=== PATIENT | female | born 1945 | race Caucasian/White ===

== ENCOUNTER 2018-12-25 23:43 | Observation (INO) | payer MEDICARE, BC ==
[2018-12-26] MEDS ORDERED: methylPREDNISolone Sodium Succinate 125 MG/2 ML SDV IVPUSH ONE (00:03)
[2018-12-26] MEDS ORDERED: Sodium Chloride 0.9% 10 ML Syringe FLUSH PRN (00:07)
--- NOTE | 2018-12-26 01:59 | EDM.PDOC ---
ED HPI GENERAL MEDICAL PROBLEM - General Chief Complaint: Respiratory Problem Stated Complaint: SOB Time Seen by Provider: 12/26/18 01:52 Source of Information: Reports: Patient - History of Present Illness INITIAL COMMENTS - FREE TEXT/NARRATIVE: Patient is a 73 YO F who presented to the ED because of worsening dyspnea tonight. She has a history of pulmonary fibrosis and pulmonary hypertension and her pulmonary care is at [facility] in [place]. She is on home oxygen at 2-3 L with an oxygen saturation of 85-90%, however tonight she has just been 80% on 3 L with labored breathing. She also has been having non- productive cough x 2 weeks now with associated low grade fever which started today. She denies any chest pain,edema, but easily get winded just walking 3 steps. Treatments DIRECTOR OF FIELD COORDINATION: Reports: Other (see below) Other Treatments DIRECTOR OF FIELD COORDINATION: cpap - Related Data Allergies Allergy/AdvReac Type Severity Reaction Status Date / Time No Known Allergies Allergy Verified 12/25/18 23:49 Home Meds: Home Meds Acetaminophen [Tylenol Extra Strength] 500 - 1,000 mg PO Q4H PRN 12/26/18 [ History] Albuterol [Ventolin HFA] 1 - 2 puff INH Q4H PRN 12/26/18 [History] Aspirin 81 mg PO MOWEFR 12/26/18 [History] Calcium Carbonate/Vitamin D3 [Calcium 500 mg Chewable Tablet] 2 tab PO DAILY [History] Cholecalciferol (Vitamin D3) [Vitamin D3] 1,000 unit PO DAILY 12/26/18 [History] Cyanocobalamin (Vitamin B-12) [Vitamin B-12] 1,000 mcg PO DAILY 12/26/18 [ History] Ethacrynic Acid 25 mg PO DAILY 12/26/18 [History] FLUoxetine HCl [Fluoxetine HCl] 40 mg PO DAILY 12/26/18 [History] Ferrous Fumarate/Vitamin C [Vitron-C] 1 tab PO DAILY 12/26/18 [History] Flaxseed Oil [Flax Oil] 1,000 mg PO DAILY 12/26/18 [History] Gabapentin [Neurontin] 600 mg PO BID 12/26/18 [History] Insulin Aspart [NovoLOG] 18 units SQ TIDAC 12/26/18 [History] Insulin Glarg,Human.Rec.Analog [Lantus Solostar] 30 unit SQ BEDTIME 12/26/18 [ History] Lutein 20 mg PO DAILY 12/26/18 [History] Macitentan [Opsumit] 10 mg PO DAILY 12/26/18 [History] Metoprolol Tartrate 25 mg PO BID 12/26/18 [History] Miconazole Nitrate [Zeasorb AF] 1 applic TOP BID 12/26/18 [History] Mirabegron [Myrbetriq] 50 mg PO DAILY 12/26/18 [History] Mycophenolate Mofetil [Cellcept] 500 mg PO BID 12/26/18 [History] [place]-3/DHA/Epa/Fish Oil [Fish Oil [place]-3 EC 1,200 mg] 1 tab PO DAILY 12/26/18 [History] Omeprazole 20 mg PO DAILY 12/26/18 [History] Pravastatin Sodium 20 mg PO DAILY 12/26/18 [History] Sildenafil Citrate 20 mg PO TID 12/26/18 [History] Tacrolimus [Prograf] 0.5 mg PO BID 12/26/18 [History] Trimethoprim 100 mg pe PO DAILY 12/26/18 [History] Past Medical History Cardiovascular History: Reports: High Cholesterol, Hypertension, Pulmonary Hypertension Respiratory History: Reports: Pulmonary Fibrosis Gastrointestinal History: Reports: Chronic Constipation, GERD Genitourinary History: Reports: None Endocrine/Metabolic History: Reports: Diabetes, Type II Social & Family History - Tobacco Use Smoking Status *Q: Never Smoker - Caffeine Use Caffeine Use: Reports: None - Recreational Drug Use Recreational Drug Use: No ED ROS GENERAL - Review of Systems Review Of Systems: See Below Constitutional: Reports: Fever, Malaise HEENT: Reports: No Symptoms Respiratory: Reports: Shortness of Breath, Cough Cardiovascular: Reports: Dyspnea on Exertion Endocrine: Reports: High Glucose GI/Abdominal: Reports: No Symptoms : Reports: No Symptoms Musculoskeletal: Reports: No Symptoms Skin: Reports: No Symptoms Neurological: Reports: No Symptoms Psychiatric: Reports: No Symptoms Hematologic/Lymphatic: Reports: No Symptoms Immunologic: Reports: No Symptoms ED EXAM, GENERAL - Physical Exam Exam: See Below Exam Limited By: No Limitations General Appearance: Alert, Anxious, Mild Distress Eye Exam: Bilateral Eye: PERRL Ears: Normal External Exam, Normal Canal Ear Exam: Bilateral Ear: Auricle Normal, Canal Normal, TM normal Nose: Normal Inspection, Normal Mucosa Throat/Mouth: Normal Inspection, Normal Lips, Normal Teeth, Normal Oropharynx Head: Atraumatic, Normocephalic Neck: Normal Inspection, Supple, Non-Tender, Full Range of Motion Respiratory/Chest: Lungs Clear, Chest Non-Tender, Other (decrease BS on bases). No: Rales, Rhonchi, Wheezing Cardiovascular: Normal Peripheral Pulses, Regular Rate, Rhythm, No Edema, No JVD , No Murmur, No Rub Course - Vital Signs Text/Narrative:: labs reviewed and discussed with patient and EKG NSR Trop-neg [id number] WBC-13 cpap solumedrol 125 mg IV x1 Last Recorded V/S: Last Vital Signs Temp 38.2 C H 12/25/18 23:43 Pulse 80 12/25/18 23:43 Resp 24 H 12/25/18 23:43 BP 117/45 L 12/25/18 23:43 Pulse Ox 87 L 12/25/18 23:43 - Orders/Labs/Meds Orders: Active Orders 24 hr Category Date Time Status Patient Status Manage Transfer [TRANSFER] Routine ADT 12/26/18 01:14 Active Patient Status [ADT] Routine ADT 12/26/18 01:23 Active CPAP Adult [RT BiPAP/CPAP] [RC] ASDIRECTED Care 12/26/18 01:47 Active EKG Documentation Completion [RC] ASDIRECTED Care 12/26/18 00:05 Active Oxygen Therapy [RC] PRN Care 12/26/18 01:23 Active Pulse Oximetry [RC] CONTINUOUS Care 12/26/18 01:25 Active Up With Assistance [RC] ASDIRECTED Care 12/26/18 01:23 Active VTE/DVT Education [RC] Per Unit Routine Care 12/26/18 01:23 Active Vital Signs [RC] Q4H Care 12/26/18 01:23 Active Heart Healthy Diet [DIET] Diet 12/26/18 Breakfast Ordered Chest 1V Frontal [CR] Stat Exams 12/26/18 00:01 Taken Enoxaparin [Lovenox] Med 12/26/18 01:30 Pending 40 mg SUBCUT Q24H Sodium Chloride 0.9% [Saline Flush] Med 12/26/18 00:07 Active 10 ml FLUSH ASDIRECTED PRN Saline Lock Insert [OM.PC] Routine Oth 12/26/18 00:07 Ordered Resuscitation Status Routine Resus Stat 12/26/18 01:23 Ordered EKG 12 Lead [EK] Routine Ther 12/26/18 00:05 Ordered Medication Orders Enoxaparin Sodium (Lovenox) 40 mg SUBCUT Q24H CHENCHO Sodium Chloride (Saline Flush) 10 ml FLUSH ASDIRECTED PRN PRN Reason: Keep Vein Open Last Admin: 12/26/18 00:22 Dose: 10 ml Labs: Laboratory Tests 12/26/18 12/26/18 12/26/18 Range/Units 00:18 00:18 00:18 WBC 13.4 H (4.5-12.0) X10-3/uL RBC 4.51 (3.23-5.20) x10(6)uL Hgb 13.9 (11.5-15.5) g/dL Hct 41.7 (30.0-51.3) % MCV 92.5 (80-96) fL MCH 30.7 (27.7-33.6) pg MCHC 33.2 (32.2-35.4) g/dL RDW 13.4 (11.5-15.5) % Plt Count 313 (125-369) X10(3)uL MPV 7.9 (7.4-10.4) fL Neutrophils % (Manual) 68 (46-82) % Band Neutrophils % 4 (0-6) % Lymphocytes % (Manual) 18 (13-37) % Monocytes % (Manual) 7 (4-12) % Eosinophils % (Manual) 3 (0-5) % Sodium 137 (135-145) mmol/L Potassium 5.2 (3.5-5.3) mmol/L Chloride 103 (100-110) mmol/L Carbon Dioxide 21 (21-32) mmol/L BUN 34 H (7-18) mg/dL Creatinine 1.9 H (0.55-1.02) mg/dL Est Cr Clr Drug Dosing TNP Estimated GFR (MDRD) 26 L (>60) BUN/Creatinine Ratio 17.9 (9-20) Glucose 120 H (80-116) mg/dL Lactic Acid 2.0 (0.4-2.2) mmol/L Calcium 9.1 (8.6-10.2) mg/dL Troponin I (<0.017-0.056) ng/mL NT-Pro-B Natriuret Pep (<=125) pg/mL 12/26/18 12/26/18 Range/Units 00:18 00:18 WBC (4.5-12.0) X10-3/uL RBC (3.23-5.20) x10(6)uL Hgb (11.5-15.5) g/dL Hct (30.0-51.3) % MCV (80-96) fL MCH (27.7-33.6) pg MCHC (32.2-35.4) g/dL RDW (11.5-15.5) % Plt Count (125-369) X10(3)uL MPV (7.4-10.4) fL Neutrophils % (Manual) (46-82) % Band Neutrophils % (0-6) % Lymphocytes % (Manual) (13-37) % Monocytes % (Manual) (4-12) % Eosinophils % (Manual) (0-5) % Sodium (135-145) mmol/L Potassium (3.5-5.3) mmol/L Chloride (100-110) mmol/L Carbon Dioxide (21-32) mmol/L BUN (7-18) mg/dL Creatinine (0.55-1.02) mg/dL Est Cr Clr Drug Dosing Estimated GFR (MDRD) (>60) BUN/Creatinine Ratio (9-20) Glucose (80-116) mg/dL Lactic Acid (0.4-2.2) mmol/L Calcium (8.6-10.2) mg/dL Troponin I < 0.017 L (<0.017-0.056) ng/mL NT-Pro-B Natriuret Pep 2391 H* (<=125) pg/mL Meds: Medications Generic Name Dose Route Start Last Admin Trade Name Freq PRN Reason Stop Dose Admin Enoxaparin Sodium 40 mg 12/26/18 01:30 Lovenox SUBCUT Q24H CHENCHO Sodium Chloride 10 ml 12/26/18 00:07 12/26/18 00:22 Saline Flush FLUSH 10 ml ASDIRECTED PRN Administration Keep Vein Open Discontinued Medications Generic Name Dose Route Start Last Admin Trade Name Freq PRN Reason Stop Dose Admin Methylprednisolone Sodium Succinate 125 mg 12/26/18 00:03 12/26/18 00:19 Solu-Medrol IVPUSH 12/26/18 00:04 125 mg ONETIME ONE Administration Departure - Departure Time of Disposition: 12:15 Disposition: Refer to Observation Condition: Good Clinical Impression: Pulmonary fibrosis, Pulmonary hypertension, Hypoxemia - Discharge Information Referrals: Shubham Cox MD [Primary Care Provider] - - My Orders Last 24 Hours: My Active Orders 12/26/18 00:01 Chest 1V Frontal [CR] Stat 12/26/18 00:05 EKG Documentation Completion [RC] ASDIRECTED EKG 12 Lead [EK] Routine 12/26/18 00:07 Sodium Chloride 0.9% [Saline Flush] 10 ml FLUSH ASDIRECTED PRN Saline Lock Insert [OM.PC] Routine 12/26/18 01:14 Patient Status Manage Transfer [TRANSFER] Routine 12/26/18 01:23 Patient Status [ADT] Routine Oxygen Therapy [RC] PRN Up With Assistance [RC] ASDIRECTED VTE/DVT Education [RC] Per Unit Routine Vital Signs [RC] Q4H Resuscitation Status Routine 12/26/18 01:25 Pulse Oximetry [RC] CONTINUOUS 12/26/18 01:30 Enoxaparin [Lovenox] 40 mg SUBCUT Q24H 12/26/18 01:47 CPAP Adult [RT BiPAP/CPAP] [RC] ASDIRECTED 12/26/18 Breakfast Heart Healthy Diet [DIET] - Assessment/Plan Last 24 Hours: My Active Orders 12/26/18 00:01 Chest 1V Frontal [CR] Stat 12/26/18 00:05 EKG Documentation Completion [RC] ASDIRECTED EKG 12 Lead [EK] Routine 12/26/18 00:07 Sodium Chloride 0.9% [Saline Flush] 10 ml FLUSH ASDIRECTED PRN Saline Lock Insert [OM.PC] Routine 12/26/18 01:14 Patient Status Manage Transfer [TRANSFER] Routine 12/26/18 01:23 Patient Status [ADT] Routine Oxygen Therapy [RC] PRN Up With Assistance [RC] ASDIRECTED VTE/DVT Education [RC] Per Unit Routine Vital Signs [RC] Q4H Resuscitation Status Routine 12/26/18 01:25 Pulse Oximetry [RC] CONTINUOUS 12/26/18 01:30 Enoxaparin [Lovenox] 40 mg SUBCUT Q24H 12/26/18 01:47 CPAP Adult [RT BiPAP/CPAP] [RC] ASDIRECTED 12/26/18 Breakfast Heart Healthy Diet [DIET]
[2018-12-26] MEDS ORDERED: methylPREDNISolone Sodium Succinate 125 MG/2 ML SDV IVPUSH SCH ×2 (02:00→08:00)
[2018-12-26] MEDS ORDERED: Enoxaparin 30 MG/0.3 ML Syringe SUBCUT SCH (02:45)
[2018-12-26] MEDS ORDERED: Albuterol 8 GM Inhaler INH PRN (02:56)
[2018-12-26] MEDS ORDERED: Acetaminophen 500 MG Tab PO PRN (02:56)
[2018-12-26] MEDS ORDERED: INSULIN ASPART 18 UNIT SQ SCH (07:30)
[2018-12-26] MEDS ORDERED: NOVOLOG SUBCUT SCH (08:12)
[2018-12-26] MEDS ORDERED: Metoprolol Tartrate 25 MG Tab PO SCH (09:00)
[2018-12-26] MEDS ORDERED: FLAXSEED OIL 1200 MG PO SCH (09:00)
[2018-12-26] MEDS ORDERED: Aspirin 81 MG Tab.EC *PTOM PO SCH (09:00)
[2018-12-26] MEDS ORDERED: TACROLIMUS 0.5 MG PO SCH (09:00)
[2018-12-26] MEDS ORDERED: VITAMIN D3 PO SCH (09:00)
[2018-12-26] MEDS ORDERED: DHA PO SCH (09:00)
[2018-12-26] MEDS ORDERED: MIRABEGRON 50 MG PO SCH (09:00)
[2018-12-26] MEDS ORDERED: SILDENAFIL 20 MG PO SCH (09:00)
[2018-12-26] MEDS ORDERED: FLAXSEED OIL 1000 MG PO SCH (09:00)
[2018-12-26] MEDS ORDERED: Gabapentin 600 MG Tab *PTOM PO SCH (09:00)
[2018-12-26] MEDS ORDERED: MYCOPHENOLATE MOFETIL 500 MG PO SCH (09:00)
[2018-12-26] MEDS ORDERED: MACITENTAN 10 MG PO SCH (09:00)
[2018-12-26] MEDS ORDERED: Cyanocobalamin (Vitamin B12) 1,000 MCG Tab *PTOM PO SCH (09:00)
[2018-12-26] MEDS ORDERED: CALCIUM CARBONATE PO SCH (09:00)
[2018-12-26] MEDS ORDERED: FISH OIL PO SCH (09:00)
[2018-12-26] MEDS ORDERED: OMEGA PO SCH (09:00)
[2018-12-26] MEDS ORDERED: EPA PO SCH (09:00)
[2018-12-26] MEDS ORDERED: [UNRECOGNIZED DRUG - OTHER] PO SCH (09:00)
[2018-12-26] MEDS ORDERED: MICONAZOLE NITRATE TOP SCH (09:00)
[2018-12-26] MEDS ORDERED: PRAVASTATIN 20 MG PO SCH (09:00)
[2018-12-26] MEDS ORDERED: TRIMETHOPRIM 100 MG PO SCH (09:00)
[2018-12-26] MEDS ORDERED: Insulin Glargine,Human Rec. Analog 100 Units/ML 3 ML Pen *PTOM SUBCUT SCH (21:00)
[2018-12-27] MEDS ORDERED: Enoxaparin 30 MG/0.3 ML Syringe SUBCUT SCH (08:00)
--- NOTE | 2018-12-27 11:26 | HP ---
ADMISSION DATE: 12/26/2018 HISTORY: Karol is a 73-year-old woman with a history of steatohepatitis, resultant cirrhosis, and liver transplant. She has been followed at the [facility] for this since her transplant in 2010. At that time, she was found to have hepatocellular carcinoma. 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 The patient was admitted from the ER last evening because of increased shortness of breath and decreased oxygen saturation level. According to the patient, she has had a mild cough for the past couple of weeks, but without fever, chills, sweats, or symptoms of infection. Yesterday, she had extremely active day where she was up to [place], went shopping, went out to supper with friends, and then after getting home, she found she was more short of breath. She felt slight chills and dyspnea. The ambulance was summoned. They came and found her O2 saturation dropped down into the 70s and applied CPAP during transport to hospital. She was seen in the emergency room, treated with IV steroid, oxygen by mask, and admitted to the hospital. She says overnight she has improved dramatically back to her baseline. She did not have any fever or chills overnight. Her oxygen saturations at 4 L remained up in the 96% range back to her baseline. Chest x-ray was done, showed no sign of pneumonia and borderline heart size, consistent with the previous echocardiogram done at the [facility]. She is examined this morning in the room with her present. PAST MEDICAL HISTORY: See above. MEDICATIONS: See extensive list updated on admission. REVIEW OF SYSTEMS: Positive for chills, but no other symptoms of systemic infection. No recent changes in hearing or vision. No sore throat or URI. She does have a chronic cough that she states is essentially nonproductive. No chest pain or palpitations. No abdominal pain, nausea, or diarrhea. She does report swelling of her ankles at the end of the day that are down to normal by mornings. This is not a new change. PHYSICAL EXAMINATION: GENERAL: She is alert, comfortable, and a good historian. VITAL SIGNS: Blood pressure 116/59, pulse 60 and regular, respirations 20, O2 saturation 92% on 4 liters nasal cannula oxygen, and temperature 98.4. SKIN: Anicteric, warm, dry without rash. HEENT: Shows mouth to be dry. LUNGS: Have distant vesicular type breath sounds with dry rales at the left greater than right bases. HEART: Regular with a soft systolic murmur over the precordium. ABDOMEN: Normal bowel sounds. Soft, obese, nontender with a firm mass consistent with liver transplant in the right lateral abdomen. EXTREMITIES: No edema and intact dorsalis pedis pulses. LABORATORY DATA: White count 13,400, hemoglobin 13.9, 68 segs, 4 bands, 18 lymphocytes, 7 monos, 3 eos. Electrolytes normal. BUN 34, creatinine 1.9. ProBNP 2391. Troponin less than 0.017. Chest x-ray clear. ASSESSMENT: 1. Transient drop in O2 saturation with dyspnea, multifactorial with biggest component being pulmonary fibrosis with right-sided ventricular strain exacerbated by above normal amount of activity and exertion. 2. Underlying hepatopulmonary syndrome post liver transplant for nonalcoholic steatohepatitis and hepatocellular carcinoma. 3. Type 2 diabetes. 4. Hyperlipidemia. 5. Chronic immunosuppression on Prograf. 6. Osteoporosis. 7. History of hypertension. PLAN: At this time, we will continue her current medications. She has received two doses of IV steroid, and we will discontinue that. Anticipate a brief hospitalization with return to home. /[id number] EUSEBIO/KASANDRA
--- NOTE | 2018-12-27 12:04 | DISCH ---
DISCHARGE DATE: 12/26/2018 FINAL DIAGNOSIS: Acute exacerbation of pulmonary hypertension with hypoxia. OTHER DIAGNOSES: Status post liver transplant with hepatopulmonary syndrome; type 2 diabetes; history of hepatocellular carcinoma; oxygen dependence; chronic immunosuppression posttransplant; chronic kidney disease, stage 3; osteoporosis; hyperlipidemia; chronic essential hypertension; gastroesophageal reflux disease; and mixed urinary incontinence. OPERATIONS: None. COMPLICATIONS: None. HOSPITAL COURSE: Mrs. Valdes is a 73-year-old woman with the above medical problems, who was admitted because of dyspnea and a drop in O2 saturation at home, post a long day of shopping and physical activity. She was brought to the ER by ambulance on CPAP because of low O2 saturation. She normally is on 3 L of nasal cannula oxygen at home. On admission, chest x-ray was clear. She was afebrile. Her oxygen was switched off the CPAP back to mask in the nasal cannula, and her oxygen saturations stayed up into the 90s on 4 L. She was admitted to the hospital overnight and by the next morning, felt well and back to her baseline. DISCHARGE MEDICATIONS: She is discharged to home to continue medications as follows: 1. Trimethoprim 100 mg daily. 2. Prograf 0.5 mg b.i.d. 3. Sildenafil 20 mg t.i.d. 4. Pravachol 20 mg daily. 5. Prilosec 20 mg daily. 6. Fish oil one daily. 7. Mycophenolate 500 mg b.i.d. 8. Myrbetriq 50 mg daily. 9. Miconazole powder p.r.n. 10.Metoprolol 25 mg b.i.d. 11.Opsumit 10 mg daily. 12.Lutein 20 mg daily. 13.Lantus 30 units at bedtime. 14.NovoLog 18 to 20 units t.i.d. a.c. 15.Gabapentin 600 mg b.i.d. 16.Fluoxetine 40 mg daily. 17.Flaxseed oil 1000 mg daily. 18.Iron sulfate one tab daily. 19.Edecrin 25 mg one tab daily and second tablet if persistent ankle edema in the mornings. 20.Vitamin B12 1000 mcg daily. 21.Vitamin D3 1000 units daily. 22.Calcium chewable, 2 daily. 23.Aspirin 81 mg daily. 24.Ventolin HFA p.r.n. 25.Tylenol p.r.n. FOLLOWUP: She is scheduled to have her followup with the [facility] in January. She should be seen in the clinic sooner than that time on a p.r.n. basis. /[id number] CHRISTINE
== END 2018-12-26 11:10 | disposition home or self-care (01) ==
LOC: FB.ED 23:43 → FB.MS 12-26 01:28
PROVIDERS: ADMIT Family Medicine; ATTEND Family Medicine
DX: I27.20 Pulmonary hypertension, unspecified (principal); I12.9 Hypertensive chronic kidney disease with stage 1 through stage 4 chronic kidney disease, or unspecified chronic kidney disease; E11.22 Type 2 diabetes mellitus with diabetic chronic kidney disease; N18.3 Chronic kidney disease, stage 3 (moderate); M81.0 Age-related osteoporosis without current pathological fracture; E78.5 Hyperlipidemia, unspecified; T86.49 Other complications of liver transplant; K75.81 Nonalcoholic steatohepatitis (NASH); K76.81 Hepatopulmonary syndrome; D89.9 Disorder involving the immune mechanism, unspecified; Z94.4 Liver transplant status; Z85.05 Personal history of malignant neoplasm of liver; Z79.4 Long term (current) use of insulin
CPT/HCPCS: 36415; 71045; 80048; 83605; 83880; 84484; 85025; 93005; 96372; 96374; 99285; A9270; G0378; J1650; J1815; J2930

== ENCOUNTER 2019-02-03 22:02 | Emergency (ER) | payer MEDICARE, BC ==
[2019-02-03] MEDS ORDERED: Ondansetron 4 MG Tab.DIS PO ONE (22:19)
[2019-02-04] MEDS ORDERED: Ciprofloxacin 500 MG Tab PO ONE (00:19)
--- NOTE | 2019-02-04 00:22 | EDM.PDOC ---
ED HPI GENERAL MEDICAL PROBLEM - General Stated Complaint: SOB Time Seen by Provider: 02/03/19 22:10 Source of Information: Reports: Patient History Limitations: Reports: No Limitations - History of Present Illness INITIAL COMMENTS - FREE TEXT/NARRATIVE: Patient is a 73 YO WF who has known h/o pulmonary fibrosis and Pulmonary HTN presented to the ED because of dyspnea and chills. She denies any recent cough or cold symptoms. She however c/o dysuria and urgency x 2 days,denies flank pain. - Related Data Allergies Allergy/AdvReac Type Severity Reaction Status Date / Time Sulfa (Sulfonamide Allergy Rash Verified 12/26/18 03:31 Antibiotics) Home Meds: Home Meds Acetaminophen [Tylenol Extra Strength] 500 - 1,000 mg PO Q4H PRN 12/26/18 [ History] Albuterol [Ventolin HFA] 1 - 2 puff INH Q4H PRN 12/26/18 [History] Aspirin 81 mg PO MOWEFR 12/26/18 [History] Calcium Carbonate/Vitamin D3 [Calcium 500 mg Chewable Tablet] 2 tab PO DAILY [History] Cholecalciferol (Vitamin D3) [Vitamin D3] 1,000 unit PO DAILY 12/26/18 [History] Cyanocobalamin (Vitamin B-12) [Vitamin B-12] 1,000 mcg PO DAILY 12/26/18 [ History] Ethacrynic Acid 25 mg PO DAILY 12/26/18 [History] FLUoxetine HCl [Fluoxetine HCl] 40 mg PO DAILY 12/26/18 [History] Ferrous Fumarate/Vitamin C [Vitron-C] 1 tab PO DAILY 12/26/18 [History] Flaxseed Oil [Flax Oil] 1,000 mg PO DAILY 12/26/18 [History] Gabapentin [Neurontin] 600 mg PO BID 12/26/18 [History] Insulin Aspart [NovoLOG] 18 units SQ TIDAC 12/26/18 [History] Insulin Glarg,Human.Rec.Analog [Lantus Solostar] 30 unit SQ BEDTIME 12/26/18 [ History] Lutein 20 mg PO DAILY 12/26/18 [History] Macitentan [Opsumit] 10 mg PO DAILY 12/26/18 [History] Metoprolol Tartrate 25 mg PO BID 12/26/18 [History] Miconazole Nitrate [Zeasorb AF] 1 applic TOP BID 12/26/18 [History] Mirabegron [Myrbetriq] 50 mg PO DAILY 12/26/18 [History] Mycophenolate Mofetil [Cellcept] 500 mg PO BID 12/26/18 [History] [place]-3/DHA/Epa/Fish Oil [Fish Oil [place]-3 EC 1,200 mg] 1 tab PO DAILY 12/26/18 [History] Omeprazole 20 mg PO DAILY 12/26/18 [History] Pravastatin Sodium 20 mg PO DAILY 12/26/18 [History] Sildenafil Citrate 20 mg PO TID 12/26/18 [History] Tacrolimus [Prograf] 0.5 mg PO BID 12/26/18 [History] Trimethoprim 100 mg pe PO DAILY 12/26/18 [History] Ciprofloxacin HCl [Cipro] 500 mg PO BID #6 tablet 02/04/19 [Rx] Past Medical History Cardiovascular History: Reports: High Cholesterol, Hypertension, Pulmonary Hypertension Respiratory History: Reports: Pulmonary Fibrosis Gastrointestinal History: Reports: Chronic Constipation, GERD Genitourinary History: Reports: None Musculoskeletal History: Reports: Fibromyalgia Psychiatric History: Reports: None Endocrine/Metabolic History: Reports: Diabetes, Type II Immunologic History: Reports: Solid Organ Transplant Social & Family History - Family History Family Medical History: Noncontributory - Caffeine Use Caffeine Use: Reports: None ED ROS GENERAL - Review of Systems Review Of Systems: See Below Constitutional: Reports: No Symptoms HEENT: Reports: No Symptoms Respiratory: Reports: No Symptoms Cardiovascular: Reports: Dyspnea on Exertion Endocrine: Reports: No Symptoms GI/Abdominal: Reports: No Symptoms : Reports: Dysuria, Frequency. Denies: Flank Pain Musculoskeletal: Reports: No Symptoms Skin: Reports: No Symptoms ED EXAM, GENERAL - Physical Exam Exam: See Below Exam Limited By: No Limitations General Appearance: Alert, WD/WN, No Apparent Distress Ears: Normal External Exam, Normal Canal, Hearing Grossly Normal Nose: Normal Inspection, Normal Mucosa, No Blood Throat/Mouth: Normal Inspection, Normal Lips, Normal Teeth, Normal Gums Head: Atraumatic, Normocephalic Neck: Normal Inspection, Supple, Non-Tender, Full Range of Motion Respiratory/Chest: No Respiratory Distress, Normal Breath Sounds, No Accessory Muscle Use. No: Crackles, Rales, Rhonchi Cardiovascular: Normal Peripheral Pulses, Regular Rate, Rhythm, No Edema, No JVD , No Murmur GI/Abdominal: Normal Bowel Sounds, Soft, Non-Tender, No Organomegaly (Female) Exam: Normal External Exam, Normal Speculum Exam, Cervical Dilatation Back Exam: Normal Inspection, Full Range of Motion Extremities: Normal Inspection Course - Vital Signs Text/Narrative:: labs reviewed and discusssed with patient and Labs- cbc,cmp,bnp,trop-no changes c/w her previous ED visit She is unable to void but she is symptomatic for UTI,will just treat with cipro 250 po BID x 3 days. Last Recorded V/S: Last Vital Signs Temp 37.3 C 02/04/19 00:30 Pulse 76 02/04/19 00:30 Resp 22 H 02/04/19 00:30 BP 98/42 L 02/04/19 00:30 Pulse Ox 89 L 02/04/19 00:30 - Orders/Labs/Meds Orders: Active Orders 24 hr Category Date Time Status EKG Documentation Completion [RC] ASDIRECTED Care 02/03/19 22:19 Active Chest 1V Frontal [CR] Stat Exams 02/03/19 22:18 Taken EKG 12 Lead [EK] Routine Ther 02/03/19 22:19 Ordered Labs: Laboratory Tests 02/03/19 02/03/19 02/03/19 Range/Units 22:30 22:30 22:30 WBC 12.4 H (4.5-12.0) X10-3/uL RBC 4.58 (3.23-5.20) x10(6)uL Hgb 13.8 (11.5-15.5) g/dL Hct 42.9 (30.0-51.3) % MCV 93.6 (80-96) fL MCH 30.2 (27.7-33.6) pg MCHC 32.2 (32.2-35.4) g/dL RDW 13.3 (11.5-15.5) % Plt Count 308 (125-369) X10(3)uL MPV 7.9 (7.4-10.4) fL Neut % (Auto) 74.0 (46-82) % Lymph % (Auto) 18.4 (13-37) % [place] % (Auto) 5.4 (4-12) % Eos % (Auto) 2 (1.0-5.0) % Baso % (Auto) 0 (0-2) % Neut # (Auto) 9.2 H (1.6-8.3) # Lymph # (Auto) 2.3 (0.6-5.0) # [place] # (Auto) 0.7 (0.0-1.3) # Eos # (Auto) 0.2 (0.0-0.8) # Baso # (Auto) 0.0 (0.0-0.2) # Sodium 138 (135-145) mmol/L Potassium 4.4 (3.5-5.3) mmol/L Chloride 104 (100-110) mmol/L Carbon Dioxide 23 (21-32) mmol/L BUN 27 H (7-18) mg/dL Creatinine 1.8 H (0.55-1.02) mg/dL Est Cr Clr Drug Dosing 20.69 mL/min Estimated GFR (MDRD) 28 L (>60) BUN/Creatinine Ratio 15.0 (9-20) Glucose 120 H (80-116) mg/dL Calcium 9.0 (8.6-10.2) mg/dL Total Bilirubin 0.5 (0.1-1.3) mg/dL AST 13 (5-25) IU/L ALT 14 (12-36) U/L Alkaline Phosphatase 81 (56-112) IU/L Troponin I < 0.017 L (<0.017-0.056) ng/mL NT-Pro-B Natriuret Pep 2235 H* (<=125) pg/mL Total Protein 7.2 (6.0-8.0) g/dL Albumin 3.3 (3.2-4.6) g/dL Globulin 3.9 g/dL Albumin/Globulin Ratio 0.9 Meds: Medications Discontinued Medications Generic Name Dose Route Start Last Admin Trade Name Freq PRN Reason Stop Dose Admin Ciprofloxacin 500 mg 02/04/19 00:19 02/04/19 00:28 Ciprofloxacin Hcl PO 02/04/19 00:20 500 mg ONETIME ONE Administration Ondansetron HCl 4 mg 02/03/19 22:19 02/03/19 22:25 Zofran Odt PO 02/03/19 22:20 4 mg ONETIME ONE Administration Departure - Departure Time of Disposition: 00:20 Disposition: Home, Self-Care 01 Preliminary Cause of *Q: Cardiac Arrest Condition: Good Clinical Impression: Pulmonary fibrosis - Discharge Information *PRESCRIPTION DRUG MONITORING PROGRAM REVIEWED*: No *COPY OF PRESCRIPTION DRUG MONITORING REPORT IN PATIENT [place]: No Prescriptions: Ciprofloxacin HCl [Cipro] 500 mg PO BID #6 tablet Instructions: Urinary Tract Infection, Adult Referrals: Shubham Cox MD [Primary Care Provider] - Forms: ED Department Discharge Additional Instructions: please read discahrge instructions on UTI cipro 500 mg twice daily for 3 days follow up urine culture result - My Orders Last 24 Hours: My Active Orders 02/03/19 22:18 Chest 1V Frontal [CR] Stat 02/03/19 22:19 EKG Documentation Completion [RC] ASDIRECTED EKG 12 Lead [EK] Routine - Assessment/Plan Last 24 Hours: My Active Orders 02/03/19 22:18 Chest 1V Frontal [CR] Stat 02/03/19 22:19 EKG Documentation Completion [RC] ASDIRECTED EKG 12 Lead [EK] Routine
== END 2019-02-04 00:40 | disposition home or self-care (01) ==
LOC: FB.ED 22:02
DX: J84.10 Pulmonary fibrosis, unspecified (principal); I10 Essential (primary) hypertension; E11.9 Type 2 diabetes mellitus without complications; K21.9 Gastro-esophageal reflux disease without esophagitis; E78.5 Hyperlipidemia, unspecified; Z88.2 Allergy status to sulfonamides; Z79.4 Long term (current) use of insulin
CPT/HCPCS: 36415; 71045; 80053; 83880; 84484; 85025; 93005; 99285; A9270

== ENCOUNTER 2019-04-25 00:18 | Inpatient (IN) | payer MEDICARE, BC ==
[2019-04-25] MEDS ORDERED: Morphine 2 MG/ML Syringe IVPUSH PRN (01:14)
[2019-04-25] MEDS ORDERED: cefTRIAXone 1 GM Vial IVPUSH SCH (01:15)
[2019-04-25] MEDS ORDERED: Azithromycin 500 MG in Sodium Chloride 0.9% 250 ML IV SCH (01:15)
[2019-04-25] MEDS: methylPREDNISolone Sodium Succinate 125 MG/2 ML SDV IVPUSH SCH ×3 (02:03→17:38)
[2019-04-25] MEDS: Sodium Chloride 0.9% 10 ML Syringe FLUSH PRN ×6 (02:04→21:16)
--- NOTE | 2019-04-25 02:39 | ER ---
DATE SEEN: 04/25/2019 REASON FOR VISIT: Cough. HISTORY OF PRESENT ILLNESS: Karol is a 73-year-old female who comes in with a 3-day history of a cough that is productive along with upper respiratory symptoms of runny nose, hoarseness of the voice, and congestion. She also endorses hypoxia, lethargy, and decreased oral intake. She has a history of pulmonary fibrosis, hepatopulmonary syndrome, chronic kidney disease stage 3, type 2 diabetes, hyperlipidemia, hypertension. She has had a transplant of liver when she was found to have a hepatocellular carcinoma back in 2010 at the [facility]. REVIEW OF SYSTEMS: She complains of fever and chills, but denies any urinary symptoms or GI symptoms. MEDICATIONS: Please see the nurse's notes. PAST MEDICAL HISTORY: Please see HPI. Also note that she was seen in the ER in January and admitted here in November of this year. PHYSICAL EXAMINATION: GENERAL: She is sick-appearing, in a wheelchair. VITAL SIGNS: She is hypoxic at 70% when she came in with oxygen saturations and temp 99.6. ENT: Negative. NECK: Soft. Trachea is midline. CHEST: Has occasional crepitations and diminished breath sounds at the bases. EXTREMITIES: No peripheral edema noted. MENTAL STATUS: Alert but dysthymic affect. LABORATORY DATA: Initial labs, white cell count of 11.5. Chest x-ray showed increased infiltrates on the right side. IMPRESSION: 1. Community-acquired pneumonia. 2. Pulmonary fibrosis exacerbation. 3. History of hepatorenal syndrome. PLAN: Admit. Start IV Solu-Medrol, oxygen supplementation by nasal cannula, IV antibiotics, and repeat labs in the morning. /[id number] DALE/KASANDRA
[2019-04-25] MEDS: Albuterol/Ipratropium 3.0-0.5 MG/3 ML Neb Soln NEB SCH ×4 (06:14→20:45)
[2019-04-25] MEDS ORDERED: PRAVASTATIN SODIUM 20 MG PO SCH (10:00)
[2019-04-25] MEDS ORDERED: Piperacillin/Tazobactam 2.25 GM in Sodium Chloride 0.9% 50 ML IV SCH (10:00)
[2019-04-25] MEDS ORDERED: Acetaminophen 500 MG Tab PO PRN (10:01)
[2019-04-25] MEDS: BREO ELLIPTA INH SCH (10:22)
[2019-04-25] MEDS: Metoprolol Tartrate 25 MG Tab PO SCH ×2 (10:22→20:50)
[2019-04-25] MEDS: FLUoxetine 20 MG Cap PO SCH (10:25)
[2019-04-25] MEDS: MACITENTAN 10 MG PO SCH (10:25)
[2019-04-25] MEDS: Sildenafil 20 MG Tab PO SCH ×3 (10:26→20:51)
[2019-04-25] MEDS: Mycophenolate Mofetil 250 MG Cap PO SCH ×2 (10:26→20:50)
[2019-04-25] MEDS: Tacrolimus 0.5 MG Cap PO SCH (10:26)
[2019-04-25] MEDS: Piperacillin/Tazobactam 2.25 GM in Sodium Chloride 0.9% 50 ML IV SCH ×3 (10:34→21:10)
[2019-04-25] MEDS: Gabapentin 600 MG Tab PO SCH ×2 (10:34→20:50)
--- NOTE | 2019-04-25 11:41 | HP ---
ADMISSION DATE: 04/25/2019 CHIEF COMPLAINT: Pneumonia. HISTORY OF PRESENT ILLNESS: Ms. Valdes is a 73-year-old woman with a history of liver transplant, on immunosuppression; type 2 diabetes; chronic kidney disease; hypertension; recurrent urinary tract infections; and pulmonary hypertension. She has had URI symptoms with congestion for the past few days and then last evening developed sudden rigors, weakness, worsening cough, and a low-grade fever. For this reason, she was brought to the emergency room and was admitted, was evaluated by Dr. Plasencia, and is now admitted to acute care with pneumonia. The patient has had pneumonia in the past, but in general she has been fairly stable without much medication change lately. She was hospitalized in November 2018 at [facility] for shortness of breath and was treated with IV steroid. PAST MEDICAL HISTORY: Liver transplant in approximately 2010. She has pulmonary fibrosis with pulmonary hypertension, chronic kidney disease, type 2 diabetes, hypertension, hyperlipidemia, and recurrent urinary tract infections. MEDICATIONS: 1. Trimethoprim 100 mg daily. 2. Tacrolimus 0.5 mg daily. 3. Sildenafil 20 mg t.i.d. 4. Omeprazole 30 mg b.i.d. 5. Pravastatin 20 mg daily. 6. CellCept 500 mg b.i.d. 7. Myrbetriq 50 mg daily. 8. Metoprolol 25 mg b.i.d. 9. Macitentan 10 mg daily. 10.Lispro 16 units t.i.d. p.r.n. sliding scale. 11.Glargine insulin 26 to 30 units subcu at bedtime. 12.Gabapentin 600 mg b.i.d. 13.Breo 1 puff daily. 14.Fluoxetine 40 mg daily. 15.Atacand 25 mg daily. 16.Aspirin 81 mg daily. 17.Albuterol 2 puffs q.i.d. p.r.n. 18.Tylenol p.r.n. ALLERGIES: Sulfa, tiotropium, vancomycin, erythromycin base caused nausea and vomiting, and contrast caused nausea. HABITS: Nonsmoker and nondrinker. FAMILY AND SOCIAL HISTORY: The patient is . She lives with her in [place]. She has 2 daughters. She has her routine transplant care at the [facility]. REVIEW OF SYSTEMS: GENERAL: No seizure, syncope, or recent significant weight change. HEENT: No recent changes in hearing or vision. No headaches. No sore throat. She has had head congestion as mentioned and cough with dyspnea. RESPIRATORY: No chest pain or palpitations. ABDOMEN: No abdominal pain. She had 1 episode of vomiting last night. No diarrhea. EXTREMITIES: No joint inflammation, swelling, skin rash. PHYSICAL EXAMINATION: GENERAL: She is alert, comfortable, and a good historian. She states she feels better now than when she came in. VITAL SIGNS: Blood pressure 105/52, pulse 75 and regular, respirations 20, temperature 98.2, weight 163 pounds, O2 saturation 93% on 4 L nasal cannula, respirations 20. SKIN: Anicteric, warm, dry without rash. HEENT: Show clear TMs, show pupils to be equal and reactive. Oropharynx is clear. Mouth dry. LUNGS: Have rales at the right lower 1/3 and fine rales at the left base. HEART: Regular. No murmur or gallop heard. ABDOMEN: Obese, soft, nontender. No masses. No organomegaly. EXTREMITIES: Show no edema. LABORATORY: White count 9700, hemoglobin 12.6. Sodium 140, potassium 5.2, BUN 35, creatinine 2.0. Creatinine clearance estimated at 20. Glucose 246. CRP 39. ProBNP 3102. Chest x-ray shows bilateral infiltrates. ASSESSMENT: 1. Bilateral pneumonia. 2. Immunosuppression due to medications for liver transplant with past history of idiopathic cirrhosis with hepatocellular carcinoma. 3. Chronic kidney disease stage 4. 4. Type 2 diabetes. 5. Obesity. 6. Hypertension. 7. Hyperlipidemia. 8. Depression. 9. Mixed urinary incontinence. 10.History of recurrent urinary tract infections. 11.Pulmonary fibrosis with pulmonary hypertension. 12.Gastroesophageal reflux disease. PLAN: She is admitted to the hospital. She is started on IV antibiotics and IV steroid. Anticipate a 48- to 72-hour hospital stay followed by plans for return to home if recuperation is adequate. We will continue to provide Ms. Valdes palliative care measures for underlying medical problems. /[id number] EUSEBIO/KASANDRA
[2019-04-25] MEDS: Insulin Lispro 100 Unit/ML 3 ML KwikPen SUBCUT SCH ×2 (12:51→18:45)
--- NOTE | 2019-04-25 15:59 | CR ---
INDICATION: Short of breath. CHEST, TWO VIEWS: AP and lateral views of the chest were obtained 04/25/19 and compared with 02/03/19 and 12/24/18. The heart appears to be mildly enlarged in general. The aorta is tortuous with calcification in the arch and descending portion. Diminished bone density is suggested which may be on the basis of osteoporosis - correlate clinically. Mild degenerative change is noted in the mid to lower thoracic spine. The lungs appear to be somewhat hyperaerated with slightly flattened diaphragm leaves and prominent AP diameter raising question of COPD - correlate clinically. Interstitial markings are rather prominent as previously and most likely represent fibrosis although chronic inflammatory disease cannot be excluded. Bronchiectasis is suspected with dilated thickened bronchial warner in the lung bases, especially on the right. The possibility of superimposed pneumonia, especially at the right lung base cannot be excluded. IMPRESSION: 1. Heavy interstitial markings with dilated thick-walled bronchi compatible with bronchiectasis, chronic inflammatory disease is suggested, superimposed pneumonia cannot be entirely excluded, especially at the right lung base. 2. Probable COPD. 3. ASHD with mild cardiomegaly. 4. Demineralization is suggested which may be on the basis of osteoporosis. 5. No evidence of CHF is identified. MTDD
[2019-04-25] MEDS: Pantoprazole 20 MG Tab, Delayed Release PO SCH (17:30)
[2019-04-25] MEDS: Mirabegron 25 MG Tab Extended Release PO SCH (18:41)
[2019-04-25] MEDS: Pravastatin 20 MG Tab PO SCH (20:51)
[2019-04-25] MEDS: Insulin Glargine,Human Rec. Analog 100 Units/ML 3 ML Pen SUBCUT SCH (20:59)
[2019-04-26] MEDS: Sodium Chloride 0.9% 10 ML Syringe FLUSH PRN ×5 (01:13→22:03)
[2019-04-26] MEDS: methylPREDNISolone Sodium Succinate 125 MG/2 ML SDV IVPUSH SCH ×3 (01:13→17:52)
[2019-04-26] MEDS: Piperacillin/Tazobactam 2.25 GM in Sodium Chloride 0.9% 50 ML IV SCH ×4 (04:26→21:59)
[2019-04-26] MEDS: Albuterol/Ipratropium 3.0-0.5 MG/3 ML Neb Soln NEB SCH ×4 (06:37→20:07)
[2019-04-26] MEDS: Pantoprazole 20 MG Tab, Delayed Release PO SCH ×2 (06:37→18:01)
[2019-04-26] MEDS: Metoprolol Tartrate 25 MG Tab PO SCH ×2 (08:24→20:10)
[2019-04-26] MEDS: Azithromycin 250 MG Tab PO SCH (08:24)
[2019-04-26] MEDS: Sildenafil 20 MG Tab PO SCH ×3 (08:24→20:12)
[2019-04-26] MEDS: Insulin Lispro 100 Unit/ML 3 ML KwikPen SUBCUT SCH ×6 (08:26→18:12)
[2019-04-26] MEDS: Mycophenolate Mofetil 250 MG Cap PO SCH ×2 (08:34→20:07)
[2019-04-26] MEDS: BREO ELLIPTA INH SCH (08:36)
[2019-04-26] MEDS: Tacrolimus 0.5 MG Cap PO SCH (08:37)
[2019-04-26] MEDS: FLUoxetine 20 MG Cap PO SCH (08:39)
[2019-04-26] MEDS: MACITENTAN 10 MG PO SCH (08:41)
[2019-04-26] MEDS: Gabapentin 600 MG Tab PO SCH ×2 (08:46→20:21)
[2019-04-26] MEDS ORDERED: Aspirin 81 MG Tab.Chew PO SCH (09:00)
--- NOTE | 2019-04-26 11:29 | PN ---
DATE SEEN: 04/26/2019 SUBJECTIVE: Karol Valdes is a delightful 73-year-old female admitted with significant respiratory distress, complicated cough, rigors, chills, weakness, worsening cough, low-grade fever, and sense of reduced well- being. Radiographic and clinical diagnosis of pneumonia was present, right lung base. She was admitted and placed on single dose of IV azithromycin, single dose of ceftriaxone, and switched to Zosyn and oral azithromycin. Feeling much better this morning. LABORATORY STUDIES: White count 11,500, fell to 9,700; hemoglobin 12.6; normal indices. Creatinine 2.0, GFR 24, mildly elevated glucose, CRP 3.9, BNP 3102. Normal electrolytes otherwise. IMAGING: Chest x-ray, as noted above. OBJECTIVE: VITAL SIGNS: 75.92 kg, pulse 68, blood pressure 114/60, and O2 saturation 92%. GENERAL: Appears comfortable. Speech was fluent. Good hydration. MOUTH AND OROPHARYNX: Clear. NECK: Benign, thyroid small. CHEST: Decreased breath sounds in both lower lung bases. Distant heart sounds. ABDOMEN: Surgical scars well healed. IMPRESSION: Bibasilar pneumonia, right greater than left; immune-compromised female; previous liver transplant in 2010. PLAN: We will continue present care and intervention, oral azithromycin, IV Zosyn. Insulin and treatment, medications, and appropriate care. Expect a short-term stay. /[id number] OLEGARIO/KASANDRA
[2019-04-26] MEDS: Mirabegron 25 MG Tab Extended Release PO SCH (18:08)
[2019-04-26] MEDS: Pravastatin 20 MG Tab PO SCH (20:13)
[2019-04-26] MEDS: Insulin Glargine,Human Rec. Analog 100 Units/ML 3 ML Pen SUBCUT SCH (20:15)
[2019-04-27] MEDS: methylPREDNISolone Sodium Succinate 125 MG/2 ML SDV IVPUSH SCH ×2 (02:01→09:46)
[2019-04-27] MEDS: Sodium Chloride 0.9% 10 ML Syringe FLUSH PRN ×3 (02:02→20:10)
[2019-04-27] MEDS: Piperacillin/Tazobactam 2.25 GM in Sodium Chloride 0.9% 50 ML IV SCH ×4 (04:32→21:44)
[2019-04-27] MEDS: Albuterol/Ipratropium 3.0-0.5 MG/3 ML Neb Soln NEB SCH ×4 (06:40→20:06)
[2019-04-27] MEDS: Insulin Lispro 100 Unit/ML 3 ML KwikPen SUBCUT SCH ×6 (07:41→18:05)
[2019-04-27] MEDS: Pantoprazole 20 MG Tab, Delayed Release PO SCH ×2 (07:58→17:41)
[2019-04-27] MEDS: Mycophenolate Mofetil 250 MG Cap PO SCH ×2 (07:59→20:08)
[2019-04-27] MEDS: MACITENTAN 10 MG PO SCH (08:00)
[2019-04-27] MEDS: BREO ELLIPTA INH SCH (08:03)
[2019-04-27] MEDS: Gabapentin 600 MG Tab PO SCH ×2 (08:06→20:07)
[2019-04-27] MEDS: Metoprolol Tartrate 25 MG Tab PO SCH ×2 (08:07→20:15)
[2019-04-27] MEDS: FLUoxetine 20 MG Cap PO SCH (08:08)
[2019-04-27] MEDS: Tacrolimus 0.5 MG Cap PO SCH (08:08)
[2019-04-27] MEDS: Sildenafil 20 MG Tab PO SCH ×3 (08:09→20:09)
[2019-04-27] MEDS: Azithromycin 250 MG Tab PO SCH (08:11)
[2019-04-27] MEDS ORDERED: Nystatin/Triamcinolone Crm 60 GM Tube TOP SCH (14:00)
[2019-04-27] MEDS: Mirabegron 25 MG Tab Extended Release PO SCH (17:40)
[2019-04-27] MEDS: Pravastatin 20 MG Tab PO SCH (20:08)
[2019-04-27] MEDS: Insulin Glargine,Human Rec. Analog 100 Units/ML 3 ML Pen SUBCUT SCH (20:18)
[2019-04-27] MEDS ORDERED: hydrOXYzine HCl 25 MG Tab PO PRN (22:27)
[2019-04-28] MEDS: Piperacillin/Tazobactam 2.25 GM in Sodium Chloride 0.9% 50 ML IV SCH ×4 (04:05→21:21)
[2019-04-28] MEDS: Sodium Chloride 0.9% 10 ML Syringe FLUSH PRN ×3 (04:06→10:21)
[2019-04-28] MEDS: Albuterol/Ipratropium 3.0-0.5 MG/3 ML Neb Soln NEB SCH ×4 (06:30→20:06)
[2019-04-28] MEDS: Pantoprazole 20 MG Tab, Delayed Release PO SCH (07:37)
[2019-04-28] MEDS: Tacrolimus 0.5 MG Cap PO SCH (08:22)
[2019-04-28] MEDS: Mycophenolate Mofetil 250 MG Cap PO SCH ×2 (08:22→20:09)
[2019-04-28] MEDS: Sildenafil 20 MG Tab PO SCH ×3 (08:22→20:12)
[2019-04-28] MEDS: Azithromycin 250 MG Tab PO SCH (08:22)
[2019-04-28] MEDS: Metoprolol Tartrate 25 MG Tab PO SCH ×2 (08:24→20:11)
[2019-04-28] MEDS: FLUoxetine 20 MG Cap PO SCH (08:26)
[2019-04-28] MEDS: Insulin Lispro 100 Unit/ML 3 ML KwikPen SUBCUT SCH ×6 (08:33→17:44)
[2019-04-28] MEDS: MACITENTAN 10 MG PO SCH (08:40)
[2019-04-28] MEDS: BREO ELLIPTA INH SCH (08:41)
[2019-04-28] MEDS: Gabapentin 600 MG Tab PO SCH ×2 (08:46→20:40)
[2019-04-28] MEDS: Pantoprazole 40 MG Vial IVPUSH SCH (10:21)
[2019-04-28] MEDS: Metoclopramide 10 MG/2 ML SDV IVPUSH SCH ×3 (10:21→20:48)
[2019-04-28] MEDS: Ondansetron 4 MG/2 ML SDV IVPUSH SCH ×4 (10:21→22:02)
[2019-04-28] MEDS: Sodium Chloride 0.9% 1,000 ML IV SCH ×2 (10:22→20:43)
--- NOTE | 2019-04-28 10:53 | PN ---
DATE SEEN: 04/27/2019 SUBJECTIVE: Karol Valdes is a 73-year-old female, admitted with bilateral pneumonia. Underlying chronic obstructive pulmonary disease, underlying fibrosis. Making good improvement. Cough is abating, secretions are clearing, appetite is improving. OBJECTIVE: VITAL SIGNS: Stable. HEENT: Unremarkable. NECK: Supple. Thyroid small. CHEST: Better air exchange but decreased breath sounds in both posterior lung pérez. HEART: Distant heart sounds. Soft murmur. No significant ectopy. ABDOMEN: Benign. IMPRESSION: Bibasilar pneumonia. PLAN: We will continue Zosyn, oral erythromycin, complementary care and well being. /[id number] /KASANDRA
[2019-04-28] MEDS: Mirabegron 25 MG Tab Extended Release PO SCH (17:44)
[2019-04-28] MEDS: Pravastatin 20 MG Tab PO SCH (20:11)
[2019-04-28] MEDS: Insulin Glargine,Human Rec. Analog 100 Units/ML 3 ML Pen SUBCUT SCH (20:13)
[2019-04-28] MEDS: Dextrose 5% in Water 1,000 ML IV SCH (21:58)
[2019-04-29] MEDS: Ondansetron 4 MG/2 ML SDV IVPUSH SCH ×6 (02:04→21:43)
[2019-04-29] MEDS: Sodium Chloride 0.9% 10 ML Syringe FLUSH PRN ×3 (02:14→21:46)
[2019-04-29] MEDS: Metoclopramide 10 MG/2 ML SDV IVPUSH SCH ×4 (03:56→21:42)
[2019-04-29] MEDS: Piperacillin/Tazobactam 2.25 GM in Sodium Chloride 0.9% 50 ML IV SCH ×4 (03:58→21:40)
[2019-04-29] MEDS: Dextrose 5% in Water 1,000 ML IV SCH ×3 (05:04→20:06)
[2019-04-29] MEDS ORDERED: Pantoprazole 40 MG Tab.CR PO SCH (06:00)
[2019-04-29] MEDS: Albuterol/Ipratropium 3.0-0.5 MG/3 ML Neb Soln NEB SCH ×4 (06:06→20:11)
[2019-04-29] MEDS: Insulin Lispro 100 Unit/ML 3 ML KwikPen SUBCUT SCH ×6 (08:49→18:08)
[2019-04-29] MEDS: BREO ELLIPTA INH SCH (09:03)
[2019-04-29] MEDS: Pantoprazole 40 MG Vial IVPUSH SCH (09:04)
[2019-04-29] MEDS: Mycophenolate Mofetil 250 MG Cap PO SCH ×2 (09:36→20:03)
[2019-04-29] MEDS: Gabapentin 600 MG Tab PO SCH ×2 (09:37→20:05)
[2019-04-29] MEDS: Metoprolol Tartrate 25 MG Tab PO SCH ×2 (09:37→20:04)
[2019-04-29] MEDS: MACITENTAN 10 MG PO SCH (09:37)
[2019-04-29] MEDS: FLUoxetine 20 MG Cap PO SCH (09:38)
[2019-04-29] MEDS: Tacrolimus 0.5 MG Cap PO SCH (09:38)
[2019-04-29] MEDS: Sildenafil 20 MG Tab PO SCH ×3 (09:38→20:05)
--- NOTE | 2019-04-29 09:59 | PN ---
DATE SEEN: 04/27/2019 SUBJECTIVE: Karol Valdes is a 73-year-old female admitted with complicated pneumonia. She has underlying COPD, pulmonary fibrosis, and a host of comorbid medical problems, including diabetes mellitus. Pneumonia was bilateral. Repeat film performed this morning revealed stability of pneumonia. She has a painful eruption and bleeding from her adult diapers. We will address accordingly. LABORATORY STUDIES: Blood sugar this morning 432, previous sugars on 04/25/19 were 154 and 246. Insulin on board. Laboratory studies otherwise are none outstanding. OBJECTIVE: VITAL SIGNS: 36.4, 71, 112/54, respiratory rate 19, and 93% on 3 L. GENERAL: Appears comfortable. Speech is fluent. Mouth and oropharynx clear. NECK: Benign. Thyroid small. CHEST: Diffuse wheezing, coarse rhonchi in both lower lung pérez. HEART: Distant heart sounds. Occasional ectopy. ABDOMEN: Benign. ASSESSMENT: 1. Bibasilar pneumonia. 2. Underlying fibrosis. 3. Chronic obstructive pulmonary disease. 4. Hyperglycemia compounded by Solu-Medrol. PLAN: Discontinue Solu-Medrol. Continue IV antibiotics. Complementary care and well being. Expect a short-term stay. /[id number] OLEGARIO/KASANDRA
--- NOTE | 2019-04-29 09:59 | PN ---
DATE SEEN: 04/28/2019 SUBJECTIVE: Karol Valdes is a 73-year-old female, had been admitted for complicated respiratory illness. Was better until last evening. Did have an episode of nausea and vomiting of 800 mL of GI content, similar episode this morning. Protonix on board. History of GERD. Respiratory-cordoba, better. Cough is abated. Secretions are cleared. In good spirits. Fever has been absent. LABORATORY STUDIES: None pending. Repeat CBC to be performed. OBJECTIVE: VITAL SIGNS: 36.6, 121/55, 18, and 91% on O2. GENERAL: Appears a bit unsettled today. HEENT: Mouth and oropharynx dry. NECK: Supple. CHEST: Diffuse wheezing, coarse rhonchi, but stable. HEART: Distant heart sounds. Soft murmur. No ectopy. ABDOMEN: Benign. Little tender in the epigastric area. ASSESSMENT: 1. Complicated nausea and vomiting. 2. Pneumonia. PLAN: We will reduce irritants to her stomach. We will stop her aspirin, stop her Protonix. We will switch to IV Protonix and IV fluids, intervention and care, some Reglan for GI emptying, proceed accordingly. /[id number] /KASANDRA
[2019-04-29] MEDS ORDERED: Sodium Phosphate,Monobasic/Sodium Phosphate,Dibasic Enema 133 ML Bottle RECTAL ONE (11:32)
--- NOTE | 2019-04-29 11:45 | PCM.SN ---
- Free Text/Narrative Note: chart reviewed and full consult dictated. does not appear to have surgical abdomen. NGT recommended. In addition would get an enema.
--- NOTE | 2019-04-29 12:16 | PN ---
DATE SEEN: 04/29/2019 SUBJECTIVE: Karol Valdes is a 73-year-old female, admitted with bibasilar pneumonia. Underlying fibrosis, underlying COPD. She had an uneventful course until the last 24 hours, began with repetitive episodes of large volume emesis but no complicated abdominal pain. A CT of abdomen by report though not official small-bowel obstruction. Seen by the ER doctor last evening. Presents this morning with just a sense of malaise and fatigue. No complicated pain. Respirations have been comfortable. Breathing has been good, supplemental O2 in place. LABORATORY STUDIES: On 04/28/2019, white count 8300, hemoglobin 13.0, hematocrit 40.8. Electrolytes noted glucose 338, Steroids discontinued. BUN 44, creatinine 1.8. GFR [address]. PHYSICAL EXAMINATION: Vital Signs: Stable and documented. HEENT: Mouth and oropharynx clear. Neck: Benign. Thyroid small. Chest: On auscultation, clear all lung pérez. Heart: On auscultation, no ectopy or murmur. Abdomen: Soft, benign. A well-healed surgical scar. ASSESSMENT: 1. Pneumonia, improving. 2. Underlying fibrosis chronic obstructive pulmonary disease, O2-dependent. 3. New abdominal pain, small-bowel obstruction. PLAN: We will keep n.p.o. except for ice chips, consultation with Dr. Mackenzie upcoming in [place] at [facility]. /[id number] /KASANDRA
[2019-04-29] MEDS: Bisacodyl 10 MG Supp RECTAL SCH (12:40)
[2019-04-29] MEDS ORDERED: Insulin Lispro 100 Unit/ML 3 ML KwikPen SUBCUT ONE ×2 (13:09→18:00)
[2019-04-29] MEDS: Mirabegron 25 MG Tab Extended Release PO SCH (18:09)
[2019-04-29] MEDS: Insulin Glargine,Human Rec. Analog 100 Units/ML 3 ML Pen SUBCUT SCH (20:03)
[2019-04-29] MEDS: Pravastatin 20 MG Tab PO SCH (20:05)
[2019-04-30] MEDS: Ondansetron 4 MG/2 ML SDV IVPUSH SCH ×5 (01:49→23:46)
[2019-04-30] MEDS: Sodium Chloride 0.9% 10 ML Syringe FLUSH PRN ×3 (01:49→09:36)
[2019-04-30] MEDS: Dextrose 5% in Water 1,000 ML IV SCH ×2 (02:53→11:50)
[2019-04-30] MEDS: Metoclopramide 10 MG/2 ML SDV IVPUSH SCH ×3 (03:39→16:44)
[2019-04-30] MEDS: Piperacillin/Tazobactam 2.25 GM in Sodium Chloride 0.9% 50 ML IV SCH (03:40)
[2019-04-30] MEDS: Albuterol/Ipratropium 3.0-0.5 MG/3 ML Neb Soln NEB SCH ×4 (06:01→20:52)
[2019-04-30] MEDS ORDERED: Bisacodyl 10 MG Supp RECTAL ONE (07:56)
--- NOTE | 2019-04-30 07:56 | PCM.SURGPN ---
- General Info Date of Service: 04/30/19 - Review of Systems General: Reports: Other (complains of throat discomfort ) Cardiovascular: Reports: No Symptoms Gastrointestinal: Denies: No Symptoms - Patient Data Vitals - Most Recent: Last Vital Signs Temp 98 F 04/29/19 23:30 Pulse 62 04/29/19 23:30 Resp 18 04/29/19 23:30 BP 126/70 04/29/19 23:30 Pulse Ox 93 L 04/30/19 01:00 Weight - Most Recent: 75.296 kg I&O - Last 24 Hours: Intake & Output 04/29/19 04/30/19 04/30/19 22:59 06:59 14:59 Intake Total 979 1326 Output Total 400 425 Balance 579 [id number] Marek Results Last 24 Hrs: Microbiology 04/25/19 02:00 Aerobic Blood Culture - Final Blood - Venous NO GROWTH AFTER 5 DAYS Anaerobic Blood Culture - Final NO GROWTH AFTER 5 DAYS 04/25/19 02:08 Aerobic Blood Culture - Final Blood - Venous - Lab Draw NO GROWTH AFTER 5 DAYS Anaerobic Blood Culture - Final NO GROWTH AFTER 5 DAYS Med Orders - Current: Current Medications Acetaminophen (Tylenol Extra Strength) 1,000 mg PO Q6H PRN PRN Reason: PAIN Albuterol/Ipratropium (Duoneb 3.0-0.5 Mg/3 Ml) 3 ml NEB QIDRT [facility] Last Admin: 04/30/19 06:01 Dose: 3 ml Bisacodyl (Dulcolax) 10 mg RECTAL DAILY [facility] Last Admin: 04/29/19 12:40 Dose: 10 mg Fluoxetine HCl (Prozac) 40 mg PO DAILY [facility] Last Admin: 04/29/19 09:38 Dose: Not Given Gabapentin (Neurontin) 600 mg PO BID [facility] Last Admin: 04/29/19 20:05 Dose: Not Given Hydroxyzine HCl (Atarax) 50 mg PO Q4H PRN PRN Reason: Nausea Last Admin: 04/27/19 22:40 Dose: 50 mg Piperacillin Sod/Tazobactam (Sod 2.25 gm/ Sodium Chloride) 50 mls @ 100 mls/hr IV Q6H [facility] Last Admin: 04/30/19 03:40 Dose: 100 mls/hr Dextrose/Water (Dextrose 5% In Water) 1,000 mls @ 75 mls/hr IV ASDIRECTED [facility] Last Admin: 04/30/19 02:53 Dose: 150 mls/hr Insulin Glargine (Lantus Solostar) 26 units SUBCUT BEDTIME [facility] Last Admin: 04/29/19 20:03 Dose: Not Given Insulin Human Lispro (Humalog) 16 unit SUBCUT TIDMEALS [facility] Last Admin: 04/29/19 18:08 Dose: Not Given Insulin Human Lispro (Humalog) 0 unit SUBCUT TIDMEALS [facility]; Protocol Last Admin: 04/29/19 18:08 Dose: Not Given Metoclopramide HCl (Reglan) 5 mg IVPUSH Q6H [facility] Last Admin: 04/30/19 03:39 Dose: 5 mg Metoprolol Tartrate (Lopressor) 25 mg PO BID [facility] Last Admin: 04/29/19 20:04 Dose: Not Given Mirabegron (Myrbetriq) 50 mg PO WITHDINNER [facility] Last Admin: 04/29/19 18:09 Dose: Not Given Morphine Sulfate (Morphine) 2 mg IVPUSH Q2H PRN PRN Reason: Shortness of Breath Mycophenolate Mofetil (Cellcept) 500 mg PO BID [facility] Last Admin: 04/29/19 20:03 Dose: Not Given (Ethacrynic Acid [ Ethacrynic Acid] 25 Mg) *Ptom 25 mg PO DAILY [facility] Last Admin: 04/29/19 09:37 Dose: Not Given Breo Ellipta 100/25 Mcg (Fluticasone/Vilanterol 1 Puff) * Ptom 1 puff INH DAILY [facility] Last Admin: 04/29/19 09:03 Dose: 1 puff (Macitentan [Opsumit (] 10 Mg) *Ptom) 10 mg PO DAILY [facility] Last Admin: 04/29/19 09:37 Dose: Not Given Nystatin/Triamcinolone Acetonide (Mycolog Crm) 0 gm TOP TID [facility] Last Admin: 04/29/19 20:11 Dose: 1 applic Ondansetron HCl (Zofran) 4 mg IVPUSH Q4H [facility] Last Admin: 04/30/19 05:45 Dose: 4 mg Pantoprazole Sodium (Protonix Iv) 40 mg IVPUSH DAILY [facility] Last Admin: 04/29/19 09:04 Dose: 40 mg Pravastatin Sodium (Pravachol) 20 mg PO BEDTIME [facility] Last Admin: 04/29/19 20:05 Dose: Not Given Sildenafil Citrate (Revatio) 20 mg PO TID [facility] Last Admin: 04/29/19 20:05 Dose: Not Given Sodium Chloride (Saline Flush) 10 ml FLUSH ASDIRECTED PRN PRN Reason: Keep Vein Open Last Admin: 04/30/19 05:46 Dose: 10 ml Tacrolimus (Prograf) 0.5 mg PO DAILY [facility] Last Admin: 04/29/19 09:38 Dose: Not Given Trimethoprim (Trimethoprim) 100 mg PO DAILY [facility] Last Admin: 04/29/19 09:38 Dose: Not Given Discontinued Medications Aspirin (Aspirin) 81 mg PO MOWEFR [facility] Last Admin: 04/26/19 08:24 Dose: 81 mg Azithromycin (Zithromax) 250 mg PO DAILY [facility] Last Admin: 04/28/19 08:22 Dose: 250 mg Ceftriaxone Sodium (Rocephin) 1 gm IVPUSH Q24H [facility] Last Admin: 04/25/19 02:10 Dose: 1 gm Azithromycin 500 mg/ Sodium (Chloride) 250 mls @ 250 mls/hr IV Q24H [facility] Last Admin: 04/25/19 02:20 Dose: 250 mls/hr Piperacillin Sod/Tazobactam (Sod 2.25 gm/ Sodium Chloride) 50 mls @ 100 mls/hr IV Q6H [facility] Sodium Chloride (Normal Saline) 1,000 mls @ 100 mls/hr IV ASDIRECTED [facility] Last Admin: 04/28/19 20:43 Dose: 100 mls/hr Insulin Human Lispro (Humalog) 12 unit SUBCUT STAT ONE Stop: 04/29/19 13:10 Last Admin: 04/29/19 13:12 Dose: 12 unit Insulin Human Lispro (Humalog) 8 unit SUBCUT ONETIME ONE Stop: 04/29/19 18:01 Last Admin: 04/29/19 18:09 Dose: 8 unit Methylprednisolone Sodium Succinate (Solu-Medrol) 125 mg IVPUSH Q8H [facility] Last Admin: 04/27/19 09:46 Dose: 125 mg Non-Formulary Medication (Pravastatin Sodium [Pravastatin Sodium]) 20 mg PO BIDAC [facility] Nystatin/Triamcinolone Acetonide (Mycolog Crm) 0 gm TOP TID [facility] Last Admin: 04/27/19 19:51 Dose: Not Given Pantoprazole Sodium (Pantoprazole) 20 mg PO BIDAC [facility] Stop: 04/28/19 21:00 Last Admin: 04/28/19 07:37 Dose: 20 mg Pantoprazole Sodium (Protonix) 40 mg PO DAILY@0600 [facility] Sodium Biphosphate/Sodium Phosphate (Fleet Enema) 133 ml RECTAL ONETIME ONE Stop: 04/29/19 11:33 Last Admin: 04/29/19 14:13 Dose: 133 ml - Exam General: Alert, Oriented, Cooperative, No Acute Distress Lungs: Clear to Auscultation, Normal Respiratory Effort Cardiovascular: Regular Rate, Regular Rhythm GI/Abdominal Exam: Normal Bowel Sounds, Soft, Non-Tender Sepsis Event Note - Evaluation Sepsis Screening Result: No Definite Risk - Focused Exam Vital Signs: Vital Signs Temp Pulse Resp BP Pulse Ox Pulse Ox 04/30/19 01:00 93 L 04/29/19 23:30 98 F 62 18 126/70 93 L Date Exam was Performed: 04/30/19 Time Exam was Performed: 07:54 - Problem List & Annotations (1) Partial obstruction of small intestine SNOMED Code(s): 971482409 Code(s): K56.600 - PARTIAL INTESTINAL OBSTRUCTION, UNSPECIFIED TO CAUSE Status: Acute Current Visit: Yes - Problem List Review Problem List Initiated/Reviewed/Updated: Yes - My Orders Last 24 Hours: Active Orders 24 hr Category Date Time Status NG [Gastrointestinal Tube Mgmt] [RC] QSHIFT Care 04/29/19 11:36 Active Notify Provider Consults [RC] ASDIRECTED Care 04/29/19 08:57 Active Consult to Physician [CONS] Routine Cons 04/29/19 08:56 Ordered bisacodyL [Dulcolax] Med 04/29/19 11:45 Active 10 mg RECTAL DAILY Nasogastric Orogastric Tube Insertion [OM.PC] Routine Oth 04/29/19 11:35 Ordered Medication Orders Acetaminophen (Tylenol Extra Strength) 1,000 mg PO Q6H PRN PRN Reason: PAIN Albuterol/Ipratropium (Duoneb 3.0-0.5 Mg/3 Ml) 3 ml NEB QIDRT [facility] Last Admin: 04/30/19 06:01 Dose: 3 ml Admin: 04/29/19 20:11 Dose: 3 ml Admin: 04/29/19 15:58 Dose: 3 ml Admin: 04/29/19 10:32 Dose: 3 ml Admin: 04/29/19 06:06 Dose: 3 ml Admin: 04/28/19 20:06 Dose: 3 ml Admin: 04/28/19 15:41 Dose: 3 ml Admin: 04/28/19 11:21 Dose: 3 ml Admin: 04/28/19 06:30 Dose: 3 ml Admin: 04/27/19 20:06 Dose: 3 ml Admin: 04/27/19 15:19 Dose: 3 ml Admin: 04/27/19 10:36 Dose: 3 ml Admin: 04/27/19 06:40 Dose: 3 ml Admin: 04/26/19 20:07 Dose: 3 ml Admin: 04/26/19 15:26 Dose: 3 ml Admin: 04/26/19 10:33 Dose: 3 ml Admin: 04/26/19 06:37 Dose: 3 ml Admin: 04/25/19 20:45 Dose: 3 ml Admin: 04/25/19 17:14 Dose: 3 ml Admin: 04/25/19 11:10 Dose: 3 ml Admin: 04/25/19 06:14 Dose: 3 ml Bisacodyl (Dulcolax) 10 mg RECTAL DAILY [facility] Last Admin: 04/29/19 12:40 Dose: 10 mg Fluoxetine HCl (Prozac) 40 mg PO DAILY [facility] Last Admin: 04/29/19 09:38 Dose: Admin: 04/28/19 08:26 Dose: 40 mg Admin: 04/27/19 08:08 Dose: 40 mg Admin: 04/26/19 08:39 Dose: 40 mg Admin: 04/25/19 10:25 Dose: 40 mg Gabapentin (Neurontin) 600 mg PO BID [facility] Last Admin: 04/29/19 20:05 Dose: Not Given Admin: 04/29/19 09:37 Dose: Admin: 04/28/19 20:40 Dose: 600 mg Admin: 04/28/19 08:46 Dose: 600 mg Admin: 04/27/19 20:07 Dose: 600 mg Admin: 04/27/19 08:06 Dose: 600 mg Admin: 04/26/19 20:21 Dose: 600 mg Admin: 04/26/19 08:46 Dose: 600 mg Admin: 04/25/19 20:50 Dose: 600 mg Admin: 04/25/19 10:34 Dose: 600 mg Hydroxyzine HCl (Atarax) 50 mg PO Q4H PRN PRN Reason: Nausea Last Admin: 04/27/19 22:40 Dose: 50 mg Piperacillin Sod/Tazobactam (Sod 2.25 gm/ Sodium Chloride) 50 mls @ 100 mls/hr IV Q6H [facility] Last Admin: 04/30/19 03:40 Dose: 100 mls/hr Admin: 04/29/19 21:40 Dose: 100 mls/hr Admin: 04/29/19 15:52 Dose: 100 mls/hr Admin: 04/29/19 10:31 Dose: 100 mls/hr Admin: 04/29/19 03:58 Dose: 100 mls/hr Admin: 04/28/19 21:21 Dose: 100 mls/hr Admin: 04/28/19 15:49 Dose: 100 mls/hr Admin: 04/28/19 09:45 Dose: 100 mls/hr Admin: 04/28/19 04:05 Dose: 100 mls/hr Admin: 04/27/19 21:44 Dose: 100 mls/hr Admin: 04/27/19 15:19 Dose: 100 mls/hr Admin: 04/27/19 09:48 Dose: 100 mls/hr Admin: 04/27/19 04:32 Dose: 100 mls/hr Admin: 04/26/19 21:59 Dose: 100 mls/hr Admin: 04/26/19 15:25 Dose: 100 mls/hr Admin: 04/26/19 10:45 Dose: 100 mls/hr Admin: 04/26/19 04:26 Dose: 100 mls/hr Admin: 04/25/19 21:10 Dose: 100 mls/hr Admin: 04/25/19 17:16 Dose: 100 mls/hr Admin: 04/25/19 10:34 Dose: 100 mls/hr Dextrose/Water (Dextrose 5% In Water) 1,000 mls @ 75 mls/hr IV ASDIRECTED [facility] Last Admin: 04/30/19 02:53 Dose: 150 mls/hr Infusion: 04/30/19 02:47 Dose: 150 mls/hr Admin: 04/29/19 20:06 Dose: 150 mls/hr Infusion: 04/29/19 19:20 Dose: 150 mls/hr Admin: 04/29/19 12:39 Dose: 150 mls/hr Infusion: 04/29/19 11:45 Dose: 150 mls/hr Admin: 04/29/19 05:04 Dose: 150 mls/hr Infusion: 04/29/19 04:39 Dose: 150 mls/hr Admin: 04/28/19 21:58 Dose: 150 mls/hr Insulin Glargine (Lantus Solostar) 26 units SUBCUT BEDTIME [facility] Last Admin: 04/29/19 20:03 Dose: Not Given Admin: 04/28/19 20:13 Dose: 26 unit Admin: 04/27/19 20:18 Dose: 26 unit Admin: 04/26/19 20:15 Dose: 26 unit Admin: 04/25/19 20:59 Dose: 26 unit Insulin Human Lispro (Humalog) 16 unit SUBCUT TIDMEALS [facility] Last Admin: 04/29/19 18:08 Dose: Admin: 04/29/19 13:11 Dose: Not Given Admin: 04/29/19 08:49 Dose: 16 units Admin: 04/28/19 17:42 Dose: Not Given Admin: 04/28/19 11:38 Dose: 16 units Admin: 04/28/19 08:33 Dose: 16 units Admin: 04/27/19 18:03 Dose: 16 units Admin: 04/27/19 12:57 Dose: 16 units Admin: 04/27/19 07:41 Dose: 16 units Admin: 04/26/19 18:12 Dose: 16 units Admin: 04/26/19 12:10 Dose: 16 units Admin: 04/26/19 08:26 Dose: 16 units Admin: 04/25/19 18:45 Dose: 16 units Admin: 04/25/19 12:51 Dose: 16 units Insulin Human Lispro (Humalog) 0 unit SUBCUT TIDMEALS [facility]; Protocol Last Admin: 04/29/19 18:08 Dose: Admin: 04/29/19 13:12 Dose: Not Given Admin: 04/29/19 08:50 Dose: 8 units Admin: 04/28/19 17:44 Dose: Admin: 04/28/19 11:39 Dose: 6 units Admin: 04/28/19 08:34 Dose: 6 units Admin: 04/27/19 18:05 Dose: 4 units Admin: 04/27/19 12:59 Dose: 8 units Admin: 04/27/19 07:44 Dose: 10 units Admin: 04/26/19 17:52 Dose: 8 units Admin: 04/26/19 12:12 Dose: 6 units Admin: 04/26/19 08:33 Dose: 8 units Metoclopramide HCl (Reglan) 5 mg IVPUSH Q6H [facility] Last Admin: 04/30/19 03:39 Dose: 5 mg Admin: 04/29/19 21:42 Dose: 5 mg Admin: 04/29/19 15:18 Dose: 5 mg Admin: 04/29/19 09:05 Dose: 5 mg Admin: 04/29/19 03:56 Dose: 5 mg Admin: 04/28/19 20:48 Dose: 5 mg Admin: 04/28/19 15:46 Dose: 5 mg Admin: 04/28/19 10:21 Dose: 5 mg Metoprolol Tartrate (Lopressor) 25 mg PO BID [facility] Last Admin: 04/29/19 20:04 Dose: Not Given Admin: 04/29/19 09:37 Dose: Admin: 04/28/19 20:11 Dose: 25 mg Admin: 04/28/19 08:24 Dose: 25 mg Admin: 04/27/19 20:15 Dose: 25 mg Admin: 04/27/19 08:07 Dose: 25 mg Admin: 04/26/19 20:10 Dose: 25 mg Admin: 04/26/19 08:24 Dose: 25 mg Admin: 04/25/19 20:50 Dose: 25 mg Admin: 04/25/19 10:22 Dose: 25 mg Mirabegron (Myrbetriq) 50 mg PO WITHDINNER [facility] Last Admin: 04/29/19 18:09 Dose: Admin: 04/28/19 17:44 Dose: Not Given Admin: 04/27/19 17:40 Dose: 50 mg Admin: 04/26/19 18:08 Dose: 50 mg Admin: 04/25/19 18:41 Dose: 50 mg Morphine Sulfate (Morphine) 2 mg IVPUSH Q2H PRN PRN Reason: Shortness of Breath Mycophenolate Mofetil (Cellcept) 500 mg PO BID [facility] Last Admin: 04/29/19 20:03 Dose: Not Given Admin: 04/29/19 09:36 Dose: Admin: 04/28/19 20:09 Dose: 500 mg Admin: 04/28/19 08:22 Dose: 500 mg Admin: 04/27/19 20:08 Dose: 500 mg Admin: 04/27/19 07:59 Dose: 500 mg Admin: 04/26/19 20:07 Dose: 500 mg Admin: 04/26/19 08:34 Dose: 500 mg Admin: 04/25/19 20:50 Dose: 500 mg Admin: 04/25/19 10:26 Dose: 500 mg (Ethacrynic Acid [ Ethacrynic Acid] 25 Mg) *Ptom 25 mg PO DAILY [facility] Last Admin: 04/29/19 09:37 Dose: Admin: 04/28/19 08:31 Dose: 25 mg Admin: 04/27/19 08:01 Dose: 25 mg Admin: 04/26/19 08:35 Dose: 25 mg Admin: 04/25/19 10:22 Dose: 25 mg Breo Ellipta 100/25 Mcg (Fluticasone/Vilanterol 1 Puff) * Ptom 1 puff INH DAILY [facility] Last Admin: 04/29/19 09:03 Dose: 1 puff Admin: 04/28/19 08:41 Dose: 1 puff Admin: 04/27/19 08:03 Dose: 1 puff Admin: 04/26/19 08:36 Dose: 1 puff Admin: 04/25/19 10:22 Dose: 1 puff (Macitentan [Opsumit (] 10 Mg) *Ptom) 10 mg PO DAILY [facility] Last Admin: 04/29/19 09:37 Dose: Admin: 04/28/19 08:40 Dose: 10 mg Admin: 04/27/19 08:00 Dose: 10 mg Admin: 04/26/19 08:41 Dose: 10 mg Admin: 04/25/19 10:25 Dose: 10 mg Nystatin/Triamcinolone Acetonide (Mycolog Crm) 0 gm TOP TID [facility] Last Admin: 04/29/19 20:11 Dose: 1 applic Admin: 04/29/19 14:13 Dose: 1 applic Admin: 04/29/19 09:04 Dose: 1 applic Admin: 04/28/19 20:08 Dose: 1 applic Admin: 04/28/19 14:50 Dose: 1 applic Admin: 04/28/19 08:26 Dose: 1 applic Admin: 04/27/19 20:07 Dose: 1 applic Ondansetron HCl (Zofran) 4 mg IVPUSH Q4H [facility] Last Admin: 04/30/19 05:45 Dose: 4 mg Admin: 04/30/19 01:49 Dose: 4 mg Admin: 04/29/19 21:43 Dose: 4 mg Admin: 04/29/19 18:10 Dose: 4 mg Admin: 04/29/19 14:13 Dose: 4 mg Admin: 04/29/19 09:05 Dose: 4 mg Admin: 04/29/19 06:04 Dose: 4 mg Admin: 04/29/19 02:04 Dose: 4 mg Admin: 04/28/19 22:02 Dose: 4 mg Admin: 04/28/19 17:51 Dose: 4 mg Admin: 04/28/19 14:48 Dose: 4 mg Admin: 04/28/19 10:21 Dose: 4 mg Pantoprazole Sodium (Protonix Iv) 40 mg IVPUSH DAILY [facility] Last Admin: 04/29/19 09:04 Dose: 40 mg Admin: 04/28/19 10:21 Dose: 40 mg Pravastatin Sodium (Pravachol) 20 mg PO BEDTIME [facility] Last Admin: 04/29/19 20:05 Dose: Not Given Admin: 04/28/19 20:11 Dose: 20 mg Admin: 04/27/19 20:08 Dose: 20 mg Admin: 04/26/19 20:13 Dose: 20 mg Admin: 04/25/19 20:51 Dose: 20 mg Sildenafil Citrate (Revatio) 20 mg PO TID [facility] Last Admin: 04/29/19 20:05 Dose: Not Given Admin: 04/29/19 14:13 Dose: Admin: 04/29/19 09:38 Dose: Admin: 04/28/19 20:12 Dose: 20 mg Admin: 04/28/19 14:50 Dose: 20 mg Admin: 04/28/19 08:22 Dose: 20 mg Admin: 04/27/19 20:09 Dose: 20 mg Admin: 04/27/19 13:08 Dose: 20 mg Admin: 04/27/19 08:09 Dose: 20 mg Admin: 04/26/19 20:12 Dose: 20 mg Admin: 04/26/19 13:00 Dose: 20 mg Admin: 04/26/19 08:24 Dose: 20 mg Admin: 04/25/19 20:51 Dose: 20 mg Admin: 04/25/19 13:55 Dose: 20 mg Admin: 04/25/19 10:26 Dose: 20 mg Sodium Chloride (Saline Flush) 10 ml FLUSH ASDIRECTED PRN PRN Reason: Keep Vein Open Last Admin: 04/30/19 05:46 Dose: 10 ml Admin: 04/30/19 01:49 Dose: 10 ml Admin: 04/29/19 21:46 Dose: 10 ml Admin: 04/29/19 06:04 Dose: 10 ml Admin: 04/29/19 02:14 Dose: 10 ml Admin: 04/28/19 10:21 Dose: 10 ml Admin: 04/28/19 09:45 Dose: 10 ml Admin: 04/28/19 04:06 Dose: 10 ml Admin: 04/27/19 20:10 Dose: 10 ml Admin: 04/27/19 04:34 Dose: 10 ml Admin: 04/27/19 02:02 Dose: 10 ml Admin: 04/26/19 22:03 Dose: 10 ml Admin: 04/26/19 15:26 Dose: 10 ml Admin: 04/26/19 08:48 Dose: 10 ml Admin: 04/26/19 04:26 Dose: 10 ml Admin: 04/26/19 01:13 Dose: 10 ml Admin: 04/25/19 21:16 Dose: 10 ml Admin: 04/25/19 18:39 Dose: 10 ml Admin: 04/25/19 11:10 Dose: 10 ml Admin: 04/25/19 10:29 Dose: 10 ml Admin: 04/25/19 03:25 Dose: 10 ml Admin: 04/25/19 02:04 Dose: 10 ml Tacrolimus (Prograf) 0.5 mg PO DAILY [facility] Last Admin: 04/29/19 09:38 Dose: Admin: 04/28/19 08:22 Dose: 0.5 mg Admin: 04/27/19 08:08 Dose: 0.5 mg Admin: 04/26/19 08:37 Dose: 0.5 mg Admin: 04/25/19 10:26 Dose: 0.5 mg Trimethoprim (Trimethoprim) 100 mg PO DAILY [facility] Last Admin: 04/29/19 09:38 Dose: Admin: 04/28/19 08:22 Dose: 100 mg Admin: 04/27/19 08:10 Dose: 100 mg Admin: 04/26/19 08:23 Dose: 100 mg - Assessment Assessment (Free Text/Narrative):: with bowel movements and low ngt output appears to be resolving. - Plan Plan (Free Text/Narrative):: d/c ngt decrease ivf to 75 ml/hr
[2019-04-30] MEDS: Sildenafil 20 MG Tab PO SCH ×3 (09:07→22:25)
[2019-04-30] MEDS: Mycophenolate Mofetil 250 MG Cap PO SCH ×2 (09:07→20:51)
[2019-04-30] MEDS: Tacrolimus 0.5 MG Cap PO SCH (09:08)
[2019-04-30] MEDS: BREO ELLIPTA INH SCH (09:10)
[2019-04-30] MEDS: Bisacodyl 10 MG Supp RECTAL SCH (09:12)
[2019-04-30] MEDS: Metoprolol Tartrate 25 MG Tab PO SCH ×2 (09:12→22:24)
[2019-04-30] MEDS: Insulin Lispro 100 Unit/ML 3 ML KwikPen SUBCUT SCH ×6 (09:13→18:59)
[2019-04-30] MEDS: FLUoxetine 20 MG Cap PO SCH (09:16)
[2019-04-30] MEDS: Pantoprazole 40 MG Vial IVPUSH SCH (09:20)
[2019-04-30] MEDS: MACITENTAN 10 MG PO SCH (09:23)
[2019-04-30] MEDS: Gabapentin 600 MG Tab PO SCH ×2 (09:31→20:52)
--- NOTE | 2019-04-30 10:02 | CONS ---
DATE OF CONSULTATION: 04/29/2019 REASON FOR CONSULTATION: Partial small bowel obstruction. HISTORY OF PRESENT ILLNESS: This is a 73-year-old white female with a complicated past medical history, including liver transplant done 8 years ago at the [facility], chronic liver disease, hypertension, recurrent urinary tract infections, pulmonary hypertension. She was admitted on the with what appears to be a history of upper respiratory tract infections and was admitted to Acute Care with a diagnosis of pneumonia. The patient apparently did well, was feeling better, however, yesterday and the day before had some bouts of emesis. A CT scan was obtained, which revealed what appeared to be a partial small bowel obstruction. The patient was made n.p.o., and I was asked to evaluate the patient. The patient denies any issues with regard to abdominal pain, fever, chills. She reports that she has bowel movements roughly about once a week and when she does have bowel movements, they are "like rabbit pellets." She denies any recent flatus. SOCIAL HISTORY: The patient is . She does not smoke. She does not drink. Lives with her in [place] and has 2 daughters. She has noted her previous care for her liver transplant was at [facility]. PAST MEDICAL AND SURGICAL HISTORY: Significant for liver transplantation, pulmonary fibrosis with pulmonary hypertension, chronic kidney disease, type 2 diabetes, hypertension, and hyperlipidemia. MEDICATIONS ON ADMISSION: Included: 1. Trimethoprim 100 mg daily. 2. Tacrolimus 0.5 mg daily. 3. Sildenafil 20 mg t.i.d. 4. Omeprazole 30 mg b.i.d. 5. Pravastatin 20 mg daily. 6. CellCept 500 mg b.i.d. 7. Myrbetriq 50 mg daily. 8. Metoprolol 25 mg b.i.d. 9. Macitentan 10 mg daily. 10.Lispro 16 units t.i.d. p.r.n. on a sliding scale. 11.Glargine insulin 30 units subcu at bedtime. 12.Gabapentin 600 mg b.i.d. 13.Breo 1 puff daily. 14.Fluoxetine 40 mg daily. 15.Atacand 25 mg daily. 16.Aspirin 81 mg. 17.Albuterol 2 puffs q.i.d. p.r.n. ALLERGIES: She is allergic to sulfa, tiotropium, vancomycin, erythromycin base, and contrast. REVIEW OF SYSTEMS: As noted in the history and physical. She denotes no abdominal pain or diarrhea. PHYSICAL EXAMINATION: GENERAL: This is a well-developed, well-nourished white female, appearing in no acute distress. HEENT: Grossly within normal limits. LUNGS: Clear to auscultation. HEART: Regular rate and rhythm. ABDOMEN: Soft. She has clinical evidence of an incisional hernia. No rebound, guarding, or tenderness was elicited, and she has normoactive bowel sounds. DIAGNOSTIC DATA: A CT scan was reviewed and noted the above findings. Also noted and not commented on by Radiology was a fair amount of stool throughout her entire colon. Laboratory examination is unremarkable with regard to her white count and her hemoglobin and hematocrit. BUN and creatinine were elevated at 44 and 1.8. Glucose is elevated at 338. ASSESSMENT: The patient appears to possibly have a partial small bowel obstruction, however, clinically her exam is essentially unremarkable. The other notable factor is the fair amount of constipation and slow transit times which were noted. At this point, she does not appear to have a surgical abdomen or require surgical intervention and, if she were to require it, would certainly not be a candidate for surgery here. PLAN: After discussing with the patient, we will be placing an NG tube to low intermittent suction, serial abdominal exams, and then will be giving her some enemas, as well as suppositories to hopefully get her colon function a little bit better, which should help things move along. /[id number] LUCIUS/KASANDRA
--- NOTE | 2019-04-30 12:00 | PN ---
DATE SEEN: 04/30/2019 SUBJECTIVE: Karol Valdes is a 73-year-old female, admitted initially for pneumonia. Has underlying restrictive lung disease, fibrosis, and emphysema. Clinical response to pneumonia has been fine. Followup x-ray revealed interval improvement. Respiratory symptoms have resolved. In the interim over the weekend, she developed small bowel obstruction. Seen by Dr. Mackenzie, angiocatheter was placed, removed this morning. Feeling better. She had a couple of comfortable stool yesterday, now passing a lot of gas. LABORATORY STUDIES: None recent. 04/28/2019 lab reviewed. OBJECTIVE: VITAL SIGNS: 75 kg, 36.6, 126/70, 18, 93% on 4 L. GENERAL: Appears comfortable. Speech was fluent. NECK: No JVD. CHEST: Decreased breath sounds. Coarse rhonchi throughout all lung pérez. HEART: Occasional ectopy. Soft murmur. ABDOMEN: Benign. No focal tenderness, no palpable masses. Good bowel sounds. ASSESSMENT: 1. Pneumonia, resolving. 2. Small-bowel obstruction, appears to be improved. PLAN: Dr. Mackenzie will assume care of her GI issues. We will discontinue her IV antibiotics, complementary care and well being. Short-term stay once her GI tract becomes functional. /[id number] OLEGARIO/KASANDRA
[2019-04-30] MEDS: Mirabegron 25 MG Tab Extended Release PO SCH (19:05)
[2019-04-30] MEDS: Pravastatin 20 MG Tab PO SCH (20:52)
[2019-04-30] MEDS: Insulin Glargine,Human Rec. Analog 100 Units/ML 3 ML Pen SUBCUT SCH (22:24)
[2019-05-01] MEDS: Albuterol/Ipratropium 3.0-0.5 MG/3 ML Neb Soln NEB SCH ×2 (06:15→11:17)
[2019-05-01] MEDS: MACITENTAN 10 MG PO SCH (08:15)
[2019-05-01] MEDS: Metoprolol Tartrate 25 MG Tab PO SCH (08:15)
[2019-05-01] MEDS: FLUoxetine 20 MG Cap PO SCH (08:16)
[2019-05-01] MEDS: BREO ELLIPTA INH SCH (08:18)
[2019-05-01] MEDS: Tacrolimus 0.5 MG Cap PO SCH (08:19)
[2019-05-01] MEDS: Sildenafil 20 MG Tab PO SCH (08:19)
[2019-05-01] MEDS: Mycophenolate Mofetil 250 MG Cap PO SCH (08:19)
[2019-05-01] MEDS: Bisacodyl 10 MG Supp RECTAL SCH (08:20)
[2019-05-01] MEDS: Insulin Lispro 100 Unit/ML 3 ML KwikPen SUBCUT SCH ×4 (08:21→12:44)
[2019-05-01] MEDS: Gabapentin 600 MG Tab PO SCH (08:31)
--- NOTE | 2019-05-01 09:11 | PCM.SURGPN ---
- General Info Date of Service: 05/01/19 POD#: 0 Functional Status: Reports: Tolerating Diet, Ambulating. Denies: New Symptoms - Patient Data Vitals - Most Recent: Last Vital Signs Temp 97.2 F 05/01/19 07:30 Pulse 71 05/01/19 08:15 Resp 20 05/01/19 07:30 BP 108/62 05/01/19 08:15 Pulse Ox 89 L 05/01/19 07:30 Weight - Most Recent: 75.495 kg I&O - Last 24 Hours: Intake & Output 04/30/19 05/01/19 05/01/19 22:59 06:59 14:59 Intake Total 200 Balance 200 Med Orders - Current: Current Medications Acetaminophen (Tylenol Extra Strength) 1,000 mg PO Q6H PRN PRN Reason: PAIN Albuterol/Ipratropium (Duoneb 3.0-0.5 Mg/3 Ml) 3 ml NEB QIDRT [facility] Last Admin: 05/01/19 06:15 Dose: 3 ml Bisacodyl (Dulcolax) 10 mg RECTAL DAILY [facility] Last Admin: 05/01/19 08:20 Dose: 10 mg Fluoxetine HCl (Prozac) 40 mg PO DAILY [facility] Last Admin: 05/01/19 08:16 Dose: 40 mg Gabapentin (Neurontin) 600 mg PO BID [facility] Last Admin: 05/01/19 08:31 Dose: 600 mg Hydroxyzine HCl (Atarax) 50 mg PO Q4H PRN PRN Reason: Nausea Last Admin: 04/27/19 22:40 Dose: 50 mg Dextrose/Water (Dextrose 5% In Water) 1,000 mls @ 75 mls/hr IV ASDIRECTED [facility] Last Admin: 04/30/19 11:50 Dose: 150 mls/hr Insulin Glargine (Lantus Solostar) 26 units SUBCUT BEDTIME [facility] Last Admin: 04/30/19 22:24 Dose: Not Given Insulin Human Lispro (Humalog) 16 unit SUBCUT TIDMEALS [facility] Last Admin: 05/01/19 08:21 Dose: 16 units Insulin Human Lispro (Humalog) 0 unit SUBCUT TIDMEALS [facility]; Protocol Last Admin: 05/01/19 08:27 Dose: 2 units Metoprolol Tartrate (Lopressor) 25 mg PO BID [facility] Last Admin: 05/01/19 08:15 Dose: 25 mg Mirabegron (Myrbetriq) 50 mg PO WITHDINNER [facility] Last Admin: 04/30/19 19:05 Dose: 50 mg Morphine Sulfate (Morphine) 2 mg IVPUSH Q2H PRN PRN Reason: Shortness of Breath Mycophenolate Mofetil (Cellcept) 500 mg PO BID [facility] Last Admin: 05/01/19 08:19 Dose: 500 mg (Ethacrynic Acid [ Ethacrynic Acid] 25 Mg) *Ptom 25 mg PO DAILY [facility] Last Admin: 05/01/19 08:14 Dose: 25 mg Breo Ellipta 100/25 Mcg (Fluticasone/Vilanterol 1 Puff) * Ptom 1 puff INH DAILY [facility] Last Admin: 05/01/19 08:18 Dose: 1 puff (Macitentan [Opsumit (] 10 Mg) *Ptom) 10 mg PO DAILY [facility] Last Admin: 05/01/19 08:15 Dose: 10 mg Nystatin/Triamcinolone Acetonide (Mycolog Crm) 0 gm TOP TID [facility] Last Admin: 05/01/19 08:18 Dose: 1 applic Pravastatin Sodium (Pravachol) 20 mg PO BEDTIME [facility] Last Admin: 04/30/19 20:52 Dose: 20 mg Sildenafil Citrate (Revatio) 20 mg PO TID [facility] Last Admin: 05/01/19 08:19 Dose: 20 mg Sodium Chloride (Saline Flush) 10 ml FLUSH ASDIRECTED PRN PRN Reason: Keep Vein Open Last Admin: 04/30/19 09:36 Dose: 10 ml Tacrolimus (Prograf) 0.5 mg PO DAILY [facility] Last Admin: 05/01/19 08:19 Dose: 0.5 mg Trimethoprim (Trimethoprim) 100 mg PO DAILY [facility] Last Admin: 05/01/19 08:19 Dose: 100 mg Discontinued Medications Aspirin (Aspirin) 81 mg PO MOWEFR [facility] Last Admin: 04/26/19 08:24 Dose: 81 mg Azithromycin (Zithromax) 250 mg PO DAILY [facility] Last Admin: 04/28/19 08:22 Dose: 250 mg Bisacodyl (Dulcolax) 10 mg RECTAL ONETIME ONE Stop: 04/30/19 07:57 Last Admin: 04/30/19 08:58 Dose: 10 mg Ceftriaxone Sodium (Rocephin) 1 gm IVPUSH Q24H [facility] Last Admin: 04/25/19 02:10 Dose: 1 gm Azithromycin 500 mg/ Sodium (Chloride) 250 mls @ 250 mls/hr IV Q24H [facility] Last Admin: 04/25/19 02:20 Dose: 250 mls/hr Piperacillin Sod/Tazobactam (Sod 2.25 gm/ Sodium Chloride) 50 mls @ 100 mls/hr IV Q6H [facility] Piperacillin Sod/Tazobactam (Sod 2.25 gm/ Sodium Chloride) 50 mls @ 100 mls/hr IV Q6H [facility] Last Admin: 04/30/19 03:40 Dose: 100 mls/hr Sodium Chloride (Normal Saline) 1,000 mls @ 100 mls/hr IV ASDIRECTED [facility] Last Admin: 04/28/19 20:43 Dose: 100 mls/hr Insulin Human Lispro (Humalog) 12 unit SUBCUT STAT ONE Stop: 04/29/19 13:10 Last Admin: 04/29/19 13:12 Dose: 12 unit Insulin Human Lispro (Humalog) 8 unit SUBCUT ONETIME ONE Stop: 04/29/19 18:01 Last Admin: 04/29/19 18:09 Dose: 8 unit Methylprednisolone Sodium Succinate (Solu-Medrol) 125 mg IVPUSH Q8H [facility] Last Admin: 04/27/19 09:46 Dose: 125 mg Metoclopramide HCl (Reglan) 5 mg IVPUSH Q6H [facility] Last Admin: 04/30/19 16:44 Dose: 5 mg Non-Formulary Medication (Pravastatin Sodium [Pravastatin Sodium]) 20 mg PO BIDAC [facility] Nystatin/Triamcinolone Acetonide (Mycolog Crm) 0 gm TOP TID [facility] Last Admin: 04/27/19 19:51 Dose: Not Given Ondansetron HCl (Zofran) 4 mg IVPUSH Q4H [facility] Last Admin: 04/30/19 23:46 Dose: Not Given Pantoprazole Sodium (Pantoprazole) 20 mg PO BIDAC [facility] Stop: 04/28/19 21:00 Last Admin: 04/28/19 07:37 Dose: 20 mg Pantoprazole Sodium (Protonix) 40 mg PO DAILY@0600 [facility] Pantoprazole Sodium (Protonix Iv) 40 mg IVPUSH DAILY [facility] Last Admin: 04/30/19 09:20 Dose: 40 mg Sodium Biphosphate/Sodium Phosphate (Fleet Enema) 133 ml RECTAL ONETIME ONE Stop: 04/29/19 11:33 Last Admin: 04/29/19 14:13 Dose: 133 ml - Exam General: Alert, Oriented, Cooperative, No Acute Distress Lungs: Clear to Auscultation, Normal Respiratory Effort Cardiovascular: Regular Rate, Regular Rhythm GI/Abdominal Exam: Normal Bowel Sounds, Soft, Non-Tender Sepsis Event Note - Evaluation Sepsis Screening Result: No Definite Risk - Focused Exam Vital Signs: Vital Signs Temp Pulse Pulse Resp BP BP BP 05/01/19 08:15 71 108/62 05/01/19 07:30 97.2 F 71 20 108/62 05/01/19 06:13 78 05/01/19 04:00 66 18 05/01/19 01:00 05/01/19 00:00 98.8 F 70 18 130/57 L Pulse Ox Pulse Ox 05/01/19 08:15 05/01/19 07:30 89 L 05/01/19 06:13 91 L 05/01/19 04:00 91 L 05/01/19 01:00 89 L 05/01/19 00:00 89 L Date Exam was Performed: 05/01/19 Time Exam was Performed: 09:09 - Problem List & Annotations (1) Partial obstruction of small intestine SNOMED Code(s): 459581777 Code(s): K56.600 - PARTIAL INTESTINAL OBSTRUCTION, UNSPECIFIED TO CAUSE Status: Resolved Current Visit: Yes - Problem List Review Problem List Initiated/Reviewed/Updated: Yes - My Orders Last 24 Hours: Active Orders 24 hr Category Date Time Status Communication Order [RC] ROUTINE Care 04/30/19 10:59 Active Clear Liquid Diet [DIET] Diet 04/30/19 Dinner Active Regular Diet [DIET] Diet 05/01/19 Breakfast Active CXR [Chest 2V] [CR] Routine Exams 04/30/19 09:49 Taken Convert IV to Saline Lock [OM.PC] Routine Oth 04/30/19 18:17 Ordered Medication Orders Acetaminophen (Tylenol Extra Strength) 1,000 mg PO Q6H PRN PRN Reason: PAIN Albuterol/Ipratropium (Duoneb 3.0-0.5 Mg/3 Ml) 3 ml NEB QIDRT [facility] Last Admin: 05/01/19 06:15 Dose: 3 ml Admin: 04/30/19 20:52 Dose: 3 ml Admin: 04/30/19 16:40 Dose: 3 ml Admin: 04/30/19 12:30 Dose: 3 ml Admin: 04/30/19 06:01 Dose: 3 ml Admin: 04/29/19 20:11 Dose: 3 ml Admin: 04/29/19 15:58 Dose: 3 ml Admin: 04/29/19 10:32 Dose: 3 ml Admin: 04/29/19 06:06 Dose: 3 ml Admin: 04/28/19 20:06 Dose: 3 ml Admin: 04/28/19 15:41 Dose: 3 ml Admin: 04/28/19 11:21 Dose: 3 ml Admin: 04/28/19 06:30 Dose: 3 ml Admin: 04/27/19 20:06 Dose: 3 ml Admin: 04/27/19 15:19 Dose: 3 ml Admin: 04/27/19 10:36 Dose: 3 ml Admin: 04/27/19 06:40 Dose: 3 ml Admin: 04/26/19 20:07 Dose: 3 ml Admin: 04/26/19 15:26 Dose: 3 ml Admin: 04/26/19 10:33 Dose: 3 ml Admin: 04/26/19 06:37 Dose: 3 ml Admin: 04/25/19 20:45 Dose: 3 ml Admin: 04/25/19 17:14 Dose: 3 ml Admin: 04/25/19 11:10 Dose: 3 ml Admin: 04/25/19 06:14 Dose: 3 ml Bisacodyl (Dulcolax) 10 mg RECTAL DAILY [facility] Last Admin: 05/01/19 08:20 Dose: 10 mg Admin: 04/30/19 09:12 Dose: 10 mg Admin: 04/29/19 12:40 Dose: 10 mg Fluoxetine HCl (Prozac) 40 mg PO DAILY [facility] Last Admin: 05/01/19 08:16 Dose: 40 mg Admin: 04/30/19 09:16 Dose: 40 mg Admin: 04/29/19 09:38 Dose: Admin: 04/28/19 08:26 Dose: 40 mg Admin: 04/27/19 08:08 Dose: 40 mg Admin: 04/26/19 08:39 Dose: 40 mg Admin: 04/25/19 10:25 Dose: 40 mg Gabapentin (Neurontin) 600 mg PO BID [facility] Last Admin: 05/01/19 08:31 Dose: 600 mg Admin: 04/30/19 20:52 Dose: 600 mg Admin: 04/30/19 09:31 Dose: 600 mg Admin: 04/29/19 20:05 Dose: Not Given Admin: 04/29/19 09:37 Dose: Admin: 04/28/19 20:40 Dose: 600 mg Admin: 04/28/19 08:46 Dose: 600 mg Admin: 04/27/19 20:07 Dose: 600 mg Admin: 04/27/19 08:06 Dose: 600 mg Admin: 04/26/19 20:21 Dose: 600 mg Admin: 04/26/19 08:46 Dose: 600 mg Admin: 04/25/19 20:50 Dose: 600 mg Admin: 04/25/19 10:34 Dose: 600 mg Hydroxyzine HCl (Atarax) 50 mg PO Q4H PRN PRN Reason: Nausea Last Admin: 04/27/19 22:40 Dose: 50 mg Dextrose/Water (Dextrose 5% In Water) 1,000 mls @ 75 mls/hr IV ASDIRECTED [facility] Last Admin: 04/30/19 11:50 Dose: 150 mls/hr Infusion: 04/30/19 09:34 Dose: 150 mls/hr Admin: 04/30/19 02:53 Dose: 150 mls/hr Infusion: 04/30/19 02:47 Dose: 150 mls/hr Admin: 04/29/19 20:06 Dose: 150 mls/hr Infusion: 04/29/19 19:20 Dose: 150 mls/hr Admin: 04/29/19 12:39 Dose: 150 mls/hr Infusion: 04/29/19 11:45 Dose: 150 mls/hr Admin: 04/29/19 05:04 Dose: 150 mls/hr Infusion: 04/29/19 04:39 Dose: 150 mls/hr Admin: 04/28/19 21:58 Dose: 150 mls/hr Insulin Glargine (Lantus Solostar) 26 units SUBCUT BEDTIME [facility] Last Admin: 04/30/19 22:24 Dose: Admin: 04/29/19 20:03 Dose: Not Given Admin: 04/28/19 20:13 Dose: 26 unit Admin: 04/27/19 20:18 Dose: 26 unit Admin: 04/26/19 20:15 Dose: 26 unit Admin: 04/25/19 20:59 Dose: 26 unit Insulin Human Lispro (Humalog) 16 unit SUBCUT TIDMEALS [facility] Last Admin: 05/01/19 08:21 Dose: 16 units Admin: 04/30/19 18:58 Dose: 16 units Admin: 04/30/19 12:03 Dose: Not Given Admin: 04/30/19 09:13 Dose: 16 units Admin: 04/29/19 18:08 Dose: Admin: 04/29/19 13:11 Dose: Not Given Admin: 04/29/19 08:49 Dose: 16 units Admin: 04/28/19 17:42 Dose: Not Given Admin: 04/28/19 11:38 Dose: 16 units Admin: 04/28/19 08:33 Dose: 16 units Admin: 04/27/19 18:03 Dose: 16 units Admin: 04/27/19 12:57 Dose: 16 units Admin: 04/27/19 07:41 Dose: 16 units Admin: 04/26/19 18:12 Dose: 16 units Admin: 04/26/19 12:10 Dose: 16 units Admin: 04/26/19 08:26 Dose: 16 units Admin: 04/25/19 18:45 Dose: 16 units Admin: 04/25/19 12:51 Dose: 16 units Insulin Human Lispro (Humalog) 0 unit SUBCUT TIDMEALS [facility]; Protocol Last Admin: 05/01/19 08:27 Dose: 2 units Admin: 04/30/19 18:59 Dose: 2 units Admin: 04/30/19 12:04 Dose: Admin: 04/30/19 09:14 Dose: 4 units Admin: 04/29/19 18:08 Dose: Admin: 04/29/19 13:12 Dose: Not Given Admin: 04/29/19 08:50 Dose: 8 units Admin: 04/28/19 17:44 Dose: Admin: 04/28/19 11:39 Dose: 6 units Admin: 04/28/19 08:34 Dose: 6 units Admin: 04/27/19 18:05 Dose: 4 units Admin: 04/27/19 12:59 Dose: 8 units Admin: 04/27/19 07:44 Dose: 10 units Admin: 04/26/19 17:52 Dose: 8 units Admin: 04/26/19 12:12 Dose: 6 units Admin: 04/26/19 08:33 Dose: 8 units Metoprolol Tartrate (Lopressor) 25 mg PO BID [facility] Last Admin: 05/01/19 08:15 Dose: 25 mg Admin: 04/30/19 22:24 Dose: Not Given Admin: 04/30/19 09:12 Dose: 25 mg Admin: 04/29/19 20:04 Dose: Not Given Admin: 04/29/19 09:37 Dose: Admin: 04/28/19 20:11 Dose: 25 mg Admin: 04/28/19 08:24 Dose: 25 mg Admin: 04/27/19 20:15 Dose: 25 mg Admin: 04/27/19 08:07 Dose: 25 mg Admin: 04/26/19 20:10 Dose: 25 mg Admin: 04/26/19 08:24 Dose: 25 mg Admin: 04/25/19 20:50 Dose: 25 mg Admin: 04/25/19 10:22 Dose: 25 mg Mirabegron (Myrbetriq) 50 mg PO WITHDINNER [facility] Last Admin: 04/30/19 19:05 Dose: 50 mg Admin: 04/29/19 18:09 Dose: Admin: 04/28/19 17:44 Dose: Not Given Admin: 04/27/19 17:40 Dose: 50 mg Admin: 04/26/19 18:08 Dose: 50 mg Admin: 04/25/19 18:41 Dose: 50 mg Morphine Sulfate (Morphine) 2 mg IVPUSH Q2H PRN PRN Reason: Shortness of Breath Mycophenolate Mofetil (Cellcept) 500 mg PO BID [facility] Last Admin: 05/01/19 08:19 Dose: 500 mg Admin: 04/30/19 20:51 Dose: 500 mg Admin: 04/30/19 09:07 Dose: 500 mg Admin: 04/29/19 20:03 Dose: Not Given Admin: 04/29/19 09:36 Dose: Admin: 04/28/19 20:09 Dose: 500 mg Admin: 04/28/19 08:22 Dose: 500 mg Admin: 04/27/19 20:08 Dose: 500 mg Admin: 04/27/19 07:59 Dose: 500 mg Admin: 04/26/19 20:07 Dose: 500 mg Admin: 04/26/19 08:34 Dose: 500 mg Admin: 04/25/19 20:50 Dose: 500 mg Admin: 04/25/19 10:26 Dose: 500 mg (Ethacrynic Acid [ Ethacrynic Acid] 25 Mg) *Ptom 25 mg PO DAILY [facility] Last Admin: 05/01/19 08:14 Dose: 25 mg Admin: 04/30/19 09:08 Dose: 25 mg Admin: 04/29/19 09:37 Dose: Admin: 04/28/19 08:31 Dose: 25 mg Admin: 04/27/19 08:01 Dose: 25 mg Admin: 04/26/19 08:35 Dose: 25 mg Admin: 04/25/19 10:22 Dose: 25 mg Breo Ellipta 100/25 Mcg (Fluticasone/Vilanterol 1 Puff) * Ptom 1 puff INH DAILY [facility] Last Admin: 05/01/19 08:18 Dose: 1 puff Admin: 04/30/19 09:10 Dose: 1 puff Admin: 04/29/19 09:03 Dose: 1 puff Admin: 04/28/19 08:41 Dose: 1 puff Admin: 04/27/19 08:03 Dose: 1 puff Admin: 04/26/19 08:36 Dose: 1 puff Admin: 04/25/19 10:22 Dose: 1 puff (Macitentan [Opsumit (] 10 Mg) *Ptom) 10 mg PO DAILY [facility] Last Admin: 05/01/19 08:15 Dose: 10 mg Admin: 04/30/19 09:23 Dose: 10 mg Admin: 04/29/19 09:37 Dose: Admin: 04/28/19 08:40 Dose: 10 mg Admin: 04/27/19 08:00 Dose: 10 mg Admin: 04/26/19 08:41 Dose: 10 mg Admin: 04/25/19 10:25 Dose: 10 mg Nystatin/Triamcinolone Acetonide (Mycolog Crm) 0 gm TOP TID [facility] Last Admin: 05/01/19 08:18 Dose: 1 applic Admin: 04/30/19 20:52 Dose: 1 applic Admin: 04/30/19 14:04 Dose: 1 applic Admin: 04/30/19 09:00 Dose: 1 applic Admin: 04/29/19 20:11 Dose: 1 applic Admin: 04/29/19 14:13 Dose: 1 applic Admin: 04/29/19 09:04 Dose: 1 applic Admin: 04/28/19 20:08 Dose: 1 applic Admin: 04/28/19 14:50 Dose: 1 applic Admin: 04/28/19 08:26 Dose: 1 applic Admin: 04/27/19 20:07 Dose: 1 applic Pravastatin Sodium (Pravachol) 20 mg PO BEDTIME [facility] Last Admin: 04/30/19 20:52 Dose: 20 mg Admin: 04/29/19 20:05 Dose: Not Given Admin: 04/28/19 20:11 Dose: 20 mg Admin: 04/27/19 20:08 Dose: 20 mg Admin: 04/26/19 20:13 Dose: 20 mg Admin: 04/25/19 20:51 Dose: 20 mg Sildenafil Citrate (Revatio) 20 mg PO TID [facility] Last Admin: 05/01/19 08:19 Dose: 20 mg Admin: 04/30/19 22:25 Dose: Not Given Admin: 04/30/19 14:05 Dose: 20 mg Admin: 04/30/19 09:07 Dose: 20 mg Admin: 04/29/19 20:05 Dose: Not Given Admin: 04/29/19 14:13 Dose: Admin: 04/29/19 09:38 Dose: Admin: 04/28/19 20:12 Dose: 20 mg Admin: 04/28/19 14:50 Dose: 20 mg Admin: 04/28/19 08:22 Dose: 20 mg Admin: 04/27/19 20:09 Dose: 20 mg Admin: 04/27/19 13:08 Dose: 20 mg Admin: 04/27/19 08:09 Dose: 20 mg Admin: 04/26/19 20:12 Dose: 20 mg Admin: 04/26/19 13:00 Dose: 20 mg Admin: 04/26/19 08:24 Dose: 20 mg Admin: 04/25/19 20:51 Dose: 20 mg Admin: 04/25/19 13:55 Dose: 20 mg Admin: 04/25/19 10:26 Dose: 20 mg Sodium Chloride (Saline Flush) 10 ml FLUSH ASDIRECTED PRN PRN Reason: Keep Vein Open Last Admin: 04/30/19 09:36 Dose: 10 ml Admin: 04/30/19 05:46 Dose: 10 ml Admin: 04/30/19 01:49 Dose: 10 ml Admin: 04/29/19 21:46 Dose: 10 ml Admin: 04/29/19 06:04 Dose: 10 ml Admin: 04/29/19 02:14 Dose: 10 ml Admin: 04/28/19 10:21 Dose: 10 ml Admin: 04/28/19 09:45 Dose: 10 ml Admin: 04/28/19 04:06 Dose: 10 ml Admin: 04/27/19 20:10 Dose: 10 ml Admin: 04/27/19 04:34 Dose: 10 ml Admin: 04/27/19 02:02 Dose: 10 ml Admin: 04/26/19 22:03 Dose: 10 ml Admin: 04/26/19 15:26 Dose: 10 ml Admin: 04/26/19 08:48 Dose: 10 ml Admin: 04/26/19 04:26 Dose: 10 ml Admin: 04/26/19 01:13 Dose: 10 ml Admin: 04/25/19 21:16 Dose: 10 ml Admin: 04/25/19 18:39 Dose: 10 ml Admin: 04/25/19 11:10 Dose: 10 ml Admin: 04/25/19 10:29 Dose: 10 ml Admin: 04/25/19 03:25 Dose: 10 ml Admin: 04/25/19 02:04 Dose: 10 ml Tacrolimus (Prograf) 0.5 mg PO DAILY [facility] Last Admin: 05/01/19 08:19 Dose: 0.5 mg Admin: 04/30/19 09:08 Dose: 0.5 mg Admin: 04/29/19 09:38 Dose: Admin: 04/28/19 08:22 Dose: 0.5 mg Admin: 04/27/19 08:08 Dose: 0.5 mg Admin: 04/26/19 08:37 Dose: 0.5 mg Admin: 04/25/19 10:26 Dose: 0.5 mg Trimethoprim (Trimethoprim) 100 mg PO DAILY [facility] Last Admin: 05/01/19 08:19 Dose: 100 mg Admin: 04/30/19 09:08 Dose: 100 mg Admin: 04/29/19 09:38 Dose: Admin: 04/28/19 08:22 Dose: 100 mg Admin: 04/27/19 08:10 Dose: 100 mg Admin: 04/26/19 08:23 Dose: 100 mg - Assessment Assessment (Free Text/Narrative):: appears to be tolerating diet I believe issues are more related to her constipation than a true obstruction. - Plan Plan (Free Text/Narrative):: would add miralax daily as well as fiber. will sign off. Thank you for the consultation.
--- NOTE | 2019-05-02 07:40 | DISCH ---
DISCHARGE DATE: 05/01/2019 DISCHARGE DIAGNOSES: 1. Bibasilar pneumonia, underlying chronic lung disease/fibrosis. 2. Type 2 diabetes mellitus, insulin-dependent. 3. Chronic kidney disease, stage 3. 4. Remote liver transplant in 2010. 5. Pulmonary hypertension. HISTORY OF PRESENT ILLNESS: Karol Valdes is a 73-year-old female, admitted with above issues, who presents with complicated cough, congestion, increased respiratory difficulty, sudden rigors, weakness, worsening cough, low- grade fever, and radiographic and clinical evidence of bilateral pneumonia. She was admitted to hospital for treatment and intervention. During hospital stay, she was placed on appropriate respiratory intervention including DuoNeb, intravenous corticosteroids, home medications, and her antirejection drugs. She was on dual antibiotic therapy, including Zosyn and azithromycin. Respiratory response satisfactory, O2 long-term need continued, fever resolved, respirations improved. On day 4 of hospital stay, she developed acute complicated vomiting, bilious in nature, large in volume. Seen by Dr. Mackenzie, radiographic evidence revealed small bowel obstruction. Placed at bowel rest. NG catheter was placed, maintained for 12-hour period of time, limited return, bowels became more active, stooling appeared. Catheter was removed. She kept n.p.o. for few hours. Diet was restarted and advanced as tolerated. At the time of discharge, patient was comfortable with well-being. PHYSICAL EXAMINATION AT DISCHARGE: VITAL SIGNS: 75 kg, 71 is the pulse, 108/62, 89% on 4 L. GENERAL: Appears comfortable. Speech was fluent. HEENT: Mouth and oropharynx clear. NECK: Benign. Thyroid small. No JVD. CHEST: On auscultation, coarse rhonchi, diffuse wheezing, but better air exchange. HEART: On auscultation, distant heart sounds without ectopy, soft murmur. HEART: Distant heart sounds without ectopy, soft murmur. ABDOMEN: Benign. Well- healed surgical scars. No abdominal tenderness. No palpable masses. EXTREMITIES: Well perfused. PLAN: Discharge home with home medications, 7 days and IV antibiotics, none required, most recent radiograph prior to discharge revealed complete resolution and return to baseline of lung function. Respiratory precautions, good nutrition, well being. Follow up with Dr. Cox in 2 weeks' duration. SURGICAL PROCEDURES: None. CONSULTATION: With Dr. Rodrigo Mackenzie of [facility]. /[id number]
== END 2019-05-01 13:00 | disposition home or self-care (01) | DRG 194 ==
LOC: FB.ED 00:18 → FB.MS 01:22
PROVIDERS: ADMIT Family Medicine; ATTEND Family Medicine
DX: J18.9 Pneumonia, unspecified organism (principal); Z94.4 Liver transplant status; Z87.441 Personal history of nephrotic syndrome; N18.4 Chronic kidney disease, stage 4 (severe); K56.600 Partial intestinal obstruction, unspecified as to cause; J43.9 Emphysema, unspecified; E66.9 Obesity, unspecified; F32.9 Major depressive disorder, single episode, unspecified; R09.02 Hypoxemia; K21.9 Gastro-esophageal reflux disease without esophagitis; K59.01 Slow transit constipation; J84.10 Pulmonary fibrosis, unspecified; E11.22 Type 2 diabetes mellitus with diabetic chronic kidney disease; N39.46 Mixed incontinence; E78.5 Hyperlipidemia, unspecified; D89.9 Disorder involving the immune mechanism, unspecified; I27.20 Pulmonary hypertension, unspecified; E11.65 Type 2 diabetes mellitus with hyperglycemia; I12.9 Hypertensive chronic kidney disease with stage 1 through stage 4 chronic kidney disease, or unspecified chronic kidney disease; R11.2 Nausea with vomiting, unspecified; Z79.4 Long term (current) use of insulin; Z79.51 Long term (current) use of inhaled steroids; Z79.82 Long term (current) use of aspirin; Z79.899 Other long term (current) drug therapy; Z68.30 Body mass index [BMI] 30.0-30.9, adult; Z88.2 Allergy status to sulfonamides; Z88.1 Allergy status to other antibiotic agents; Z91.041 Radiographic dye allergy status; Z99.81 Dependence on supplemental oxygen
CPT/HCPCS: 36415; 71046; 74176; 80048; 80053; 82947; 82962; 83605; 83735; 83880; 84100; 85025; 85027; 86140; 87040; 87804; 87804-59; 93005; 94640; 94760; 99284; 99285-25; A9270-GY; C9113; J0456; J0696; J1815; J1815-GY; J2405; J2543; J2765; J2930; J7030; J7050; J7060; J7620-GY

== ENCOUNTER 2020-02-25 09:48 | Emergency (ER) | payer MEDICARE, BC ==
[2020-02-25] MEDS ORDERED: Albuterol 0.083% 2.5 MG/3 ML Neb Soln NEB ONE (09:55)
[2020-02-25] MEDS ORDERED: Ondansetron 4 MG/2 ML SDV IVPUSH ONE (10:06)
--- NOTE | 2020-02-25 10:09 | EDM.PDOC ---
ED HPI GENERAL MEDICAL PROBLEM - General Chief Complaint: Respiratory Problem Stated Complaint: SOB Time Seen by Provider: 02/25/20 10:04 Source of Information: Reports: Patient, EMS History Limitations: Reports: No Limitations - History of Present Illness INITIAL COMMENTS - FREE TEXT/NARRATIVE: Presents with SOB x 2 days. Denies chest pain or cough. PMHx significant for Liver transplant (2010), T2DM, CKD, HTN, and pulmonary fibrosis. Patient had emesis in the ED and was incontinent of stool this morning. Duration: Day(s): (2) - Related Data Allergies Allergy/AdvReac Type Severity Reaction Status Date / Time Sulfa (Sulfonamide Allergy Rash Verified 02/25/20 10:17 Antibiotics) tiotropium Allergy Rash Verified 02/25/20 10:17 vancomycin Allergy Rash Verified 02/25/20 10:17 erythromycin base AdvReac Nausea and Verified 02/25/20 10:17 Vomiting Iodinated Contrast Media AdvReac Nausea Verified 02/25/20 10:17 Home Meds: Home Meds Acetaminophen [Tylenol Extra Strength] 500 - 1,000 mg PO Q4H PRN 12/26/18 [History] Albuterol [Ventolin HFA] 1 - 2 puff INH Q4H PRN 12/26/18 [History] Aspirin 81 mg PO MOWEFR 12/26/18 [History] Calcium Carbonate/Vitamin D3 [Calcium 500 mg Chewable Tablet] 3 tab PO DAILY 12/26/18 [History] Cholecalciferol (Vitamin D3) [Vitamin D3] 1,000 unit PO DAILY 12/26/18 [History] Cyanocobalamin (Vitamin B-12) [Vitamin B-12] 1,000 mcg PO DAILY 12/26/18 [History] Ethacrynic Acid 25 mg PO DAILY 12/26/18 [History] FLUoxetine HCl [Fluoxetine HCl] 40 mg PO DAILY 12/26/18 [History] Flaxseed Oil [Flax Oil] 1,000 mg PO DAILY 12/26/18 [History] Gabapentin [Neurontin] 600 mg PO BID 12/26/18 [History] Insulin Aspart [NovoLOG] 16 units SQ TIDAC 12/26/18 [History] Insulin Glarg,Human.Rec.Analog [Lantus Solostar] 26 unit SQ BEDTIME 12/26/18 [History] Lutein 20 mg PO DAILY 12/26/18 [History] Macitentan [Opsumit] 10 mg PO DAILY 12/26/18 [History] Metoprolol Tartrate 25 mg PO BID 12/26/18 [History] Mirabegron [Myrbetriq] 50 mg PO WITHDINNER 12/26/18 [History] Omeprazole 20 mg PO BID 12/26/18 [History] Pravastatin Sodium 20 mg PO BEDTIME 12/26/18 [History] Sildenafil Citrate 20 mg PO TID 12/26/18 [History] Tacrolimus [Prograf] 0.5 mg PO DAILY 12/26/18 [History] Trimethoprim 100 mg PO DAILY 12/26/18 [History] mycophenolate mofetiL [Cellcept] 500 mg PO BID 12/26/18 [History] Fluticasone/Vilanterol [Breo Ellipta 100-25 MCG Inhalation Kit] 1 puff INH DAILY 04/25/19 [History] Iron,Carbonyl/Ascorbic Acid [Vitron-C Tablet] 1 tab PO DAILY 04/25/19 [History] Albuterol/Ipratropium [DuoNeb 3.0-0.5 MG/3 ML] 3 ml NEB QIDRT neb 05/01/19 [Rx] Past Medical History HEENT History: Reports: Cataract Other HEENT History: bilateral Cardiovascular History: Reports: High Cholesterol, Hypertension, Pulmonary Hypertension Respiratory History: Reports: Pulmonary Fibrosis Gastrointestinal History: Reports: Chronic Constipation, GERD Other Gastrointestinal History: liver transplant approx 7 years ago Genitourinary History: Reports: Other (See Below) Other Genitourinary History: 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 Dermatologic History: Reports: Other (See Below) Other Dermatologic History: hx skin cancer R middle finger and both legs - Infectious Disease History Infectious Disease History: Reports: Chicken Pox, Measles, Mumps - Past Surgical History HEENT Surgical History: Reports: Laser Surgery Other HEENT Surgeries/Procedures: bilateral Cardiovascular Surgical History: Reports: None Respiratory Surgical History: Reports: Lung Biopsies GI Surgical History: Reports: Cholecystectomy, Colonoscopy Female Surgical History: Reports: Hysterectomy, Salpingo-Oophorectomy Neurological Surgical History: Reports: None Musculoskeletal Surgical History: Reports: Other (See Below) Other Musculoskeletal Surgeries/Procedures:: L wrist surgery with plate Oncologic Surgical History: Reports: None Social & Family History - Family History Family Medical History: Noncontributory - Caffeine Use Caffeine Use: Reports: Coffee Other Caffeine Use: 1 cup a day ED ROS GENERAL - Review of Systems Review Of Systems: Comprehensive ROS is negative, except as noted in HPI. ED EXAM, GENERAL - Physical Exam Exam: See Below Exam Limited By: No Limitations General Appearance: Alert, WD/WN, No Apparent Distress Nose: Normal Inspection Throat/Mouth: No Airway Compromise Head: Atraumatic, Normocephalic Neck: Full Range of Motion Respiratory/Chest: Lungs Clear, Normal Breath Sounds, Respiratory Distress Cardiovascular: Regular Rate, Rhythm, No Murmur GI/Abdominal: Normal Bowel Sounds, Soft, Tender (generalized). No: Guarding Back Exam: Full Range of Motion Extremities: Normal Range of Motion, Non-Tender, No Pedal Edema Neurological: Alert, Normal Cognition Psychiatric: Normal Affect Skin Exam: Warm, Dry, Intact #1 Interpretation EKG Date: 02/25/20 Time: 09:51 Rhythm: NSR Rate (Beats/Min): 99 [place]: Normal P-Wave: Present QRS: Other (artifact) ST-T: Depressed (anterolateral leads) Comparison: No Change (04/25/19) Course - Vital Signs Last Recorded V/S: Last Vital Signs Temp 34.7 C L 02/25/20 10:18 Pulse 122 H 02/25/20 10:18 Resp 18 02/25/20 10:18 BP 129/58 L 02/25/20 10:18 Pulse Ox 64 L 02/25/20 10:18 - Orders/Labs/Meds Orders: Active Orders 24 hr Category Date Time Status Accu Check [Blood Glucose Check, Bedside] [RC] Q2HR Care 02/25/20 11:19 Active BIPAP Adult [RT BiPAP/CPAP] [RC] ASDIRECTED Care 02/25/20 09:52 Active EKG Documentation Completion [RC] ASDIRECTED Care 02/25/20 09:51 Active Monroe Catheter Insertion [Insert Urinary Catheter] [OM. Care 02/25/20 10:45 Ordered PC] Q24H RT Aerosol Therapy [RC] ASDIRECTED Care 02/25/20 09:55 Active Urinary Catheter Assessment [RC] QSHIFT Care 02/25/20 10:38 Active Chest Abdomen Pelvis wo Cont [CT] Stat Exams 02/25/20 11:10 Taken CULTURE BLOOD [BC] Urgent Lab 02/25/20 10:15 Received CULTURE BLOOD [BC] Urgent Lab 02/25/20 10:25 Received Heparin Sodium/0.45% NaCl [Heparin 25,000 Units in 1/2 Med 02/25/20 12:45 Active NS 500 ML] 500 ml IV ASDIRECTED Sodium Chloride 0.9% [Normal Saline] 1,000 ml Med 02/25/20 10:45 Active IV .BOLUS Blood Culture x2 Reflex Set [OM.PC] Urgent Oth 02/25/20 09:50 Ordered EKG 12 Lead [EK] Stat Ther 02/25/20 09:50 Ordered Medication Orders Sodium Chloride (Normal Saline) 1,000 mls @ 999 mls/hr IV .BOLUS CHENCHO Last Admin: 02/25/20 10:41 Dose: 999 mls/hr Documented by: Heparin Sodium/Sodium Chloride (Heparin 25,000 Units In 1/2 Ns 500 Ml) 500 mls @ 18 mls/hr IV ASDIRECTED CHENCHO Last Admin: 02/25/20 13:05 Dose: 18 mls/hr Documented by: LIBRA Cosigned by: DIFFCAL Labs: Laboratory Tests 02/25/20 02/25/20 02/25/20 Range/Units 09:55 09:55 09:55 WBC 16.0 H (4.5-12.0) X10-3/uL RBC 4.07 (3.23-5.20) x10(6)uL Hgb 12.9 (11.5-15.5) g/dL Hct 39.1 (30.0-51.3) % MCV 96.1 H (80-96) fL MCH 31.7 (27.7-33.6) pg MCHC 33.0 (32.2-35.4) g/dL RDW 14.9 (11.5-15.5) % Plt Count 156 (125-369) X10(3)uL MPV 8.7 (7.4-10.4) fL Add Manual Diff Yes Neutrophils % (Manual) 62 (46-82) % Lymphocytes % (Manual) 34 (13-37) % Monocytes % (Manual) 4 (4-12) % Nucleated RBCs 2 H (0-0) /100WBC PT 10.4 (9.0-11.1) sec INR 0.96 L (1.00-1.24) APTT 21.4 L (24.4-33.2) SECONDS D-Dimer, Quantitative 1.70 H (0.0-0.59) mg/LFEU POC VBG pH (7.32-7.43) pH Units POC VBG pCO2 (41-51) mmHg POC VBG HCO3 (21-29) mmol/L VBG Base Excess (-2-3) mmol/L O2 Delivery Device Sodium 138 (135-145) mmol/L Potassium 4.9 (3.5-5.3) mmol/L Chloride 102 (100-110) mmol/L Carbon Dioxide 20 L (21-32) mmol/L BUN 40 H (7-18) mg/dL Creatinine 1.9 H (0.55-1.02) mg/dL Est Cr Clr Drug Dosing 21.16 mL/min Estimated GFR (MDRD) 26 L (>60) BUN/Creatinine Ratio 21.1 H (9-20) Glucose 365 H (80-116) mg/dL Lactic Acid (0.4-2.0) mmol/L Calcium 8.4 L (8.6-10.2) mg/dL Total Bilirubin 0.8 (0.1-1.3) mg/dL AST 32 H D (5-25) IU/L ALT 38 H D (12-36) U/L Alkaline Phosphatase 67 (56-112) IU/L Troponin I (4.0-60.3) pg/mL NT-Pro-B Natriuret Pep (<=450) pg/mL Total Protein 6.2 (6.0-8.0) g/dL Albumin 2.7 L (3.2-4.6) g/dL Globulin 3.5 g/dL Albumin/Globulin Ratio 0.8 Lipase (73-393) U/L Urine Color (YELLOW) Urine Appearance (CLEAR) Urine pH (5.0-6.5) Ur Specific [place] (1.010-1.025) Urine Protein (NEGATIVE) mg/dL Urine Glucose (UA) (NORMAL) mg/dL Urine Ketones (NEGATIVE) mg/dL Urine Occult Blood (NEGATIVE) Urine Nitrite (NEGATIVE) Urine Bilirubin (NEGATIVE) Urine Urobilinogen (NEGATIVE) mg/dL Ur Leukocyte Esterase (NEGATIVE) Urine WBC (0-5) Ur Squamous Epith Cells (NS,R,O) Urine Bacteria (NS) SARS-CoV-2 RNA (ALEX) (NEGATIVE) 02/25/20 02/25/20 02/25/20 Range/Units 09:55 09:55 09:55 WBC (4.5-12.0) X10-3/uL RBC (3.23-5.20) x10(6)uL Hgb (11.5-15.5) g/dL Hct (30.0-51.3) % MCV (80-96) fL MCH (27.7-33.6) pg MCHC (32.2-35.4) g/dL RDW (11.5-15.5) % Plt Count (125-369) X10(3)uL MPV (7.4-10.4) fL Add Manual Diff Neutrophils % (Manual) (46-82) % Lymphocytes % (Manual) (13-37) % Monocytes % (Manual) (4-12) % Nucleated RBCs (0-0) /100WBC PT (9.0-11.1) sec INR (1.00-1.24) APTT (24.4-33.2) SECONDS D-Dimer, Quantitative (0.0-0.59) mg/LFEU POC VBG pH (7.32-7.43) pH Units POC VBG pCO2 (41-51) mmHg POC VBG HCO3 (21-29) mmol/L VBG Base Excess (-2-3) mmol/L O2 Delivery Device Sodium (135-145) mmol/L Potassium (3.5-5.3) mmol/L Chloride (100-110) mmol/L Carbon Dioxide (21-32) mmol/L BUN (7-18) mg/dL Creatinine (0.55-1.02) mg/dL Est Cr Clr Drug Dosing mL/min Estimated GFR (MDRD) (>60) BUN/Creatinine Ratio (9-20) Glucose (80-116) mg/dL Lactic Acid 7.3 H* (0.4-2.0) mmol/L Calcium (8.6-10.2) mg/dL Total Bilirubin (0.1-1.3) mg/dL AST (5-25) IU/L ALT (12-36) U/L Alkaline Phosphatase (56-112) IU/L Troponin I 152.6 H* (4.0-60.3) pg/mL NT-Pro-B Natriuret Pep (<=450) pg/mL Total Protein (6.0-8.0) g/dL Albumin (3.2-4.6) g/dL Globulin g/dL Albumin/Globulin Ratio Lipase 63 L (73-393) U/L Urine Color (YELLOW) Urine Appearance (CLEAR) Urine pH (5.0-6.5) Ur Specific [place] (1.010-1.025) Urine Protein (NEGATIVE) mg/dL Urine Glucose (UA) (NORMAL) mg/dL Urine Ketones (NEGATIVE) mg/dL Urine Occult Blood (NEGATIVE) Urine Nitrite (NEGATIVE) Urine Bilirubin (NEGATIVE) Urine Urobilinogen (NEGATIVE) mg/dL Ur Leukocyte Esterase (NEGATIVE) Urine WBC (0-5) Ur Squamous Epith Cells (NS,R,O) Urine Bacteria (NS) SARS-CoV-2 RNA (ALEX) (NEGATIVE) 02/25/20 02/25/20 02/25/20 Range/Units 09:55 10:00 10:06 WBC (4.5-12.0) X10-3/uL RBC (3.23-5.20) x10(6)uL Hgb (11.5-15.5) g/dL Hct (30.0-51.3) % MCV (80-96) fL MCH (27.7-33.6) pg MCHC (32.2-35.4) g/dL RDW (11.5-15.5) % Plt Count (125-369) X10(3)uL MPV (7.4-10.4) fL Add Manual Diff Neutrophils % (Manual) (46-82) % Lymphocytes % (Manual) (13-37) % Monocytes % (Manual) (4-12) % Nucleated RBCs (0-0) /100WBC PT (9.0-11.1) sec INR (1.00-1.24) APTT (24.4-33.2) SECONDS D-Dimer, Quantitative (0.0-0.59) mg/LFEU POC VBG pH 7.20 L* (7.32-7.43) pH Units POC VBG pCO2 43 (41-51) mmHg POC VBG HCO3 17 L (21-29) mmol/L VBG Base Excess -11 L (-2-3) mmol/L O2 Delivery Device Vent mask Sodium (135-145) mmol/L Potassium (3.5-5.3) mmol/L Chloride (100-110) mmol/L Carbon Dioxide (21-32) mmol/L BUN (7-18) mg/dL Creatinine (0.55-1.02) mg/dL Est Cr Clr Drug Dosing mL/min Estimated GFR (MDRD) (>60) BUN/Creatinine Ratio (9-20) Glucose (80-116) mg/dL Lactic Acid (0.4-2.0) mmol/L Calcium (8.6-10.2) mg/dL Total Bilirubin (0.1-1.3) mg/dL AST (5-25) IU/L ALT (12-36) U/L Alkaline Phosphatase (56-112) IU/L Troponin I (4.0-60.3) pg/mL NT-Pro-B Natriuret Pep 8746 H* (<=450) pg/mL Total Protein (6.0-8.0) g/dL Albumin (3.2-4.6) g/dL Globulin g/dL Albumin/Globulin Ratio Lipase (73-393) U/L Urine Color (YELLOW) Urine Appearance (CLEAR) Urine pH (5.0-6.5) Ur Specific [place] (1.010-1.025) Urine Protein (NEGATIVE) mg/dL Urine Glucose (UA) (NORMAL) mg/dL Urine Ketones (NEGATIVE) mg/dL Urine Occult Blood (NEGATIVE) Urine Nitrite (NEGATIVE) Urine Bilirubin (NEGATIVE) Urine Urobilinogen (NEGATIVE) mg/dL Ur Leukocyte Esterase (NEGATIVE) Urine WBC (0-5) Ur Squamous Epith Cells (NS,R,O) Urine Bacteria (NS) SARS-CoV-2 RNA (ALEX) Negative (NEGATIVE) 02/25/20 02/25/20 02/25/20 Range/Units 10:46 12:10 12:10 WBC (4.5-12.0) X10-3/uL RBC (3.23-5.20) x10(6)uL Hgb (11.5-15.5) g/dL Hct (30.0-51.3) % MCV (80-96) fL MCH (27.7-33.6) pg MCHC (32.2-35.4) g/dL RDW (11.5-15.5) % Plt Count (125-369) X10(3)uL MPV (7.4-10.4) fL Add Manual Diff Neutrophils % (Manual) (46-82) % Lymphocytes % (Manual) (13-37) % Monocytes % (Manual) (4-12) % Nucleated RBCs (0-0) /100WBC PT (9.0-11.1) sec INR (1.00-1.24) APTT (24.4-33.2) SECONDS D-Dimer, Quantitative (0.0-0.59) mg/LFEU POC VBG pH (7.32-7.43) pH Units POC VBG pCO2 (41-51) mmHg POC VBG HCO3 (21-29) mmol/L VBG Base Excess (-2-3) mmol/L O2 Delivery Device Sodium (135-145) mmol/L Potassium (3.5-5.3) mmol/L Chloride (100-110) mmol/L Carbon Dioxide (21-32) mmol/L BUN (7-18) mg/dL Creatinine (0.55-1.02) mg/dL Est Cr Clr Drug Dosing mL/min Estimated GFR (MDRD) (>60) BUN/Creatinine Ratio (9-20) Glucose (80-116) mg/dL Lactic Acid 3.1 H* (0.4-2.0) mmol/L Calcium (8.6-10.2) mg/dL Total Bilirubin (0.1-1.3) mg/dL AST (5-25) IU/L ALT (12-36) U/L Alkaline Phosphatase (56-112) IU/L Troponin I 281.1 H* (4.0-60.3) pg/mL NT-Pro-B Natriuret Pep (<=450) pg/mL Total Protein (6.0-8.0) g/dL Albumin (3.2-4.6) g/dL Globulin g/dL Albumin/Globulin Ratio Lipase (73-393) U/L Urine Color Yellow (YELLOW) Urine Appearance Clear (CLEAR) Urine pH 5.0 (5.0-6.5) Ur Specific [place] 1.015 (1.010-1.025) Urine Protein Trace (NEGATIVE) mg/dL Urine Glucose (UA) 50 H (NORMAL) mg/dL Urine Ketones Negative (NEGATIVE) mg/dL Urine Occult Blood Negative (NEGATIVE) Urine Nitrite Negative (NEGATIVE) Urine Bilirubin Negative (NEGATIVE) Urine Urobilinogen 1 H (NEGATIVE) mg/dL Ur Leukocyte Esterase Negative (NEGATIVE) Urine WBC 0-5 (0-5) Ur Squamous Epith Cells Few H (NS,R,O) Urine Bacteria Few H (NS) SARS-CoV-2 RNA (ALEX) (NEGATIVE) Meds: Medications Generic Name Dose Route Start Last Admin Trade Name Freq PRN Reason Stop Dose Admin Sodium Chloride 1,000 mls @ 999 mls/hr 02/25/20 10:45 02/25/20 10:41 Normal Saline IV 999 mls/hr .BOLUS CHENCHO Administration Heparin Sodium/Sodium Chloride 500 mls @ 18 mls/hr 02/25/20 12:45 02/25/20 13:05 Heparin 25,000 Units In 1/2 Ns 500 Ml IV 18 mls/hr ASDIRECTED CHENCHO Administration Discontinued Medications Generic Name Dose Route Start Last Admin Trade Name Freq PRN Reason Stop Dose Admin Albuterol 2.5 mg 02/25/20 09:55 02/25/20 10:10 Proventil Neb Soln NEB 02/25/20 09:56 2.5 mg ONETIME ONE Administration Cefepime HCl 2 gm 02/25/20 10:37 02/25/20 10:57 Maxipime IVPUSH 02/25/20 10:38 2 gm ONETIME ONE Administration Heparin Sodium (Porcine) 3,750 units 02/25/20 12:44 02/25/20 13:00 Heparin Sodium IVPUSH 02/25/20 12:45 3,750 units ONETIME ONE Administration Ondansetron HCl 4 mg 02/25/20 10:06 02/25/20 10:11 Zofran IVPUSH 02/25/20 10:07 4 mg ONETIME ONE Administration - Radiology Interpretation Free Text/Narrative:: CXR: Findings suspicious for pneumonia in the midlung field and lung base and possibly a the the left lung base -correlate clinically. Lungs also appear somewhat hyperaerated. ASHD with cardiomegaly. (per Dr. Garcia) CT Chest/Abd/Pelvis s/ contrast: Emphysema, pulmonary fibrosis, questionable patchy peripheral infiltrates. Massive ventral hernia, no obstruction. (per Dr. Garcia) - Re-Assessments/Exams Free Text/Narrative Re-Assessment/Exam: 02/25/20 11:00 confirms that patient is a DNR. 02/25/20 12:56 Sa02 improved from 88% on 10L 02 to 96% on 6L 02. Patient feels much improved. 02/25/20 13:26 Dr. Huerta accepts patient for transfer to [facility]. Departure - Departure Time of Disposition: 13:26 Disposition: DC/Tfer to Acute Hospital 02 Condition: Serious Clinical Impression: Lactic acidosis, Hypoxemia, Non-STEMI (non-ST elevated myocardial infarction) Pneumonia Qualifiers: Pneumonia type: due to unspecified organism Laterality: bilateral Lung location: unspecified part of lung Qualified Code(s): J18.9 - Pneumonia, unspecified organism - Discharge Information *PRESCRIPTION DRUG MONITORING PROGRAM REVIEWED*: No *COPY OF PRESCRIPTION DRUG MONITORING REPORT IN PATIENT [place]: Not Applicable Referrals: Shubham Cox MD [Primary Care Provider] - Forms: ED Department Discharge Sepsis Event Note (ED) - Focused Exam Vital Signs: Vital Signs Temp Pulse Resp BP Pulse Ox 02/25/20 10:18 34.7 C L 122 H 18 129/58 L 64 L - My Orders Last 24 Hours: My Active Orders 02/25/20 09:50 Blood Culture x2 Reflex Set [OM.PC] Urgent EKG 12 Lead [EK] Stat 02/25/20 09:51 EKG Documentation Completion [RC] ASDIRECTED 02/25/20 09:52 BIPAP Adult [RT BiPAP/CPAP] [RC] ASDIRECTED 02/25/20 09:55 RT Aerosol Therapy [RC] ASDIRECTED 02/25/20 10:15 CULTURE BLOOD [BC] Urgent 02/25/20 10:25 CULTURE BLOOD [BC] Urgent 02/25/20 10:38 Urinary Catheter Assessment [RC] QSHIFT 02/25/20 10:45 Monroe Catheter Insertion [Insert Urinary Catheter] [OM.PC] Q24H Sodium Chloride 0.9% [Normal Saline] 1,000 ml IV .BOLUS 02/25/20 11:10 Chest Abdomen Pelvis wo Cont [CT] Stat 02/25/20 11:19 Accu Check [Blood Glucose Check, Bedside] [RC] Q2HR 02/25/20 12:45 Heparin Sodium/0.45% NaCl [Heparin 25,000 Units in 1/2 NS 500 ML] 500 ml IV ASDIRECTED - Assessment/Plan Last 24 Hours: My Active Orders 02/25/20 09:50 Blood Culture x2 Reflex Set [OM.PC] Urgent EKG 12 Lead [EK] Stat 02/25/20 09:51 EKG Documentation Completion [RC] ASDIRECTED 02/25/20 09:52 BIPAP Adult [RT BiPAP/CPAP] [RC] ASDIRECTED 02/25/20 09:55 RT Aerosol Therapy [RC] ASDIRECTED 02/25/20 10:15 CULTURE BLOOD [BC] Urgent 02/25/20 10:25 CULTURE BLOOD [BC] Urgent 02/25/20 10:38 Urinary Catheter Assessment [RC] QSHIFT 02/25/20 10:45 Monroe Catheter Insertion [Insert Urinary Catheter] [OM.PC] Q24H Sodium Chloride 0.9% [Normal Saline] 1,000 ml IV .BOLUS 02/25/20 11:10 Chest Abdomen Pelvis wo Cont [CT] Stat 02/25/20 11:19 Accu Check [Blood Glucose Check, Bedside] [RC] Q2HR 02/25/20 12:45 Heparin Sodium/0.45% NaCl [Heparin 25,000 Units in 1/2 NS 500 ML] 500 ml IV ASDIRECTED
[2020-02-25 10:25] LABS: PCO2 VENOUS,POC 43 mmHg (41-51)
[2020-02-25 10:26] LABS: BASE EXCESS VENOUS,POC -11 mmol/L (-2-3); HCO3 VENOUS,POC 17 mmol/L (21-29)
[2020-02-25] MEDS ORDERED: Cefepime 2 GM Vial IVPUSH ONE (10:37)
[2020-02-25] MEDS ORDERED: Sodium Chloride 0.9% 1,000 ML IV SCH (10:45)
--- NOTE | 2020-02-25 11:49 | CR ---
INDICATION: Shortness of breath. CHEST ONE VIEW: An AP upright portable view of the chest 02/25/20 was compared with 04/30/19 and 04/27/19. The heart is enlarged, the aorta is tortuous with calcification in the arch. There appears to be infiltrate in the right upper lobe at the minor fissure anteriorly and in the right lower lobe, as well as possibly at the left lower lobe, but not as well seen with overlying heart. No definite pleural effusion was seen. Overlying EKG leads are noted, overlying snaps are noted. IMPRESSION: 1. Findings suspicious for pneumonia in the midlung field and lung base and possibly at the left lung base - correlate clinically. 2. Lungs also appear somewhat hyperaerated. 3. ASHD with cardiomegaly. MTDD
[2020-02-25] MEDS ORDERED: Heparin Sodium 5,000 Units/ML Vial IVPUSH ONE (12:44)
[2020-02-25] MEDS ORDERED: Heparin Sodium/0.45% NaCl 500 ML IV SCH (12:45)
--- NOTE | 2020-02-26 08:14 | CT ---
INDICATION: Short of breath, abdominal pain upper abdomen. CT CHEST, ABDOMEN AND PELVIS WITHOUT CONTRAST: Spiral 3.75 mm axial sections were obtained through the chest, abdomen and pelvis without contrast with sagittal and coronal reconstructions 02/25/20 and compared with 04/28/[address] Total exam DLP was 2697.75 mGy-cm. Calcifications are noted in brachiocephalic vessels, the arch of the aorta, coronary arteries, descending aorta. The heart appears enlarged to a mild degree. No pericardial effusion was seen. Mediastinal lymphadenopathy is moderately prominent, etiology indeterminate with no definite mediastinal mass identified. The mediastinal lymphadenopathy could be reactive to previous infection - correlate clinically. Severe lobar emphysematous changes are noted in the upper lobes mainly. In the middle lobe there is some patchy infiltrate in at least two areas. Patchy basilar mostly peripheral infiltrate is also noted in the lobes to a relatively mild degree. Some of these areas of apparent infiltrate may be fibrotic in nature. Fibrosis is strongly suggested at least in part with a similar appearance on the previous CT of the abdomen which included a portion of the lower lobes 04/28/19. Abnormal airspaces extend into the lung bases. In the left upper lobe anteriorly there is also some patchy infiltrate somewhat peripherally which may represent pneumonia and/or fibrosis. No definite nodular mass or malignancy was identified. No gross consolidating pneumonia or effusions were identified. IMPRESSION: 1. Findings are felt to be most compatible with severe emphysema with multiple areas of fibrosis, although superimposed areas of patchy pneumonia, especially peripherally cannot be excluded in the left upper lobe, right middle lobe, and both lower lobes. 2. Mediastinal lymphadenopathy most likely on the basis of previous infections. 3. ASHD with mild cardiomegaly. CT OF THE ABDOMEN: Examination of the abdomen was obtained by CT as noted above. The post transplant liver appeared normal (9 years prior). The gallbladder is absent compatible with history of its removal. No definite adrenal abnormality was identified. The spleen appeared normal. The pancreas appears to be extremely fatty replaced. Renal fascial thickening is noted, more prominently on the left with some irregularity of renal cortices compatible with [id number] renal cortical scarring. There is again noted a left midpole probable caliceal calculus and a smaller one in the lower pole of the right kidney which is slightly larger than on the previous study, no obstructive uropathy was seen, however. The aorta is tortuous and calcified with calcifications also noted in the right renal artery and minimally in the splenic artery, as well as also in the superior mesenteric artery and the femoral arteries and iliac arteries. Retroperitoneal lymphadenopathy is mild and nonspecific. No retroperitoneal mass was identified. A massive ventral hernia is again noted and appears somewhat increased in size with multiple loops of small bowel and colon also present, no obstruction of the bowel or free air was identified. The appendix is not definitely visualized. Distal descending and sigmoid diverticulosis is noted without definite diverticulitis. The uterus is absent compatible with hysterectomy history. The urinary bladder is empty with Monroe catheter in place. No organomegaly or mass lesions or free fluid collections were identified. IMPRESSION: 1. Massive ventral hernia appears slightly increased in size with multiple loops of bowel, but no bowel obstruction. 2. Post cholecystectomy. 3. ASD without aneurysmic dilatation. 4. Renal cortical scarring and minimal renal calcinosis. 5. Diverticulosis coli - no definite diverticulitis. 6. Post hysterectomy. 7. Mild hypertrophic degenerative change, probable disk disease and grade 1 anterolisthesis at L5-S1. 8. No definite bowel obstruction identified. Report was called to Dr. Nunez at 1230 hours. [facility]
== END 2020-02-25 15:26 ==
LOC: FB.ED 09:48
DX: I21.4 Non-ST elevation (NSTEMI) myocardial infarction (principal); J18.9 Pneumonia, unspecified organism; E87.2 Acidosis; R09.02 Hypoxemia; I10 Essential (primary) hypertension; E78.00 Pure hypercholesterolemia, unspecified; K21.9 Gastro-esophageal reflux disease without esophagitis; E11.9 Type 2 diabetes mellitus without complications; Z88.2 Allergy status to sulfonamides; Z88.1 Allergy status to other antibiotic agents; Z91.041 Radiographic dye allergy status; Z20.828 Contact with and (suspected) exposure to other viral communicable diseases; Z79.4 Long term (current) use of insulin; Z79.899 Other long term (current) drug therapy; Z90.49 Acquired absence of other specified parts of digestive tract; Z90.710 Acquired absence of both cervix and uterus
CPT/HCPCS: 36415; 71045; 71250; 74176; 80053; 81001; 83605; 83690; 83880; 84484; 85025; 85379; 85610; 85730; 87040; 93005; 94640; 94660; 96365; 96366; 96375; 99285-25; J0692; J1644; J2405; J7030; U0002

== ENCOUNTER 2020-03-05 04:26 | Inpatient (IN) | payer MEDICARE, BC ==
[2020-03-05] MEDS ORDERED: 50% Dextrose in Water 50 ML Syringe IVPUSH PRN (14:32)
[2020-03-05] MEDS ORDERED: Albuterol 8 GM Inhaler INH PRN (14:32)
[2020-03-05] MEDS ORDERED: Glucagon,Human Recombinant 1 MG Vial IM PRN (14:32)
[2020-03-05] MEDS ORDERED: Non-Formulary Medication 1 Each (Dulaglutide [Trulicity] 0.75 MG) SUBCUT SCH (14:45)
[2020-03-05] MEDS: Sildenafil 20 MG Tab PO SCH ×2 (17:13→21:18)
[2020-03-05] MEDS: ATOVAQUONE 750 MG/5 ML PO SCH (17:23)
[2020-03-05] MEDS: Mirabegron 25 MG Tab Extended Release PO SCH (17:26)
[2020-03-05] MEDS ORDERED: Insulin Lispro 100 Unit/ML 3 ML KwikPen SUBCUT ONE (17:32)
[2020-03-05] MEDS: Insulin Lispro 100 Unit/ML 3 ML KwikPen SUBCUT SCH (17:35)
[2020-03-05] MEDS ORDERED: Insulin Glargine,Human Rec. Analog 100 Units/ML 3 ML Pen SUBCUT ONE (21:15)
[2020-03-05] MEDS: atorvaSTATin 40 MG Tab PO SCH (21:18)
[2020-03-05] MEDS: Mycophenolate Mofetil 250 MG Cap PO SCH (21:18)
[2020-03-05] MEDS: Gabapentin 600 MG Tab PO SCH (21:18)
[2020-03-05] MEDS: Insulin Glargine,Human Rec. Analog 100 Units/ML 3 ML Pen SUBCUT SCH (21:22)
[2020-03-06] MEDS: Pantoprazole 40 MG Tab.CR PO SCH (06:14)
[2020-03-06] MEDS ORDERED: FLAXSEED OIL 1200 MG PO SCH (09:00)
[2020-03-06] MEDS: Insulin Lispro 100 Unit/ML 3 ML KwikPen SUBCUT SCH ×3 (09:25→17:43)
[2020-03-06] MEDS: Formoterol/Mometasone 100-5 MCG 8.8 GM Inhaler IH SCH ×2 (09:26→20:43)
[2020-03-06] MEDS: MACITENTAN 10 MG PO SCH (09:26)
[2020-03-06] MEDS: ATOVAQUONE 750 MG/5 ML PO SCH ×2 (09:26→18:05)
[2020-03-06] MEDS: Mycophenolate Mofetil 250 MG Cap PO SCH ×2 (09:27→20:43)
[2020-03-06] MEDS: FLUoxetine 20 MG Cap PO SCH (09:28)
[2020-03-06] MEDS: Tacrolimus 0.5 MG Cap PO SCH (09:28)
[2020-03-06] MEDS: predniSONE 20 MG Tab PO SCH (09:28)
[2020-03-06] MEDS: Sildenafil 20 MG Tab PO SCH ×3 (09:28→20:43)
[2020-03-06] MEDS: Acetaminophen 500 MG Tab PO PRN ×2 (09:34→17:42)
[2020-03-06] MEDS: Gabapentin 600 MG Tab PO SCH ×2 (09:34→20:43)
--- NOTE | 2020-03-06 11:51 | HP ---
ADMISSION DATE: 03/05/2020 CHIEF COMPLAINT: Admission to swing bed post Pneumocystis carinii pneumonia. HISTORY OF PRESENT ILLNESS: Mrs. Valdes is a 74-year-old woman who is now 9 years status post liver transplant for idiopathic cirrhosis done at [facility] in 2010. She has also had severe pulmonary fibrosis, oxygen dependence, and type 2 diabetes. She has had chronic kidney disease and has pulmonary artery hypertension. The patient states she was in her usual state of health until approximately 10 days ago. At that time, she was outside, and she slipped slightly, falling, and then later that day, developed chills and weakness along with shortness of breath. She did not get any cough or high fever. Because of her increasing dyspnea and oxygen requirement, she was brought to the emergency room at [facility] in [place] where she was admitted with pneumonia. She had been started on antibiotics for community-acquired pneumonia; however, sputum culture came back documenting Pneumocystis carinii pneumonia. She has been on long-term immunosuppression for her liver transplant. She was switched to IV atovaquone for the PCP pneumonia as well as a prednisone taper and her usual medicines for pulmonary hypertension. After 4 days of this IV, she was significantly improved, and she was discharged to [facility] on 03/05/2020. The patient states she feels significantly better. She feels she is nearly back to her baseline except for continued weakness. She is not coughing, and with her oxygen on, her breathing is comfortable. PAST MEDICAL HISTORY: Significant for the liver transplant for idiopathic fibrosis in 2010. She has had a history of non-STEMI, demand related, and has chronic diastolic congestive heart failure. A coronary angiogram on 02/28 of this year showed clean coronary arteries. She has severe pulmonary fibrosis with pulmonary artery hypertension. She has type 2 diabetes, osteoporosis, chronic kidney disease, and has the chronic immunosuppression and oxygen dependence. MEDICATIONS: 1. Trimethoprim 100 mg daily. 2. Tacrolimus 500 mcg daily. 3. Sildenafil 20 mg t.i.d. 4. Prednisone 40 mg per day , tapering over 1 month. 5. Omeprazole 20 mg daily. 6. Mycophenolate 500 mg b.i.d. 7. Mirabegron 50 mg daily. 8. Macitentan 10 mg daily. 9. Lutein 20 mg daily. 10.Vitamin C with iron 1 daily. 11.Glargine insulin 26 units daily. 12.Aspart insulin 13 units with breakfast and lunch, 15 units with supper. 13.Gabapentin 600 mg b.i.d. 14.Breo Ellipta 1 puff daily. 15.Fluoxetine 40 mg daily. 16.Flaxseed 1200 mg daily. 17.Atacand 25 mg daily. 18.Dulaglutide 75 mcg weekly. 19.Cyanocobalamin 1000 mcg daily. 20.Vitamin D 25 mcg daily. 21.Calcium with D 2 gummies daily. 22.Atovaquone 750 mg b.i.d. for 21 days. 23.Atorvastatin 40 mg daily. 24.Aspirin 81 mg daily. 25.Albuterol MDI 2 puffs q.i.d. p.r.n. 26.Tylenol p.r.n. ALLERGIES: IV contrast caused hives. Sulfa caused hives. Erythromycin caused nausea and vomiting. HABITS: Nonsmoker and nondrinker. FAMILY AND SOCIAL HISTORY: The patient is . She lives with her in [place]. She has 2 grown daughters, and they are retired. REVIEW OF SYSTEMS: GENERAL: No seizure, syncope, or recent significant weight change. SKIN: Negative for rash. She does, however, have multiple widespread areas of ecchymosis she attributes to blood thinner. HEENT: No recent changes in hearing or vision. NECK: No sore throat. CHEST: No cough. She has chronic dyspnea, on oxygen dependence. GASTROINTESTINAL: No nausea, vomiting, or diarrhea. MUSCULOSKELETAL: No joint inflammation, swelling, or skin rash. PHYSICAL EXAMINATION: GENERAL: She is alert, comfortable, and a good historian. VITAL SIGNS: Blood pressure 107/47, pulse 68 and regular, respirations 20, oxygen saturation 93% on 5 L nasal cannula, temperature 98, and weight 157 pounds. SKIN: Widespread ecchymoses. No rash. HEENT: Shows pupils to be equal and reactive. Oropharynx is clear. LUNGS: Clear bilaterally in the upper lung pérez. She has fine rales at both bases. No focal consolidation. HEART: Regular. There is a 2/6 systolic murmur over the mitral area. ABDOMEN: Normal bowel sounds. Soft and nontender. EXTREMITIES: No edema at the ankles. LABORATORY DATA: Laboratory done yesterday at [facility]. White count 6500, hemoglobin 10.1, MCV 98, and platelets 167. Sodium 135, creatinine 4.1, BUN 41, creatinine 1.32, and glucose 212. Chest x-ray showed patchy infiltrates, both bases. ASSESSMENT: A 74-year-old woman with: 1. Pneumocystis carinii pneumonia, now improved and here for rehab. 2. History of liver transplant in 2010, on chronic immunosuppression. 3. Type 2 diabetes. 4. Severe pulmonary fibrosis with chronic obstructive pulmonary disease and oxygen dependence. 5. Pulmonary artery hypertension. 6. Osteoporosis. 7. Chronic mixed urinary incontinence. 8. Situational depression. 9. History of demand myocardial infarction with congestive heart failure, and current angiogram with clean coronary arteries. PLAN: She will continue her medications as prescribed by Infectious Disease. We will continue therapy for strengthening. Anticipate discharge to home when she is strong enough. We will continue to provide palliative care measures for underlying problems as well. /[id number] EUSEBIO/KASANDRA
[2020-03-06] MEDS: Ferrous Sulfate 325 MG Tab PO SCH (11:55)
[2020-03-06] MEDS: Calcium Carbonate 500 MG Tablet PO SCH (11:55)
[2020-03-06] MEDS: Cholecalciferol (Vitamin D3) 25 MCG Tab PO SCH (11:56)
[2020-03-06] MEDS: Cyanocobalamin (Vitamin B12) 1,000 MCG Tab PO SCH (11:56)
[2020-03-06] MEDS: Ascorbic Acid 500 MG Tab PO SCH (11:56)
[2020-03-06] MEDS: Mirabegron 25 MG Tab Extended Release PO SCH (18:05)
[2020-03-06] MEDS: atorvaSTATin 40 MG Tab PO SCH (20:43)
[2020-03-06] MEDS: Insulin Glargine,Human Rec. Analog 100 Units/ML 3 ML Pen SUBCUT SCH (20:47)
[2020-03-07] MEDS: Pantoprazole 40 MG Tab.CR PO SCH (05:43)
[2020-03-07] MEDS: ATOVAQUONE 750 MG/5 ML PO SCH ×2 (07:40→17:26)
[2020-03-07] MEDS: Acetaminophen 500 MG Tab PO PRN ×2 (07:40→17:26)
[2020-03-07] MEDS: Insulin Lispro 100 Unit/ML 3 ML KwikPen SUBCUT SCH ×3 (07:41→17:26)
[2020-03-07] MEDS: Gabapentin 600 MG Tab PO SCH ×2 (08:43→20:41)
[2020-03-07] MEDS: Formoterol/Mometasone 100-5 MCG 8.8 GM Inhaler IH SCH ×2 (08:43→20:26)
[2020-03-07] MEDS: Mycophenolate Mofetil 250 MG Cap PO SCH ×2 (08:44→20:26)
[2020-03-07] MEDS: Aspirin 81 MG Tab.Chew PO SCH (08:44)
[2020-03-07] MEDS: FLUoxetine 20 MG Cap PO SCH (08:44)
[2020-03-07] MEDS: Sildenafil 20 MG Tab PO SCH ×3 (08:44→20:25)
[2020-03-07] MEDS: predniSONE 20 MG Tab PO SCH (08:45)
[2020-03-07] MEDS: Tacrolimus 0.5 MG Cap PO SCH (08:45)
[2020-03-07] MEDS: MACITENTAN 10 MG PO SCH (08:46)
[2020-03-07] MEDS: Cyanocobalamin (Vitamin B12) 1,000 MCG Tab PO SCH (12:18)
[2020-03-07] MEDS: Cholecalciferol (Vitamin D3) 25 MCG Tab PO SCH (12:18)
[2020-03-07] MEDS: Ferrous Sulfate 325 MG Tab PO SCH (12:18)
[2020-03-07] MEDS: Ascorbic Acid 500 MG Tab PO SCH (12:18)
[2020-03-07] MEDS: Calcium Carbonate 500 MG Tablet PO SCH (12:19)
[2020-03-07] MEDS: Mirabegron 25 MG Tab Extended Release PO SCH (17:27)
[2020-03-07] MEDS: atorvaSTATin 40 MG Tab PO SCH (20:25)
[2020-03-07] MEDS: Insulin Glargine,Human Rec. Analog 100 Units/ML 3 ML Pen SUBCUT SCH (20:44)
[2020-03-08] MEDS: Pantoprazole 40 MG Tab.CR PO SCH (06:45)
[2020-03-08] MEDS: Insulin Lispro 100 Unit/ML 3 ML KwikPen SUBCUT SCH ×2 (08:10→13:02)
[2020-03-08] MEDS: Acetaminophen 500 MG Tab PO PRN ×2 (08:15→20:41)
[2020-03-08] MEDS: Gabapentin 600 MG Tab PO SCH ×2 (08:15→20:29)
[2020-03-08] MEDS: Mycophenolate Mofetil 250 MG Cap PO SCH ×2 (08:15→20:32)
[2020-03-08] MEDS: ATOVAQUONE 750 MG/5 ML PO SCH ×2 (08:15→18:28)
[2020-03-08] MEDS: Tacrolimus 0.5 MG Cap PO SCH (08:17)
[2020-03-08] MEDS: FLUoxetine 20 MG Cap PO SCH (08:17)
[2020-03-08] MEDS: Sildenafil 20 MG Tab PO SCH ×3 (08:17→20:33)
[2020-03-08] MEDS: Formoterol/Mometasone 100-5 MCG 8.8 GM Inhaler IH SCH ×2 (08:18→20:30)
[2020-03-08] MEDS: predniSONE 20 MG Tab PO SCH (08:18)
[2020-03-08] MEDS: MACITENTAN 10 MG PO SCH (08:20)
[2020-03-08] MEDS: Ferrous Sulfate 325 MG Tab PO SCH (13:03)
[2020-03-08] MEDS: Cyanocobalamin (Vitamin B12) 1,000 MCG Tab PO SCH (13:04)
[2020-03-08] MEDS: Calcium Carbonate 500 MG Tablet PO SCH (13:04)
[2020-03-08] MEDS: Cholecalciferol (Vitamin D3) 25 MCG Tab PO SCH (13:05)
[2020-03-08] MEDS: Ascorbic Acid 500 MG Tab PO SCH (13:05)
[2020-03-08] MEDS: traMADol 50 MG Tab PO PRN (13:11)
[2020-03-08] MEDS ORDERED: Glucagon,Human Recombinant 1 MG Vial IM PRN (17:25)
[2020-03-08] MEDS ORDERED: 50% Dextrose in Water 50 ML Syringe IVPUSH PRN (17:25)
[2020-03-08] MEDS ORDERED: Insulin Lispro 100 Unit/ML 3 ML KwikPen SUBCUT SCH (18:00)
[2020-03-08] MEDS ORDERED: Insulin Lispro 100 Unit/ML 3 ML KwikPen SUBCUT ONE (18:00)
[2020-03-08] MEDS: Mirabegron 25 MG Tab Extended Release PO SCH (18:28)
[2020-03-08] MEDS: atorvaSTATin 40 MG Tab PO SCH (20:33)
[2020-03-08] MEDS ORDERED: Insulin Glargine,Human Rec. Analog 100 Units/ML 3 ML Pen SUBCUT SCH (21:00)
[2020-03-09] MEDS: traMADol 50 MG Tab PO PRN (04:54)
[2020-03-09] MEDS: Pantoprazole 40 MG Tab.CR PO SCH (05:01)
--- NOTE | 2020-03-09 07:06 | PN ---
DATE SEEN: 03/08/2020 HISTORY: Karol is a 74-year-old woman with a history of a liver transplant back in 2010. She has been on immunosuppression since that time, and she developed a Pneumocystis carinii pneumonia. She was treated up in [facility] and was discharged to [facility] on 03/05 for continued antibiotic therapy. The patient states she feels well. She is in good spirits. She reports her breathing is good. She is on chronic oxygen. She has had sciatica pain. PHYSICAL EXAMINATION: GENERAL: She is alert and comfortable. THROAT: Oral exam reveals no sores or inflammation (She reported mild lower mouth discomfort). LUNGS: Clear to the bases. HEART: Regular. ABDOMEN: Soft. EXTREMITIES: Show no edema at the ankles. ASSESSMENT: 1. Pneumocystis carinii pneumonia. 2. Status post liver transplant, on mycophenolate and tacrolimus immunosuppression. 3. Type 2 diabetes, exacerbated by steroid use. 4. Mixed urinary incontinence. 5. Sciatica. PLAN: We will add tramadol if needed for sciatica pain, continue her antibiotics as directed by Infectious Disease in [place], and plan discharge to home upon recuperation. /[id number] EUSEBIO/KASANDRA
[2020-03-09] MEDS: Acetaminophen 500 MG Tab PO PRN ×2 (08:01→19:25)
[2020-03-09] MEDS: Insulin Lispro 100 Unit/ML 3 ML KwikPen SUBCUT SCH ×3 (08:05→17:47)
[2020-03-09] MEDS: MACITENTAN 10 MG PO SCH (08:10)
[2020-03-09] MEDS: ATOVAQUONE 750 MG/5 ML PO SCH ×2 (08:58→17:53)
[2020-03-09] MEDS ORDERED: Insulin Glargine,Human Rec. Analog 100 Units/ML 3 ML Pen SUBCUT SCH (09:00)
[2020-03-09] MEDS: Aspirin 81 MG Tab.Chew PO SCH (09:00)
[2020-03-09] MEDS: Mycophenolate Mofetil 250 MG Cap PO SCH ×2 (09:05→20:32)
[2020-03-09] MEDS: Formoterol/Mometasone 100-5 MCG 8.8 GM Inhaler IH SCH ×2 (09:05→20:32)
[2020-03-09] MEDS: FLUoxetine 20 MG Cap PO SCH (09:07)
[2020-03-09] MEDS: Sildenafil 20 MG Tab PO SCH ×3 (09:07→20:34)
[2020-03-09] MEDS: predniSONE 20 MG Tab PO SCH (09:07)
[2020-03-09] MEDS: Tacrolimus 0.5 MG Cap PO SCH (09:07)
[2020-03-09] MEDS: Gabapentin 600 MG Tab PO SCH ×2 (09:14→20:37)
[2020-03-09] MEDS: Insulin Glargine,Human Rec. Analog 100 Units/ML 3 ML Pen SUBCUT SCH ×2 (10:26→20:40)
[2020-03-09] MEDS: Ferrous Sulfate 325 MG Tab PO SCH (12:05)
[2020-03-09] MEDS: Calcium Carbonate 500 MG Tablet PO SCH (12:05)
[2020-03-09] MEDS: Cholecalciferol (Vitamin D3) 25 MCG Tab PO SCH (12:06)
[2020-03-09] MEDS: Ascorbic Acid 500 MG Tab PO SCH (12:06)
[2020-03-09] MEDS: Cyanocobalamin (Vitamin B12) 1,000 MCG Tab PO SCH (12:06)
--- NOTE | 2020-03-09 12:24 | PN ---
DATE SEEN: 03/09/2020 HISTORY: Karol is a 74-year-old who is in swing bed, getting IV antibiotics for Pneumocystis carinii pneumonia. She is 9 years status post liver transplant, on immunosuppression. She is also on a high tapering dose of steroid at 40 mg per day. She has type 2 diabetes and her blood sugars have been running in the 250 to 400 range. Karol also complains of right sciatica. She describes pain in the right hip and it hurts worse if she is rotating her leg inward such that her right foot touches her left ankle. PHYSICAL EXAMINATION: GENERAL: She is alert and currently comfortable while lying. VITAL SIGNS: Blood pressure 113/60, pulse 85, O2 saturation 91% on 5 L nasal cannula, temperature 97.9. EXTREMITIES: Straight leg raising is negative bilaterally at 30 degrees as is internal and external rotation of the right hip. She does report pain in the right lateral buttock hip area upon active ankle dorsiflexion on the right and active internal rotation at the right hip. Left leg motion is nontender. ASSESSMENT: 1. Pneumocystis carinii pneumonia. 2. Type 2 diabetes out of control or poorly controlled on large doses of steroid. 3. 9 years status post liver transplant, on immunosuppression. 4. Right sciatica. PLAN: We will add hydrocodone. We will increase her insulin and continue to follow Accu-Cheks. /[id number] EUSEBIO/KASANDRA
[2020-03-09] MEDS: Mirabegron 25 MG Tab Extended Release PO SCH (17:51)
[2020-03-09] MEDS: atorvaSTATin 40 MG Tab PO SCH (20:34)
[2020-03-10] MEDS: Pantoprazole 40 MG Tab.CR PO SCH (06:20)
[2020-03-10] MEDS: ATOVAQUONE 750 MG/5 ML PO SCH ×2 (08:17→18:00)
[2020-03-10] MEDS: Insulin Lispro 100 Unit/ML 3 ML KwikPen SUBCUT SCH ×3 (08:17→18:17)
[2020-03-10] MEDS: Sildenafil 20 MG Tab PO SCH ×3 (08:19→20:21)
[2020-03-10] MEDS: Tacrolimus 0.5 MG Cap PO SCH (08:19)
[2020-03-10] MEDS: predniSONE 20 MG Tab PO SCH (08:19)
[2020-03-10] MEDS: FLUoxetine 20 MG Cap PO SCH (08:20)
[2020-03-10] MEDS: Formoterol/Mometasone 100-5 MCG 8.8 GM Inhaler IH SCH ×2 (08:20→20:17)
[2020-03-10] MEDS: MACITENTAN 10 MG PO SCH (08:20)
[2020-03-10] MEDS: Insulin Glargine,Human Rec. Analog 100 Units/ML 3 ML Pen SUBCUT SCH ×2 (08:21→20:23)
[2020-03-10] MEDS: Mycophenolate Mofetil 250 MG Cap PO SCH ×2 (08:22→20:20)
[2020-03-10] MEDS: Gabapentin 600 MG Tab PO SCH ×2 (08:33→20:20)
[2020-03-10] MEDS: Ferrous Sulfate 325 MG Tab PO SCH (12:09)
[2020-03-10] MEDS: Ascorbic Acid 500 MG Tab PO SCH (12:10)
[2020-03-10] MEDS: Cholecalciferol (Vitamin D3) 25 MCG Tab PO SCH (12:10)
[2020-03-10] MEDS: Calcium Carbonate 500 MG Tablet PO SCH (12:10)
[2020-03-10] MEDS: Cyanocobalamin (Vitamin B12) 1,000 MCG Tab PO SCH (12:11)
[2020-03-10] MEDS: Mirabegron 25 MG Tab Extended Release PO SCH (18:17)
[2020-03-10] MEDS: atorvaSTATin 40 MG Tab PO SCH (20:20)
[2020-03-11] MEDS: Pantoprazole 40 MG Tab.CR PO SCH (06:32)
[2020-03-11] MEDS: Acetaminophen 500 MG Tab PO PRN (07:31)
[2020-03-11] MEDS: Insulin Lispro 100 Unit/ML 3 ML KwikPen SUBCUT SCH ×3 (07:33→17:35)
[2020-03-11] MEDS: ATOVAQUONE 750 MG/5 ML PO SCH ×2 (07:33→17:35)
[2020-03-11] MEDS: Sildenafil 20 MG Tab PO SCH ×3 (08:22→20:34)
[2020-03-11] MEDS: MACITENTAN 10 MG PO SCH (08:22)
[2020-03-11] MEDS: FLUoxetine 20 MG Cap PO SCH (08:22)
[2020-03-11] MEDS: Insulin Glargine,Human Rec. Analog 100 Units/ML 3 ML Pen SUBCUT SCH ×2 (08:22→20:39)
[2020-03-11] MEDS: Mycophenolate Mofetil 250 MG Cap PO SCH ×2 (08:22→20:33)
[2020-03-11] MEDS: Formoterol/Mometasone 100-5 MCG 8.8 GM Inhaler IH SCH ×2 (08:22→20:33)
[2020-03-11] MEDS: predniSONE 20 MG Tab PO SCH (08:22)
[2020-03-11] MEDS: Tacrolimus 0.5 MG Cap PO SCH (08:22)
[2020-03-11] MEDS: Aspirin 81 MG Tab.Chew PO SCH (08:22)
[2020-03-11] MEDS: Gabapentin 600 MG Tab PO SCH ×2 (08:24→20:39)
[2020-03-11] MEDS: Ferrous Sulfate 325 MG Tab PO SCH (11:38)
[2020-03-11] MEDS: Cyanocobalamin (Vitamin B12) 1,000 MCG Tab PO SCH (11:39)
[2020-03-11] MEDS: Cholecalciferol (Vitamin D3) 25 MCG Tab PO SCH (11:39)
[2020-03-11] MEDS: Calcium Carbonate 500 MG Tablet PO SCH (11:39)
[2020-03-11] MEDS: Ascorbic Acid 500 MG Tab PO SCH (11:39)
[2020-03-11] MEDS: Mirabegron 25 MG Tab Extended Release PO SCH (17:35)
[2020-03-11] MEDS ORDERED: Insulin Lispro 100 Unit/ML 3 ML KwikPen SUBCUT ONE (17:40)
[2020-03-11] MEDS: atorvaSTATin 40 MG Tab PO SCH (20:33)
[2020-03-12] MEDS: Pantoprazole 40 MG Tab.CR PO SCH (06:00)
[2020-03-12] MEDS: Acetaminophen 500 MG Tab PO PRN ×3 (06:03→15:40)
[2020-03-12] MEDS: Insulin Lispro 100 Unit/ML 3 ML KwikPen SUBCUT SCH ×3 (08:18→18:03)
[2020-03-12] MEDS: ATOVAQUONE 750 MG/5 ML PO SCH ×2 (08:21→17:59)
[2020-03-12] MEDS: Formoterol/Mometasone 100-5 MCG 8.8 GM Inhaler IH SCH ×2 (08:31→20:44)
[2020-03-12] MEDS: Mycophenolate Mofetil 250 MG Cap PO SCH ×2 (08:31→20:47)
[2020-03-12] MEDS: MACITENTAN 10 MG PO SCH (08:31)
[2020-03-12] MEDS: Sildenafil 20 MG Tab PO SCH ×3 (08:32→20:46)
[2020-03-12] MEDS: Gabapentin 600 MG Tab PO SCH ×2 (08:32→20:45)
[2020-03-12] MEDS: FLUoxetine 20 MG Cap PO SCH (08:32)
[2020-03-12] MEDS: Tacrolimus 0.5 MG Cap PO SCH (08:32)
[2020-03-12] MEDS: predniSONE 20 MG Tab PO SCH (08:32)
[2020-03-12] MEDS: Insulin Glargine,Human Rec. Analog 100 Units/ML 3 ML Pen SUBCUT SCH ×2 (10:57→20:49)
[2020-03-12] MEDS: Calcium Carbonate 500 MG Tablet PO SCH (11:13)
[2020-03-12] MEDS: Ferrous Sulfate 325 MG Tab PO SCH (11:13)
[2020-03-12] MEDS: Ascorbic Acid 500 MG Tab PO SCH (11:13)
[2020-03-12] MEDS: Cholecalciferol (Vitamin D3) 25 MCG Tab PO SCH (11:14)
[2020-03-12] MEDS: Cyanocobalamin (Vitamin B12) 1,000 MCG Tab PO SCH (11:14)
[2020-03-12] MEDS: Mirabegron 25 MG Tab Extended Release PO SCH (18:00)
[2020-03-12] MEDS: Acetaminophen/HYDROcodone 325-5 MG Tab PO PRN (20:45)
[2020-03-12] MEDS: atorvaSTATin 40 MG Tab PO SCH (20:48)
[2020-03-13] MEDS: Pantoprazole 40 MG Tab.CR PO SCH (05:46)
[2020-03-13] MEDS: ATOVAQUONE 750 MG/5 ML PO SCH ×2 (08:45→17:46)
[2020-03-13] MEDS: Insulin Lispro 100 Unit/ML 3 ML KwikPen SUBCUT SCH ×3 (08:48→17:48)
[2020-03-13] MEDS: MACITENTAN 10 MG PO SCH (08:52)
[2020-03-13] MEDS: Aspirin 81 MG Tab.Chew PO SCH (08:53)
[2020-03-13] MEDS: Formoterol/Mometasone 100-5 MCG 8.8 GM Inhaler IH SCH ×2 (08:53→20:20)
[2020-03-13] MEDS: Mycophenolate Mofetil 250 MG Cap PO SCH ×2 (08:53→20:20)
[2020-03-13] MEDS: Sildenafil 20 MG Tab PO SCH ×3 (08:54→20:21)
[2020-03-13] MEDS: predniSONE 20 MG Tab PO SCH (08:54)
[2020-03-13] MEDS: Gabapentin 600 MG Tab PO SCH ×2 (08:54→20:24)
[2020-03-13] MEDS: FLUoxetine 20 MG Cap PO SCH (08:54)
[2020-03-13] MEDS: Tacrolimus 0.5 MG Cap PO SCH (08:54)
[2020-03-13] MEDS ORDERED: Insulin Glargine,Human Rec. Analog 100 Units/ML 3 ML Pen SUBCUT ONE (08:58)
[2020-03-13] MEDS: Insulin Glargine,Human Rec. Analog 100 Units/ML 3 ML Pen SUBCUT SCH ×2 (08:58→20:57)
[2020-03-13] MEDS: Acetaminophen 500 MG Tab PO PRN (09:08)
[2020-03-13] MEDS: Cholecalciferol (Vitamin D3) 25 MCG Tab PO SCH (11:40)
[2020-03-13] MEDS: Ferrous Sulfate 325 MG Tab PO SCH (11:40)
[2020-03-13] MEDS: Cyanocobalamin (Vitamin B12) 1,000 MCG Tab PO SCH (11:40)
[2020-03-13] MEDS: Ascorbic Acid 500 MG Tab PO SCH (11:40)
[2020-03-13] MEDS: Calcium Carbonate 500 MG Tablet PO SCH (11:40)
[2020-03-13] MEDS: Mirabegron 25 MG Tab Extended Release PO SCH (17:48)
[2020-03-13] MEDS: Acetaminophen/HYDROcodone 325-5 MG Tab PO PRN (20:17)
[2020-03-13] MEDS: atorvaSTATin 40 MG Tab PO SCH (20:20)
[2020-03-14] MEDS: Acetaminophen 500 MG Tab PO PRN ×3 (03:15→13:48)
[2020-03-14] MEDS: Pantoprazole 40 MG Tab.CR PO SCH (06:00)
[2020-03-14] MEDS: Insulin Lispro 100 Unit/ML 3 ML KwikPen SUBCUT SCH ×3 (08:52→17:37)
[2020-03-14] MEDS: ATOVAQUONE 750 MG/5 ML PO SCH ×2 (08:53→17:27)
[2020-03-14] MEDS: predniSONE 20 MG Tab PO SCH (08:54)
[2020-03-14] MEDS: Gabapentin 600 MG Tab PO SCH ×2 (08:54→22:18)
[2020-03-14] MEDS: Mycophenolate Mofetil 250 MG Cap PO SCH ×2 (08:54→22:04)
[2020-03-14] MEDS: FLUoxetine 20 MG Cap PO SCH (08:54)
[2020-03-14] MEDS: MACITENTAN 10 MG PO SCH (08:54)
[2020-03-14] MEDS: Tacrolimus 0.5 MG Cap PO SCH (08:55)
[2020-03-14] MEDS: Sildenafil 20 MG Tab PO SCH ×3 (08:55→22:05)
[2020-03-14] MEDS: Insulin Glargine,Human Rec. Analog 100 Units/ML 3 ML Pen SUBCUT SCH ×2 (08:55→22:09)
[2020-03-14] MEDS: Formoterol/Mometasone 100-5 MCG 8.8 GM Inhaler IH SCH ×2 (08:56→22:04)
[2020-03-14] MEDS: Ferrous Sulfate 325 MG Tab PO SCH (12:10)
[2020-03-14] MEDS: Cyanocobalamin (Vitamin B12) 1,000 MCG Tab PO SCH (12:10)
[2020-03-14] MEDS: Cholecalciferol (Vitamin D3) 25 MCG Tab PO SCH (12:10)
[2020-03-14] MEDS: Calcium Carbonate 500 MG Tablet PO SCH (12:10)
[2020-03-14] MEDS: Ascorbic Acid 500 MG Tab PO SCH (12:10)
--- NOTE | 2020-03-14 17:07 | PCM.PN ---
- General Info Date of Service: 03/14/20 Subjective Update: Called to see Karol today as she has been more fatigued with therapy today, desaturated down into 77 with them. Came up with rest. Nurse noted this afternoon that she had to turn her up to 6L to get her over 88%. Denies any cough, sore throat, headache, fevers, chills, vomiting or diarrhea. No loss of taste or smell. She states she feels more shortness of breath than normal, the fatigue started about . Sciatic pain is worse, states she aches all over but that is not new. - Patient Data Vitals - Most Recent: Last Vital Signs Temp 98.0 F 03/14/20 06:54 Pulse 90 03/14/20 06:54 Resp 18 03/14/20 06:54 BP 106/55 L 03/14/20 06:54 Pulse Ox 77 L 03/14/20 10:52 Weight - Most Recent: 157 lb 2 oz Lab Results Last 24 Hours: Laboratory Results - last 24 hr 03/13/20 03/14/20 03/14/20 Range/Units 17:00 06:49 12:07 POC Glucose 124 H 185 H 109 H (74-100) mg/dL Med Orders - Current: Current Medications Acetaminophen (Tylenol Extra Strength) 500 mg PO Q4H PRN PRN Reason: Pain Last Admin: 03/14/20 13:48 Dose: 500 mg Documented by: Hydrocodone Bitart/Acetaminophen ([place] 325-5 Mg) 1 tab PO Q4H PRN PRN Reason: hip pain Last Admin: 03/13/20 20:17 Dose: 1 tab Documented by: Albuterol (Ventolin Hfa) 0 gm INH Q4H PRN PRN Reason: Dyspnea Ascorbic Acid (Vitamin C) 500 mg PO DAILY@1200 [facility] Last Admin: 03/14/20 12:10 Dose: 500 mg Documented by: Aspirin (Aspirin) 81 mg PO Q48H [facility] Last Admin: 03/13/20 08:53 Dose: 81 mg Documented by: Atorvastatin Calcium (Lipitor) 40 mg PO BEDTIME [facility] Last Admin: 03/13/20 20:20 Dose: 40 mg Documented by: Atovaquone (Mepron 750 Mg/5 Ml Susp) 750 mg PO BIDMEALS [facility] Stop: 03/15/20 18:01 Last Admin: 03/14/20 08:53 Dose: 750 mg Documented by: Calcium Carbonate/Glycine (Oyster Shell Calcium) 1,000 mg PO DAILY@1200 [facility] Last Admin: 03/14/20 12:10 Dose: 1,000 mg Documented by: Cholecalciferol (Vitamin D3) 25 mcg PO DAILY@1200 [facility] Last Admin: 03/14/20 12:10 Dose: 25 mcg Documented by: Cyanocobalamin (Vitamin B12) 1,000 mcg PO DAILY@1200 [facility] Last Admin: 03/14/20 12:10 Dose: 1,000 mcg Documented by: Dextrose/Water (Dextrose 50% In Water) 50 ml IVPUSH ASDIRECTED PRN PRN Reason: Hypoglycemia Ethacrynic Acid (Edecrin) 25 mg PO DAILY [facility] Last Admin: 03/14/20 08:55 Dose: 25 mg Documented by: Ferrous Sulfate (Ferrous Sulfate) 325 mg PO DAILY@1200 [facility] Last Admin: 03/14/20 12:10 Dose: 325 mg Documented by: Fluoxetine HCl (Prozac) 40 mg PO DAILY [facility] Last Admin: 03/14/20 08:54 Dose: 40 mg Documented by: Gabapentin (Neurontin) 600 mg PO BID [facility] Last Admin: 03/14/20 08:54 Dose: 600 mg Documented by: Glucagon (Glucagen) 1 mg IM ASDIRECTED PRN PRN Reason: Hypoglycemia Insulin Glargine (Lantus Solostar) 25 units SUBCUT BID [facility] Last Admin: 03/14/20 08:55 Dose: 25 units Documented by: Insulin Human Lispro (Humalog) 18 unit SUBCUT BID@08,12 [facility] Last Admin: 03/14/20 12:10 Dose: 18 units Documented by: Insulin Human Lispro (Humalog) 20 unit SUBCUT WITHDINNER [facility] Last Admin: 03/13/20 17:48 Dose: 20 units Documented by: Lutein (Lutein) 20 mg PO DAILY@1200 [facility] Last Admin: 03/14/20 12:10 Dose: 20 mg Documented by: Mirabegron (Myrbetriq) 50 mg PO WITHDINNER [facility] Last Admin: 03/13/20 17:48 Dose: 50 mg Documented by: Mometasone Furoate/Formoterol Fumar (Dulera 100-5 Mcg) 2 puff IH BID [facility] Last Admin: 03/14/20 08:56 Dose: 2 puff Documented by: Mycophenolate Mofetil (Cellcept) 500 mg PO BID [facility] Last Admin: 03/14/20 08:54 Dose: 500 mg Documented by: (Macitentan [Opsumit (] 10 Mg) *Ptom) 10 mg PO DAILY [facility] Last Admin: 03/14/20 08:54 Dose: 10 mg Documented by: Pantoprazole Sodium (Protonix) 40 mg PO DAILY@0600 [facility] Last Admin: 03/14/20 06:00 Dose: 40 mg Documented by: Prednisone (Prednisone) 20 mg PO DAILY [facility] Stop: 03/19/20 09:01 Last Admin: 03/14/20 08:54 Dose: 20 mg Documented by: Prednisone (Prednisone) 10 mg PO DAILY [facility] Stop: 03/23/20 09:01 Prednisone (Prednisone) 5 mg PO DAILY [facility] Stop: 03/27/20 09:01 Sildenafil Citrate (Revatio) 20 mg PO TID [facility] Last Admin: 03/14/20 13:50 Dose: 20 mg Documented by: Tacrolimus (Prograf) 0.5 mg PO DAILY [facility] Last Admin: 03/14/20 08:55 Dose: 0.5 mg Documented by: Tramadol HCl (Ultram) 50 mg PO Q8H PRN PRN Reason: Pain Last Admin: 03/09/20 04:54 Dose: 50 mg Documented by: Trimethoprim (Trimethoprim) 100 mg PO DAILY [facility] Last Admin: 03/14/20 08:55 Dose: 100 mg Documented by: Discontinued Medications Dextrose/Water (Dextrose 50% In Water) 50 ml IVPUSH ASDIRECTED PRN PRN Reason: Hypoglycemia Glucagon (Glucagen) 1 mg IM ASDIRECTED PRN PRN Reason: Hypoglycemia Insulin Glargine (Lantus Solostar) 26 units SUBCUT BEDTIME [facility] Last Admin: 03/07/20 20:44 Dose: 26 units Documented by: Insulin Glargine (Lantus Solostar) 30 units SUBCUT BEDTIME [facility] Last Admin: 03/08/20 20:35 Dose: 30 units Documented by: Insulin Glargine (Lantus Solostar) 20 units SUBCUT BID [facility] Last Admin: 03/11/20 20:39 Dose: 20 units Documented by: Insulin Human Lispro (Humalog) 13 unit SUBCUT BID@,12 [facility] Last Admin: 03/08/20 08:10 Dose: Not Given Documented by: Insulin Human Lispro (Humalog) 15 unit SUBCUT WITHDINNER [facility] Last Admin: 03/07/20 17:26 Dose: 15 units Documented by: Insulin Human Lispro (Humalog) 15 unit SUBCUT BID@08,12 [facility] Last Admin: 03/09/20 08:05 Dose: 15 units Documented by: Insulin Human Lispro (Humalog) 18 unit SUBCUT WITHDINNER [facility] Last Admin: 03/08/20 17:28 Dose: Not Given Documented by: Insulin Human Lispro (Humalog) 22 unit SUBCUT ONETIME ONE Stop: 03/08/20 18:01 Last Admin: 03/08/20 17:45 Dose: 22 units Documented by: Non-Formulary Medication (Dulaglutide [Trulicity]) 0.75 mg SUBCUT Q7D [facility] Last Admin: 03/08/20 01:57 Dose: Not Given Documented by: Non-Formulary Medication (Flaxseed Oil [Flaxseed Oil]) 1,200 mg PO DAILY [facility] Prednisone (Prednisone) 40 mg PO DAILY [facility] Stop: 03/12/20 09:01 Last Admin: 03/12/20 08:32 Dose: 40 mg Documented by: - Exam General: Alert, Oriented, Cooperative, No Acute Distress, Other (Ill appearing) Lungs: Decreased Breath Sounds (throughout), Crackles (bibasilar). No: Wheezing Cardiovascular: Tachycardia GI/Abdominal Exam: Normal Bowel Sounds, Soft, Non-Tender, No Distention Peripheral Pulses: 2+: Radial (L), Radial (R) Sepsis Event Note - Evaluation Sepsis Screening Result: No Definite Risk - Focused Exam Vital Signs: Vital Signs Temp Pulse Resp BP Pulse Ox 03/14/20 10:52 77 L 03/14/20 06:54 98.0 F 90 18 106/55 L 90 L - Problem List & Annotations (1) PCP (pneumocystis carinii pneumonia) SNOMED Code(s): 024398975 Code(s): B59 - PNEUMOCYSTOSIS Status: Acute Current Visit: Yes (2) Diabetes SNOMED Code(s): 53766326 Code(s): E11.9 - TYPE 2 DIABETES MELLITUS WITHOUT COMPLICATIONS Status: Chronic Current Visit: Yes (3) COPD (chronic obstructive pulmonary disease) SNOMED Code(s): 37380363 Code(s): J44.9 - CHRONIC OBSTRUCTIVE PULMONARY DISEASE, UNSPECIFIED Status: Chronic Current Visit: Yes (4) CHF (congestive heart failure) SNOMED Code(s): 09736656 Code(s): I50.9 - HEART FAILURE, UNSPECIFIED Status: Chronic Current Visit: Yes (5) Mixed incontinence SNOMED Code(s): 68882503 Code(s): N39.46 - MIXED INCONTINENCE Status: Chronic Current Visit: Yes (6) Pulmonary fibrosis SNOMED Code(s): 41477851 Code(s): J84.10 - PULMONARY FIBROSIS, UNSPECIFIED Status: Chronic Current Visit: No Annotation/Comment:: severe (7) Pulmonary hypertension SNOMED Code(s): 26656072 Code(s): I27.20 - PULMONARY HYPERTENSION, UNSPECIFIED Status: Chronic Current Visit: No (8) History of liver transplant SNOMED Code(s): 841294034 Code(s): Z94.4 - LIVER TRANSPLANT STATUS Status: Chronic Current Visit: Yes Onset Date: ~2010 (9) Immunocompromised patient SNOMED Code(s): 258222074 Code(s): D84.9 - IMMUNODEFICIENCY, UNSPECIFIED Status: Chronic Current Visit: Yes - Problem List Review Problem List Initiated/Reviewed/Updated: Yes - My Orders Last 24 Hours: My Active Orders 03/14/20 17:01 BASIC METABOLIC PANEL,BMP [CHEM] Routine CBC WITH AUTO DIFF [HEME] Routine CORONAVIRUS COVID-19, ALEX Routine - Plan Plan:: PCP pneumonia with underlying severe pulmonary fibrosis, pulmonary hypertension: worsening shortness of breath & fatigue: CBC, BMP and covid test ordered. Will get chest x-ray, also history of CHF.
[2020-03-14] MEDS: Mirabegron 25 MG Tab Extended Release PO SCH (17:27)
[2020-03-14] MEDS ORDERED: Sodium Chloride 0.9% 10 ML Syringe FLUSH PRN (17:37)
[2020-03-14] MEDS: Sodium Chloride 0.9% 1,000 ML IV SCH (18:00)
[2020-03-14] MEDS: atorvaSTATin 40 MG Tab PO SCH (22:04)
[2020-03-14] MEDS ORDERED: Insulin Glargine,Human Rec. Analog 100 Units/ML 3 ML Pen SUBCUT ONE (22:12)
[2020-03-15] MEDS: Sodium Chloride 0.9% 1,000 ML IV SCH ×2 (03:17→13:20)
[2020-03-15] MEDS: Pantoprazole 40 MG Tab.CR PO SCH (06:07)
[2020-03-15] MEDS: Acetaminophen 500 MG Tab PO PRN ×3 (06:09→23:04)
[2020-03-15] MEDS: Aspirin 81 MG Tab.Chew PO SCH (08:11)
[2020-03-15] MEDS: Mycophenolate Mofetil 250 MG Cap PO SCH ×2 (08:11→21:22)
[2020-03-15] MEDS: Gabapentin 600 MG Tab PO SCH ×2 (08:11→21:30)
[2020-03-15] MEDS: predniSONE 20 MG Tab PO SCH (08:11)
[2020-03-15] MEDS: Sildenafil 20 MG Tab PO SCH ×3 (08:12→21:24)
[2020-03-15] MEDS: Formoterol/Mometasone 100-5 MCG 8.8 GM Inhaler IH SCH ×2 (08:12→21:22)
[2020-03-15] MEDS: Tacrolimus 0.5 MG Cap PO SCH (08:12)
[2020-03-15] MEDS: MACITENTAN 10 MG PO SCH (08:12)
[2020-03-15] MEDS: FLUoxetine 20 MG Cap PO SCH (08:12)
[2020-03-15] MEDS: ATOVAQUONE 750 MG/5 ML PO SCH ×2 (08:13→18:57)
[2020-03-15] MEDS: Insulin Lispro 100 Unit/ML 3 ML KwikPen SUBCUT SCH ×4 (08:24→18:58)
[2020-03-15] MEDS: Insulin Glargine,Human Rec. Analog 100 Units/ML 3 ML Pen SUBCUT SCH (08:25)
[2020-03-15] MEDS: Cyanocobalamin (Vitamin B12) 1,000 MCG Tab PO SCH (11:34)
[2020-03-15] MEDS: Ferrous Sulfate 325 MG Tab PO SCH (11:34)
[2020-03-15] MEDS: Ascorbic Acid 500 MG Tab PO SCH (11:34)
[2020-03-15] MEDS: Calcium Carbonate 500 MG Tablet PO SCH (11:34)
[2020-03-15] MEDS: Cholecalciferol (Vitamin D3) 25 MCG Tab PO SCH (11:34)
--- NOTE | 2020-03-15 15:54 | PCM.PN ---
- General Info Date of Service: 03/15/20 Subjective Update: She is feeling better today, has not been as tired, hasn't had to take a nap all day unlike yesterday she felt she slept the whole day. No fevers, chills, feels breathing is better. Had large urine incontinence this afternoon. Had a few low blood sugars last night and at noon but ate good breakfast and lunch which is better than yesterday. Covid was negative. WBC has come down with IVF and Cr has improved with IVF. - Patient Data Vitals - Most Recent: Last Vital Signs Temp 97.8 F 03/15/20 06:05 Pulse 85 03/15/20 06:05 Resp 16 03/15/20 06:05 BP 110/57 L 03/15/20 06:05 Pulse Ox 94 L 03/15/20 06:05 Weight - Most Recent: 157 lb 2 oz I&O - Last 24 Hours: Intake & Output 03/15/20 03/15/20 03/15/20 06:59 14:59 22:59 Intake Total 1285 Balance 1285 Lab Results Last 24 Hours: Laboratory Results - last 24 hr 03/14/20 03/14/20 03/14/20 Range/Units 17:20 17:20 17:30 WBC 15.2 H (3.0-10.3) x10-3/uL RBC 3.18 L (3.60-5.20) x10(6)uL Hgb 9.6 L (11.4-15.5) g/dL Hct 30.7 L (34.2-48.2) % MCV 96.4 (76.7-100.5) fL MCH 30.3 (23.9-33.9) pg MCHC 31.5 L (31.9-34.8) g/dL RDW 17.9 H (12.3-16.5) % Plt Count 204 (151-488) x10(3)uL MPV 8.7 (7.1-12.4) fL Neut % (Auto) 82.2 H (30.8-76.2) % Lymph % (Auto) 12.1 L (18.4-52.1) % Sherman % (Auto) 5.1 (4.4-15.7) % Eos % (Auto) 0.1 L (0.6-8.1) % Baso % (Auto) 0.5 (0.2-1.5) % Neut # (Auto) 12.5 H (1.5-6.3) x10-3/uL Lymph # (Auto) 1.8 (1.0-4.4) x10-3/uL Sherman # (Auto) 0.8 (0.3-1.0) x10-3/uL Eos # (Auto) 0.0 (0.0-0.8) x10-3/uL Baso # (Auto) 0.1 (0.0-0.1) x10-3/uL Sodium 132 L (135-145) mmol/L Potassium 4.8 (3.5-5.3) mmol/L Chloride 96 L D (100-110) mmol/L Carbon Dioxide 29 (21-32) mmol/L BUN 52 H D (7-18) mg/dL Creatinine 2.4 H* (0.55-1.02) mg/dL Est Cr Clr Drug Dosing 16.02 mL/min Estimated GFR (MDRD) 20 L (>60) BUN/Creatinine Ratio 21.7 H (9-20) Glucose 66 L D (80-116) mg/dL POC Glucose 61 L (74-100) mg/dL Calcium 8.9 (8.6-10.2) mg/dL SARS-CoV-2 RNA (ALEX) (NEGATIVE) 03/14/20 03/14/20 03/15/20 Range/Units 18:30 21:04 07:01 WBC (3.0-10.3) x10-3/uL RBC (3.60-5.20) x10(6)uL Hgb (11.4-15.5) g/dL Hct (34.2-48.2) % MCV (76.7-100.5) fL MCH (23.9-33.9) pg MCHC (31.9-34.8) g/dL RDW (12.3-16.5) % Plt Count (151-488) x10(3)uL MPV (7.1-12.4) fL Neut % (Auto) (30.8-76.2) % Lymph % (Auto) (18.4-52.1) % Sherman % (Auto) (4.4-15.7) % Eos % (Auto) (0.6-8.1) % Baso % (Auto) (0.2-1.5) % Neut # (Auto) (1.5-6.3) x10-3/uL Lymph # (Auto) (1.0-4.4) x10-3/uL Sherman # (Auto) (0.3-1.0) x10-3/uL Eos # (Auto) (0.0-0.8) x10-3/uL Baso # (Auto) (0.0-0.1) x10-3/uL Sodium (135-145) mmol/L Potassium (3.5-5.3) mmol/L Chloride (100-110) mmol/L Carbon Dioxide (21-32) mmol/L BUN (7-18) mg/dL Creatinine (0.55-1.02) mg/dL Est Cr Clr Drug Dosing mL/min Estimated GFR (MDRD) (>60) BUN/Creatinine Ratio (9-20) Glucose (80-116) mg/dL POC Glucose 150 H 110 H (74-100) mg/dL Calcium (8.6-10.2) mg/dL SARS-CoV-2 RNA (ALEX) Negative (NEGATIVE) 03/15/20 03/15/20 Range/Units 09:45 09:45 WBC 10.7 H (3.0-10.3) x10-3/uL RBC 3.11 L (3.60-5.20) x10(6)uL Hgb 9.7 L (11.4-15.5) g/dL Hct 30.8 L (34.2-48.2) % MCV 99.0 (76.7-100.5) fL MCH 31.3 (23.9-33.9) pg MCHC 31.6 L (31.9-34.8) g/dL RDW 18.6 H (12.3-16.5) % Plt Count 187 (151-488) x10(3)uL MPV 9.3 (7.1-12.4) fL Neut % (Auto) 75.2 (30.8-76.2) % Lymph % (Auto) 19.7 (18.4-52.1) % Sherman % (Auto) 4.4 (4.4-15.7) % Eos % (Auto) 0.3 L (0.6-8.1) % Baso % (Auto) 0.4 (0.2-1.5) % Neut # (Auto) 8.0 H (1.5-6.3) x10-3/uL Lymph # (Auto) 2.1 (1.0-4.4) x10-3/uL Sherman # (Auto) 0.5 (0.3-1.0) x10-3/uL Eos # (Auto) 0.0 (0.0-0.8) x10-3/uL Baso # (Auto) 0.0 (0.0-0.1) x10-3/uL Sodium 135 (135-145) mmol/L Potassium 4.1 (3.5-5.3) mmol/L Chloride 99 L (100-110) mmol/L Carbon Dioxide 24 (21-32) mmol/L BUN 44 H (7-18) mg/dL Creatinine 2.2 H* (0.55-1.02) mg/dL Est Cr Clr Drug Dosing 17.47 mL/min Estimated GFR (MDRD) 22 L (>60) BUN/Creatinine Ratio 20.0 (9-20) Glucose 129 H (80-116) mg/dL POC Glucose (74-100) mg/dL Calcium 8.1 L (8.6-10.2) mg/dL SARS-CoV-2 RNA (ALEX) (NEGATIVE) Med Orders - Current: Current Medications Acetaminophen (Tylenol Extra Strength) 500 mg PO Q4H PRN PRN Reason: Pain Last Admin: 03/15/20 06:09 Dose: 500 mg Documented by: Hydrocodone Bitart/Acetaminophen (Vanderbilt 325-5 Mg) 1 tab PO Q4H PRN PRN Reason: hip pain Last Admin: 03/13/20 20:17 Dose: 1 tab Documented by: Albuterol (Ventolin Hfa) 0 gm INH Q4H PRN PRN Reason: Dyspnea Ascorbic Acid (Vitamin C) 500 mg PO DAILY@1200 [facility] Last Admin: 03/15/20 11:34 Dose: 500 mg Documented by: Aspirin (Aspirin) 81 mg PO Q48H [facility] Last Admin: 03/15/20 08:11 Dose: 81 mg Documented by: Atorvastatin Calcium (Lipitor) 40 mg PO BEDTIME [facility] Last Admin: 03/14/20 22:04 Dose: 40 mg Documented by: Atovaquone (Mepron 750 Mg/5 Ml Susp) 750 mg PO BIDMEALS [facility] Stop: 03/15/20 18:01 Last Admin: 03/15/20 08:13 Dose: 750 mg Documented by: Calcium Carbonate/Glycine (Oyster Shell Calcium) 1,000 mg PO DAILY@1200 [facility] Last Admin: 03/15/20 11:34 Dose: 1,000 mg Documented by: Cholecalciferol (Vitamin D3) 25 mcg PO DAILY@1200 [facility] Last Admin: 03/15/20 11:34 Dose: 25 mcg Documented by: Cyanocobalamin (Vitamin B12) 1,000 mcg PO DAILY@1200 [facility] Last Admin: 03/15/20 11:34 Dose: 1,000 mcg Documented by: Dextrose/Water (Dextrose 50% In Water) 50 ml IVPUSH ASDIRECTED PRN PRN Reason: Hypoglycemia Ethacrynic Acid (Edecrin) 25 mg PO DAILY [facility] Last Admin: 03/15/20 08:12 Dose: 25 mg Documented by: Ferrous Sulfate (Ferrous Sulfate) 325 mg PO DAILY@1200 [facility] Last Admin: 03/15/20 11:34 Dose: 325 mg Documented by: Fluoxetine HCl (Prozac) 40 mg PO DAILY [facility] Last Admin: 03/15/20 08:12 Dose: 40 mg Documented by: Gabapentin (Neurontin) 600 mg PO BID [facility] Last Admin: 03/15/20 08:11 Dose: 600 mg Documented by: Glucagon (Glucagen) 1 mg IM ASDIRECTED PRN PRN Reason: Hypoglycemia Sodium Chloride (Normal Saline) 1,000 mls @ 75 mls/hr IV ASDIRECTED [facility] Last Admin: 03/15/20 03:17 Dose: 100 mls/hr Documented by: Insulin Glargine (Lantus Solostar) 25 units SUBCUT BEDTIME [facility] Insulin Human Lispro (Humalog) 13 unit SUBCUT BID@08,12 [facility] Last Admin: 03/15/20 14:44 Dose: Not Given Documented by: Insulin Human Lispro (Humalog) 15 unit SUBCUT WITHDINNER [facility] Lutein (Lutein) 20 mg PO DAILY@1200 [facility] Last Admin: 03/15/20 11:34 Dose: 20 mg Documented by: Mirabegron (Myrbetriq) 50 mg PO WITHDINNER [facility] Last Admin: 03/14/20 17:27 Dose: 50 mg Documented by: Mometasone Furoate/Formoterol Fumar (Dulera 100-5 Mcg) 2 puff IH BID [facility] Last Admin: 03/15/20 08:12 Dose: 2 puff Documented by: Mycophenolate Mofetil (Cellcept) 500 mg PO BID [facility] Last Admin: 03/15/20 08:11 Dose: 500 mg Documented by: (Macitentan [Opsumit (] 10 Mg) *Ptom) 10 mg PO DAILY [facility] Last Admin: 03/15/20 08:12 Dose: 10 mg Documented by: Pantoprazole Sodium (Protonix) 40 mg PO DAILY@0600 [facility] Last Admin: 03/15/20 06:07 Dose: 40 mg Documented by: Prednisone (Prednisone) 20 mg PO DAILY [facility] Stop: 03/19/20 09:01 Last Admin: 03/15/20 08:11 Dose: 20 mg Documented by: Prednisone (Prednisone) 10 mg PO DAILY [facility] Stop: 03/23/20 09:01 Prednisone (Prednisone) 5 mg PO DAILY [facility] Stop: 03/27/20 09:01 Sildenafil Citrate (Revatio) 20 mg PO TID [facility] Last Admin: 03/15/20 14:44 Dose: 20 mg Documented by: Sodium Chloride (Saline Flush) 10 ml FLUSH ASDIRECTED PRN PRN Reason: Keep Vein Open Tacrolimus (Prograf) 0.5 mg PO DAILY [facility] Last Admin: 03/15/20 08:12 Dose: 0.5 mg Documented by: Tramadol HCl (Ultram) 50 mg PO Q8H PRN PRN Reason: Pain Last Admin: 03/09/20 04:54 Dose: 50 mg Documented by: Trimethoprim (Trimethoprim) 100 mg PO DAILY [facility] Last Admin: 03/15/20 08:12 Dose: 100 mg Documented by: Discontinued Medications Dextrose/Water (Dextrose 50% In Water) 50 ml IVPUSH ASDIRECTED PRN PRN Reason: Hypoglycemia Glucagon (Glucagen) 1 mg IM ASDIRECTED PRN PRN Reason: Hypoglycemia Insulin Glargine (Lantus Solostar) 26 units SUBCUT BEDTIME [facility] Last Admin: 03/07/20 20:44 Dose: 26 units Documented by: Insulin Glargine (Lantus Solostar) 30 units SUBCUT BEDTIME [facility] Last Admin: 03/08/20 20:35 Dose: 30 units Documented by: Insulin Glargine (Lantus Solostar) 20 units SUBCUT BID [facility] Last Admin: 03/11/20 20:39 Dose: 20 units Documented by: Insulin Glargine (Lantus Solostar) 25 units SUBCUT BID [facility] Last Admin: 03/15/20 08:25 Dose: 25 units Documented by: Insulin Glargine (Lantus Solostar) 20 units SUBCUT ONETIME ONE Stop: 03/14/20 22:13 Last Admin: 03/14/20 22:25 Dose: 20 units Documented by: Insulin Human Lispro (Humalog) 13 unit SUBCUT BID@, [facility] Last Admin: 03/08/20 08:10 Dose: Not Given Documented by: Insulin Human Lispro (Humalog) 15 unit SUBCUT WITHDINNER [facility] Last Admin: 03/07/20 17:26 Dose: 15 units Documented by: Insulin Human Lispro (Humalog) 15 unit SUBCUT BID@ [facility] Last Admin: 03/09/20 08:05 Dose: 15 units Documented by: Insulin Human Lispro (Humalog) 18 unit SUBCUT WITHDINNER [facility] Last Admin: 03/08/20 17:28 Dose: Not Given Documented by: Insulin Human Lispro (Humalog) 22 unit SUBCUT ONETIME ONE Stop: 03/08/20 18:01 Last Admin: 03/08/20 17:45 Dose: 22 units Documented by: Insulin Human Lispro (Humalog) 18 unit SUBCUT BID@,12 [facility] Last Admin: 03/15/20 11:35 Dose: Not Given Documented by: Insulin Human Lispro (Humalog) 20 unit SUBCUT WITHDINNER [facility] Last Admin: 03/14/20 17:37 Dose: Not Given Documented by: Non-Formulary Medication (Dulaglutide [Trulicity]) 0.75 mg SUBCUT Q7D [facility] Last Admin: 03/08/20 01:57 Dose: Not Given Documented by: Non-Formulary Medication (Flaxseed Oil [Flaxseed Oil]) 1,200 mg PO DAILY [facility] Prednisone (Prednisone) 40 mg PO DAILY [facility] Stop: 03/12/20 09:01 Last Admin: 03/12/20 08:32 Dose: 40 mg Documented by: - Exam Quality Assessment: Supplemental Oxygen General: Alert, Oriented, Cooperative, No Acute Distress Lungs: Normal Respiratory Effort, Decreased Breath Sounds (throughout). No: Crackles, Wheezing Cardiovascular: Regular Rate, Regular Rhythm GI/Abdominal Exam: Normal Bowel Sounds, Soft, Non-Tender, No Distention Sepsis Event Note - Evaluation Sepsis Screening Result: No Definite Risk - Focused Exam Vital Signs: Vital Signs Temp Pulse Resp BP Pulse Ox 03/15/20 06:05 97.8 F 85 16 110/57 L 94 L - Problem List & Annotations (1) PCP (pneumocystis carinii pneumonia) SNOMED Code(s): 111140635 Code(s): B59 - PNEUMOCYSTOSIS Status: Acute Current Visit: Yes (2) ANG (acute kidney injury) SNOMED Code(s): 88374672, 47361428 Code(s): N17.9 - ACUTE KIDNEY FAILURE, UNSPECIFIED Status: Acute Current Visit: Yes Annotation/Comment:: NS started at 100 ml/hr, will decrease to 75 ml/hr, continue to monitor and adjust as needed. (3) Diabetes SNOMED Code(s): 49662804 Code(s): E11.9 - TYPE 2 DIABETES MELLITUS WITHOUT COMPLICATIONS Status: Chronic Current Visit: Yes (4) COPD (chronic obstructive pulmonary disease) SNOMED Code(s): 12505129 Code(s): J44.9 - CHRONIC OBSTRUCTIVE PULMONARY DISEASE, UNSPECIFIED Status: Chronic Current Visit: Yes (5) CHF (congestive heart failure) SNOMED Code(s): 23912081 Code(s): I50.9 - HEART FAILURE, UNSPECIFIED Status: Chronic Current Visit: Yes (6) Mixed incontinence SNOMED Code(s): 15541968 Code(s): N39.46 - MIXED INCONTINENCE Status: Chronic Current Visit: Yes (7) Pulmonary fibrosis SNOMED Code(s): 78937844 Code(s): J84.10 - PULMONARY FIBROSIS, UNSPECIFIED Status: Chronic Current Visit: No Annotation/Comment:: severe (8) Pulmonary hypertension SNOMED Code(s): 47945555 Code(s): I27.20 - PULMONARY HYPERTENSION, UNSPECIFIED Status: Chronic Current Visit: No (9) History of liver transplant SNOMED Code(s): 682603720 Code(s): Z94.4 - LIVER TRANSPLANT STATUS Status: Chronic Current Visit: Yes Onset Date: ~2010 (10) Immunocompromised patient SNOMED Code(s): 679116767 Code(s): D84.9 - IMMUNODEFICIENCY, UNSPECIFIED Status: Chronic Current Visit: Yes - Problem List Review Problem List Initiated/Reviewed/Updated: Yes - My Orders Last 24 Hours: My Active Orders 03/14/20 17:10 Chest 1V Frontal [CR] Routine 03/14/20 17:37 Sodium Chloride 0.9% [Saline Flush] 10 ml FLUSH ASDIRECTED PRN Peripheral IV Insertion Adult [OM.PC] Routine 03/14/20 17:45 Sodium Chloride 0.9% [Normal Saline] 1,000 ml IV ASDIRECTED 03/14/20 20:45 Accu Check [Blood Glucose Check, Bedside] [RC] ONETIME 03/15/20 09:03 Nurse Communication: Isolation [RC] ASDIRECTED Isolation [COMM] Routine 03/15/20 12:00 Insulin Lispro [HumaLOG] 13 unit SUBCUT BID@08,12 03/15/20 18:00 Insulin Lispro [HumaLOG] 15 unit SUBCUT WITHDINNER 03/15/20 21:00 Insulin Glarg,Human.Rec.Analog [LantUS Solostar] 25 units SUBCUT BEDTIME 03/16/20 06:00 BASIC METABOLIC PANEL,BMP [CHEM] Routine - Plan Plan:: PCP pneumonia with underlying severe pulmonary fibrosis, pulmonary hypertension: Finished her antibiotics today. CBC was elevated yesterday but improved today with IVF. Covid negative. My review of chest x-ray from previous on 02/24 shows improvement of her pneumonia. Cr jumped to 2.4 from prior to admission cr of 1.32, down to 2.2 with IV fluids. Will keep in droplet precautions for her protection as she is immunocompromised. ANG: slow rate down to 75 ml/hr and recheck labs tomorrow. DM: resumed home dose of Humalog at meals 13 units at breakfast & lunch and 15 units at supper and 25 units of Lantus at bedtime. Weakness: continue PT/OT.
[2020-03-15] MEDS ORDERED: Insulin Lispro 100 Unit/ML 3 ML KwikPen SUBCUT ONE (18:49)
[2020-03-15] MEDS: Mirabegron 25 MG Tab Extended Release PO SCH (18:57)
[2020-03-15] MEDS ORDERED: Insulin Glargine,Human Rec. Analog 100 Units/ML 3 ML Pen SUBCUT ONE (21:00)
[2020-03-15] MEDS ORDERED: Insulin Glargine,Human Rec. Analog 100 Units/ML 3 ML Pen SUBCUT SCH (21:00)
[2020-03-15] MEDS: atorvaSTATin 40 MG Tab PO SCH (21:24)
[2020-03-16] MEDS: Sodium Chloride 0.9% 1,000 ML IV SCH (04:50)
[2020-03-16] MEDS: Pantoprazole 40 MG Tab.CR PO SCH (05:49)
[2020-03-16] MEDS: Acetaminophen 500 MG Tab PO PRN ×3 (06:01→18:51)
[2020-03-16] MEDS: Insulin Lispro 100 Unit/ML 3 ML KwikPen SUBCUT SCH ×3 (08:48→17:56)
[2020-03-16] MEDS: Mycophenolate Mofetil 250 MG Cap PO SCH ×2 (08:52→21:09)
[2020-03-16] MEDS: Formoterol/Mometasone 100-5 MCG 8.8 GM Inhaler IH SCH ×2 (08:53→21:09)
[2020-03-16] MEDS: MACITENTAN 10 MG PO SCH (08:55)
[2020-03-16] MEDS: predniSONE 20 MG Tab PO SCH (08:57)
[2020-03-16] MEDS: Gabapentin 600 MG Tab PO SCH ×2 (09:00→21:10)
[2020-03-16] MEDS: ATOVAQUONE 750 MG/5 ML PO SCH ×2 (09:03→17:43)
[2020-03-16] MEDS: FLUoxetine 20 MG Cap PO SCH (09:04)
[2020-03-16] MEDS: Tacrolimus 0.5 MG Cap PO SCH (09:04)
[2020-03-16] MEDS: Sildenafil 20 MG Tab PO SCH ×3 (09:05→21:10)
--- NOTE | 2020-03-16 11:27 | CR ---
INDICATION: Increased shortness of breath. CHEST, ONE VIEW: Portable AP upright view of the chest 03/14/20 was compared with 02/25/20 and 04/30/19. The heart is enlarged. The aorta is tortuous with calcification in the arch. Prominent central vessels would be compatible with pulmonary hypertension. Heavy markings in the mid to lower lung pérez are again noted which may be on the basis of fibrosis and possibly with some patchy bronchopneumonia superimposed especially at the left lung base. However, these findings are somewhat emphasized by a relatively poor inspiration on the current study and a full inspiration PA and lateral examination of the chest may be helpful for further evaluation. The heart appears enlarged. No definite CHF. Evidence of exogenous obesity is noted. IMPRESSION: Overall allowing for poor inspiration, no definite new acute process. However, pneumonia certainly may be superimposed on areas of fibrosis in the mid to lower lung pérez bilaterally and especially at the left lung base. Full inspiration PA and lateral views of the chest or simply a full inspiration single view may be helpful for further evaluation. MTDD
[2020-03-16] MEDS: Ferrous Sulfate 325 MG Tab PO SCH (12:38)
[2020-03-16] MEDS: Calcium Carbonate 500 MG Tablet PO SCH (12:38)
[2020-03-16] MEDS: Cyanocobalamin (Vitamin B12) 1,000 MCG Tab PO SCH (12:39)
[2020-03-16] MEDS: Cholecalciferol (Vitamin D3) 25 MCG Tab PO SCH (12:39)
[2020-03-16] MEDS: Ascorbic Acid 500 MG Tab PO SCH (12:39)
[2020-03-16] MEDS: Mirabegron 25 MG Tab Extended Release PO SCH (17:45)
[2020-03-16] MEDS ORDERED: Insulin Glargine,Human Rec. Analog 100 Units/ML 3 ML Pen SUBCUT SCH (21:00)
[2020-03-16] MEDS: atorvaSTATin 40 MG Tab PO SCH (21:10)
[2020-03-17] MEDS: Pantoprazole 40 MG Tab.CR PO SCH (06:35)
[2020-03-17] MEDS: Insulin Lispro 100 Unit/ML 3 ML KwikPen SUBCUT SCH (08:13)
[2020-03-17] MEDS: ATOVAQUONE 750 MG/5 ML PO SCH (08:16)
[2020-03-17] MEDS: Mycophenolate Mofetil 250 MG Cap PO SCH (08:18)
[2020-03-17] MEDS: Aspirin 81 MG Tab.Chew PO SCH (08:18)
[2020-03-17] MEDS: Formoterol/Mometasone 100-5 MCG 8.8 GM Inhaler IH SCH (08:19)
[2020-03-17] MEDS: MACITENTAN 10 MG PO SCH (08:20)
[2020-03-17] MEDS: predniSONE 20 MG Tab PO SCH (08:21)
[2020-03-17] MEDS: Tacrolimus 0.5 MG Cap PO SCH (08:21)
[2020-03-17] MEDS: FLUoxetine 20 MG Cap PO SCH (08:21)
[2020-03-17] MEDS: Sildenafil 20 MG Tab PO SCH (08:22)
[2020-03-17] MEDS: Gabapentin 600 MG Tab PO SCH (08:27)
--- NOTE | 2020-03-17 10:58 | PCM.DCSUM1 ---
Discharge Summary - Hospital Course HPI Initial Comments: Admitted for PT/OT continued antibiotics for PCP pneumonia Diagnosis: Stroke: No - Discharge Data Discharge Date: 03/17/20 ([facility]) Discharge Disposition: Home, W Home Health Agency 06 Condition: Stable - Referral to Home Health Date of Face to Face Encounter: 03/17/20 Reason for Homebound Status: severe pulmonary fibrosis, with pulmonary hypertension. s/p liver transplant 2010. Primary Care Physician: Shubham Cox MD Skilled Need: PT/OT/nursing - Discharge Diagnosis/Problem(s) (1) PCP (pneumocystis carinii pneumonia) SNOMED Code(s): 066701578 ICD Code: B59 - PNEUMOCYSTOSIS Status: Acute Current Visit: Yes (2) ANG (acute kidney injury) SNOMED Code(s): 70739839, 49088219 ICD Code: N17.9 - ACUTE KIDNEY FAILURE, UNSPECIFIED Status: Resolved Current Visit: Yes Problem Details: Labs improving with oral intake (3) Diabetes SNOMED Code(s): 54672259 ICD Code: E11.9 - TYPE 2 DIABETES MELLITUS WITHOUT COMPLICATIONS Status: Chronic Current Visit: Yes (4) COPD (chronic obstructive pulmonary disease) SNOMED Code(s): 36054005 ICD Code: J44.9 - CHRONIC OBSTRUCTIVE PULMONARY DISEASE, UNSPECIFIED Status: Chronic Current Visit: Yes (5) CHF (congestive heart failure) SNOMED Code(s): 89322420 ICD Code: I50.9 - HEART FAILURE, UNSPECIFIED Status: Chronic Current Visit: Yes (6) Mixed incontinence SNOMED Code(s): 57513859 ICD Code: N39.46 - MIXED INCONTINENCE Status: Chronic Current Visit: Yes (7) Pulmonary fibrosis SNOMED Code(s): 91035670 ICD Code: J84.10 - PULMONARY FIBROSIS, UNSPECIFIED Status: Chronic Curre nt Visit: No Problem Details: severe (8) Pulmonary hypertension SNOMED Code(s): 20661005 ICD Code: I27.20 - PULMONARY HYPERTENSION, UNSPECIFIED Status: Chronic Current Visit: No (9) History of liver transplant SNOMED Code(s): 133504612 ICD Code: Z94.4 - LIVER TRANSPLANT STATUS Status: Chronic Current Visit: Yes Onset Date: ~2010 (10) Immunocompromised patient SNOMED Code(s): 491272599 ICD Code: D84.9 - IMMUNODEFICIENCY, UNSPECIFIED Status: Chronic Current Visit: Yes - Patient Summary/Data Consults: Consultations 03/05/20 14:30 OT Evaluation and Treatment [CONS] Routine Please Evaluate and Treat. OT Reason for Consult: ADL's This query below is only for informational purposes and is not editable. PT Evaluation and Treatment [CONS] Routine Please Evaluate and Treat. PT Reason for Consult: Ambulation This query below is only for informational purposes and is not editable. Hospital Course: Karol was admitted to swing bed for strengthening and continue atovaquone treatment for her PCP pneumonia to complete 21 day course. She progressed with therapies adequately. She did have a few flares with her sciatica pain was given Tramadol and Hydrocodone-APAP as needed, she last used Tramadol on 03/09 and last used Hydrocodone-APAP on 03/13. On Monday she had more fatigue, shortness of breath requiring increasing her oxygen, had some nausea on Monday so she had labs, Covid test, and CXR were done. CXR looked improved from 02/24, wbc was elevated and her creatinine had jumped to 2.4, covid was negative. She was started on IV fluids which were discontinued 03/16, creatinine improved to 1.7. She was placed in droplet precautions for protective purposes. Her wbc improved back to normal with IV fluids. She feels she is back to her baseline as far as her breathing. She has been requiring 6L by mo so [facility] was contacted to get concentrator that can go up to 10L at home. She has been weaning down on Prednisone, was initially on 30 units of Lantus and now at 18 units at bedtime with blood sugar of 75 this morning. She will go home on half her usual home dose of Novolog 7 units at breakfast, lunch and 8 units at dinner and 15 units of Lantus at bedtime. She will go home with Home Health for PT/OT and nursing to help monitor her sugars. Her is also her caregiver and she states he is good at adjust her insulin based on her sugars. - Patient Instructions Diet: Diabetic Diet Activity: As Tolerated Notify Provider of: Fever, Increased Pain, Nausea and/or Vomiting Other/Special Instructions: Follow up with PCP as needed. Home health for PT/OT/nursing. - Discharge Plan *PRESCRIPTION DRUG MONITORING PROGRAM REVIEWED*: Not Applicable *COPY OF PRESCRIPTION DRUG MONITORING REPORT IN PATIENT [place]EN[place]: Not Applicable Prescriptions/Med Rec: predniSONE 10 mg PO DAILY 4 Days #4 tablet predniSONE 20 mg PO DAILY 2 Days #2 tablet predniSONE 5 mg PO DAILY 4 Days #4 tablet Home Medications: Home Meds Acetaminophen [Tylenol Extra Strength] 500 mg PO Q4H PRN 12/26/18 [History] Albuterol [Ventolin HFA] 2 puff INH Q4H PRN 12/26/18 [History] Aspirin 81 mg PO Q48H 12/26/18 [History] Calcium Carbonate/Vitamin D3 [Calcium 500 mg Chewable Tablet] 2 tab PO DAILY 12/26/18 [History] Cholecalciferol (Vitamin D3) [Vitamin D3] 1,000 unit PO DAILY 12/26/18 [History] Cyanocobalamin (Vitamin B-12) [Vitamin B-12] 1,000 mcg PO DAILY 12/26/18 [History] Ethacrynic Acid 25 mg PO DAILY 12/26/18 [History] FLUoxetine HCl [Fluoxetine HCl] 40 mg PO DAILY 12/26/18 [History] Lutein 20 mg PO DAILY 12/26/18 [History] Macitentan [Opsumit] 10 mg PO DAILY 12/26/18 [History] Mirabegron [Myrbetriq] 50 mg PO WITHDINNER 12/26/18 [History] Omeprazole 20 mg PO DAILY@0600 12/26/18 [History] Sildenafil Citrate 20 mg PO TID 12/26/18 [History] Tacrolimus [Prograf] 0.5 mg PO DAILY 12/26/18 [History] Trimethoprim 100 mg PO DAILY 12/26/18 [History] mycophenolate mofetiL [Cellcept] 500 mg PO BID 12/26/18 [History] Fluticasone/Vilanterol [Breo Ellipta 100-25 MCG Inhalation Kit] 1 puff INH DAILY 04/25/19 [History] Iron,Carbonyl/Ascorbic Acid [Vitron-C Tablet] 1 tab PO DAILY 04/25/19 [History] Atovaquone [Mepron 750 MG/5 ML Susp] 750 mg PO BIDMEALS 03/05/20 [History] Dulaglutide [Trulicity] 0.75 mg SUBCUT Q7D 03/05/20 [History] Flaxseed Oil 1,200 mg PO DAILY 03/05/20 [History] Gabapentin [Neurontin] 600 mg PO BID 03/05/20 [History] atorvaSTATin [Lipitor] 40 mg PO BEDTIME 03/05/20 [History] Insulin Aspart [NovoLOG] 7 units SQ BID@08,12 30 Days #1 box 03/17/20 [Rx] Insulin Aspart [NovoLOG] 8 units SUBCUT WITHDINNER #0 03/17/20 [Rx] Insulin Glarg,Human.Rec.Analog [Lantus Solostar] 15 unit SQ BEDTIME 30 Days #1 box 03/17/20 [Rx] predniSONE 5 mg PO DAILY 4 Days #4 tablet 03/17/20 [Rx] predniSONE 10 mg PO DAILY 4 Days #4 tablet 03/17/20 [Rx] predniSONE 20 mg PO DAILY 2 Days #2 tablet 03/17/20 [Rx] Oxygen Therapy Mode: Nasal Cannula Oxygen Flow Rate (L/min): 6 Maintain SPO2% less than: 92 Maintain SpO2% greater than: 88 Patient Handouts: Fall Prevention in Hospitals, Adult, Venous Thromboembolism Prevention, Community-Acquired Pneumonia, Adult, [id number] - Discharge Summary/Plan Comment DC Time >30 min.: No - General Info Date of Service: 03/17/20 Subjective Update: She is feeling her breathing is at her baseline. No pain. No change in appetite or bowel habits. Wants to go home. - Patient Data Vitals - Most Recent: Last Vital Signs Temp 98.1 F 03/17/20 08:00 Pulse 94 03/17/20 08:00 Resp 20 03/17/20 08:00 BP 123/62 03/17/20 08:00 Pulse Ox 91 L 03/17/20 08:00 Weight - Most Recent: 164 lb I&O - Last 24 hours: Intake & Output 03/16/20 03/17/20 03/17/20 22:59 06:59 14:59 Output Total 0 Balance 0 Lab Results - Last 24 hrs: Laboratory Results - last 24 hr 03/16/20 03/16/20 03/16/20 Range/Units 11:11 11:37 12:28 POC Glucose 66 L 75 89 (74-100) mg/dL 03/16/20 03/16/20 03/17/20 Range/Units 16:52 21:31 06:37 POC Glucose 275 H 155 H 75 (74-100) mg/dL Med Orders - Current: Current Medications Acetaminophen (Tylenol Extra Strength) 500 mg PO Q4H PRN PRN Reason: Pain Last Admin: 03/16/20 18:51 Dose: 500 mg Documented by: Hydrocodone Bitart/Acetaminophen ([place] 325-5 Mg) 1 tab PO Q4H PRN PRN Reason: hip pain Last Admin: 03/13/20 20:17 Dose: 1 tab Documented by: Albuterol (Ventolin Hfa) 0 gm INH Q4H PRN PRN Reason: Dyspnea Ascorbic Acid (Vitamin C) 500 mg PO DAILY@1200 [facility] Last Admin: 03/16/20 12:39 Dose: 500 mg Documented by: Aspirin (Aspirin) 81 mg PO Q48H [facility] Last Admin: 03/17/20 08:18 Dose: 81 mg Documented by: Atorvastatin Calcium (Lipitor) 40 mg PO BEDTIME [facility] Last Admin: 03/16/20 21:10 Dose: 40 mg Documented by: Atovaquone (Mepron 750 Mg/5 Ml Susp) [facility] Stop: 03/26/20 08:01 Last Admin: 03/17/20 08:16 Dose: 750 mg Documented by: Calcium Carbonate/Glycine (Oyster Shell Calcium) 1,000 mg PO DAILY@1200 [facility] Last Admin: 03/16/20 12:38 Dose: 1,000 mg Documented by: Cholecalciferol (Vitamin D3) 25 mcg PO DAILY@1200 [facility] Last Admin: 03/16/20 12:39 Dose: 25 mcg Documented by: Cyanocobalamin (Vitamin B12) 1,000 mcg PO DAILY@1200 [facility] Last Admin: 03/16/20 12:39 Dose: 1,000 mcg Documented by: Dextrose/Water (Dextrose 50% In Water) 50 ml IVPUSH ASDIRECTED PRN PRN Reason: Hypoglycemia Ethacrynic Acid (Edecrin) 25 mg PO DAILY [facility] Last Admin: 03/17/20 08:19 Dose: 25 mg Documented by: Ferrous Sulfate (Ferrous Sulfate) 325 mg PO DAILY@1200 [facility] Last Admin: 03/16/20 12:38 Dose: 325 mg Documented by: Fluoxetine HCl (Prozac) 40 mg PO DAILY [facility] Last Admin: 03/17/20 08:21 Dose: 40 mg Documented by: Gabapentin (Neurontin) 600 mg PO BID [facility] Last Admin: 03/17/20 08:27 Dose: 600 mg Documented by: Glucagon (Glucagen) 1 mg IM ASDIRECTED PRN PRN Reason: Hypoglycemia Insulin Glargine (Lantus Solostar) 18 units SUBCUT BEDTIME [facility] Last Admin: 03/16/20 21:32 Dose: 18 units Documented by: Insulin Human Lispro (Humalog) 13 unit SUBCUT BID@08,12 [facility] Last Admin: 03/17/20 08:13 Dose: 13 units Documented by: Insulin Human Lispro (Humalog) 15 unit SUBCUT WITHDINNER [facility] Last Admin: 03/16/20 17:56 Dose: 15 units Documented by: Lutein (Lutein) 20 mg PO DAILY@1200 [facility] Last Admin: 03/16/20 12:38 Dose: 20 mg Documented by: Mirabegron (Myrbetriq) 50 mg PO WITHDINNER [facility] Last Admin: 03/16/20 17:45 Dose: 50 mg Documented by: Mometasone Furoate/Formoterol Fumar (Dulera 100-5 Mcg) 2 puff IH BID [facility] Last Admin: 03/17/20 08:19 Dose: 2 puff Documented by: Mycophenolate Mofetil (Cellcept) 500 mg PO BID [facility] Last Admin: 03/17/20 08:18 Dose: 500 mg Documented by: (Macitentan [Opsumit (] 10 Mg) *Ptom) 10 mg PO DAILY [facility] Last Admin: 03/17/20 08:20 Dose: 10 mg Documented by: Pantoprazole Sodium (Protonix) 40 mg PO DAILY@0600 [facility] Last Admin: 03/17/20 06:35 Dose: 40 mg Documented by: Prednisone (Prednisone) 20 mg PO DAILY [facility] Stop: 03/19/20 09:01 Last Admin: 03/17/20 08:21 Dose: 20 mg Documented by: Prednisone (Prednisone) 10 mg PO DAILY [facility] Stop: 03/23/20 09:01 Prednisone (Prednisone) 5 mg PO DAILY [facility] Stop: 03/27/20 09:01 Sildenafil Citrate (Revatio) 20 mg PO TID [facility] Last Admin: 03/17/20 08:22 Dose: 20 mg Documented by: Tacrolimus (Prograf) 0.5 mg PO DAILY [facility] Last Admin: 03/17/20 08:21 Dose: 0.5 mg Documented by: Tramadol HCl (Ultram) 50 mg PO Q8H PRN PRN Reason: Pain Last Admin: 03/09/20 04:54 Dose: 50 mg Documented by: Trimethoprim (Trimethoprim) 100 mg PO DAILY [facility] Last Admin: 03/17/20 08:22 Dose: 100 mg Documented by: Discontinued Medications Atovaquone (Mepron 750 Mg/5 Ml Susp) 750 mg PO BIDMEALS [facility] Stop: 03/15/20 18:01 Last Admin: 03/15/20 18:57 Dose: 750 mg Documented by: Dextrose/Water (Dextrose 50% In Water) 50 ml IVPUSH ASDIRECTED PRN PRN Reason: Hypoglycemia Glucagon (Glucagen) 1 mg IM ASDIRECTED PRN PRN Reason: Hypoglycemia Sodium Chloride (Normal Saline) 1,000 mls @ 75 mls/hr IV ASDIRECTED [facility] Last Infusion: 03/16/20 11:50 Dose: 0 mls/hr Documented by: Insulin Glargine (Lantus Solostar) 26 units SUBCUT BEDTIME [facility] Last Admin: 03/07/20 20:44 Dose: 26 units Documented by: Insulin Glargine (Lantus Solostar) 30 units SUBCUT BEDTIME [facility] Last Admin: 03/08/20 20:35 Dose: 30 units Documented by: Insulin Glargine (Lantus Solostar) 20 units SUBCUT BID [facility] Last Admin: 03/11/20 20:39 Dose: 20 units Documented by: Insulin Glargine (Lantus Solostar) 25 units SUBCUT BID [facility] Last Admin: 03/15/20 08:25 Dose: 25 units Documented by: Insulin Glargine (Lantus Solostar) 20 units SUBCUT ONETIME ONE Stop: 03/14/20 22:13 Last Admin: 03/14/20 22:25 Dose: 20 units Documented by: Insulin Glargine (Lantus Solostar) 25 units SUBCUT BEDTIME [facility] Last Admin: 03/15/20 21:23 Dose: Not Given Documented by: Insulin Glargine (Lantus Solostar) 12 units SUBCUT BEDTIME ONE Stop: 03/15/20 21:01 Last Admin: 03/15/20 21:32 Dose: 12 units Documented by: Insulin Human Lispro (Humalog) 13 unit SUBCUT BID@ [facility] Last Admin: 03/08/20 08:10 Dose: Not Given Documented by: Insulin Human Lispro (Humalog) 15 unit SUBCUT WITHDINNER [facility] Last Admin: 03/07/20 17:26 Dose: 15 units Documented by: Insulin Human Lispro (Humalog) 15 unit SUBCUT BID@ [facility] Last Admin: 03/09/20 08:05 Dose: 15 units Documented by: Insulin Human Lispro (Humalog) 18 unit SUBCUT WITHDINNER [facility] Last Admin: 03/08/20 17:28 Dose: Not Given Documented by: Insulin Human Lispro (Humalog) 22 unit SUBCUT ONETIME ONE Stop: 03/08/20 18:01 Last Admin: 03/08/20 17:45 Dose: 22 units Documented by: Insulin Human Lispro (Humalog) 18 unit SUBCUT BID@ [facility] Last Admin: 03/15/20 11:35 Dose: Not Given Documented by: [facility]ulin [facility] Admin: 03/14/20 17:37 Dose: Not Given Documented by: Insulin Human Lispro (Humalog) 7 unit SUBCUT ONETIME ONE Stop: 03/15/20 18:50 Last Admin: 03/15/20 19:47 Dose: 7 units Documented by: Non-Formulary Medication (Dulaglutide [Trulicity]) 0.75 mg SUBCUT Q7D [facility] Last Admin: 03/08/20 01:57 Dose: Not Given Documented by: Non-Formulary Medication (Flaxseed Oil [Flaxseed Oil]) 1,200 mg PO DAILY [facility] Prednisone (Prednisone) 40 mg PO DAILY [facility] Stop: 03/12/20 09:01 Last Admin: 03/12/20 08:32 Dose: 40 mg Documented by: Sodium Chloride (Saline Flush) 10 ml FLUSH ASDIRECTED PRN PRN Reason: Keep Vein Open - Exam General: Reports: Alert, Oriented, Cooperative, No Acute Distress Lungs: Reports: Clear to Auscultation (BUL), Normal Respiratory Effort, Decreased Breath Sounds (BLL), Crackles (fine, bibasilar). Denies: Wheezing Cardiovascular: Reports: Regular Rate, Regular Rhythm GI/Abdominal Exam: Normal Bowel Sounds, Soft, Non-Tender, No Distention
[2020-03-20] MEDS ORDERED: predniSONE 10 MG Tab PO SCH (09:00)
[2020-03-24] MEDS ORDERED: predniSONE 5 MG Tab PO SCH (09:00)
== END 2020-03-17 11:30 | disposition home health service (06) | DRG 178 ==
LOC: FB.MS 13:48
PROVIDERS: ADMIT Family Medicine; ATTEND Family Medicine
DX: B59 Pneumocystosis (principal); N17.9 Acute kidney failure, unspecified; Z94.4 Liver transplant status; D84.9 Immunodeficiency, unspecified; I50.32 Chronic diastolic (congestive) heart failure; J96.10 Chronic respiratory failure, unspecified whether with hypoxia or hypercapnia; Z66 Do not resuscitate; J44.9 Chronic obstructive pulmonary disease, unspecified; N39.46 Mixed incontinence; J84.10 Pulmonary fibrosis, unspecified; N18.30 Chronic kidney disease, stage 3 unspecified; I27.20 Pulmonary hypertension, unspecified; F43.21 Adjustment disorder with depressed mood; E11.22 Type 2 diabetes mellitus with diabetic chronic kidney disease; M81.0 Age-related osteoporosis without current pathological fracture; Z99.81 Dependence on supplemental oxygen; Z79.52 Long term (current) use of systemic steroids; Z79.82 Long term (current) use of aspirin; Z79.899 Other long term (current) drug therapy; Z79.4 Long term (current) use of insulin; Z88.2 Allergy status to sulfonamides; Z88.1 Allergy status to other antibiotic agents; Z91.041 Radiographic dye allergy status; I25.2 Old myocardial infarction; D63.1 Anemia in chronic kidney disease; M54.31 Sciatica, right side
CPT/HCPCS: 36415; 71045; 80048; 82947; 82962; 85025; 94760; 97110-GO; 97110-GP; 97161-GP; 97165-GO; 97530-GO; 97530-GP; 97535-GO; A9270-GY; J1815; J1815-GY; J7030; J7512; U0002

== ENCOUNTER 2020-10-11 21:22 | Emergency (ER) | payer MEDICARE, BC ==
[2020-10-11] MEDS ORDERED: Sodium Chloride 0.9% 10 ML Syringe FLUSH PRN (22:00)
--- NOTE | 2020-10-11 22:03 | EDM.PDOC ---
ED HPI GENERAL MEDICAL PROBLEM - General Chief Complaint: General Stated Complaint: NOT FEELING WELL Time Seen by Provider: 10/11/20 22:00 Source of Information: Reports: Patient History Limitations: Reports: No Limitations - History of Present Illness INITIAL COMMENTS - FREE TEXT/NARRATIVE: 74-year-old female who presents to the emergency department via ambulance from home reporting that she is "just not feeling well". What she means by this is that she is having diarrhea which has been ongoing for the past week. She also has some sore throat and she has a poor appetite. She has had no nausea or vomiting but she also has not really been taking by mouth very well because he does not have an appetite and thinks don't really taste well. She has been eating some and that she has forced herself to eat but she has been eating poorly. She does report that she has been urinating smaller amounts but without definite dysuria. She is chronically on 4 L/m via nasal cannula of oxygen but she has had no change in her normal cough and no increased phlegm production. He is not feel more short of breath than normal. She does feel and she feels like over the past 3 days she has been doing little else than sleeping. She currently denies any pain. She rates her pain as a 0/10. She has had some pain in her lower abdomen off and on but that is no longer present now. She has had no definite fever but has had some feelings of being chilled. No headache. No localized area of weakness or numbness. It should be noted that the patient is a liver transplant patient and she is on chronic immunosuppressive therapy. There are no other associated signs or symptoms. There are no other modifying factors. Onset: Other (One week ago) Duration: Constant Location: Reports: Generalized Quality: Reports: Ache, Other (Malaise) Severity: Moderate Improves with: Reports: None Worsens with: Reports: None Context: Reports: Other (As above.) Associated Symptoms: Reports: No Other Symptoms (Except as above.) Treatments ASSOC[employer]ATE [employer]AT[employer] PROFESSOR: Reports: Other (see below) - Related Data Allergies Allergy/AdvReac Type Severity Reaction Status Date / Time Sulfa (Sulfonamide Allergy Rash Verified 10/12/20 00:28 Antibiotics) tiotropium Allergy Rash Verified 10/12/20 00:28 vancomycin Allergy Rash Verified 10/12/20 00:28 erythromycin base AdvReac Nausea and Verified 10/12/20 00:28 Vomiting Iodinated Contrast Media AdvReac Nausea Verified 10/12/20 00:28 Home Meds: Home Meds Acetaminophen [Tylenol Extra Strength] 500 mg PO Q4H PRN 12/26/18 [History] Albuterol [Ventolin HFA] 2 puff INH Q4H PRN 12/26/18 [History] Cholecalciferol (Vitamin D3) [Vitamin D3] 1,000 unit PO DAILY 12/26/18 [History] Cyanocobalamin (Vitamin B-12) [Vitamin B-12] 1,000 mcg PO DAILY 12/26/18 [History] Ethacrynic Acid 25 mg PO DAILY 12/26/18 [History] FLUoxetine HCl [Fluoxetine HCl] 40 mg PO DAILY 12/26/18 [History] Lutein 20 mg PO DAILY 12/26/18 [History] Macitentan [Opsumit] 10 mg PO DAILY 12/26/18 [History] Mirabegron [Myrbetriq] 50 mg PO WITHDINNER 12/26/18 [History] Omeprazole 20 mg PO DAILY@0600 12/26/18 [History] Sildenafil Citrate 20 mg PO TID 12/26/18 [History] Tacrolimus [Prograf] 0.5 mg PO BID 12/26/18 [History] mycophenolate mofetiL [Cellcept] 500 mg PO BID 12/26/18 [History] Iron,Carbonyl/Ascorbic Acid [Vitron-C Tablet] 1 tab PO BID 04/25/19 [History] Flaxseed Oil 1,000 mg PO DAILY 03/05/20 [History] Gabapentin [Neurontin] 600 mg PO TID 03/05/20 [History] Calcium Phosphate Trib/Vit D3 [Calcium Gummies] 2 tab PO DAILY 10/12/20 [History] Fluticasone/Vilanterol [Breo Ellipta 100-25 MCG Inhalation Kit] 1 puff INH DAILY 10/12/20 [History] Insulin Aspart [NovoLOG] 18 units SQ TID 10/12/20 [History] Insulin Glarg,Human.Rec.Analog [Lantus Solostar] 34 unit SQ BEDTIME 10/12/20 [History] Rudy-3/DHA/Epa/Fish Oil [Rudy 3 500 Softgel] 1,000 mg PO DAILY 10/12/20 [ History] Trimethoprim 100 mg PO DAILY 10/12/20 [History] calcitrioL [Calcitriol] 0.25 mcg PO MOWEFR 10/12/20 [History] cephALEXin [Keflex] 500 mg PO TID 10 Days #30 cap 10/12/20 [Rx] dexAMETHasone [Dexamethasone] 1 mg PO DAILY 10/12/20 [History] Past Medical History HEENT History: Reports: Cataract Other HEENT History: bilateral Cardiovascular History: Reports: High Cholesterol, Hypertension, Pulmonary Hypertension Respiratory History: Reports: Pulmonary Fibrosis Gastrointestinal History: Reports: Chronic Constipation, GERD Other Gastrointestinal History: liver transplant approx 7 years ago Genitourinary History: Reports: Chronic Renal Insuffiency Musculoskeletal History: Reports: Fibromyalgia Neurological History: Reports: Migraines Other Neuro History: long ago Endocrine/Metabolic History: Reports: Diabetes, Type II Hematologic History: Reports: B12 Deficiency, Blood Transfusion(s) Immunologic History: Reports: Immunosuppression, Solid Organ Transplant Other Immunologic History: liver Oncologic (Cancer) History: Reports: Other (See Below) Other Oncologic History: Skin CA removed from the right hand in March 2019. Dermatologic History: Reports: Other (See Below) Other Dermatologic History: hx skin cancer R middle finger and both legs - Infectious Disease History Infectious Disease History: Reports: Chicken Pox, Measles, Mumps - Past Surgical History HEENT Surgical History: Reports: Laser Surgery Other HEENT Surgeries/Procedures: bilateral Respiratory Surgical History: Reports: Lung Biopsies GI Surgical History: Reports: Cholecystectomy, Colonoscopy Female Surgical History: Reports: Hysterectomy, Salpingo-Oophorectomy Musculoskeletal Surgical History: Reports: Other (See Below) Other Musculoskeletal Surgeries/Procedures:: L wrist surgery with plate Social & Family History - Tobacco Use Tobacco Use Status *Q: Former Tobacco User Used Tobacco, but Quit: Yes Month/Year Tobacco Last Used: 20 years Second Hand Smoke Exposure: No - Caffeine Use Caffeine Use: Reports: None Other Caffeine Use: 1 cup a day - Alcohol Use Alcohol Use History: No - Recreational Drug Use Recreational Drug Use: No - Living Situation & Occupation Living situation: Reports: Occupation: Retired ED ROS GENERAL - Review of Systems Review Of Systems: See Below Constitutional: Reports: Chills, Malaise, Fatigue. Denies: Fever HEENT: Reports: Throat Pain. Denies: Vision Change Respiratory: Denies: Shortness of Breath, Hemoptysis Cardiovascular: Denies: Chest Pain, Lightheadedness, Palpitations Endocrine: Denies: Polydypsia, Polyuria GI/Abdominal: Denies: Constipation, Decreased Appetite : Reports: Other (Somewhat decreased amount). Denies: Dysuria, Frequency Musculoskeletal: Denies: Shoulder Pain, Arm Pain Skin: Denies: Diaphoresis, Bruising Neurological: Reports: Weakness. Denies: Confusion, Headache, Syncope Psychiatric: Denies: Anxiety Hematologic/Lymphatic: Denies: Easy Bleeding, Easy Bruising ED EXAM, GENERAL - Physical Exam Exam: See Below Exam Limited By: No Limitations General Appearance: Alert, WD/WN, Mild Distress, Other (She does not appear toxic at this time.) Eye Exam: Bilateral Eye: EOMI, Normal Inspection (Sclera are anicteric) Ears: Normal External Exam, Hearing Grossly Normal Ear Exam: Bilateral Ear: Auricle Normal Nose: Normal Inspection, Normal Mucosa, No Blood Throat/Mouth: Normal Oropharynx, Normal Voice, No Airway Compromise, Other (Her mucous membranes are somewhat dry.) Head: Atraumatic, Normocephalic Neck: Normal Inspection, Supple, Non-Tender, Full Range of Motion Respiratory/Chest: No Respiratory Distress, Lungs Clear, Normal Breath Sounds, No Accessory Muscle Use, Chest Non-Tender Cardiovascular: Normal Peripheral Pulses, Regular Rate, Rhythm Peripheral Pulses: 2+: Radial (L), Radial (R), Dorsalis Pedis (L), Dorsalis Pedis (R) GI/Abdominal: Normal Bowel Sounds, Soft, Non-Tender, No Mass Back Exam: Normal Inspection, Full Range of Motion. No: CVA Tenderness (R), CVA Tenderness (L) Extremities: Normal Inspection, Normal Range of Motion, Non-Tender, No Pedal Edema, Normal Capillary Refill Neurological: Alert, Oriented, CN II-XII Intact, Normal Cognition, No Motor/Sensory Deficits Psychiatric: Normal Affect Skin Exam: Warm, Dry, Intact, Normal Color, No Rash #1 Interpretation EKG Date: 10/11/20 Time: 22:31 Rhythm: NSR Rate (Beats/Min): 87 [place]: Normal P-Wave: Present QRS: Normal ST-T: Normal QT: Normal Comparison: No Change (No significant change from an EKG performed on 02/25/2020.) Course - Vital Signs Last Recorded V/S: Last Vital Signs Temp 36.7 C 10/11/20 21:30 Pulse 85 10/12/20 02:32 Resp 20 10/11/20 21:30 BP 131/75 10/12/20 02:32 Pulse Ox 93 L 10/12/20 02:32 - Orders/Labs/Meds Orders: Active Orders 24 hr Category Date Time Status Insert Urinary Catheter [OM.PC] Q24H Care 10/12/20 00:30 Ordered CULTURE URINE [RM] Stat Lab 10/12/20 00:20 Received Peripheral IV Insertion Adult [OM.PC] Routine Oth 10/11/20 22:00 Ordered EKG 12 Lead [EK] Routine Ther 10/11/20 22:00 Ordered Labs: Laboratory Tests 10/11/20 10/11/20 10/11/20 Range/Units 22:20 22:20 22:20 WBC 13.3 H (3.0-10.3) x10-3/uL RBC 3.68 (3.60-5.20) x10(6)uL Hgb 10.7 L (11.4-15.5) g/dL Hct 34.0 L (34.2-48.2) % MCV 92.5 (76.7-100.5) fL MCH 29.0 (23.9-33.9) pg MCHC 31.4 L (31.9-34.8) g/dL RDW 17.1 H (12.3-16.5) % Plt Count 454 (151-488) x10(3)uL MPV 7.5 (7.1-12.4) fL Neut % (Auto) 68.6 (30.8-76.2) % Lymph % (Auto) 24.4 (18.4-52.1) % [place] % (Auto) 6.4 (4.4-15.7) % Eos % (Auto) 0.2 L (0.6-8.1) % Baso % (Auto) 0.4 (0.2-1.5) % Neut # (Auto) 9.1 H (1.5-6.3) x10-3/uL Lymph # (Auto) 3.2 (1.0-4.4) x10-3/uL [place] # (Auto) 0.8 (0.3-1.0) x10-3/uL Eos # (Auto) 0.0 (0.0-0.8) x10-3/uL Baso # (Auto) 0.0 (0.0-0.1) x10-3/uL POC VBG pH (7.32-7.43) pH Units POC VBG pCO2 (41-51) mmHg POC VBG HCO3 (21-29) mmol/L VBG Base Excess (-2-3) mmol/L O2 Delivery Device Sodium 141 (135-145) mmol/L Potassium 4.8 (3.5-5.3) mmol/L Chloride 106 (100-110) mmol/L Carbon Dioxide 21 (21-32) mmol/L BUN 43 H (7-18) mg/dL Creatinine 1.6 H (0.55-1.02) mg/dL Est Cr Clr Drug Dosing 23.48 mL/min Estimated GFR (MDRD) 31 L (>60) BUN/Creatinine Ratio 26.9 H (9-20) Glucose 157 H D (80-116) mg/dL Calcium 8.3 L (8.6-10.2) mg/dL Magnesium 1.8 (1.8-2.5) mg/dL Total Bilirubin 0.4 (0.1-1.3) mg/dL AST 27 H D (5-25) IU/L ALT 48 H D (12-36) U/L Alkaline Phosphatase 92 (56-112) IU/L Troponin I 30.7 (4.0-60.3) pg/mL C-Reactive Protein 1.9 H (0.5-0.9) mg/dL Total Protein 6.3 (6.0-8.0) g/dL Albumin 2.8 L (3.2-4.6) g/dL Globulin 3.5 g/dL Albumin/Globulin Ratio 0.8 Lipase 19 L (73-393) U/L Urine Color (YELLOW) Urine Appearance (CLEAR) Urine pH (5.0-6.5) Ur Specific [place] (1.010-1.025) Urine Protein (NEGATIVE) mg/dL Urine Glucose (UA) (NORMAL) mg/dL Urine Ketones (NEGATIVE) mg/dL Urine Occult Blood (NEGATIVE) Urine Nitrite (NEGATIVE) Urine Bilirubin (NEGATIVE) Urine Urobilinogen (NEGATIVE) mg/dL Ur Leukocyte Esterase (NEGATIVE) Urine RBC (0-5) Urine WBC (0-5) Ur Squamous Epith Cells (NS,R,O) Urine Bacteria (NS) SARS-CoV-2 RNA (ALEX) (NEGATIVE) Group A Strep (PCR) (NOT DETECT) 10/11/20 10/11/20 10/12/20 Range/Units 22:20 23:10 00:20 WBC (3.0-10.3) x10-3/uL RBC (3.60-5.20) x10(6)uL Hgb (11.4-15.5) g/dL Hct (34.2-48.2) % MCV (76.7-100.5) fL MCH (23.9-33.9) pg MCHC (31.9-34.8) g/dL RDW (12.3-16.5) % Plt Count (151-488) x10(3)uL MPV (7.1-12.4) fL Neut % (Auto) (30.8-76.2) % Lymph % (Auto) (18.4-52.1) % [place] % (Auto) (4.4-15.7) % Eos % (Auto) (0.6-8.1) % Baso % (Auto) (0.2-1.5) % Neut # (Auto) (1.5-6.3) x10-3/uL Lymph # (Auto) (1.0-4.4) x10-3/uL [place] # (Auto) (0.3-1.0) x10-3/uL Eos # (Auto) (0.0-0.8) x10-3/uL Baso # (Auto) (0.0-0.1) x10-3/uL POC VBG pH 7.40 (7.32-7.43) pH Units POC VBG pCO2 34 L (41-51) mmHg POC VBG HCO3 21 (21-29) mmol/L VBG Base Excess -4 L (-2-3) mmol/L O2 Delivery Device Nasal cannula Sodium (135-145) mmol/L Potassium (3.5-5.3) mmol/L Chloride (100-110) mmol/L Carbon Dioxide (21-32) mmol/L BUN (7-18) mg/dL Creatinine (0.55-1.02) mg/dL Est Cr Clr Drug Dosing mL/min Estimated GFR (MDRD) (>60) BUN/Creatinine Ratio (9-20) Glucose (80-116) mg/dL Calcium (8.6-10.2) mg/dL Magnesium (1.8-2.5) mg/dL Total Bilirubin (0.1-1.3) mg/dL AST (5-25) IU/L ALT (12-36) U/L Alkaline Phosphatase (56-112) IU/L Troponin I (4.0-60.3) pg/mL C-Reactive Protein (0.5-0.9) mg/dL Total Protein (6.0-8.0) g/dL Albumin (3.2-4.6) g/dL Globulin g/dL Albumin/Globulin Ratio Lipase (73-393) U/L Urine Color Yellow (YELLOW) Urine Appearance Slightly cloudy (CLEAR) Urine pH 5.0 (5.0-6.5) Ur Specific [place] 1.020 (1.010-1.025) Urine Protein Negative (NEGATIVE) mg/dL Urine Glucose (UA) Normal (NORMAL) mg/dL Urine Ketones Negative (NEGATIVE) mg/dL Urine Occult Blood Negative (NEGATIVE) Urine Nitrite Negative (NEGATIVE) Urine Bilirubin Negative (NEGATIVE) Urine Urobilinogen 1 H (NEGATIVE) mg/dL Ur Leukocyte Esterase Moderate H (NEGATIVE) Urine RBC 0-5 (0-5) Urine WBC 5-10 H (0-5) Ur Squamous Epith Cells Few H (NS,R,O) Urine Bacteria Many H (NS) SARS-CoV-2 RNA (ALEX) Negative (NEGATIVE) Group A Strep (PCR) Not detected (NOT DETECT) Meds: Medications Discontinued Medications Generic Name Dose Route Start Last Admin Trade Name Freq PRN Reason Stop Dose Admin Ceftriaxone Sodium 1 gm 10/12/20 01:12 10/12/20 01:26 Ceftriaxone 1 Gm Vial IVPUSH 10/12/20 01:13 1 gm ONETIME ONE Administration Sodium Chloride 1,000 mls @ 999 mls/hr 10/12/20 01:11 10/12/20 01:25 Normal Saline IV 10/12/20 02:11 999 mls/hr .BOLUS ONE Administration Sodium Chloride 10 ml 10/11/20 22:00 10/12/20 01:29 Sodium Chloride 0.9% 10 Ml Syringe FLUSH 10 ml ASDIRECTED PRN Administration Keep Vein Open - Radiology Interpretation Free Text/Narrative:: Portable chest x-ray showed scarring in both lower lung pérez. This is unchanged from previous chest X-rays. - Re-Assessments/Exams Free Text/Narrative Re-Assessment/Exam: 10/11/20 23:00: The patient's white blood cell count is somewhat elevated. Comparing her labs to her previous lab, her and it is actually somewhat better than it was the past. Her labs are reassuring and don't point toward anything specific nature. She is still not been able to provide us with a urine. Her chest x-ray shows lower lobe chronic changes that are unchanged from her previous chest x-ray as well. 10/12/20 01:08: A urine had to be obtained from a catheterized specimen and it comes back and does show some evidence of a UTI. She also appears to be somewhat dehydrated. On initial thoughts were that is immunocompromised and she has a UTI and some dehydration and she would best be served by being admitted with IV antibiotics and IV fluids. I discussed this with the charge nurse and there are no beds available at the [facility] and therefore the patient will need to be transferred to another hospital for admission. I discussed all this with the patient and with her and she really does not want to be transferred to another facility and would not want to be admitted if that were [facility]. She will allow us to start an IV and give her some IV fluids and IV antibiotics and we will do that for now and I will readdress this with her at a later time. 10/12/20 02:35: The patient has now received normal saline 1 L as a bolus and R ocephin 1 g IV. She states that she is feeling better than when she arrived to the emergency department. Sit up on the into the bed and she states that she has more strength and feeling less weak than earlier. She has remained hemodynamically stable. She does appear to have a urinary tract infection and she did appear to be mildly dehydrated. This was improved by giving her IV fluids. I still feel that admission with continued IV fluid hydration and close observation would be warranted. I would have to send her to [place] because there are no beds available here at [facility] I rediscussed this with the patient and she still not in favor of this and wishes to go home at this point. I will place patient on Keflex 500 mg 3 times a day for 7 days and I want her to follow-up with her primary provider. Precautions and reasons for return to the emergency department were discussed with the patient and with her while the she was in the emergency department and were detailed in the patient's discharge instructions. Departure - Departure Time of Disposition: 02:40 Disposition: Home, Self-Care 01 Condition: Good (Improved) Clinical Impression: Dehydration, Immunocompromised UTI (urinary tract infection) Qualifiers: Urinary tract infection type: site unspecified Hematuria presence: without hematuria Qualified Code(s): N39.0 - Urinary tract infection, site not specified - Discharge Information Prescriptions: cephALEXin [Keflex] 500 mg PO TID 10 Days #30 cap Instructions: Urinary Tract Infection, Adult, [id number], Dehydration, Adult, [id number], Rehydration, Adult Referrals: PCP,None [Primary Care Provider] - Forms: ED Department Discharge Additional Instructions: Your blood tests were, for the most part, unchanged from previous. He did appear to be somewhat dehydrated. Your urine test also showed evidence of infection. You were given IV fluids in the emergency department and one dose of an antibiotic in your IV (Rocephin). I had suggested you that you would the better served if he were admitted for continued observation and continued IV fluid hydration and IV antibiotics. However, you did not want to do this and really just wanted to go home. You should definitely follow-up with your provider. Medication as prescribed (Keflex 500 mg). This prescription was sent electronically to [facility]. Back to the emergency department for fever, worsening dizziness, chest pain, shortness of breath, worsening weakness, vomiting or any other concerning signs or symptoms. Sepsis Event Note (ED) - Evaluation Sepsis Screening Result: No Definite Risk - My Orders Last 24 Hours: My Active Orders 10/11/20 22:00 Peripheral IV Insertion Adult [OM.PC] Routine EKG 12 Lead [EK] Routine 10/12/20 00:20 CULTURE URINE [RM] Stat 10/12/20 00:30 Insert Urinary Catheter [OM.PC] Q24H - Assessment/Plan Last 24 Hours: My Active Orders 10/11/20 22:00 Peripheral IV Insertion Adult [OM.PC] Routine EKG 12 Lead [EK] Routine 10/12/20 00:20 CULTURE URINE [RM] Stat 10/12/20 00:30 Insert Urinary Catheter [OM.PC] Q24H
[2020-10-11 22:36] LABS: BASE EXCESS VENOUS,POC -4 mmol/L (-2-3); HCO3 VENOUS,POC 21 mmol/L (21-29); PCO2 VENOUS,POC 34 mmHg (41-51)
[2020-10-11 23:47] LABS: STREP A BY PCR NOT DETECTED (NOT DETECT)
[2020-10-12 00:06] LABS: CORONAVIRUS COVID-19 NAA NEGATIVE (NEGATIVE)
[2020-10-12] MEDS ORDERED: Sodium Chloride 0.9% 1,000 ML IV ONE (01:11)
[2020-10-12] MEDS ORDERED: cefTRIAXone 1 GM Vial IVPUSH ONE (01:12)
--- NOTE | 2020-10-12 13:44 | CR ---
INDICATION: Weakness, lethargic for 3-4 days. CHEST ONE VIEW: An AP portable upright view of the chest 10/11/20 was compared with 03/14/20 and 02/25/20 revealing bilateral lower lung field heavy markings which were at least partly present previously and may represent progressive pulmonary fibrosis. However, the possibility of superimposed patchy bronchopneumonia in these areas cannot be excluded. No gross consolidating pneumonia or definite effusion was seen. The heart appears enlarged with tortuous aorta calcified in the arch. IMPRESSION: 1. No definite acute process but cannot exclude patchy bronchopneumonia in the mid to lower lung pérez especially on the right. Findings may simply be on the basis of progressive fibrosis however. 2. ASHD with cardiomegaly. MTDD
== END 2020-10-12 03:00 | disposition home or self-care (01) ==
LOC: FB.ED 21:22
DX: N39.0 Urinary tract infection, site not specified (principal); E86.0 Dehydration; D84.9 Immunodeficiency, unspecified; E78.00 Pure hypercholesterolemia, unspecified; I12.9 Hypertensive chronic kidney disease with stage 1 through stage 4 chronic kidney disease, or unspecified chronic kidney disease; E11.22 Type 2 diabetes mellitus with diabetic chronic kidney disease; N18.9 Chronic kidney disease, unspecified; Z79.4 Long term (current) use of insulin; Z88.2 Allergy status to sulfonamides; Z88.1 Allergy status to other antibiotic agents; Z91.041 Radiographic dye allergy status; Z20.822 Contact with and (suspected) exposure to COVID-19; Z87.891 Personal history of nicotine dependence
CPT/HCPCS: 36415; 71045; 80053; 81001; 83690; 83735; 84484; 85025; 86140; 87086; 87088; 87186; 87651; 93005; 96374; 99284; J0696; J7030; U0002

== ENCOUNTER 2020-12-19 12:32 | Inpatient (IN) | payer MEDICARE, BC ==
--- NOTE | 2020-12-19 13:04 | EDM.PDOC ---
ED HPI GENERAL MEDICAL PROBLEM - General Stated Complaint: SOB Time Seen by Provider: 12/19/20 12:45 Source of Information: Reports: Patient, Family History Limitations: Reports: No Limitations - History of Present Illness INITIAL COMMENTS - FREE TEXT/NARRATIVE: pt comes from home with c/o feeling profoundly weak this morning, report starting feeling tiered since Monday but has been doing ok until this morning, she has Hx of CHF and DM, she is O2 dependant at 4 L 24/7 , and did not think her chronic dyspnea is worse than usual , pt denies any cough, was noted to have fever here and denies noticing this at home, had an emesis this morning and has been having loose stool for 3 weeks , pt denies any other associated sx and denies any other concerns. according to her pt has not been taking her diuretics as the have been making her void frequently. Lower back Pain Score (Numeric/FACES): 2 - Related Data Allergies Allergy/AdvReac Type Severity Reaction Status Date / Time Sulfa (Sulfonamide Allergy Rash Verified 12/19/20 13:54 Antibiotics) tiotropium Allergy Rash Verified 12/19/20 13:54 vancomycin Allergy Rash Verified 12/19/20 13:54 erythromycin base AdvReac Nausea and Verified 12/19/20 13:54 Vomiting Iodinated Contrast Media AdvReac Nausea Verified 12/19/20 13:54 Home Meds: Home Meds Acetaminophen [Tylenol Extra Strength] 500 mg PO Q4H PRN 12/26/18 [History] Albuterol [Ventolin HFA] 2 puff INH Q4H PRN 12/26/18 [History] Cholecalciferol (Vitamin D3) [Vitamin D3] 1,000 unit PO DAILY 12/26/18 [History] Cyanocobalamin (Vitamin B-12) [Vitamin B-12] 1,000 mcg PO DAILY 12/26/18 [History] Ethacrynic Acid 25 mg PO ASDIRECTED 12/26/18 [History] FLUoxetine HCl [Fluoxetine HCl] 40 mg PO DAILY 12/26/18 [History] Lutein 20 mg PO DAILY 12/26/18 [History] Macitentan [Opsumit] 10 mg PO DAILY 12/26/18 [History] Mirabegron [Myrbetriq] 50 mg PO WITHDINNER 12/26/18 [History] Omeprazole 20 mg PO DAILY@0600 12/26/18 [History] Sildenafil Citrate 20 mg PO TID 12/26/18 [History] Tacrolimus [Prograf] 0.5 mg PO BID 12/26/18 [History] mycophenolate mofetiL [Cellcept] 500 mg PO BID 12/26/18 [History] Iron,Carbonyl/Ascorbic Acid [Vitron-C Tablet] 1 tab PO BID 04/25/19 [History] Gabapentin [Neurontin] 600 mg PO TID 03/05/20 [History] Fluticasone/Vilanterol [Breo Ellipta 100-25 MCG Inhalation Kit] 1 puff INH DAILY 10/12/20 [History] Insulin Aspart [NovoLOG] 5 units SQ ,10/12/20 [History] Insulin Glarg,Human.Rec.Analog [Lantus Solostar] 6 unit SQ BEDTIME 10/12/20 [History] Trimethoprim 100 mg PO DAILY 10/12/20 [History] calcitrioL [Calcitriol] 0.25 mcg PO MOWEFR 10/12/20 [History] dexAMETHasone [Dexamethasone] 1 mg PO DAILY 10/12/20 [History] Betamethasone Valerate [Valisone 0.1% Lotion] 60 ml TP ASDIRECTED 12/19/20 [History] Ketoconazole [Nizoral 2% Shampoo] 120 ml .XX ASDIRECTED 12/19/20 [History] Past Medical History HEENT History: Reports: Cataract Other HEENT History: bilateral Cardiovascular History: Reports: High Cholesterol, Hypertension, Pulmonary Hypertension Respiratory History: Reports: Pulmonary Fibrosis Gastrointestinal History: Reports: Chronic Constipation, GERD Other Gastrointestinal History: liver transplant Genitourinary History: Reports: Chronic Renal Insuffiency Other Genitourinary History: 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 Dermatologic History: Reports: Other (See Below) Other Dermatologic History: hx skin cancer R middle finger and both legs - Infectious Disease History Infectious Disease History: Reports: Chicken Pox, Measles, Mumps - Past Surgical History HEENT Surgical History: Reports: Laser Surgery Other HEENT Surgeries/Procedures: bilateral Cardiovascular Surgical History: Reports: None Respiratory Surgical History: Reports: Lung Biopsies GI Surgical History: Reports: Cholecystectomy, Colonoscopy Female Surgical History: Reports: Hysterectomy, Salpingo-Oophorectomy Neurological Surgical History: Reports: None Musculoskeletal Surgical History: Reports: Other (See Below) Other Musculoskeletal Surgeries/Procedures:: L wrist surgery with plate Oncologic Surgical History: Reports: None Social & Family History - Family History Family Medical History: No Pertinent Family History - Caffeine Use Caffeine Use: Reports: Coffee Other Caffeine Use: 1 cup a day - Living Situation & Occupation Living situation: Reports: Occupation: Retired ED ROS GENERAL - Review of Systems Review Of Systems: See Below Constitutional: Reports: Fatigue. Denies: Fever HEENT: Reports: No Symptoms Respiratory: Reports: Shortness of Breath. Denies: Wheezing, Cough Cardiovascular: Reports: No Symptoms. Denies: Chest Pain GI/Abdominal: Reports: Anorexia, Diarrhea, Vomiting. Denies: Abdominal Pain, Difficulty Swallowing, Distension, Hematemesis, Nausea, Stool Incontinence : Reports: No Symptoms Musculoskeletal: Reports: No Symptoms Skin: Reports: No Symptoms Neurological: Reports: No Symptoms Psychiatric: Reports: No Symptoms ED EXAM, GENERAL - Physical Exam Exam: See Below Exam Limited By: No Limitations General Appearance: Mild Distress, Moderate Distress Eye Exam: Bilateral Eye: Normal Inspection Nose: Normal Inspection Throat/Mouth: Normal Oropharynx Head: Atraumatic, Normocephalic Neck: Normal Inspection, Supple, Non-Tender Respiratory/Chest: No Respiratory Distress, Crackles Cardiovascular: Normal Peripheral Pulses, Tachycardia. No: Systolic Murmur GI/Abdominal: Normal Bowel Sounds, Soft, Non-Tender, No Distention Back Exam: Normal Inspection Extremities: Normal Inspection, Normal Range of Motion, Pedal Edema Neurological: Alert, Oriented, CN II-XII Intact, No Motor/Sensory Deficits Skin Exam: Warm, Dry #1 Interpretation EKG Date: 12/19/20 Rhythm: Other (sinus tachycardia) Rate (Beats/Min): 116 EKG Interpretation Comments: no acute ST changes QT 333 Course - Vital Signs Text/Narrative:: labs and CXR results were explained to pt and discussed with Dr Portillo , pt has CHP and pneumonitis , will admit for treatment. Dr portillo was in acceptance of pt care. pt is feeling improvement after lasix and duo nebs, blood cultures were taken and Rocephin is being given. Last Recorded V/S: Last Vital Signs Temp 38.3 C H 12/19/20 12:32 Pulse 115 H 12/19/20 12:32 Resp 32 H 12/19/20 12:32 BP 93/42 L 12/19/20 12:32 Pulse Ox 6 L 12/19/20 12:32 - Orders/Labs/Meds Orders: Active Orders 24 hr Category Date Time Status Oxygen Therapy Adult [Oxygen Therapy, ED] [RC] Care 12/19/20 12:32 Active ASDIRECTED RT Aerosol Therapy [RC] ASDIRECTED Care 12/19/20 13:07 Active Chest 1V Frontal [CR] Stat Exams 12/19/20 13:07 Taken CULTURE BLOOD [BC] Urgent Lab 12/19/20 12:45 Received CULTURE BLOOD [BC] Urgent Lab 12/19/20 13:25 Received CULTURE URINE [RM] Stat Lab 12/19/20 13:05 Received Sodium Chloride 0.9% [Saline Flush] Med 12/19/20 14:48 Active 10 ml FLUSH ASDIRECTED PRN Blood Culture x2 Reflex Set [OM.PC] Urgent Oth 12/19/20 13:07 Ordered Peripheral IV Insertion Adult [OM.PC] Routine Oth 12/19/20 14:48 Ordered Medication Orders Sodium Chloride (Sodium Chloride 0.9% 10 Ml Syringe) 10 ml FLUSH ASDIRECTED PRN PRN Reason: Keep Vein Open Labs: Laboratory Tests 12/19/20 12/19/20 12/19/20 Range/Units 12:45 12:45 12:45 WBC 15.6 H (3.0-10.3) x10-3/uL RBC 3.77 (3.60-5.20) x10(6)uL Hgb 11.1 L (11.4-15.5) g/dL Hct 35.1 (34.2-48.2) % MCV 93.1 (76.7-100.5) fL MCH 29.4 (23.9-33.9) pg MCHC 31.6 L (31.9-34.8) g/dL RDW 18.4 H (12.3-16.5) % Plt Count 478 (151-488) x10(3)uL MPV 6.9 L (7.1-12.4) fL Add Manual Diff Yes Neutrophils % (Manual) 74 (46-82) % Band Neutrophils % 4 (0-6) % Lymphocytes % (Manual) 17 (13-37) % Monocytes % (Manual) 2 L (4-12) % Eosinophils % (Manual) 2 (0-5) % Metamyelocytes % 1 H (0-0) % Sodium 143 (135-145) mmol/L Potassium 4.2 (3.5-5.3) mmol/L Chloride 110 (100-110) mmol/L Carbon Dioxide 20 L (21-32) mmol/L BUN 32 H D (7-18) mg/dL Creatinine 1.6 H (0.55-1.02) mg/dL Est Cr Clr Drug Dosing TNP Estimated GFR (MDRD) 31 L (>60) BUN/Creatinine Ratio 20.0 (9-20) Glucose 181 H (80-116) mg/dL Calcium 8.1 L (8.6-10.2) mg/dL Total Bilirubin 0.4 (0.1-1.3) mg/dL AST 24 D (5-25) IU/L ALT 28 D (12-36) U/L Alkaline Phosphatase 88 (56-112) IU/L Troponin I 79.5 H* (4.0-60.3) pg/mL NT-Pro-B Natriuret Pep 2294 H* (<=450) pg/mL Total Protein 5.1 L (6.0-8.0) g/dL Albumin 1.8 L (3.2-4.6) g/dL Globulin 3.3 g/dL Albumin/Globulin Ratio 0.6 Urine Color (YELLOW) Urine Appearance (CLEAR) Urine pH (5.0-6.5) Ur Specific [place] (1.010-1.025) Urine Protein (NEGATIVE) mg/dL Urine Glucose (UA) (NORMAL) mg/dL Urine Ketones (NEGATIVE) mg/dL Urine Occult Blood (NEGATIVE) Urine Nitrite (NEGATIVE) Urine Bilirubin (NEGATIVE) Urine Urobilinogen (NEGATIVE) mg/dL Ur Leukocyte Esterase (NEGATIVE) Urine RBC (0-5) Urine WBC (0-5) Ur Squamous Epith Cells (NS,R,O) Urine Bacteria (NS) SARS-CoV-2 RNA (ALEX) (NEGATIVE) 12/19/20 12/19/20 Range/Units 13:07 13:09 WBC (3.0-10.3) x10-3/uL RBC (3.60-5.20) x10(6)uL Hgb (11.4-15.5) g/dL Hct (34.2-48.2) % MCV (76.7-100.5) fL MCH (23.9-33.9) pg MCHC (31.9-34.8) g/dL RDW (12.3-16.5) % Plt Count (151-488) x10(3)uL MPV (7.1-12.4) fL Add Manual Diff Neutrophils % (Manual) (46-82) % Band Neutrophils % (0-6) % Lymphocytes % (Manual) (13-37) % Monocytes % (Manual) (4-12) % Eosinophils % (Manual) (0-5) % Metamyelocytes % (0-0) % Sodium (135-145) mmol/L Potassium (3.5-5.3) mmol/L Chloride (100-110) mmol/L Carbon Dioxide (21-32) mmol/L BUN (7-18) mg/dL Creatinine (0.55-1.02) mg/dL Est Cr Clr Drug Dosing Estimated GFR (MDRD) (>60) BUN/Creatinine Ratio (9-20) Glucose (80-116) mg/dL Calcium (8.6-10.2) mg/dL Total Bilirubin (0.1-1.3) mg/dL AST (5-25) IU/L ALT (12-36) U/L Alkaline Phosphatase (56-112) IU/L Troponin I (4.0-60.3) pg/mL NT-Pro-B Natriuret Pep (<=450) pg/mL Total Protein (6.0-8.0) g/dL Albumin (3.2-4.6) g/dL Globulin g/dL Albumin/Globulin Ratio Urine Color Yellow (YELLOW) Urine Appearance Slightly cloudy (CLEAR) Urine pH 5.0 (5.0-6.5) Ur Specific [place] 1.020 (1.010-1.025) Urine Protein Trace (NEGATIVE) mg/dL Urine Glucose (UA) Normal (NORMAL) mg/dL Urine Ketones Negative (NEGATIVE) mg/dL Urine Occult Blood Negative (NEGATIVE) Urine Nitrite Negative (NEGATIVE) Urine Bilirubin Small H (NEGATIVE) Urine Urobilinogen 1 H (NEGATIVE) mg/dL Ur Leukocyte Esterase Small H (NEGATIVE) Urine RBC 0-5 (0-5) Urine WBC 5-10 H (0-5) Ur Squamous Epith Cells Occasional (NS,R,O) Urine Bacteria Many H (NS) SARS-CoV-2 RNA (ALEX) Negative (NEGATIVE) Meds: Medications Generic Name Dose Route Start Last Admin Trade Name Freq PRN Reason Stop Dose Admin Sodium Chloride 10 ml 12/19/20 14:48 Sodium Chloride 0.9% 10 Ml Syringe FLUSH ASDIRECTED PRN Keep Vein Open Discontinued Medications Generic Name Dose Route Start Last Admin Trade Name Freq PRN Reason Stop Dose Admin Albuterol/Ipratropium 3 ml 12/19/20 13:07 12/19/20 13:23 Albuterol/Ipratropium 3.0-0.5 Mg/3 Ml Neb Soln NEB 12/19/20 13:08 3 ml ONETIME ONE Administration Furosemide 40 mg 12/19/20 13:07 12/19/20 13:23 Furosemide 40 Mg/4 Ml Vial IVPUSH 12/19/20 13:08 40 mg NOW ONE Administration Departure - Departure Time of Disposition: 15:26 Disposition: Admitted As Inpatient 65 Clinical Impression: CHF (congestive heart failure) - Discharge Information Sepsis Event Note (ED) - Focused Exam Vital Signs: Vital Signs Temp Pulse Resp BP Pulse Ox 12/19/20 12:32 38.3 C H 115 H 32 H 93/42 L 6 L - My Orders Last 24 Hours: My Active Orders 12/19/20 12:32 Oxygen Therapy Adult [Oxygen Therapy, ED] [RC] ASDIRECTED 12/19/20 12:45 CULTURE BLOOD [BC] Urgent 12/19/20 13:05 CULTURE URINE [RM] Stat 12/19/20 13:07 RT Aerosol Therapy [RC] ASDIRECTED Chest 1V Frontal [CR] Stat Blood Culture x2 Reflex Set [OM.PC] Urgent 12/19/20 13:25 CULTURE BLOOD [BC] Urgent 12/19/20 14:48 Sodium Chloride 0.9% [Saline Flush] 10 ml FLUSH ASDIRECTED PRN Peripheral IV Insertion Adult [OM.PC] Routine - Assessment/Plan Last 24 Hours: My Active Orders 12/19/20 12:32 Oxygen Therapy Adult [Oxygen Therapy, ED] [RC] ASDIRECTED 12/19/20 12:45 CULTURE BLOOD [BC] Urgent 12/19/20 13:05 CULTURE URINE [RM] Stat 12/19/20 13:07 RT Aerosol Therapy [RC] ASDIRECTED Chest 1V Frontal [CR] Stat Blood Culture x2 Reflex Set [OM.PC] Urgent 12/19/20 13:25 CULTURE BLOOD [BC] Urgent 12/19/20 14:48 Sodium Chloride 0.9% [Saline Flush] 10 ml FLUSH ASDIRECTED PRN Peripheral IV Insertion Adult [OM.PC] Routine
[2020-12-19] MEDS ORDERED: Albuterol/Ipratropium 3.0-0.5 MG/3 ML Neb Soln NEB ONE (13:07)
[2020-12-19] MEDS ORDERED: Furosemide 40 MG/4 ML VIAL IVPUSH ONE (13:07)
[2020-12-19] MEDS ORDERED: Azithromycin 500 MG in Sodium Chloride 0.9% 250 ML IV ONE (15:27)
[2020-12-19] MEDS ORDERED: cefTRIAXone 1 GM Vial IVPUSH ONE (15:27)
[2020-12-19] MEDS ORDERED: Albuterol 8 GM Inhaler INH PRN (15:51)
[2020-12-19] MEDS ORDERED: Acetaminophen 500 MG Tab PO PRN (15:51)
[2020-12-19] MEDS ORDERED: Glucagon,Human Recombinant 1 MG Vial IM PRN (15:53)
[2020-12-19] MEDS ORDERED: 50% Dextrose in Water 50 ML Syringe IVPUSH PRN (15:53)
--- NOTE | 2020-12-19 16:39 | PCM.HP.2 ---
H&P History of Present Illness - General Date of Service: 12/19/20 Admit Problem/Dx: Admission Diagnosis/Problem Admission Diagnosis/Problem CHF, Congestive heart failure Source of Information: Patient, Family, Provider History Limitations: Reports: No Limitations - History of Present Illness Initial Comments - Free Text/Narative: Karol started having more shortness of breath this morning, has been more fatigued since Monday. Has been having loose stools 1 per day for the past 3 weeks, no change in diet or medications. She has history of CHF, DM, pulmonary fibrosis, pulmonary hypertension, COPD on 5L continuous, liver transplant on immunosuppressants, also chronic steroid use with Dexamethasone 1 mg daily. Denies fever, cough but was cold this morning. Her who is her primary caregiver stated when she gets cold he usually turns up her oxygen and that resolves it. She had an emesis this morning. According to her pt has not been taking her diuretics as the have been making her void frequently. She denies sore throat, swollen glands, dysuria, frequency(except with diuretic) or blood. Her stated it is more concentrated in the morning which is not unusual. She went off her gluten free diet a few years ago and didn't notice increased diarrhea. With Dr Cox retiring, they are switching care to Dr Dyson but have not met with him yet. In ER, received Lasix 40 mg IV x 1, DuoNebs x 1, oxygen came up to 88-90% on 6L. Her WBC was 15.6, 74% neutrophils; CXR showed pulmonary edema, chronic pulmonary fibrosis but pneumonia could not be excluded. Cr 1.6. BNP 2294. Troponin 79.5. Covid/influenza negative. UA showed small bilirubin, 1 urobilinogen, RBC 0-5, WBC 5-10, Occasional epithelials and many bacteria, urine culture ordered, asymptomatic. Lower back Pain Score (Numeric/FACES): 2 - Related Data Allergies/Adverse Reactions: Allergies Allergy/AdvReac Type Severity Reaction Status Date / Time Sulfa (Sulfonamide Allergy Rash Verified 12/19/20 13:54 Antibiotics) tiotropium Allergy Rash Verified 12/19/20 13:54 vancomycin Allergy Rash Verified 12/19/20 13:54 erythromycin base AdvReac Nausea and Verified 12/19/20 13:54 Vomiting Iodinated Contrast Media AdvReac Nausea Verified 12/19/20 13:54 Home Medications: Home Meds Acetaminophen [Tylenol Extra Strength] 500 mg PO Q4H PRN 12/26/18 [History] Albuterol [Ventolin HFA] 2 puff INH Q4H PRN 12/26/18 [History] Cholecalciferol (Vitamin D3) [Vitamin D3] 1,000 unit PO DAILY 12/26/18 [History] Cyanocobalamin (Vitamin B-12) [Vitamin B-12] 1,000 mcg PO DAILY 12/26/18 [History] Ethacrynic Acid 25 mg PO ASDIRECTED 12/26/18 [History] FLUoxetine HCl [Fluoxetine HCl] 40 mg PO DAILY 12/26/18 [History] Lutein 20 mg PO DAILY 12/26/18 [History] Macitentan [Opsumit] 10 mg PO DAILY 12/26/18 [History] Mirabegron [Myrbetriq] 50 mg PO WITHDINNER 12/26/18 [History] Omeprazole 20 mg PO DAILY@0600 12/26/18 [History] Sildenafil Citrate 20 mg PO TID 12/26/18 [History] Tacrolimus [Prograf] 0.5 mg PO BID 12/26/18 [History] mycophenolate mofetiL [Cellcept] 500 mg PO BID 12/26/18 [History] Iron,Carbonyl/Ascorbic Acid [Vitron-C Tablet] 1 tab PO BID 04/25/19 [History] Gabapentin [Neurontin] 600 mg PO TID 03/05/20 [History] Fluticasone/Vilanterol [Breo Ellipta 100-25 MCG Inhalation Kit] 1 puff INH DAILY 10/12/20 [History] Insulin Aspart [NovoLOG] 5 units SQ ,12 10/12/20 [History] Insulin Glarg,Human.Rec.Analog [Lantus Solostar] 6 unit SQ BEDTIME 10/12/20 [His tory] Trimethoprim 100 mg PO DAILY 10/12/20 [History] calcitrioL [Calcitriol] 0.25 mcg PO MOWEFR 10/12/20 [History] dexAMETHasone [Dexamethasone] 1 mg PO DAILY 10/12/20 [History] Betamethasone Valerate [Valisone 0.1% Lotion] 60 ml TP ASDIRECTED 12/19/20 [History] Ketoconazole [Nizoral 2% Shampoo] 120 ml .XX ASDIRECTED 12/19/20 [History] Past Medical History HEENT History: Reports: Cataract Other HEENT History: bilateral Cardiovascular History: Reports: Heart Failure, High Cholesterol, Hypertension, Pulmonary Hypertension, SOB on Exertion Respiratory History: Reports: Pulmonary Fibrosis, Other (See Below) Other Respiratory History: hx pulmonary HTN, is normally on O2 @ 5-6L/NC Gastrointestinal History: Reports: Chronic Constipation, GERD Other Gastrointestinal History: liver transplant Genitourinary History: Reports: Chronic Renal Insuffiency, Renal Disease Other Genitourinary History: rejection drugs are harming kidneys CHILD SUPPORT AGENT History: Reports: Other OB/BYN History: Musculoskeletal History: Reports: Arthritis, Fracture, Fibromyalgia Other Musculoskeletal History: hx L wrist fx Neurological History: Reports: Migraines Other Neuro History: long ago Psychiatric History: Reports: Depression Endocrine/Metabolic History: Reports: Diabetes, Type II Hematologic History: Reports: B12 Deficiency, Blood Transfusion(s) Immunologic History: Reports: Immunosuppression, Solid Organ Transplant Other Immunologic History: liver, has had hx non alcoholic liver cirrohosis Oncologic (Cancer) History: Reports: Liver, Other (See Below) Other Oncologic History: Skin CA removed from the right hand in March 2019. Dermatologic History: Reports: Other (See Below) Other Dermatologic History: hx skin cancer R middle finger and both legs, hx R lat heel ulcer - Infectious Disease History Infectious Disease History: Reports: Chicken Pox, Measles, Mumps - Past Surgical History HEENT Surgical History: Reports: Adenoidectomy, Cataract Surgery, Laser Surgery, Tonsillectomy Other HEENT Surgeries/Procedures: bilateral cataract Cardiovascular Surgical History: Reports: None Respiratory Surgical History: Reports: Lung Biopsies GI Surgical History: Reports: Cholecystectomy, Colonoscopy, Other (See Below) Other GI Surgeries/Procedures: hx liver transplant Female Surgical History: Reports: Hysterectomy, Salpingo-Oophorectomy Neurological Surgical History: Reports: None Musculoskeletal Surgical History: Reports: Other (See Below) Other Musculoskeletal Surgeries/Procedures:: L wrist surgery with plate Oncologic Surgical History: Reports: None Dermatological Surgical History: Reports: Skin Biopsy Social & Family History - Family History Family Medical History: No Pertinent Family History - Tobacco Use Years of Tobacco use: 20 Month/Year Tobacco Last Used: 1990 - Caffeine Use Caffeine Use: Reports: None Other Caffeine Use: 1 cup a day - Recreational Drug Use Recreational Drug Use: No - Living Situation & Occupation Living situation: Reports: Occupation: Retired H&P Review of Systems - Review of Systems: Review Of Systems: Comprehensive ROS is negative, except as noted in HPI. Exam - Exam Exam: See Below - Vital Signs Vital Signs: Last Vital Signs Temp 100.9 F H 12/19/20 12:32 Pulse 115 H 12/19/20 12:32 Resp 32 H 12/19/20 12:32 BP 93/42 L 12/19/20 12:32 Pulse Ox 86 L 12/19/20 13:32 Weight: 157 lb 8 oz - Exam Quality Assessment: Supplemental Oxygen (6L by nc) General: Alert, Oriented, Cooperative HEENT: PERRLA, EOMI, Hearing Intact. No: Mucosa Moist & [place] Neck: Trachea Midline. No: Lymphadenopathy Lungs: Normal Respiratory Effort, Decreased Breath Sounds, Crackles (throughout), Wheezing Cardiovascular: Regular Rate, Regular Rhythm GI/Abdominal Exam: Normal Bowel Sounds, Soft, Non-Tender, No Distention (Female) Exam: Deferred Rectal (Female) Exam: Deferred Extremities: Normal Capillary Refill, Pedal Edema (3+ pitting edema from foot to midknee, bilateral, TTP.) Peripheral Pulses: 2+: Radial (L), Radial (R), Dorsalis Pedis (L), Dorsalis Pedis (R) Skin: Ecchymosis (scattered throughout, various stages of healing, on chronic steroids), Wound (Small superificial ulcer on right lateral heel) Neurological: Cranial Nerves Intact, Normal Speech, Normal Tone Neuro Extensive - Mental Status: Normal Mood/Affect - Patient Data Lab Results Last 24 hrs: Laboratory Results - last 24 hr 12/19/20 12/19/20 12/19/20 Range/Units 12:45 12:45 12:45 WBC 15.6 H (3.0-10.3) x10-3/uL RBC 3.77 (3.60-5.20) x10(6)uL Hgb 11.1 L (11.4-15.5) g/dL Hct 35.1 (34.2-48.2) % MCV 93.1 (76.7-100.5) fL MCH 29.4 (23.9-33.9) pg MCHC 31.6 L (31.9-34.8) g/dL RDW 18.4 H (12.3-16.5) % Plt Count 478 (151-488) x10(3)uL MPV 6.9 L (7.1-12.4) fL Add Manual Diff Yes Neutrophils % (Manual) 74 (46-82) % Band Neutrophils % 4 (0-6) % Lymphocytes % (Manual) 17 (13-37) % Monocytes % (Manual) 2 L (4-12) % Eosinophils % (Manual) 2 (0-5) % Metamyelocytes % 1 H (0-0) % Sodium 143 (135-145) mmol/L Potassium 4.2 (3.5-5.3) mmol/L Chloride 110 (100-110) mmol/L Carbon Dioxide 20 L (21-32) mmol/L BUN 32 H D (7-18) mg/dL Creatinine 1.6 H (0.55-1.02) mg/dL Est Cr Clr Drug Dosing TNP Estimated GFR (MDRD) 31 L (>60) BUN/Creatinine Ratio 20.0 (9-20) Glucose 181 H (80-116) mg/dL Calcium 8.1 L (8.6-10.2) mg/dL Total Bilirubin 0.4 (0.1-1.3) mg/dL AST 24 D (5-25) IU/L ALT 28 D (12-36) U/L Alkaline Phosphatase 88 (56-112) IU/L Troponin I 79.5 H* (4.0-60.3) pg/mL NT-Pro-B Natriuret Pep 2294 H* (<=450) pg/mL Total Protein 5.1 L (6.0-8.0) g/dL Albumin 1.8 L (3.2-4.6) g/dL Globulin 3.3 g/dL Albumin/Globulin Ratio 0.6 Urine Color (YELLOW) Urine Appearance (CLEAR) Urine pH (5.0-6.5) Ur Specific [place] (1.010-1.025) Urine Protein (NEGATIVE) mg/dL Urine Glucose (UA) (NORMAL) mg/dL Urine Ketones (NEGATIVE) mg/dL Urine Occult Blood (NEGATIVE) Urine Nitrite (NEGATIVE) Urine Bilirubin (NEGATIVE) Urine Urobilinogen (NEGATIVE) mg/dL Ur Leukocyte Esterase (NEGATIVE) Urine RBC (0-5) Urine WBC (0-5) Ur Squamous Epith Cells (NS,R,O) Urine Bacteria (NS) SARS-CoV-2 RNA (ALEX) (NEGATIVE) 12/19/20 12/19/20 Range/Units 13:07 13:09 WBC (3.0-10.3) x10-3/uL RBC (3.60-5.20) x10(6)uL Hgb (11.4-15.5) g/dL Hct (34.2-48.2) % MCV (76.7-100.5) fL MCH (23.9-33.9) pg MCHC (31.9-34.8) g/dL RDW (12.3-16.5) % Plt Count (151-488) x10(3)uL MPV (7.1-12.4) fL Add Manual Diff Neutrophils % (Manual) (46-82) % Band Neutrophils % (0-6) % Lymphocytes % (Manual) (13-37) % Monocytes % (Manual) (4-12) % Eosinophils % (Manual) (0-5) % Metamyelocytes % (0-0) % Sodium (135-145) mmol/L Potassium (3.5-5.3) mmol/L Chloride (100-110) mmol/L Carbon Dioxide (21-32) mmol/L BUN (7-18) mg/dL Creatinine (0.55-1.02) mg/dL Est Cr Clr Drug Dosing Estimated GFR (MDRD) (>60) BUN/Creatinine Ratio (9-20) Glucose (80-116) mg/dL Calcium (8.6-10.2) mg/dL Total Bilirubin (0.1-1.3) mg/dL AST (5-25) IU/L ALT (12-36) U/L Alkaline Phosphatase (56-112) IU/L Troponin I (4.0-60.3) pg/mL NT-Pro-B Natriuret Pep (<=450) pg/mL Total Protein (6.0-8.0) g/dL Albumin (3.2-4.6) g/dL Globulin g/dL Albumin/Globulin Ratio Urine Color Yellow (YELLOW) Urine Appearance Slightly cloudy (CLEAR) Urine pH 5.0 (5.0-6.5) Ur Specific [place] 1.020 (1.010-1.025) Urine Protein Trace (NEGATIVE) mg/dL Urine Glucose (UA) Normal (NORMAL) mg/dL Urine Ketones Negative (NEGATIVE) mg/dL Urine Occult Blood Negative (NEGATIVE) Urine Nitrite Negative (NEGATIVE) Urine Bilirubin Small H (NEGATIVE) Urine Urobilinogen 1 H (NEGATIVE) mg/dL Ur Leukocyte Esterase Small H (NEGATIVE) Urine RBC 0-5 (0-5) Urine WBC 5-10 H (0-5) Ur Squamous Epith Cells Occasional (NS,R,O) Urine Bacteria Many H (NS) SARS-CoV-2 RNA (ALEX) Negative (NEGATIVE) Result Diagrams: 12/19/20 12:45 12/19/20 12:45 Sepsis Event Note - Evaluation Sepsis Screening Result: Possible Severe Sepsis Risk - Focused Exam Vital Signs: Vital Signs Temp Pulse Resp BP Pulse Ox Pulse Ox 12/19/20 13:32 86 L 12/19/20 12:32 100.9 F H 115 H 32 H 93/42 L 6 L 86 L *Q Meaningful Use (ADM) - VTE *Q VTE Mechanical Contraindications *Q: At Risk for Falls - VTE Risk Assess *Q Each Risk Factor Represents 1 Point: Varicose Veins, Swollen Legs, Current, Congestive heart failure (CHF), Serious lung disease including pneumonia, Abnormal Pulmonary Function (COPD) Total Score 1 Point Risk Factors: 5 Each Risk Factor Represents 2 Points: None Total Score 2 Point Risk Factors: 0 Each Risk Factor Represents 3 Points: Age 75 Years or Greater Total Score 3 Point Risk Factors: 3 Each Risk Factor Represents 5 Points: None Total Score 5 Point Risk Factors: 0 Venous Thromboembolism Risk Factor Score *Q: 8 - Problem List (1) CHF (congestive heart failure) SNOMED Code(s): 21636381 ICD Code: I50.9 - HEART FAILURE, UNSPECIFIED Status: Chronic Current Visit: Yes Qualifiers: Heart failure chronicity: acute on chronic (2) Pneumonia SNOMED Code(s): 061582355 ICD Code: J18.9 - PNEUMONIA, UNSPECIFIED ORGANISM Status: Acute Current Visit: No Qualifiers: Pneumonia type: due to unspecified organism Laterality: unspecified laterality Lung location: unspecified part of lung Qualified Code(s): J18.9 - Pneumonia, unspecified organism (3) COPD (chronic obstructive pulmonary disease) SNOMED Code(s): 54121586 ICD Code: J44.9 - CHRONIC OBSTRUCTIVE PULMONARY DISEASE, UNSPECIFIED Status: Chronic Current Visit: No Problem Details: on 5L continuous oxygen by wa. (4) Pulmonary fibrosis SNOMED Code(s): 66814820 ICD Code: J84.10 - PULMONARY FIBROSIS, UNSPECIFIED Status: Chronic Current Visit: No Problem Details: severe (5) Pulmonary hypertension SNOMED Code(s): 75538399 ICD Code: I27.20 - PULMONARY HYPERTENSION, UNSPECIFIED Status: Chronic Current Visit: No (6) Diabetes SNOMED Code(s): 00275031 ICD Code: E11.9 - TYPE 2 DIABETES MELLITUS WITHOUT COMPLICATIONS Status: ronic Current Visit: No (7) History of liver transplant SNOMED Code(s): 467537794 ICD Code: Z94.4 - LIVER TRANSPLANT STATUS Status: Chronic Current Visit: No Onset Date: ~2010 (8) Immunocompromised patient SNOMED Code(s): 608090127 ICD Code: D84.9 - IMMUNODEFICIENCY, UNSPECIFIED Status: Chronic Current Visit: No (9) Chronic kidney disease SNOMED Code(s): 435597277 ICD Code: N18.9 - CHRONIC KIDNEY DISEASE, UNSPECIFIED Status: Acute Current Visit: Yes Qualifiers: Chronic kidney disease stage 3 subtype: stage 3b (GFR 30-44) Problem List Initiated/Reviewed/Updated: Yes Orders Last 24hrs: Active Orders 24 hr Category Date Time Status Patient Status [ADT] Routine ADT 12/19/20 15:45 Active [place] Catheter Insertion [Insert Urinary Catheter] [OM. Care 12/19/20 16:30 Ordered PC] Q24H Height and Weight [RC] 06 Care 12/19/20 15:45 Active Intake and Output [RC] 06,14,22 Care 12/19/20 15:47 Active Oxygen Therapy Adult [Oxygen Therapy, ED] [RC] Care 12/19/20 12:32 Active ASDIRECTED Oxygen Therapy [RC] 08,16,00 Care 12/19/20 15:45 Active RT Aerosol Therapy [RC] .PRN Care 12/19/20 13:07 Active RT Post Treatment Assessment [RC] Click to Edit Care 12/19/20 15:55 Active Up With Assistance [RC] ASDIRECTED Care 12/19/20 15:45 Active Up to Chair [RC] ASDIRECTED Care 12/19/20 15:45 Active Urinary Catheter Assessment [RC] QSHIFT Care 12/19/20 16:26 Ordered VTE/DVT Education [RC] Per Unit Routine Care 12/19/20 15:45 Active Vital Signs [RC] 04,08,12,16,20,00 Care 12/19/20 15:45 Active Regular Diet [DIET] Diet 12/19/20 Dinner Active Chest 1V Frontal [CR] Stat Exams 12/19/20 13:07 Taken BASIC METABOLIC PANEL,BMP [CHEM] Routine Lab 12/20/20 06:00 Ordered CBC WITH AUTO DIFF [HEME] Routine Lab 12/20/20 06:00 Ordered CULTURE BLOOD [BC] Urgent Lab 12/19/20 12:45 Received CULTURE BLOOD [BC] Urgent Lab 12/19/20 13:25 Received CULTURE URINE [RM] Stat Lab 12/19/20 13:05 Received Acetaminophen [Tylenol Extra Strength] Med 12/19/20 15:51 Active 500 mg PO Q4H PRN Albuterol [Ventolin HFA] Med 12/19/20 15:51 Active 0 gm INH Q4H PRN Azithromycin [Zithromax] 500 mg Med 12/20/20 15:30 Active Sodium Chloride 0.9% [Normal Saline (AdvBag)] 250 ml IV Q24H Dextrose 50% in Water Med 12/19/20 15:53 Active 50 ml IVPUSH ASDIRECTED PRN FLUoxetine [PROzac] Med 12/20/20 09:00 Active 40 mg PO DAILY Gabapentin [Neurontin] Med 12/19/20 21:00 Ordered 600 mg PO TID Glucagon,Human Recombinant [GlucaGen] Med 12/19/20 15:53 Active 1 mg IM ASDIRECTED PRN Insulin Glarg,Human.Rec.Analog [LantUS Solostar] Med 12/19/20 21:00 Active 6 units SUBCUT BEDTIME Insulin Lispro [HumaLOG] Med 12/20/20 08:00 Active 5 unit SUBCUT 08,12 Iron,Carbonyl/Ascorbic Acid [Vitron-C Tablet] Med 12/19/20 21:00 Ordered 1 tab PO BID Macitentan [Opsumit] Med 12/20/20 09:00 Pending 10 mg PO DAILY Mirabegron [Myrbetriq] Med 12/19/20 18:00 Active 50 mg PO WITHDINNER Mometasone/Formoterol [Dulera 100-5 MCG] Med 12/20/20 09:00 Active 0 puff IH BID Omeprazole [Omeprazole] Med 12/20/20 06:00 Ordered 20 mg PO DAILY@0600 Sildenafil [Revatio] Med 12/19/20 21:00 Ordered 20 mg PO TID Sodium Chloride 0.9% [Saline Flush] Med 12/19/20 14:48 Active 10 ml FLUSH ASDIRECTED PRN Tacrolimus [Prograf] Med 12/19/20 21:00 Ordered 0.5 mg PO BID Trimethoprim Med 12/20/20 09:00 Ordered 100 mg PO DAILY calcitrioL [Rocaltrol] Med 12/21/20 15:51 Active 0.25 mcg PO MOWEFR cefTRIAXone [Rocephin] 1 gm Med 12/20/20 15:30 Active Sodium Chloride 0.9% [Normal Saline] 50 ml IV Q24H dexAMETHasone Med 12/20/20 09:00 Active 1 mg PO DAILY mycophenolate mofetiL [Cellcept] Med 12/19/20 21:00 Active 500 mg PO BID ARIC Bandage [Elastic Wrap] [OM.PC] Routine Oth 12/19/20 16:27 Ordered Blood Culture x2 Reflex Set [OM.PC] Urgent Oth 12/19/20 13:07 Ordered Peripheral IV Insertion Adult [OM.PC] Routine Oth 12/19/20 14:48 Ordered Resuscitation Status Routine Resus Stat 12/19/20 16:25 Ordered Medication Orders Acetaminophen (Acetaminophen 500 Mg Tab) 500 mg PO Q4H PRN PRN Reason: Pain Albuterol (Albuterol 8 Gm Inhaler) 0 gm INH Q4H PRN PRN Reason: Dyspnea Calcitriol (Calcitriol 0.25 Mcg Cap) 0.25 mcg PO MOWEFR [facility] Dexamethasone (Dexamethasone 1 Mg Tab) 1 mg PO DAILY [facility] Dextrose/Water (50% Dextrose In Water 50 Ml Syringe) 50 ml IVPUSH ASDIRECTED PRN PRN Reason: Hypoglycemia Fluoxetine HCl (Fluoxetine 20 Mg Cap) 40 mg PO DAILY [facility] Gabapentin (Gabapentin 300 Mg Cap) 600 mg PO TID [facility] Glucagon (Glucagon,Human Recombinant 1 Mg Vial) 1 mg IM ASDIRECTED PRN PRN Reason: Hypoglycemia Azithromycin 500 mg/ Sodium (Chloride) 250 mls @ 250 mls/hr IV Q24H [facility] Stop: 12/24/20 15:31 Ceftriaxone Sodium 1 gm/ (Sodium Chloride) 50 mls @ 200 mls/hr IV Q24H [facility] Stop: 12/26/20 15:31 Insulin Glargine (Insulin Glargine,Human Rec. Analog 100 Units/Ml 3 Ml Pen) 6 units SUBCUT BEDTIME [facility] Insulin Human Lispro (Insulin Lispro 100 Unit/Ml 3 Ml Kwikpen) 5 unit SUBCUT [facility] Mirabegron (Mirabegron 25 Mg Tab Extended Release) 50 mg PO WITHDINNER [facility] Mometasone Furoate/Formoterol Fumar (Formoterol/Mometasone 100-5 Mcg 8.8 Gm Inhaler) 0 puff IH BID [facility] Mycophenolate Mofetil (Mycophenolate Mofetil 250 Mg Cap) 500 mg PO BID [facility] Non-Formulary Medication (Iron,Carbonyl/Ascorbic Acid [Vitron-C Tablet]) 1 tab PO BID [facility] Non-Formulary Medication (Macitentan [Opsumit]) 10 mg PO DAILY [facility] Pantoprazole Sodium (Pantoprazole 40 Mg Tab.Cr) 40 mg PO ACBREAKFAST [facility] Sildenafil Citrate (Sildenafil 20 Mg Tab) 20 mg PO TID [facility] Sodium Chloride (Sodium Chloride 0.9% 10 Ml Syringe) 10 ml FLUSH ASDIRECTED PRN PRN Reason: Keep Vein Open Tacrolimus (Tacrolimus 0.5 Mg Cap) 0.5 mg PO BID [facility] Trimethoprim (Trimethoprim 100 Mg Tab) 100 mg PO DAILY [facility] Assessment/Plan Comment:: 1. Admit for inpatient treatment of CHF, Pneumonia in immunocompromised patient. 2. CHF: Lasix 40 mg IV bid, Daily weight, [place] for strict I&Os, bedside commode(normally uses wheelchair and pivot transfers at home). Repeat BMP tomor row. 3. Pneumonia: WBC 15.6, BC pending, UC pending but no symptoms. Azithromycin/Rocephin given in ER, continue q24h so next doses tomorrow afternoon. Adjust treatments as needed. Covid/influenza negative. Continue Cellcept/Prograf/Dexamethasone at this time. 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 5. Diet: regular. 6. Up to chair and with assistance. Bedside commode as needed. 7. DVT prophylaxis: ARIC wraps to BLE on during day and off at night. Lovenox 30 mg SQ daily. 8. CODE STATUS: DNR/DNI. 9. Discharge planning: anticipate 72-96 hr of IV antibiotics/diuretics, her is her primary caregiver so anticipate she would go home with services. - Mortality Measure Prognosis:: Poor
[2020-12-19] MEDS: Sodium Chloride 0.9% 10 ML Syringe FLUSH PRN (17:50)
[2020-12-19] MEDS: Mirabegron 25 MG Tab Extended Release PO SCH (17:50)
[2020-12-19] MEDS ORDERED: Gabapentin 300 MG Cap PO SCH (21:00)
[2020-12-19] MEDS ORDERED: Insulin Glargine,Human Rec. Analog 100 Units/ML 3 ML Pen SUBCUT ONE (21:05)
[2020-12-19] MEDS: Insulin Glargine,Human Rec. Analog 100 Units/ML 3 ML Pen SUBCUT SCH (21:22)
[2020-12-19] MEDS: IRON CARBONYL PO SCH (21:44)
[2020-12-19] MEDS: ASCORBIC ACID PO SCH (21:44)
[2020-12-19] MEDS: guaiFENesin 600 MG Tab.ER PO SCH (21:45)
[2020-12-19] MEDS: Gabapentin 100 MG Cap PO SCH (21:45)
[2020-12-19] MEDS: Mycophenolate Mofetil 250 MG Cap PO SCH (22:10)
[2020-12-19] MEDS: Tacrolimus 0.5 MG Cap PO SCH (22:11)
[2020-12-19] MEDS: Sildenafil 20 MG Tab PO SCH (22:12)
[2020-12-20] MEDS ORDERED: Pantoprazole 40 MG Tab.CR ONE (00:49)
[2020-12-20] MEDS: Pantoprazole 40 MG Tab.CR PO SCH ×2 (06:15→06:31)
[2020-12-20] MEDS ORDERED: Insulin Lispro 100 Unit/ML 3 ML KwikPen SUBCUT ONE (07:34)
[2020-12-20] MEDS: Insulin Lispro 100 Unit/ML 3 ML KwikPen SUBCUT SCH ×2 (07:36→12:27)
[2020-12-20] MEDS: Sildenafil 20 MG Tab PO SCH ×3 (08:41→21:05)
[2020-12-20] MEDS: ASCORBIC ACID PO SCH ×2 (08:42→21:09)
[2020-12-20] MEDS: IRON CARBONYL PO SCH ×2 (08:42→21:09)
[2020-12-20] MEDS: Mycophenolate Mofetil 250 MG Cap PO SCH ×2 (08:43→21:08)
[2020-12-20] MEDS: MACITENTAN 10 MG PO SCH (08:45)
[2020-12-20] MEDS: Tacrolimus 0.5 MG Cap PO SCH ×2 (08:46→21:05)
[2020-12-20] MEDS: Formoterol/Mometasone 100-5 MCG 8.8 GM Inhaler IH SCH ×2 (09:01→21:08)
[2020-12-20] MEDS: Gabapentin 100 MG Cap PO SCH ×3 (09:01→21:06)
[2020-12-20] MEDS: FLUoxetine 20 MG Cap PO SCH (09:02)
[2020-12-20] MEDS: guaiFENesin 600 MG Tab.ER PO SCH ×2 (09:02→21:21)
--- NOTE | 2020-12-20 10:45 | PCM.PN ---
- General Info Date of Service: 12/20/20 Subjective Update: Karol states her breathing is back to her normal. She is down 3 lbs. Feels her legs are not as puffy or hurt as bad. Urine grew GNR. No nausea, vomiting or diarrhea. Oxygen at 6L, baseline around 5L per her and her . No fevers or chills. Functional Status: Reports: Tolerating Diet, Urinating. Denies: New Symptoms - Patient Data Vitals - Most Recent: Last Vital Signs Temp 97.5 F 12/20/20 06:00 Pulse 89 12/20/20 06:00 Resp 20 12/20/20 06:00 BP 129/36 L 12/20/20 06:00 Pulse Ox 91 L 12/20/20 06:00 Weight - Most Recent: 156 lb 1 oz I&O - Last 24 Hours: Intake & Output 12/19/20 12/20/20 12/20/20 22:59 06:59 14:59 Intake Total 125 50 240 Output Total 425 225 Balance -300 -175 240 Lab Results Last 24 Hours: Laboratory Results - last 24 hr 12/19/20 12/19/20 12/19/20 Range/Units 12:45 12:45 12:45 WBC 15.6 H (3.0-10.3) x10-3/uL RBC 3.77 (3.60-5.20) x10(6)uL Hgb 11.1 L (11.4-15.5) g/dL Hct 35.1 (34.2-48.2) % MCV 93.1 (76.7-100.5) fL MCH 29.4 (23.9-33.9) pg MCHC 31.6 L (31.9-34.8) g/dL RDW 18.4 H (12.3-16.5) % Plt Count 478 (151-488) x10(3)uL MPV 6.9 L (7.1-12.4) fL Neut % (Auto) (30.8-76.2) % Lymph % (Auto) (18.4-52.1) % Grainger % (Auto) (4.4-15.7) % Eos % (Auto) (0.6-8.1) % Baso % (Auto) (0.2-1.5) % Neut # (Auto) (1.5-6.3) x10-3/uL Lymph # (Auto) (1.0-4.4) x10-3/uL Grainger # (Auto) (0.3-1.0) x10-3/uL Eos # (Auto) (0.0-0.8) x10-3/uL Baso # (Auto) (0.0-0.1) x10-3/uL Add Manual Diff Yes Neutrophils % (Manual) 74 (46-82) % Band Neutrophils % 4 (0-6) % Lymphocytes % (Manual) 17 (13-37) % Monocytes % (Manual) 2 L (4-12) % Eosinophils % (Manual) 2 (0-5) % Metamyelocytes % 1 H (0-0) % Sodium 143 (135-145) mmol/L Potassium 4.2 (3.5-5.3) mmol/L Chloride 110 (100-110) mmol/L Carbon Dioxide 20 L (21-32) mmol/L BUN 32 H D (7-18) mg/dL Creatinine 1.6 H (0.55-1.02) mg/dL Est Cr Clr Drug Dosing TNP Estimated GFR (MDRD) 31 L (>60) BUN/Creatinine Ratio 20.0 (9-20) Glucose 181 H (80-116) mg/dL POC Glucose (80-116) mg/dL Calcium 8.1 L (8.6-10.2) mg/dL Total Bilirubin 0.4 (0.1-1.3) mg/dL AST 24 D (5-25) IU/L ALT 28 D (12-36) U/L Alkaline Phosphatase 88 (56-112) IU/L Troponin I 79.5 H* (4.0-60.3) pg/mL NT-Pro-B Natriuret Pep 2294 H* (<=450) pg/mL Total Protein 5.1 L (6.0-8.0) g/dL Albumin 1.8 L (3.2-4.6) g/dL Globulin 3.3 g/dL Albumin/Globulin Ratio 0.6 Urine Color (YELLOW) Urine Appearance (CLEAR) Urine pH (5.0-6.5) Ur Specific [place] (1.010-1.025) Urine Protein (NEGATIVE) mg/dL Urine Glucose (UA) (NORMAL) mg/dL Urine Ketones (NEGATIVE) mg/dL Urine Occult Blood (NEGATIVE) Urine Nitrite (NEGATIVE) Urine Bilirubin (NEGATIVE) Urine Urobilinogen (NEGATIVE) mg/dL Ur Leukocyte Esterase (NEGATIVE) Urine RBC (0-5) Urine WBC (0-5) Ur Squamous Epith Cells (NS,R,O) Urine Bacteria (NS) SARS-CoV-2 RNA (ALEX) (NEGATIVE) 12/19/20 12/19/20 12/19/20 Range/Units 13:07 13:09 17:17 WBC (3.0-10.3) x10-3/uL RBC (3.60-5.20) x10(6)uL Hgb (11.4-15.5) g/dL Hct (34.2-48.2) % MCV (76.7-100.5) fL MCH (23.9-33.9) pg MCHC (31.9-34.8) g/dL RDW (12.3-16.5) % Plt Count (151-488) x10(3)uL MPV (7.1-12.4) fL Neut % (Auto) (30.8-76.2) % Lymph % (Auto) (18.4-52.1) % Grainger % (Auto) (4.4-15.7) % Eos % (Auto) (0.6-8.1) % Baso % (Auto) (0.2-1.5) % Neut # (Auto) (1.5-6.3) x10-3/uL Lymph # (Auto) (1.0-4.4) x10-3/uL Grainger # (Auto) (0.3-1.0) x10-3/uL Eos # (Auto) (0.0-0.8) x10-3/uL Baso # (Auto) (0.0-0.1) x10-3/uL Add Manual Diff Neutrophils % (Manual) (46-82) % Band Neutrophils % (0-6) % Lymphocytes % (Manual) (13-37) % Monocytes % (Manual) (4-12) % Eosinophils % (Manual) (0-5) % Metamyelocytes % (0-0) % Sodium (135-145) mmol/L Potassium (3.5-5.3) mmol/L Chloride (100-110) mmol/L Carbon Dioxide (21-32) mmol/L BUN (7-18) mg/dL Creatinine (0.55-1.02) mg/dL Est Cr Clr Drug Dosing Estimated GFR (MDRD) (>60) BUN/Creatinine Ratio (9-20) Glucose (80-116) mg/dL POC Glucose 183 H (80-116) mg/dL Calcium (8.6-10.2) mg/dL Total Bilirubin (0.1-1.3) mg/dL AST (5-25) IU/L ALT (12-36) U/L Alkaline Phosphatase (56-112) IU/L Troponin I (4.0-60.3) pg/mL NT-Pro-B Natriuret Pep (<=450) pg/mL Total Protein (6.0-8.0) g/dL Albumin (3.2-4.6) g/dL Globulin g/dL Albumin/Globulin Ratio Urine Color Yellow (YELLOW) Urine Appearance Slightly cloudy (CLEAR) Urine pH 5.0 (5.0-6.5) Ur Specific [place] 1.020 (1.010-1.025) Urine Protein Trace (NEGATIVE) mg/dL Urine Glucose (UA) Normal (NORMAL) mg/dL Urine Ketones Negative (NEGATIVE) mg/dL Urine Occult Blood Negative (NEGATIVE) Urine Nitrite Negative (NEGATIVE) Urine Bilirubin Small H (NEGATIVE) Urine Urobilinogen 1 H (NEGATIVE) mg/dL Ur Leukocyte Esterase Small H (NEGATIVE) Urine RBC 0-5 (0-5) Urine WBC 5-10 H (0-5) Ur Squamous Epith Cells Occasional (NS,R,O) Urine Bacteria Many H (NS) SARS-CoV-2 RNA (ALEX) Negative (NEGATIVE) 12/19/20 12/20/20 12/20/20 Range/Units 21:37 06:13 06:28 WBC 10.0 (3.0-10.3) x10-3/uL RBC 3.61 (3.60-5.20) x10(6)uL Hgb 10.5 L (11.4-15.5) g/dL Hct 33.3 L (34.2-48.2) % MCV 92.4 (76.7-100.5) fL MCH 29.1 (23.9-33.9) pg MCHC 31.5 L (31.9-34.8) g/dL RDW 18.5 H (12.3-16.5) % Plt Count 435 (151-488) x10(3)uL MPV 6.5 L (7.1-12.4) fL Neut % (Auto) 64.7 (30.8-76.2) % Lymph % (Auto) 26.8 (18.4-52.1) % Grainger % (Auto) 6.8 (4.4-15.7) % Eos % (Auto) 1.2 (0.6-8.1) % Baso % (Auto) 0.5 (0.2-1.5) % Neut # (Auto) 6.5 H (1.5-6.3) x10-3/uL Lymph # (Auto) 2.7 (1.0-4.4) x10-3/uL Grainger # (Auto) 0.7 (0.3-1.0) x10-3/uL Eos # (Auto) 0.1 (0.0-0.8) x10-3/uL Baso # (Auto) 0.1 (0.0-0.1) x10-3/uL Add Manual Diff Neutrophils % (Manual) (46-82) % Band Neutrophils % (0-6) % Lymphocytes % (Manual) (13-37) % Monocytes % (Manual) (4-12) % Eosinophils % (Manual) (0-5) % Metamyelocytes % (0-0) % Sodium (135-145) mmol/L Potassium (3.5-5.3) mmol/L Chloride (100-110) mmol/L Carbon Dioxide (21-32) mmol/L BUN (7-18) mg/dL Creatinine (0.55-1.02) mg/dL Est Cr Clr Drug Dosing Estimated GFR (MDRD) (>60) BUN/Creatinine Ratio (9-20) Glucose (80-116) mg/dL POC Glucose 184 H 138 H (80-116) mg/dL Calcium (8.6-10.2) mg/dL Total Bilirubin (0.1-1.3) mg/dL AST (5-25) IU/L ALT (12-36) U/L Alkaline Phosphatase (56-112) IU/L Troponin I (4.0-60.3) pg/mL NT-Pro-B Natriuret Pep (<=450) pg/mL Total Protein (6.0-8.0) g/dL Albumin (3.2-4.6) g/dL Globulin g/dL Albumin/Globulin Ratio Urine Color (YELLOW) Urine Appearance (CLEAR) Urine pH (5.0-6.5) Ur Specific [place] (1.010-1.025) Urine Protein (NEGATIVE) mg/dL Urine Glucose (UA) (NORMAL) mg/dL Urine Ketones (NEGATIVE) mg/dL Urine Occult Blood (NEGATIVE) Urine Nitrite (NEGATIVE) Urine Bilirubin (NEGATIVE) Urine Urobilinogen (NEGATIVE) mg/dL Ur Leukocyte Esterase (NEGATIVE) Urine RBC (0-5) Urine WBC (0-5) Ur Squamous Epith Cells (NS,R,O) Urine Bacteria (NS) SARS-CoV-2 RNA (ALEX) (NEGATIVE) 12/20/20 Range/Units 06:28 WBC (3.0-10.3) x10-3/uL RBC (3.60-5.20) x10(6)uL Hgb (11.4-15.5) g/dL Hct (34.2-48.2) % MCV (76.7-100.5) fL MCH (23.9-33.9) pg MCHC (31.9-34.8) g/dL RDW (12.3-16.5) % Plt Count (151-488) x10(3)uL MPV (7.1-12.4) fL Neut % (Auto) (30.8-76.2) % Lymph % (Auto) (18.4-52.1) % Grainger % (Auto) (4.4-15.7) % Eos % (Auto) (0.6-8.1) % Baso % (Auto) (0.2-1.5) % Neut # (Auto) (1.5-6.3) x10-3/uL Lymph # (Auto) (1.0-4.4) x10-3/uL Grainger # (Auto) (0.3-1.0) x10-3/uL Eos # (Auto) (0.0-0.8) x10-3/uL Baso # (Auto) (0.0-0.1) x10-3/uL Add Manual Diff Neutrophils % (Manual) (46-82) % Band Neutrophils % (0-6) % Lymphocytes % (Manual) (13-37) % Monocytes % (Manual) (4-12) % Eosinophils % (Manual) (0-5) % Metamyelocytes % (0-0) % Sodium 143 (135-145) mmol/L Potassium 3.8 (3.5-5.3) mmol/L Chloride 110 (100-110) mmol/L Carbon Dioxide 24 (21-32) mmol/L BUN 32 H (7-18) mg/dL Creatinine 1.4 H (0.55-1.02) mg/dL Est Cr Clr Drug Dosing 25.80 Estimated GFR (MDRD) 37 L (>60) BUN/Creatinine Ratio 22.9 H (9-20) Glucose 133 H (80-116) mg/dL POC Glucose (80-116) mg/dL Calcium 7.9 L (8.6-10.2) mg/dL Total Bilirubin (0.1-1.3) mg/dL AST (5-25) IU/L ALT (12-36) U/L Alkaline Phosphatase (56-112) IU/L Troponin I (4.0-60.3) pg/mL NT-Pro-B Natriuret Pep (<=450) pg/mL Total Protein (6.0-8.0) g/dL Albumin (3.2-4.6) g/dL Globulin g/dL Albumin/Globulin Ratio Urine Color (YELLOW) Urine Appearance (CLEAR) Urine pH (5.0-6.5) Ur Specific [place] (1.010-1.025) Urine Protein (NEGATIVE) mg/dL Urine Glucose (UA) (NORMAL) mg/dL Urine Ketones (NEGATIVE) mg/dL Urine Occult Blood (NEGATIVE) Urine Nitrite (NEGATIVE) Urine Bilirubin (NEGATIVE) Urine Urobilinogen (NEGATIVE) mg/dL Ur Leukocyte Esterase (NEGATIVE) Urine RBC (0-5) Urine WBC (0-5) Ur Squamous Epith Cells (NS,R,O) Urine Bacteria (NS) SARS-CoV-2 RNA (ALEX) (NEGATIVE) Marek Results Last 24 Hours: Microbiology 12/19/20 13:05 Urine Culture - Preliminary Urine, Catheterized Gram Negative Rods Med Orders - Current: Current Medications Acetaminophen (Acetaminophen 500 Mg Tab) 500 mg PO Q4H PRN PRN Reason: Pain Albuterol (Albuterol 8 Gm Inhaler) 0 gm INH Q4H PRN PRN Reason: Dyspnea Calcitriol (Calcitriol 0.25 Mcg Cap) 0.25 mcg PO MOWEFR [facility] Dexamethasone (Dexamethasone 1 Mg Tab) 1 mg PO DAILY [facility] Last Admin: 12/20/20 09:07 Dose: 1 mg Documented by: Dextrose/Water (50% Dextrose In Water 50 Ml Syringe) 50 ml IVPUSH ASDIRECTED PRN PRN Reason: Hypoglycemia Fluoxetine HCl (Fluoxetine 20 Mg Cap) 40 mg PO DAILY [facility] Last Admin: 12/20/20 09:02 Dose: 40 mg Documented by: Gabapentin (Gabapentin 100 Mg Cap) 200 mg PO TID [facility] Last Admin: 12/20/20 09:01 Dose: 200 mg Documented by: Glucagon (Glucagon,Human Recombinant 1 Mg Vial) 1 mg IM ASDIRECTED PRN PRN Reason: Hypoglycemia Guaifenesin (Guaifenesin 600 Mg Tab.Er) 600 mg PO BID [facility] Last Admin: 12/20/20 09:02 Dose: 600 mg Documented by: Azithromycin 500 mg/ Sodium (Chloride) 250 mls @ 250 mls/hr IV Q24H [facility] Stop: 12/24/20 15:31 Ceftriaxone Sodium 1 gm/ (Sodium Chloride) 50 mls @ 200 mls/hr IV Q24H [facility] Stop: 12/26/20 15:31 Insulin Glargine (Insulin Glargine,Human Rec. Analog 100 Units/Ml 3 Ml Pen) 6 units SUBCUT BEDTIME [facility] Last Admin: 12/19/20 21:22 Dose: 6 units Documented by: Insulin Human Lispro (Insulin Lispro 100 Unit/Ml 3 Ml Kwikpen) 5 unit SUBCUT 08,12 [facility] Last Admin: 12/20/20 07:36 Dose: 5 unit Documented by: Mirabegron (Mirabegron 25 Mg Tab Extended Release) 50 mg PO WITHDINNER [facility] Last Admin: 12/19/20 17:50 Dose: 50 mg Documented by: Mometasone Furoate/Formoterol Fumar (Formoterol/Mometasone 100-5 Mcg 8.8 Gm Inhaler) 0 puff IH BID [facility] Last Admin: 12/20/20 09:01 Dose: 2 inh Documented by: Mycophenolate Mofetil (Mycophenolate Mofetil 250 Mg Cap) 500 mg PO BID [facility] Last Admin: 12/20/20 08:43 Dose: 500 mg Documented by: Iron,Carbonyl/Ascorbic Acid [ Vitron-C Tablet] Pt Own 1 tab PO BID [facility] Last Admin: 12/20/20 08:42 Dose: 1 tab Documented by: Macitentan [Opsumit] 10 Mg TabletPt Own 10 mg PO DAILY [facility] Last Admin: 12/20/20 08:45 Dose: 10 mg Documented by: Pantoprazole Sodium (Pantoprazole 40 Mg Tab.Cr) 40 mg PO ACBREAKFAST [facility] Last Admin: 12/20/20 06:31 Dose: Not Given Documented by: Sildenafil Citrate (Sildenafil 20 Mg Tab) 20 mg PO TID [facility] Last Admin: 12/20/20 08:41 Dose: 20 mg Documented by: Sodium Chloride (Sodium Chloride 0.9% 10 Ml Syringe) 10 ml FLUSH ASDIRECTED PRN PRN Reason: Keep Vein Open Last Admin: 12/19/20 17:50 Dose: 10 ml Documented by: Tacrolimus (Tacrolimus 0.5 Mg Cap) 0.5 mg PO BID [facility] Last Admin: 12/20/20 08:46 Dose: 0.5 mg Documented by: Trimethoprim (Trimethoprim 100 Mg Tab) 100 mg PO DAILY [facility] Last Admin: 12/20/20 09:07 Dose: 100 mg Documented by: Discontinued Medications Albuterol/Ipratropium (Albuterol/Ipratropium 3.0-0.5 Mg/3 Ml Neb Soln) 3 ml NEB ONETIME ONE Stop: 12/19/20 13:08 Last Admin: 12/19/20 13:23 Dose: 3 ml Documented by: Ceftriaxone Sodium (Ceftriaxone 1 Gm Vial) 1 gm IVPUSH ONETIME ONE Stop: 12/19/20 15:41 Last Admin: 12/19/20 15:33 Dose: 1 gm Documented by: Furosemide (Furosemide 40 Mg/4 Ml Vial) 40 mg IVPUSH NOW ONE Stop: 12/19/20 13:08 Last Admin: 12/19/20 13:23 Dose: 40 mg Documented by: Gabapentin (Gabapentin 300 Mg Cap) 600 mg PO TID CHENCHO Azithromycin 500 mg/ Sodium (Chloride) 250 mls @ 250 mls/hr IV ONETIME ONE Stop: 12/19/20 16:26 Last Admin: 12/19/20 16:47 Dose: 250 mls/hr Documented by: Pantoprazole Sodium (Pantoprazole 40 Mg Tab.Cr) Confirm Administered Dose 40 mg .ROUTE .STK-MED ONE Stop: 12/20/20 00:50 Last Admin: 12/20/20 06:14 Dose: Not Given Documented by: - Exam Quality Assessment: Supplemental Oxygen (6L by ga), Urine Catheter, DVT Prophylaxis Urinary Catheter Total Time: 0Days 6Hours General: Alert, Oriented, Cooperative, No Acute Distress Lungs: Normal Respiratory Effort, Decreased Breath Sounds (good air exchange), Crackles (BLL, RML), Wheezing. No: Rhonchi Cardiovascular: Regular Rate, Regular Rhythm GI/Abdominal Exam: Normal Bowel Sounds, Soft, Non-Tender, No Distention Extremities: Pedal Edema (2+ BLE, ARIC wraps in place) Peripheral Pulses: 2+: Radial (L), Radial (R) - Patient Data Lab Results Last 24 hrs: Laboratory Results - last 24 hr 12/19/20 12/19/20 12/19/20 Range/Units 12:45 12:45 12:45 WBC 15.6 H (3.0-10.3) x10-3/uL RBC 3.77 (3.60-5.20) x10(6)uL Hgb 11.1 L (11.4-15.5) g/dL Hct 35.1 (34.2-48.2) % MCV 93.1 (76.7-100.5) fL MCH 29.4 (23.9-33.9) pg MCHC 31.6 L (31.9-34.8) g/dL RDW 18.4 H (12.3-16.5) % Plt Count 478 (151-488) x10(3)uL MPV 6.9 L (7.1-12.4) fL Neut % (Auto) (30.8-76.2) % Lymph % (Auto) (18.4-52.1) % [place] % (Auto) (4.4-15.7) % Eos % (Auto) (0.6-8.1) % Baso % (Auto) (0.2-1.5) % Neut # (Auto) (1.5-6.3) x10-3/uL Lymph # (Auto) (1.0-4.4) x10-3/uL [place] # (Auto) (0.3-1.0) x10-3/uL Eos # (Auto) (0.0-0.8) x10-3/uL Baso # (Auto) (0.0-0.1) x10-3/uL Add Manual Diff Yes Neutrophils % (Manual) 74 (46-82) % Band Neutrophils % 4 (0-6) % Lymphocytes % (Manual) 17 (13-37) % Monocytes % (Manual) 2 L (4-12) % Eosinophils % (Manual) 2 (0-5) % Metamyelocytes % 1 H (0-0) % Sodium 143 (135-145) mmol/L Potassium 4.2 (3.5-5.3) mmol/L Chloride 110 (100-110) mmol/L Carbon Dioxide 20 L (21-32) mmol/L BUN 32 H D (7-18) mg/dL Creatinine 1.6 H (0.55-1.02) mg/dL Est Cr Clr Drug Dosing TNP Estimated GFR (MDRD) 31 L (>60) BUN/Creatinine Ratio 20.0 (9-20) Glucose 181 H (80-116) mg/dL POC Glucose (80-116) mg/dL Calcium 8.1 L (8.6-10.2) mg/dL Total Bilirubin 0.4 (0.1-1.3) mg/dL AST 24 D (5-25) IU/L ALT 28 D (12-36) U/L Alkaline Phosphatase 88 (56-112) IU/L Troponin I 79.5 H* (4.0-60.3) pg/mL NT-Pro-B Natriuret Pep 2294 H* (<=450) pg/mL Total Protein 5.1 L (6.0-8.0) g/dL Albumin 1.8 L (3.2-4.6) g/dL Globulin 3.3 g/dL Albumin/Globulin Ratio 0.6 Urine Color (YELLOW) Urine Appearance (CLEAR) Urine pH (5.0-6.5) Ur Specific [place] (1.010-1.025) Urine Protein (NEGATIVE) mg/dL Urine Glucose (UA) (NORMAL) mg/dL Urine Ketones (NEGATIVE) mg/dL Urine Occult Blood (NEGATIVE) Urine Nitrite (NEGATIVE) Urine Bilirubin (NEGATIVE) Urine Urobilinogen (NEGATIVE) mg/dL Ur Leukocyte Esterase (NEGATIVE) Urine RBC (0-5) Urine WBC (0-5) Ur Squamous Epith Cells (NS,R,O) Urine Bacteria (NS) SARS-CoV-2 RNA (ALEX) (NEGATIVE) 12/19/20 12/19/20 12/19/20 Range/Units 13:07 13:09 17:17 WBC (3.0-10.3) x10-3/uL RBC (3.60-5.20) x10(6)uL Hgb (11.4-15.5) g/dL Hct (34.2-48.2) % MCV (76.7-100.5) fL MCH (23.9-33.9) pg MCHC (31.9-34.8) g/dL RDW (12.3-16.5) % Plt Count (151-488) x10(3)uL MPV (7.1-12.4) fL Neut % (Auto) (30.8-76.2) % Lymph % (Auto) (18.4-52.1) % [place] % (Auto) (4.4-15.7) % Eos % (Auto) (0.6-8.1) % Baso % (Auto) (0.2-1.5) % Neut # (Auto) (1.5-6.3) x10-3/uL Lymph # (Auto) (1.0-4.4) x10-3/uL [place] # (Auto) (0.3-1.0) x10-3/uL Eos # (Auto) (0.0-0.8) x10-3/uL Baso # (Auto) (0.0-0.1) x10-3/uL Add Manual Diff Neutrophils % (Manual) (46-82) % Band Neutrophils % (0-6) % Lymphocytes % (Manual) (13-37) % Monocytes % (Manual) (4-12) % Eosinophils % (Manual) (0-5) % Metamyelocytes % (0-0) % Sodium (135-145) mmol/L Potassium (3.5-5.3) mmol/L Chloride (100-110) mmol/L Carbon Dioxide (21-32) mmol/L BUN (7-18) mg/dL Creatinine (0.55-1.02) mg/dL Est Cr Clr Drug Dosing Estimated GFR (MDRD) (>60) BUN/Creatinine Ratio (9-20) Glucose (80-116) mg/dL POC Glucose 183 H (80-116) mg/dL Calcium (8.6-10.2) mg/dL Total Bilirubin (0.1-1.3) mg/dL AST (5-25) IU/L ALT (12-36) U/L Alkaline Phosphatase (56-112) IU/L Troponin I (4.0-60.3) pg/mL NT-Pro-B Natriuret Pep (<=450) pg/mL Total Protein (6.0-8.0) g/dL Albumin (3.2-4.6) g/dL Globulin g/dL Albumin/Globulin Ratio Urine Color Yellow (YELLOW) Urine Appearance Slightly cloudy (CLEAR) Urine pH 5.0 (5.0-6.5) Ur Specific [place] 1.020 (1.010-1.025) Urine Protein Trace (NEGATIVE) mg/dL Urine Glucose (UA) Normal (NORMAL) mg/dL Urine Ketones Negative (NEGATIVE) mg/dL Urine Occult Blood Negative (NEGATIVE) Urine Nitrite Negative (NEGATIVE) Urine Bilirubin Small H (NEGATIVE) Urine Urobilinogen 1 H (NEGATIVE) mg/dL Ur Leukocyte Esterase Small H (NEGATIVE) Urine RBC 0-5 (0-5) Urine WBC 5-10 H (0-5) Ur Squamous Epith Cells Occasional (NS,R,O) Urine Bacteria Many H (NS) SARS-CoV-2 RNA (ALEX) Negative (NEGATIVE) 12/19/20 12/20/20 12/20/20 Range/Units 21:37 06:13 06:28 WBC 10.0 (3.0-10.3) x10-3/uL RBC 3.61 (3.60-5.20) x10(6)uL Hgb 10.5 L (11.4-15.5) g/dL Hct 33.3 L (34.2-48.2) % MCV 92.4 (76.7-100.5) fL MCH 29.1 (23.9-33.9) pg MCHC 31.5 L (31.9-34.8) g/dL RDW 18.5 H (12.3-16.5) % Plt Count 435 (151-488) x10(3)uL MPV 6.5 L (7.1-12.4) fL Neut % (Auto) 64.7 (30.8-76.2) % Lymph % (Auto) 26.8 (18.4-52.1) % [place]inger % (Auto) 6.8 (4.4-15.7) % Eos % (Auto) 1.2 (0.6-8.1) % Baso % (Auto) 0.5 (0.2-1.5) % Neut # (Auto) 6.5 H (1.5-6.3) x10-3/uL Lymph # (Auto) 2.7 (1.0-4.4) x10-3/uL [place]inger # (Auto) 0.7 (0.3-1.0) x10-3/uL Eos # (Auto) 0.1 (0.0-0.8) x10-3/uL Baso # (Auto) 0.1 (0.0-0.1) x10-3/uL Add Manual Diff Neutrophils % (Manual) (46-82) % Band Neutrophils % (0-6) % Lymphocytes % (Manual) (13-37) % Monocytes % (Manual) (4-12) % Eosinophils % (Manual) (0-5) % Metamyelocytes % (0-0) % Sodium (135-145) mmol/L Potassium (3.5-5.3) mmol/L Chloride (100-110) mmol/L Carbon Dioxide (21-32) mmol/L BUN (7-18) mg/dL Creatinine (0.55-1.02) mg/dL Est Cr Clr Drug Dosing Estimated GFR (MDRD) (>60) BUN/Creatinine Ratio (9-20) Glucose (80-116) mg/dL POC Glucose 184 H 138 H (80-116) mg/dL Calcium (8.6-10.2) mg/dL Total Bilirubin (0.1-1.3) mg/dL AST (5-25) IU/L ALT (12-36) U/L Alkaline Phosphatase (56-112) IU/L Troponin I (4.0-60.3) pg/mL NT-Pro-B Natriuret Pep (<=450) pg/mL Total Protein (6.0-8.0) g/dL Albumin (3.2-4.6) g/dL Globulin g/dL Albumin/Globulin Ratio Urine Color (YELLOW) Urine Appearance (CLEAR) Urine pH (5.0-6.5) Ur Specific [place] (1.010-1.025) Urine Protein (NEGATIVE) mg/dL Urine Glucose (UA) (NORMAL) mg/dL Urine Ketones (NEGATIVE) mg/dL Urine Occult Blood (NEGATIVE) Urine Nitrite (NEGATIVE) Urine Bilirubin (NEGATIVE) Urine Urobilinogen (NEGATIVE) mg/dL Ur Leukocyte Esterase (NEGATIVE) Urine RBC (0-5) Urine WBC (0-5) Ur Squamous Epith Cells (NS,R,O) Urine Bacteria (NS) SARS-CoV-2 RNA (ALEX) (NEGATIVE) 12/20/20 Range/Units 06:28 WBC (3.0-10.3) x10-3/uL RBC (3.60-5.20) x10(6)uL Hgb (11.4-15.5) g/dL Hct (34.2-48.2) % MCV (76.7-100.5) fL MCH (23.9-33.9) pg MCHC (31.9-34.8) g/dL RDW (12.3-16.5) % Plt Count (151-488) x10(3)uL MPV (7.1-12.4) fL Neut % (Auto) (30.8-76.2) % Lymph % (Auto) (18.4-52.1) % Grainger % (Auto) (4.4-15.7) % Eos % (Auto) (0.6-8.1) % Baso % (Auto) (0.2-1.5) % Neut # (Auto) (1.5-6.3) x10-3/uL Lymph # (Auto) (1.0-4.4) x10-3/uL Grainger # (Auto) (0.3-1.0) x10-3/uL Eos # (Auto) (0.0-0.8) x10-3/uL Baso # (Auto) (0.0-0.1) x10-3/uL Add Manual Diff Neutrophils % (Manual) (46-82) % Band Neutrophils % (0-6) % Lymphocytes % (Manual) (13-37) % Monocytes % (Manual) (4-12) % Eosinophils % (Manual) (0-5) % Metamyelocytes % (0-0) % Sodium 143 (135-145) mmol/L Potassium 3.8 (3.5-5.3) mmol/L Chloride 110 (100-110) mmol/L Carbon Dioxide 24 (21-32) mmol/L BUN 32 H (7-18) mg/dL Creatinine 1.4 H (0.55-1.02) mg/dL Est Cr Clr Drug Dosing 25.80 Estimated GFR (MDRD) 37 L (>60) BUN/Creatinine Ratio 22.9 H (9-20) Glucose 133 H (80-116) mg/dL POC Glucose (80-116) mg/dL Calcium 7.9 L (8.6-10.2) mg/dL Total Bilirubin (0.1-1.3) mg/dL AST (5-25) IU/L ALT (12-36) U/L Alkaline Phosphatase (56-112) IU/L Troponin I (4.0-60.3) pg/mL NT-Pro-B Natriuret Pep (<=450) pg/mL Total Protein (6.0-8.0) g/dL Albumin (3.2-4.6) g/dL Globulin g/dL Albumin/Globulin Ratio Urine Color (YELLOW) Urine Appearance (CLEAR) Urine pH (5.0-6.5) Ur Specific [place] (1.010-1.025) Urine Protein (NEGATIVE) mg/dL Urine Glucose (UA) (NORMAL) mg/dL Urine Ketones (NEGATIVE) mg/dL Urine Occult Blood (NEGATIVE) Urine Nitrite (NEGATIVE) Urine Bilirubin (NEGATIVE) Urine Urobilinogen (NEGATIVE) mg/dL Ur Leukocyte Esterase (NEGATIVE) Urine RBC (0-5) Urine WBC (0-5) Ur Squamous Epith Cells (NS,R,O) Urine Bacteria (NS) SARS-CoV-2 RNA (ALEX) (NEGATIVE) Result Diagrams: 12/20/20 06:28 12/20/20 06:28 Marek Results Last 24 hrs: Microbiology 12/19/20 13:05 Urine Culture - Preliminary Urine, Catheterized Gram Negative Rods Sepsis Event Note - Evaluation Sepsis Screening Result: No Definite Risk - Focused Exam Vital Signs: Vital Signs Temp Pulse Resp BP Pulse Ox 12/20/20 06:00 97.5 F 89 20 129/36 L 91 L 12/20/20 02:00 98.3 F 92 20 109/47 L 92 L - Problem List & Annotations (1) CHF (congestive heart failure) SNOMED Code(s): 67202905 Code(s): I50.9 - HEART FAILURE, UNSPECIFIED Status: Chronic Current Visit: Yes Qualifiers: Heart failure chronicity: acute on chronic (2) Pneumonia SNOMED Code(s): 104233163 Code(s): J18.9 - PNEUMONIA, UNSPECIFIED ORGANISM Status: Acute Current Visit: No Qualifiers: Pneumonia type: due to unspecified organism Laterality: unspecified laterality Lung location: unspecified part of lung Qualified Code(s): J18.9 - Pneumonia, unspecified organism Annotation/Comment:: Suspected as can not be ruled out with her chronic fibrosis/CHF, official report pending. She feels she is back at her baseline so Leukocytosis could be from UTI and not pneumonia. If ruled out once we get Radiology report, will discontinue azithromycin and treat UTI based on Sensitivities. (3) UTI (urinary tract infection) SNOMED Code(s): 09918715 Code(s): N39.0 - URINARY TRACT INFECTION, SITE NOT SPECIFIED Status: Acute Current Visit: No Qualifiers: Urinary tract infection type: acute cystitis Hematuria presence: without hematuria Qualified Code(s): N30.00 - Acute cystitis without hematuria Annotation/Comment:: UA was borderline but UC growing >100,000 Gram negative rods. On Rocephin, will adjust once sensitivites are back. (4) COPD (chronic obstructive pulmonary disease) SNOMED Code(s): 26254999 Code(s): J44.9 - CHRONIC OBSTRUCTIVE PULMONARY DISEASE, UNSPECIFIED Status: Chronic Current Visit: No Annotation/Comment:: on 5L continuous oxygen by ga. (5) Pulmonary fibrosis SNOMED Code(s): 47827752 Code(s): J84.10 - PULMONARY FIBROSIS, UNSPECIFIED Status: Chronic Current Visit: No Annotation/Comment:: severe (6) Pulmonary hypertension SNOMED Code(s): 47655456 Code(s): I27.20 - PULMONARY HYPERTENSION, UNSPECIFIED Status: Chronic Current Visit: No (7) Diabetes SNOMED Code(s): 33028610 Code(s): E11.9 - TYPE 2 DIABETES MELLITUS WITHOUT COMPLICATIONS Status: Chronic Current Visit: No (8) History of liver transplant SNOMED Code(s): 039535128 Code(s): Z94.4 - LIVER TRANSPLANT STATUS Status: Chronic Current Visit: No Onset Date: ~2010 (9) Immunocompromised patient SNOMED Code(s): 105452760 Code(s): D84.9 - IMMUNODEFICIENCY, UNSPECIFIED Status: Chronic Current Visit: No (10) Chronic kidney disease SNOMED Code(s): 972948751 Code(s): N18.9 - CHRONIC KIDNEY DISEASE, UNSPECIFIED Status: Acute Current Visit: Yes Qualifiers: Chronic kidney disease stage 3 subtype: stage 3b (GFR 30-44) - Problem List Review Problem List Initiated/Reviewed/Updated: Yes - My Orders Last 24 Hours: My Active Orders 12/19/20 15:45 Patient Status [ADT] Routine Height and Weight [RC] 06 Oxygen Therapy [RC] 08,16,00 Up With Assistance [RC] .PRN Up to Chair [RC] .PRN VTE/DVT Education [RC] Per Unit Routine Vital Signs [RC] 04,08,12,16,20,00 12/19/20 15:47 Intake and Output [RC] 06,14,22 12/19/20 15:51 Acetaminophen [Tylenol Extra Strength] 500 mg PO Q4H PRN Albuterol [Ventolin HFA] 0 gm INH Q4H PRN 12/19/20 15:53 Dextrose 50% in Water 50 ml IVPUSH ASDIRECTED PRN Glucagon,Human Recombinant [GlucaGen] 1 mg IM ASDIRECTED PRN 12/19/20 15:55 RT Post Treatment Assessment [RC] .PRN 12/19/20 Dinner Regular Diet [DIET] 12/19/20 16:25 Resuscitation Status Routine 12/19/20 16:26 Urinary Catheter Assessment [RC] 08,16,00 12/19/20 16:27 ARIC Bandage [Elastic Wrap] [OM.PC] Routine 12/19/20 16:30 Monroe Catheter Insertion [Insert Urinary Catheter] [OM.PC] Q24H 12/19/20 17:01 Incentive Spirometry [RT Incentive Spirometry] [RC] Q1HWA CULTURE SPUTUM + SMEAR [RM] Routine 12/19/20 18:00 Mirabegron [Myrbetriq] 50 mg PO WITHDINNER 12/19/20 19:30 Accu Check [Blood Glucose Check, Bedside] [RC] 07,,,12/19/20 21:00 Gabapentin [Neurontin] 200 mg PO TID Insulin Glarg,Human.Rec.Analog [LantUS Solostar] 6 units SUBCUT BEDTIME Iron,Carbonyl/Ascorbic Acid [Vitron-C Tablet] 1 tab PO BID Sildenafil [Revatio] 20 mg PO TID Tacrolimus [Prograf] 0.5 mg PO BID guaiFENesin [Mucinex] 600 mg PO BID mycophenolate mofetiL [Cellcept] 500 mg PO BID 12/20/20 07:30 Pantoprazole [ProTONIX] 40 mg PO ACBREAKFAST 12/20/20 08:00 Insulin Lispro [HumaLOG] 5 unit SUBCUT 12/20/20 09:00 FLUoxetine [PROzac] 40 mg PO DAILY Macitentan [Opsumit] 10 mg PO DAILY Mometasone/Formoterol [Dulera 100-5 MCG] 0 puff IH BID Trimethoprim 100 mg PO DAILY dexAMETHasone 1 mg PO DAILY 12/20/20 15:30 Azithromycin [Zithromax] 500 mg Sodium Chloride 0.9% [Normal Saline (AdvBag)] 250 ml IV Q24H cefTRIAXone [Rocephin] 1 gm Sodium Chloride 0.9% [Normal Saline] 50 ml IV Q24H 12/21/20 06:00 BASIC METABOLIC PANEL,BMP [CHEM] Routine CBC WITH AUTO DIFF [HEME] Routine 12/21/20 15:51 calcitrioL [Rocaltrol] 0.25 mcg PO MOWEFR - Plan Plan:: 1. CHF: Lasix 40 mg IV bid, Daily weight, Monroe for strict I&Os, bedside commode(normally uses wheelchair and pivot transfers at home). Repeat BMP tomorrow. 2. Pneumonia/UTI: WBC 10.0, BC pending, UC >100,000 GNR, sensitivities pending. Azithromycin/Rocephin q24h day 2. Adjust treatments as needed. She feels her ryan athing is back to baseline. CXR official report pending, with positive UC and such quick improvement with her breathing, PNA is less likely though hard to rule out with her underlying chronic lung issues on CXR. 3. Discharge planning: anticipate another 48 hr of IV antibiotics/diuretics, her is her primary caregiver so anticipate she would go home with services.
[2020-12-20] MEDS: Furosemide 40 MG/4 ML VIAL IVPUSH SCH (13:52)
[2020-12-20] MEDS: Sodium Chloride 0.9% 10 ML Syringe FLUSH PRN ×4 (13:54→17:35)
[2020-12-20] MEDS ORDERED: cefTRIAXone 1 GM in Sodium Chloride 0.9% 50 ML IV SCH (15:30)
[2020-12-20] MEDS: Azithromycin 500 MG in Sodium Chloride 0.9% 250 ML IV SCH (16:14)
[2020-12-20] MEDS: Mirabegron 25 MG Tab Extended Release PO SCH (17:39)
[2020-12-20] MEDS ORDERED: Furosemide 40 MG/4 ML VIAL IVPUSH ONE (18:00)
[2020-12-20] MEDS: Insulin Glargine,Human Rec. Analog 100 Units/ML 3 ML Pen SUBCUT SCH (21:26)
[2020-12-21] MEDS: Pantoprazole 40 MG Tab.CR PO SCH (05:30)
[2020-12-21] MEDS: Insulin Lispro 100 Unit/ML 3 ML KwikPen SUBCUT SCH ×3 (08:46→12:39)
[2020-12-21] MEDS: Formoterol/Mometasone 100-5 MCG 8.8 GM Inhaler IH SCH ×2 (08:46→20:31)
[2020-12-21] MEDS: Sildenafil 20 MG Tab PO SCH ×3 (08:46→20:32)
[2020-12-21] MEDS: Gabapentin 100 MG Cap PO SCH ×3 (08:51→20:36)
[2020-12-21] MEDS: Mycophenolate Mofetil 250 MG Cap PO SCH ×2 (08:51→20:30)
[2020-12-21] MEDS: FLUoxetine 20 MG Cap PO SCH (08:51)
[2020-12-21] MEDS: Tacrolimus 0.5 MG Cap PO SCH ×2 (08:51→20:32)
[2020-12-21] MEDS: guaiFENesin 600 MG Tab.ER PO SCH ×2 (08:52→20:32)
[2020-12-21] MEDS: IRON CARBONYL PO SCH ×2 (08:53→20:31)
[2020-12-21] MEDS: ASCORBIC ACID PO SCH ×2 (08:53→20:31)
[2020-12-21] MEDS: MACITENTAN 10 MG PO SCH (08:54)
[2020-12-21] MEDS: Furosemide 40 MG/4 ML VIAL IVPUSH SCH ×3 (08:55→14:11)
--- NOTE | 2020-12-21 10:24 | PCM.PN ---
- General Info Date of Service: 12/21/20 Subjective Update: Karol states her breathing is better, got worse during the day, did not get Lasix in the morning(not ordered), did not improve with Ventolin/DuoNeb, gave Lasix at 1400 and had improvement of her symptoms. Repeated at 1800 last night. She is down 2 lbs from admission. Urine culture is positive. Sputum culture received and pending. BC no growth. - Patient Data Vitals - Most Recent: Last Vital Signs Temp 97.4 F 12/21/20 04:00 Pulse 94 12/21/20 04:00 Resp 20 12/21/20 04:00 BP 115/58 L 12/21/20 04:00 Pulse Ox 89 L 12/21/20 04:00 Weight - Most Recent: 157 lb 4 oz I&O - Last 24 Hours: Intake & Output 12/20/20 12/21/20 12/21/20 22:59 06:59 14:59 Intake Total 600 250 Output Total 250 275 Balance 350 -25 Lab Results Last 24 Hours: Laboratory Results - last 24 hr 12/20/20 12/20/20 12/20/20 Range/Units 12:26 17:44 21:24 WBC (3.0-10.3) x10-3/uL RBC (3.60-5.20) x10(6)uL Hgb (11.4-15.5) g/dL Hct (34.2-48.2) % MCV (76.7-100.5) fL MCH (23.9-33.9) pg MCHC (31.9-34.8) g/dL RDW (12.3-16.5) % Plt Count (151-488) x10(3)uL MPV (7.1-12.4) fL Add Manual Diff Neutrophils % (Manual) (46-82) % Lymphocytes % (Manual) (13-37) % Monocytes % (Manual) (4-12) % Sodium (135-145) mmol/L Potassium (3.5-5.3) mmol/L Chloride (100-110) mmol/L Carbon Dioxide (21-32) mmol/L BUN (7-18) mg/dL Creatinine (0.55-1.02) mg/dL Est Cr Clr Drug Dosing mL/min Estimated GFR (MDRD) (>60) BUN/Creatinine Ratio (9-20) Glucose (80-116) mg/dL POC Glucose 174 H 161 H 220 H (80-116) mg/dL Calcium (8.6-10.2) mg/dL 12/21/20 12/21/20 Range/Units 06:35 06:35 WBC 6.6 (3.0-10.3) x10-3/uL RBC 3.31 L (3.60-5.20) x10(6)uL Hgb 9.6 L (11.4-15.5) g/dL Hct 30.6 L (34.2-48.2) % MCV 92.5 (76.7-100.5) fL MCH 29.0 (23.9-33.9) pg MCHC 31.3 L (31.9-34.8) g/dL RDW 18.3 H (12.3-16.5) % Plt Count 397 (151-488) x10(3)uL MPV 6.9 L (7.1-12.4) fL Add Manual Diff Yes Neutrophils % (Manual) 74 (46-82) % Lymphocytes % (Manual) 21 (13-37) % Monocytes % (Manual) 5 (4-12) % Sodium 140 (135-145) mmol/L Potassium 4.2 (3.5-5.3) mmol/L Chloride 108 (100-110) mmol/L Carbon Dioxide 23 (21-32) mmol/L BUN 33 H (7-18) mg/dL Creatinine 1.5 H (0.55-1.02) mg/dL Est Cr Clr Drug Dosing 24.08 mL/min Estimated GFR (MDRD) 34 L (>60) BUN/Creatinine Ratio 22.0 H (9-20) Glucose 199 H (80-116) mg/dL POC Glucose (80-116) mg/dL Calcium 7.7 L (8.6-10.2) mg/dL Marek Results Last 24 Hours: Microbiology 12/19/20 13:25 Aerobic Blood Culture - Preliminary Blood - Venous - Lab Draw NO GROWTH AFTER 1 DAY Anaerobic Blood Culture - Preliminary NO GROWTH AFTER 1 DAY 12/19/20 12:45 Aerobic Blood Culture - Preliminary Blood - Venous NO GROWTH AFTER 1 DAY Anaerobic Blood Culture - Preliminary NO GROWTH AFTER 1 DAY 12/19/20 13:05 Urine Culture - Preliminary Urine, Catheterized Gram Negative Rods Med Orders - Current: Current Medications Acetaminophen (Acetaminophen 500 Mg Tab) 500 mg PO Q4H PRN PRN Reason: Pain Albuterol (Albuterol 8 Gm Inhaler) 0 gm INH Q4H PRN PRN Reason: Dyspnea Last Admin: 12/20/20 12:38 Dose: 2 inh Documented by: Calcitriol (Calcitriol 0.25 Mcg Cap) 0.25 mcg PO MOWEFR [facility] Ceftriaxone Sodium (Ceftriaxone 1 Gm Vial) 1 gm IVPUSH Q24H [facility] Stop: 12/26/20 15:31 Dexamethasone (Dexamethasone 1 Mg Tab) 1 mg PO DAILY [facility] Last Admin: 12/21/20 08:52 Dose: 1 mg Documented by: Dextrose/Water (50% Dextrose In Water 50 Ml Syringe) 50 ml IVPUSH ASDIRECTED PRN PRN Reason: Hypoglycemia Fluoxetine HCl (Fluoxetine 20 Mg Cap) 40 mg PO DAILY [facility] Last Admin: 12/21/20 08:51 Dose: 40 mg Documented by: Furosemide (Furosemide 40 Mg/4 Ml Vial) 40 mg IVPUSH BIDDIURETIC [facility] Last Admin: 12/21/20 08:55 Dose: 40 mg Documented by: Gabapentin (Gabapentin 100 Mg Cap) 200 mg PO TID [facility] Last Admin: 12/21/20 08:51 Dose: 200 mg Documented by: Glucagon (Glucagon,Human Recombinant 1 Mg Vial) 1 mg IM ASDIRECTED PRN PRN Reason: Hypoglycemia Guaifenesin (Guaifenesin 600 Mg Tab.Er) 600 mg PO BID [facility] Last Admin: 12/21/20 08:52 Dose: 600 mg Documented by: Azithromycin 500 mg/ Sodium (Chloride) 250 mls @ 250 mls/hr IV Q24H [facility] Stop: 12/24/20 15:31 Last Admin: 12/20/20 16:14 Dose: 250 mls/hr Documented by: Insulin Glargine (Insulin Glargine,Human Rec. Analog 100 Units/Ml 3 Ml Pen) 6 units SUBCUT BEDTIME [facility] Last Admin: 12/20/20 21:26 Dose: 6 units Documented by: Insulin Human Lispro (Insulin Lispro 100 Unit/Ml 3 Ml Kwikpen) 5 unit SUBCUT 08,12 [facility] Last Admin: 12/21/20 08:58 Dose: Not Given Documented by: Mirabegron (Mirabegron 25 Mg Tab Extended Release) 50 mg PO WITHDINNER [facility] Last Admin: 12/20/20 17:39 Dose: 50 mg Documented by: Mometasone Furoate/Formoterol Fumar (Formoterol/Mometasone 100-5 Mcg 8.8 Gm Inhaler) 0 puff IH BID [facility] Last Admin: 12/21/20 08:46 Dose: 2 puff Documented by: Mycophenolate Mofetil (Mycophenolate Mofetil 250 Mg Cap) 500 mg PO BID [facility] Last Admin: 12/21/20 08:51 Dose: 500 mg Documented by: Iron,Carbonyl/Ascorbic Acid [ Vitron-C Tablet] Pt Own 1 tab PO BID [facility] Last Admin: 12/21/20 08:53 Dose: 1 tab Documented by: Macitentan [Opsumit] 10 Mg TabletPt Own 10 mg PO DAILY [facility] Last Admin: 12/21/20 08:54 Dose: 10 mg Documented by: Pantoprazole Sodium (Pantoprazole 40 Mg Tab.Cr) 40 mg PO 0600 [facility] Last Admin: 12/21/20 05:30 Dose: 40 mg Documented by: Sildenafil Citrate (Sildenafil 20 Mg Tab) 20 mg PO TID [facility] Last Admin: 12/21/20 08:46 Dose: 20 mg Documented by: Sodium Chloride (Sodium Chloride 0.9% 10 Ml Syringe) 10 ml FLUSH ASDIRECTED PRN PRN Reason: Keep Vein Open Last Admin: 12/20/20 17:35 Dose: 10 ml Documented by: Tacrolimus (Tacrolimus 0.5 Mg Cap) 0.5 mg PO BID [facility] Last Admin: 12/21/20 08:51 Dose: 0.5 mg Documented by: Trimethoprim (Trimethoprim 100 Mg Tab) 100 mg PO DAILY [facility] Last Admin: 12/21/20 08:51 Dose: 100 mg Documented by: Discontinued Medications Albuterol/Ipratropium (Albuterol/Ipratropium 3.0-0.5 Mg/3 Ml Neb Soln) 3 ml NEB ONETIME ONE Stop: 12/19/20 13:08 Last Admin: 12/19/20 13:23 Dose: 3 ml Documented by: Ceftriaxone Sodium (Ceftriaxone 1 Gm Vial) 1 gm IVPUSH ONETIME ONE Stop: 12/19/20 15:41 Last Admin: 12/19/20 15:33 Dose: 1 gm Documented by: Furosemide (Furosemide 40 Mg/4 Ml Vial) 40 mg IVPUSH NOW ONE Stop: 12/19/20 13:08 Last Admin: 12/19/20 13:23 Dose: 40 mg Documented by: Furosemide (Furosemide 40 Mg/4 Ml Vial) 40 mg IVPUSH ONETIME ONE Stop: 12/20/20 18:01 Last Admin: 12/20/20 17:39 Dose: 40 mg Documented by: Gabapentin (Gabapentin 300 Mg Cap) 600 mg PO TID [facility] Azithromycin 500 mg/ Sodium (Chloride) 250 mls @ 250 mls/hr IV ONETIME ONE Stop: 12/19/20 16:26 Last Admin: 12/19/20 16:47 Dose: 250 mls/hr Documented by: Ceftriaxone Sodium 1 gm/ (Sodium Chloride) 50 mls @ 200 mls/hr IV Q24H [facility] Stop: 12/26/20 15:31 Last Admin: 12/20/20 15:41 Dose: 200 mls/hr Documented by: Insulin Human Lispro (Insulin Lispro 100 Unit/Ml 3 Ml Kwikpen) 5 unit SUBCUT 08,12 [facility] Last Admin: 12/21/20 08:46 Dose: 5 unit Documented by: Mometasone Furoate/Formoterol Fumar (Formoterol/Mometasone 100-5 Mcg 8.8 Gm Inhaler) 0 puff IH BID [facility] Last Admin: 12/20/20 21:08 Dose: 2 inh Documented by: Pantoprazole Sodium (Pantoprazole 40 Mg Tab.Cr) 40 mg PO ACBREAKFAST [facility] Last Admin: 12/20/20 06:31 Dose: Not Given Documented by: Pantoprazole Sodium (Pantoprazole 40 Mg Tab.Cr) Confirm Administered Dose 40 mg .ROUTE .STK-MED ONE Stop: 12/20/20 00:50 Last Admin: 12/20/20 06:14 Dose: Not Given Documented by: - Exam Quality Assessment: Supplemental Oxygen (at 6L) Urinary Catheter Total Time: 1Days 7Hours General: Alert, Oriented, Cooperative Lungs: Clear to Auscultation (BUL), Normal Respiratory Effort, Crackles (Bibasilar, RML improved). No: Wheezing Cardiovascular: Regular Rate, Regular Rhythm GI/Abdominal Exam: Normal Bowel Sounds, Soft, Non-Tender, No Distention Extremities: Pedal Edema (2+ pitting edema BLE) Peripheral Pulses: 2+: Radial (L), Radial (R) Skin: Ecchymosis (scattered throughout) - Patient Data Lab Results Last 24 hrs: Laboratory Results - last 24 hr 12/20/20 12/20/20 12/20/20 Range/Units 12:26 17:44 21:24 WBC (3.0-10.3) x10-3/uL RBC (3.60-5.20) x10(6)uL Hgb (11.4-15.5) g/dL Hct (34.2-48.2) % MCV (76.7-100.5) fL MCH (23.9-33.9) pg MCHC (31.9-34.8) g/dL RDW (12.3-16.5) % Plt Count (151-488) x10(3)uL MPV (7.1-12.4) fL Add Manual Diff Neutrophils % (Manual) (46-82) % Lymphocytes % (Manual) (13-37) % Monocytes % (Manual) (4-12) % Sodium (135-145) mmol/L Potassium (3.5-5.3) mmol/L Chloride (100-110) mmol/L Carbon Dioxide (21-32) mmol/L BUN (7-18) mg/dL Creatinine (0.55-1.02) mg/dL Est Cr Clr Drug Dosing mL/min Estimated GFR (MDRD) (>60) BUN/Creatinine Ratio (9-20) Glucose (80-116) mg/dL POC Glucose 174 H 161 H 220 H (80-116) mg/dL Calcium (8.6-10.2) mg/dL 12/21/20 12/21/20 Range/Units 06:35 06:35 WBC 6.6 (3.0-10.3) x10-3/uL RBC 3.31 L (3.60-5.20) x10(6)uL Hgb 9.6 L (11.4-15.5) g/dL Hct 30.6 L (34.2-48.2) % MCV 92.5 (76.7-100.5) fL MCH 29.0 (23.9-33.9) pg MCHC 31.3 L (31.9-34.8) g/dL RDW 18.3 H (12.3-16.5) % Plt Count 397 (151-488) x10(3)uL MPV 6.9 L (7.1-12.4) fL Add Manual Diff Yes Neutrophils % (Manual) 74 (46-82) % Lymphocytes % (Manual) 21 (13-37) % Monocytes % (Manual) 5 (4-12) % Sodium 140 (135-145) mmol/L Potassium 4.2 (3.5-5.3) mmol/L Chloride 108 (100-110) mmol/L Carbon Dioxide 23 (21-32) mmol/L BUN 33 H (7-18) mg/dL Creatinine 1.5 H (0.55-1.02) mg/dL Est Cr Clr Drug Dosing 24.08 mL/min Estimated GFR (MDRD) 34 L (>60) BUN/Creatinine Ratio 22.0 H (9-20) Glucose 199 H (80-116) mg/dL POC Glucose (80-116) mg/dL Calcium 7.7 L (8.6-10.2) mg/dL Result Diagrams: 12/21/20 06:35 12/21/20 06:35 Marek Results Last 24 hrs: Microbiology 12/19/20 13:25 Aerobic Blood Culture - Preliminary Blood - Venous - Lab Draw NO GROWTH AFTER 1 DAY Anaerobic Blood Culture - Preliminary NO GROWTH AFTER 1 DAY 12/19/20 12:45 Aerobic Blood Culture - Preliminary Blood - Venous NO GROWTH AFTER 1 DAY Anaerobic Blood Culture - Preliminary NO GROWTH AFTER 1 DAY 12/19/20 13:05 Urine Culture - Preliminary Urine, Catheterized Gram Negative Rods Sepsis Event Note - Evaluation Sepsis Screening Result: Possible Sepsis Risk - Focused Exam Vital Signs: Vital Signs Temp Pulse Resp BP Pulse Ox 12/21/20 04:00 97.4 F 94 20 115/58 L 89 L 12/21/20 00:00 98.1 F 96 20 118/54 L 89 L - Problem List & Annotations (1) CHF (congestive heart failure) SNOMED Code(s): 10169624 Code(s): I50.9 - HEART FAILURE, UNSPECIFIED Status: Chronic Current Visit: Yes Qualifiers: Heart failure chronicity: acute on chronic (2) Pneumonia SNOMED Code(s): 912340284 Code(s): J18.9 - PNEUMONIA, UNSPECIFIED ORGANISM Status: Acute Current Visit: No Qualifiers: Pneumonia type: due to unspecified organism Laterality: unspecified laterality Lung location: unspecified part of lung Qualified Code(s): J18.9 - Pneumonia, unspecified organism Annotation/Comment:: Suspected as can not be ruled out with her chronic fibrosis/CHF, official report pending. She feels she is back at her baseline so Leukocytosis could be from UTI and not pneumonia. If ruled out once we get Radiology report, will discontinue azithromycin and treat UTI based on Sensitivities. (3) UTI (urinary tract infection) SNOMED Code(s): 73071910 Code(s): N39.0 - URINARY TRACT INFECTION, SITE NOT SPECIFIED Status: Acute Current Visit: No Qualifiers: Urinary tract infection type: acute cystitis Hematuria presence: without hematuria Qualified Code(s): N30.00 - Acute cystitis without hematuria Annotation/Comment:: UA was borderline but UC growing >100,000 Gram negative ro ds. On Rocephin, will adjust once sensitivites are back. (4) COPD (chronic obstructive pulmonary disease) SNOMED Code(s): 09650177 Code(s): J44.9 - CHRONIC OBSTRUCTIVE PULMONARY DISEASE, UNSPECIFIED Status: Chronic Current Visit: No Annotation/Comment:: on 5L continuous oxygen by pr. (5) Pulmonary fibrosis SNOMED Code(s): 51798122 Code(s): J84.10 - PULMONARY FIBROSIS, UNSPECIFIED Status: Chronic Current Visit: No Annotation/Comment:: severe (6) Pulmonary hypertension SNOMED Code(s): 70852110 Code(s): I27.20 - PULMONARY HYPERTENSION, UNSPECIFIED Status: Chronic Current Visit: No (7) Diabetes SNOMED Code(s): 29294573 Code(s): E11.9 - TYPE 2 DIABETES MELLITUS WITHOUT COMPLICATIONS Status: Chronic Current Visit: No (8) History of liver transplant SNOMED Code(s): 078299018 Code(s): Z94.4 - LIVER TRANSPLANT STATUS Status: Chronic Current Visit: No Onset Date: ~2010 (9) Immunocompromised patient SNOMED Code(s): 041897695 Code(s): D84.9 - IMMUNODEFICIENCY, UNSPECIFIED Status: Chronic Current Visit: No (10) Chronic kidney disease SNOMED Code(s): 456330939 Code(s): N18.9 - CHRONIC KIDNEY DISEASE, UNSPECIFIED Status: Acute Current Visit: Yes Qualifiers: Chronic kidney disease stage 3 subtype: stage 3b (GFR 30-44) - Problem List Review Problem List Initiated/Reviewed/Updated: Yes - My Orders Last 24 Hours: My Active Orders 12/20/20 14:00 Furosemide [Lasix] 40 mg IVPUSH BIDDIURETIC 12/20/20 15:30 Azithromycin [Zithromax] 500 mg Sodium Chloride 0.9% [Normal Saline (AdvBag)] 250 ml IV Q24H 12/21/20 05:40 CULTURE SPUTUM + SMEAR [RM] Routine 12/21/20 06:00 Pantoprazole [ProTONIX] 40 mg PO 0612/21/20 07:00 OT Evaluation and Treatment [CONS] Routine PT Evaluation and Treatment [CONS] Routine 12/21/20 08:00 Insulin Lispro [HumaLOG] 5 unit SUBCUT 12/21/20 08:14 Mometasone/Formoterol [Dulera 100-5 MCG] 0 puff IH BID 12/21/20 15:30 cefTRIAXone [Rocephin] 1 gm IVPUSH Q24H 12/21/20 15:51 calcitrioL [Rocaltrol] 0.25 mcg PO MOWEFR 12/22/20 06:00 BASIC METABOLIC PANEL,BMP [CHEM] Routine CBC WITH AUTO DIFF [HEME] Routine - Plan Plan:: 1. CHF: Lasix 40 mg IV bid, Daily weight, Monroe for strict I&Os if possible to switch to external catheter would be preferred, bedside commode(normally uses wheelchair and pivot transfers at home). Repeat BMP tomorrow. 2. Pneumonia/UTI: WBC 6.6, BC no growth, UC Klebsiella oxytoca, sensitive to Rocephin. Azithromycin/Rocephin q24h day 3. Adjust treatments as needed. She feels her breathing is back to baseline. CXR official report pending, with positive UC and such quick improvement with her breathing with Lasix, PNA is less likely though hard to rule out with her underlying chronic lung issues on C XR. Sputum culture pending. 3. Weakness: required 2 person assist with pivot transfers yesterday, ordered consults for both PT/OT. 4. Discharge planning: anticipate another 48 hr of IV antibiotics/diuretics, may need swing bed placement depending on PT/OT evaluation as her her is her primary caregiver she would have to improve from 2 person assist to go back home.
--- NOTE | 2020-12-21 12:37 | CR ---
INDICATION: Short of breath. CHEST, ONE VIEW: Portable AP upright view of the chest 12/19/20 was compared with 12/11/20 and 03/14/20. There is increasing infiltration in the right mid lung field and continued infiltration at the lung bases bilaterally. There is an appearance suggesting mass density perihilar and infrahilar on the right. The heart did not appear enlarged. The aorta is tortuous with calcification in the arch. Overlying EKG leads are noted. Findings suggesting COPD are noted. Exogenous obesity is noted. IMPRESSION: 1. Increasing infiltration in the right mid lung field with basilar infiltrate bilaterally, right slightly greater than left. The findings may be on the basis of pneumonia superimposed on fibrosis and should be correlated clinically. 2. There is a masslike area of increased density infrahilar on the right which is unchanged from 03/14/20. This may simply be on the basis of very prominent vasculature in that area. 3. ASD aorta. 4. Probable COPD. 5. Exogenous obesity. MTDD
[2020-12-21] MEDS: Sodium Chloride 0.9% 10 ML Syringe FLUSH PRN ×2 (14:08→15:10)
[2020-12-21] MEDS: Azithromycin 500 MG in Sodium Chloride 0.9% 250 ML IV SCH (15:20)
[2020-12-21] MEDS ORDERED: cefTRIAXone 1 GM Vial IVPUSH SCH (15:30)
[2020-12-21] MEDS ORDERED: Calcitriol 0.25 MCG Cap PO SCH (15:51)
[2020-12-21] MEDS: Mirabegron 25 MG Tab Extended Release PO SCH (18:17)
[2020-12-21] MEDS: Insulin Glargine,Human Rec. Analog 100 Units/ML 3 ML Pen SUBCUT SCH (21:26)
[2020-12-22] MEDS: Pantoprazole 40 MG Tab.CR PO SCH (05:58)
[2020-12-22] MEDS: Insulin Lispro 100 Unit/ML 3 ML KwikPen SUBCUT SCH ×2 (08:03→11:55)
[2020-12-22] MEDS: Furosemide 40 MG/4 ML VIAL IVPUSH SCH ×2 (08:05→13:52)
[2020-12-22] MEDS: Sodium Chloride 0.9% 10 ML Syringe FLUSH PRN ×2 (08:09→13:56)
[2020-12-22] MEDS: Gabapentin 100 MG Cap PO SCH ×3 (08:12→13:57)
[2020-12-22] MEDS: Tacrolimus 0.5 MG Cap PO SCH (08:13)
[2020-12-22] MEDS: Mycophenolate Mofetil 250 MG Cap PO SCH (08:13)
[2020-12-22] MEDS: Formoterol/Mometasone 100-5 MCG 8.8 GM Inhaler IH SCH (08:13)
[2020-12-22] MEDS: guaiFENesin 600 MG Tab.ER PO SCH (08:13)
[2020-12-22] MEDS: FLUoxetine 20 MG Cap PO SCH (08:14)
[2020-12-22] MEDS: ASCORBIC ACID PO SCH (08:14)
[2020-12-22] MEDS: Sildenafil 20 MG Tab PO SCH ×2 (08:14→13:57)
[2020-12-22] MEDS: IRON CARBONYL PO SCH (08:14)
[2020-12-22] MEDS: MACITENTAN 10 MG PO SCH (08:15)
--- NOTE | 2020-12-22 13:39 | PCM.DCSUM1 ---
Discharge Summary - Hospital Course HPI Initial Comments: Karol started having more shortness of breath this morning, has been more fatigued since Monday. Has been having loose stools 1 per day for the past 3 weeks, no change in diet or medications. She has history of CHF, DM, pulmonary fibrosis, pulmonary hypertension, COPD on 5L continuous, liver transplant on immunosuppressants, also chronic steroid use with Dexamethasone 1 mg daily. Denies fever, cough but was cold this morning. Her who is her primary caregiver stated when she gets cold he usually turns up her oxygen and that resolves it. She had an emesis this morning. According to her pt has not been taking her diuretics as the have been making her void frequently. She denies sore throat, swollen glands, dysuria, frequency(except with diuretic) or blood. Her stated it is more concentrated in the morning which is not unusual. She went off her gluten free diet a few years ago and didn't notice increased diarrhea. With Dr Cox retiring, they are switching care to Dr Dyson but have not met with him yet. In ER, received Lasix 40 mg IV x 1, DuoNebs x 1, oxygen came up to 88-90% on 6L. Her WBC was 15.6, 74% neutrophils; CXR showed pulmonary edema, chronic pulmonary fibrosis but pneumonia could not be excluded. Cr 1.6. BNP 2294. Troponin 79.5. Covid/influenza negative. UA showed small bilirubin, 1 urobilinogen, RBC 0-5, WBC 5-10, Occasional epithelials and many bacteria, urine culture ordered, asymptomatic. Diagnosis: Stroke: No - Discharge Data Discharge Date: 12/22/20 (swing bed) Discharge Disposition: DC/Tfer W/I Hosp To [place] [id number] Condition: Stable - Referral to Home Health Primary Care Physician: Shubham Cox MD - Discharge Diagnosis/Problem(s) (1) CHF (congestive heart failure) SNOMED Code(s): 34701106 ICD Code: I50.9 - HEART FAILURE, UNSPECIFIED Status: Chronic Current Visit: Yes Qualifiers: Heart failure chronicity: acute on chronic (2) Pneumonia SNOMED Code(s): 016160471 ICD Code: J18.9 - PNEUMONIA, UNSPECIFIED ORGANISM Status: Acute Current Visit: No Problem Details: Suspected as can not be ruled out with her chronic fibrosis/CHF, official report pending. She feels she is back at her baseline so Leukocytosis could be from UTI and not pneumonia. If ruled out once we get Radiology report, will discontinue azithromycin and treat UTI based on Sensitivities. Qualifiers: Pneumonia type: due to unspecified organism Laterality: unspecified laterality Lung location: unspecified part of lung Qualified Code(s): J18.9 - Pneumonia, unspecified organism (3) Weakness generalized SNOMED Code(s): 24706748 ICD Code: R53.1 - WEAKNESS Status: Acute Current Visit: Yes (4) UTI (urinary tract infection) SNOMED Code(s): 50240422 ICD Code: N39.0 - URINARY TRACT INFECTION, SITE NOT SPECIFIED Status: Acute Current Visit: No Problem Details: UA was borderline but UC growing >100,000 Gram negative rods. On Rocephin, will adjust once sensitivites are back. Qualifiers: Urinary tract infection type: acute cystitis Hematuria presence: without hematuria Qualified Code(s): N30.00 - Acute cystitis without hematuria (5) COPD (chronic obstructive pulmonary disease) SNOMED Code(s): 79969210 ICD Code: J44.9 - CHRONIC OBSTRUCTIVE PULMONARY DISEASE, UNSPECIFIED Status: Chronic Current Visit: No Problem Details: on 5L continuous oxygen by nm. (6) Pulmonary fibrosis SNOMED Code(s): 88569397 ICD Code: J84.10 - PULMONARY FIBROSIS, UNSPECIFIED Status: Chronic Current Visit: No Problem Details: severe (7) Pulmonary hypertension SNOMED Code(s): 71500031 ICD Code: I27.20 - PULMONARY HYPERTENSION, UNSPECIFIED Status: Chronic Current Visit: No (8) Diabetes SNOMED Code(s): 94615745 ICD Code: E11.9 - TYPE 2 DIABETES MELLITUS WITHOUT COMPLICATIONS Status: Chronic Current Visit: No (9) History of liver transplant SNOMED Code(s): 605746993 ICD Code: Z94.4 - LIVER TRANSPLANT STATUS Status: Chronic Current Visit: No Onset Date: ~2010 (10) Immunocompromised patient SNOMED Code(s): 548935257 ICD Code: D84.9 - IMMUNODEFICIENCY, UNSPECIFIED Status: Chronic Current Visit: No (11) Chronic kidney disease SNOMED Code(s): 870217219 ICD Code: N18.9 - CHRONIC KIDNEY DISEASE, UNSPECIFIED Status: Acute Current Visit: Yes Qualifiers: Chronic kidney disease stage 3 subtype: stage 3b (GFR 30-44) - Patient Summary/Data Consults: Consultations 12/21/20 07:00 OT Evaluation and Treatment [CONS] Routine Please Evaluate and Treat. OT Reason for Consult: ADL's Special Instructions: weakness This query below is only for informational purposes and is not editable. Admission Diagnosis/Problem: CHF, Congestive heart failure PT Evaluation and Treatment [CONS] Routine Please Evaluate and Treat. PT Reason for Consult: Ambulation Special Instructions: Weakness This query below is only for informational purposes and is not editable. Admission Diagnosis/Problem: CHF, Congestive heart failure Hospital Course: Admit with pneumonia, UTI, and CHF, received Lasix 40 mg IV bid and she had 2775 ml out of [place] since admission, weight went down to 157 from 159 then stabilized. proBNP was 2294. CXR showed pneumonia superimposed on pulmonary fibrosis, COPD. Received Rocephin & Azithromycin IV in ER and continued on the floor she has had 3 doses of both total to date. Her WBC went from 15.6 to 10.0 to 7.8 today. She has chronic pulmonary fibrosis, pulmonary hypertension and COPD, on oxygen at home at 5L, she was requiring 6 L on admission, on transfer to swing bed she was back to home 5L. Hgb 11.1 on admission and 10.1 today. Cr was 1.6 on admission, went to 1.4 and now at 1.5. Her BUN/Cr ratio was at 20.0 and now 21.1 so maintaining her hydration. Her urine culture grew Klebsiella oxytoca, sensitive to Rocephin. Sputum culture was sent to [facility] but sample was rejected due to too many epithelials cells consistent with spit not sputum. Blood cultures have had no growth to date. She was requiring 2 person assist with transfers, she is a 1 person assist at home, PT/OT assessed her felt she needed swing bed placement to get her stronger so she can go home. She did not want to do that but her did not feel he could take her home so she will be transferred to swing bed today on oral antibiotics, oral diuretics and continued PT/OT. - Patient Instructions Diet: Regular Diet as Tolerated Activity: As Tolerated Driving: Do Not Drive Showering/Bathing: May Shower Notify Provider of: Fever, Increased Pain, Nausea and/or Vomiting Other[facility] *PRESCRIPTION DRUG MONITORING PROGRAM REVIEWED*: Not Applicable *COPY OF PRESCRIPTION DRUG MONITORING REPORT IN PATIENT [place]: Not Applicable Home Medications: Home Meds Acetaminophen [Tylenol Extra Strength] 500 mg PO Q4H PRN 12/26/18 [History] Albuterol [Ventolin HFA] 2 puff INH Q4H PRN 12/26/18 [History] Cholecalciferol (Vitamin D3) [Vitamin D3] 1,000 unit PO DAILY 12/26/18 [History] Cyanocobalamin (Vitamin B-12) [Vitamin B-12] 1,000 mcg PO DAILY 12/26/18 [History] Ethacrynic Acid 25 mg PO ASDIRECTED 12/26/18 [History] FLUoxetine HCl [Fluoxetine HCl] 40 mg PO DAILY 12/26/18 [History] Lutein 20 mg PO DAILY 12/26/18 [History] Macitentan [Opsumit] 10 mg PO DAILY 12/26/18 [History] Mirabegron [Myrbetriq] 50 mg PO WITHDINNER 12/26/18 [History] Omeprazole 20 mg PO DAILY@0600 12/26/18 [History] Sildenafil Citrate 20 mg PO TID 12/26/18 [History] Tacrolimus [Prograf] 0.5 mg PO BID 12/26/18 [History] mycophenolate mofetiL [Cellcept] 500 mg PO BID 12/26/18 [History] Iron,Carbonyl/Ascorbic Acid [Vitron-C Tablet] 1 tab PO BID 04/25/19 [History] Fluticasone/Vilanterol [Breo Ellipta 100-25 MCG Inhalation Kit] 1 puff INH DAILY 10/12/20 [History] Insulin Aspart [NovoLOG] 5 units SQ ,12 10/12/20 [History] Insulin Glarg,Human.Rec.Analog [Lantus Solostar] 6 unit SQ BEDTIME 10/12/20 [History] Trimethoprim 100 mg PO DAILY 10/12/20 [History] calcitrioL [Calcitriol] 0.25 mcg PO MOWEFR 10/12/20 [History] dexAMETHasone [Dexamethasone] 1 mg PO DAILY 10/12/20 [History] Betamethasone Valerate [Valisone 0.1% Lotion] 60 ml TP ASDIRECTED 12/19/20 [ History] Ketoconazole [Nizoral 2% Shampoo] 120 ml .XX ASDIRECTED 12/19/20 [History] Gabapentin [Neurontin] 200 mg PO TID cap 12/22/20 [Rx] guaiFENesin [Mucinex] 600 mg PO BID tab.er 12/22/20 [Rx] Oxygen Therapy Mode: Room Air Maintain SPO2% less than: 92 Maintain SpO2% greater than: 88 Forms: ED Department Discharge Referrals: Shubham Cox MD [Primary Care Provider] - - Discharge Summary/Plan Comment DC Time >30 min.: Yes Total # of Minutes for Discharge Time: 30 min - General Info Date of Service: 12/22/20 Subjective Update: Her breathing she feels is at her baseline, at 5L. Weight is stable at 157 lbs which she also feels is her baseline. She has tolerated the Lasix IV without issue, no signs of rash. Does have sulfa allergy. She still is requiring 2 person assist for transfers PT/OT recommended swing bed placement since Karol and her wish for her to go back home. He is her only caregiver and she needs to be a 1 person assist to go home, will place in swing bed for continued therapy. - Patient Data Vitals - Most Recent: Last Vital Signs Temp 97.8 F 12/22/20 08:00 Pulse 96 12/22/20 08:00 Resp 18 12/22/20 08:00 BP 117/68 12/22/20 08:00 Pulse Ox 96 12/22/20 08:00 Weight - Most Recent: 157 lb 7 oz I&O - Last 24 hours: Intake & Output 12/21/20 12/22/20 12/22/20 22:59 06:59 14:59 Intake Total 300 Output Total 550 250 Balance -250 -250 Lab Results - Last 24 hrs: Laboratory Results - last 24 hr 12/22/20 12/22/20 Range/Units 06:25 06:25 WBC 7.8 (3.0-10.3) x10-3/uL RBC 3.51 L (3.60-5.20) x10(6)uL Hgb 10.1 L (11.4-15.5) g/dL Hct 32.2 L (34.2-48.2) % MCV 91.8 (76.7-100.5) fL MCH 28.6 (23.9-33.9) pg MCHC 31.2 L (31.9-34.8) g/dL RDW 17.7 H (12.3-16.5) % Plt Count 437 (151-488) x10(3)uL MPV 6.8 L (7.1-12.4) fL Neut % (Auto) 68.7 (30.8-76.2) % Lymph % (Auto) 23.4 (18.4-52.1) % [place] % (Auto) 7.0 (4.4-15.7) % Eos % (Auto) 0.6 (0.6-8.1) % Baso % (Auto) 0.3 (0.2-1.5) % Neut # (Auto) 5.3 (1.5-6.3) x10-3/uL Lymph # (Auto) 1.8 (1.0-4.4) x10-3/uL [place] # (Auto) 0.5 (0.3-1.0) x10-3/uL Eos # (Auto) 0.0 (0.0-0.8) x10-3/uL Baso # (Auto) 0.0 (0.0-0.1) x10-3/uL Sodium 140 (135-145) mmol/L Potassium 4.1 (3.5-5.3) mmol/L Chloride 106 (100-110) mmol/L Carbon Dioxide 24 (21-32) mmol/L BUN 32 H (7-18) mg/dL Creatinine 1.5 H (0.55-1.02) mg/dL Est Cr Clr Drug Dosing 24.08 mL/min Estimated GFR (MDRD) 34 L (>60) BUN/Creatinine Ratio 21.3 H (9-20) Glucose 208 H (80-116) mg/dL Calcium 7.7 L (8.6-10.2) mg/dL JEANNINE Results - Last 24 hrs: Microbiology 12/19/20 12:45 Aerobic Blood Culture - Preliminary Blood - Venous NO GROWTH AFTER 3 DAYS Anaerobic Blood Culture - Preliminary NO GROWTH AFTER 3 DAYS 12/21/20 05:40 Gram Stain - Final Sputum, Induced Testing performed by: [address] [address] SEE SEPARATE/SCANNED REPORT 12/19/20 13:25 Aerobic Blood Culture - Preliminary Blood - Venous - Lab Draw NO GROWTH AFTER 2 DAYS Anaerobic Blood Culture - Preliminary NO GROWTH AFTER 2 DAYS 12/19/20 13:05 Urine Culture - Final Urine, Catheterized Klebsiella Oxytoca Med Orders - Current: Current Medications Acetaminophen (Acetaminophen 500 Mg Tab) 500 mg PO Q4H PRN PRN Reason: Pain Last Admin: 12/21/20 18:17 Dose: 500 mg Documented by: Albuterol (Albuterol 8 Gm Inhaler) 0 gm INH Q4H PRN PRN Reason: Dyspnea Last Admin: 12/20/20 12:38 Dose: 2 inh Documented by: Calcitriol (Calcitriol 0.25 Mcg Cap) 0.25 mcg PO MOWEFR [facility] Last Admin: 12/21/20 15:22 Dose: 0.25 mcg Documented by: Ceftriaxone Sodium (Ceftriaxone 1 Gm Vial) 1 gm IVPUSH Q24H [facility] Stop: 12/26/20 15:31 Last Admin: 12/21/20 15:09 Dose: 1 gm Documented by: Dexamethasone (Dexamethasone 1 Mg Tab) 1 mg PO DAILY [facility] Last Admin: 12/22/20 08:13 Dose: 1 mg Documented by: Dextrose/Water (50% Dextrose In Water 50 Ml Syringe) 50 ml IVPUSH ASDIRECTED PRN PRN Reason: Hypoglycemia Fluoxetine HCl (Fluoxetine 20 Mg Cap) 40 mg PO DAILY [facility] Last Admin: 12/22/20 08:14 Dose: 40 mg Documented by: Furosemide (Furosemide 40 Mg/4 Ml Vial) 40 mg IVPUSH BIDDIURETIC [facility] Last Admin: 12/22/20 08:05 Dose: 40 mg Documented by: Gabapentin (Gabapentin 100 Mg Cap) 200 mg PO TID [facility] Last Admin: 12/22/20 08:12 Dose: 200 mg Documented by: Glucagon (Glucagon,Human Recombinant 1 Mg Vial) 1 mg IM ASDIRECTED PRN PRN Reason: Hypoglycemia Guaifenesin (Guaifenesin 600 Mg Tab.Er) 600 mg PO BID [facility] Last Admin: 12/22/20 08:13 Dose: 600 mg Documented by: Azithromycin 500 mg/ Sodium (Chloride) 250 mls @ 250 mls/hr IV Q24H [facility] Stop: 12/24/20 15:31 Last Admin: 12/21/20 15:20 Dose: 250 mls/hr Documented by: Insulin Glargine (Insulin Glargine,Human Rec. Analog 100 Units/Ml 3 Ml Pen) 6 units SUBCUT BEDTIME [facility] Last Admin: 12/21/20 21:26 Dose: 6 units Documented by: Insulin Human Lispro (Insulin Lispro 100 Unit/Ml 3 Ml Kwikpen) 5 unit SUBCUT 08,12 [facility] Last Admin: 12/22/20 11:55 Dose: 5 unit Documented by: Mirabegron (Mirabegron 25 Mg Tab Extended Release) 50 mg PO WITHDINNER [facility] Last Admin: 12/21/20 18:17 Dose: 50 mg Documented by: Mometasone Furoate/Formoterol Fumar (Formoterol/Mometasone 100-5 Mcg 8.8 Gm Inhaler) 0 puff IH BID [facility] Last Admin: 12/22/20 08:13 Dose: 2 puff Documented by: Mycophenolate Mofetil (Mycophenolate Mofetil 250 Mg Cap) 500 mg PO BID [facility] Last Admin: 12/22/20 08:13 Dose: 500 mg Documented by: Iron,Carbonyl/Ascorbic Acid [ Vitron-C Tablet] Pt Own 1 tab PO BID [facility] Last Admin: 12/22/20 08:14 Dose: 1 tab Documented by: Macitentan [Opsumit] 10 Mg TabletPt Own 10 mg PO DAILY [facility] Last Admin: 12/22/20 08:15 Dose: 10 mg Documented by: Pantoprazole Sodium (Pantoprazole 40 Mg Tab.Cr) 40 mg PO 0600 [facility] Last Admin: 12/22/20 05:58 Dose: 40 mg Documented by: Sildenafil Citrate (Sildenafil 20 Mg Tab) 20 mg PO TID [facility] Last Admin: 12/22/20 08:14 Dose: 20 mg Documented by: Sodium Chloride (Sodium Chloride 0.9% 10 Ml Syringe) 10 ml FLUSH ASDIRECTED PRN PRN Reason: Keep Vein Open Last Admin: 12/22/20 08:09 Dose: 10 ml Documented by: Tacrolimus (Tacrolimus 0.5 Mg Cap) 0.5 mg PO BID [facility] Last Admin: 12/22/20 08:13 Dose: 0.5 mg Documented by: Trimethoprim (Trimethoprim 100 Mg Tab) 100 mg PO DAILY [facility] Last Admin: 12/22/20 08:13 Dose: 100 mg Documented by: Discontinued Medications Albuterol/Ipratropium (Albuterol/Ipratropium 3.0-0.5 Mg/3 Ml Neb Soln) 3 ml NEB ONETIME ONE Stop: 12/19/20 13:08 Last Admin: 12/19/20 13:23 Dose: 3 ml Documented by: Ceftriaxone Sodium (Ceftriaxone 1 Gm Vial) 1 gm IVPUSH ONETIME ONE Stop: 12/19/20 15:41 Last Admin: 12/19/20 15:33 Dose: 1 gm Documented by: Furosemide (Furosemide 40 Mg/4 Ml Vial) 40 mg IVPUSH NOW ONE Stop: 12/19/20 13:08 Last Admin: 12/19/20 13:23 Dose: 40 mg Documented by: Furosemide (Furosemide 40 Mg/4 Ml Vial) 40 mg IVPUSH ONETIME ONE Stop: 12/20/20 18:01 Last Admin: 12/20/20 17:39 Dose: 40 mg Documented by: Gabapentin (Gabapentin 300 Mg Cap) 600 mg PO TID [facility] Azithromycin 500 mg/ Sodium (Chloride) 250 mls @ 250 mls/hr IV ONETIME ONE Stop: 12/19/20 16:26 Last Admin: 12/19/20 16:47 Dose: 250 mls/hr Documented by: Ceftriaxone Sodium 1 gm/ (Sodium Chloride) 50 mls @ 200 mls/hr IV Q24H [facility] Stop: 12/26/20 15:31 Last Admin: 12/20/20 15:41 Dose: 200 mls/hr Documented by: Insulin Human Lispro (Insulin Lispro 100 Unit/Ml 3 Ml Kwikpen) 5 unit SUBCUT ,12 [facility] Last Admin: 12/21/20 08:46 Dose: 5 unit Documented by: Mometasone Furoate/Formoterol Fumar (Formoterol/Mometasone 100-5 Mcg 8.8 Gm Inhaler) 0 puff IH BID [facility] Last Admin: 12/20/20 21:08 Dose: 2 inh Documented by: Pantoprazole Sodium (Pantoprazole 40 Mg Tab.Cr) 40 mg PO ACBREAKFAST [facility] Last Admin: 12/20/20 06:31 Dose: Not Given Documented by: Pantoprazole Sodium (Pantoprazole 40 Mg Tab.Cr) Confirm Administered Dose 40 mg .ROUTE .STK-MED ONE Stop: 12/20/20 00:50 Last Admin: 12/20/20 06:14 Dose: Not Given Documented by: - Exam Quality Assessment: Reports: Supplemental Oxygen (5L) General: Reports: Alert, Oriented, Cooperative, No Acute Distress Lungs: Reports: Clear to Auscultation, Normal Respiratory Effort, Decreased Breath Sounds (bibasilar), Crackles (occasional). Denies: Wheezing Cardiovascular: Reports: Regular Rate, Regular Rhythm GI/Abdominal Exam: Normal Bowel Sounds, Soft, Non-Tender, No Distention (Female) Exam: Deferred Rectal (Female) Exam: Deferred Extremities: Pedal Edema (2+ BLE to knees) Skin: Reports: Ecchymosis (throughout) *Q Meaningful Use (DIS) - VTE *Q VTE Mechanical Contraindications *Q: At Risk for Falls
== END 2020-12-22 14:23 | disposition swing bed (61) | DRG 291 ==
LOC: FB.ED 12:32 → FB.MS 15:01
PROVIDERS: ADMIT Family Medicine; ATTEND Family Medicine
DX: I13.0 Hypertensive heart and chronic kidney disease with heart failure and stage 1 through stage 4 chronic kidney disease, or unspecified chronic kidney disease (principal); J18.9 Pneumonia, unspecified organism; N18.9 Chronic kidney disease, unspecified; N30.00 Acute cystitis without hematuria; Z94.4 Liver transplant status; D84.9 Immunodeficiency, unspecified; I50.9 Heart failure, unspecified; J44.9 Chronic obstructive pulmonary disease, unspecified; J84.10 Pulmonary fibrosis, unspecified; I27.20 Pulmonary hypertension, unspecified; N18.32 Chronic kidney disease, stage 3b; Z79.899 Other long term (current) drug therapy; E53.8 Deficiency of other specified B group vitamins; E11.22 Type 2 diabetes mellitus with diabetic chronic kidney disease; Z99.81 Dependence on supplemental oxygen; Z88.2 Allergy status to sulfonamides; Z88.8 Allergy status to other drugs, medicaments and biological substances; Z88.1 Allergy status to other antibiotic agents; Z91.041 Radiographic dye allergy status; Z79.4 Long term (current) use of insulin; E78.00 Pure hypercholesterolemia, unspecified; K59.09 Other constipation; K21.9 Gastro-esophageal reflux disease without esophagitis; M79.7 Fibromyalgia; G43.909 Migraine, unspecified, not intractable, without status migrainosus; F32.9 Major depressive disorder, single episode, unspecified; Z85.828 Personal history of other malignant neoplasm of skin; Z98.41 Cataract extraction status, right eye; Z98.42 Cataract extraction status, left eye; Z90.49 Acquired absence of other specified parts of digestive tract; Z90.710 Acquired absence of both cervix and uterus; Z20.822 Contact with and (suspected) exposure to COVID-19
CPT/HCPCS: 36415; 71045; 80053; 81001; 83880; 84484; 85025; 87040 ×2; 87086; 87088; 87186; 94640; 96374; 99285; J1940; U0002; 51702; 80048; 82947; 87070; 87205; 94150; 97161-GP; 97165-GO; 97530-GO; A9270-GY; J0456; J0696; J1815; J1815-GY; J7050; J7507; J7620-GY; J8540

== ENCOUNTER 2020-12-22 12:11 | Inpatient (IN) | payer MEDICARE, BC, MEDICAID ==
[2020-12-22] MEDS ORDERED: 50% Dextrose in Water 50 ML Syringe IVPUSH PRN (14:32)
[2020-12-22] MEDS ORDERED: Glucagon,Human Recombinant 1 MG Vial IM PRN (14:32)
[2020-12-22] MEDS ORDERED: Albuterol 0.083% 2.5 MG/3 ML Neb Soln NEB PRN (14:40)
--- NOTE | 2020-12-22 14:43 | PCM.HP.2 ---
H&P History of Present Illness - General Date of Service: 12/22/20 Admit Problem/Dx: Admission Diagnosis/Problem Admission Diagnosis/Problem Weakness Source of Information: Patient, Family History Limitations: Reports: No Limitations - History of Present Illness Initial Comments - Free Text/Narative: ACUTE HPI: Karol started having more shortness of breath this morning, has been more fatigued since Monday. Has been having loose stools 1 per day for the past 3 weeks, no change in diet or medications. She has history of CHF, DM, pulmonary fibrosis, pulmonary hypertension, COPD on 5L continuous, liver transplant on immunosuppressants, also chronic steroid use with Dexamethasone 1 mg daily. Denies fever, cough but was cold this morning. Her who is her primary c aregiver stated when she gets cold he usually turns up her oxygen and that resolves it. She had an emesis this morning. According to her pt has not been taking her diuretics as the have been making her void frequently. She denies sore throat, swollen glands, dysuria, frequency(except with diuretic) or blood. Her stated it is more concentrated in the morning which is not unusual. She went off her gluten free diet a few years ago and didn't notice increased diarrhea. With Dr Cox retiring, they are switching care to Dr Dyson but have not met with him yet. In ER, received Lasix 40 mg IV x 1, DuoNebs x 1, oxygen came up to 88-90% on 6L. Her WBC was 15.6, 74% neutrophils; CXR showed pulmonary edema, chronic pulmonary fibrosis but pneumonia could not be excluded. Cr 1.6. BNP 2294. Troponin 79.5. Covid/influenza negative. UA showed small bilirubin, 1 urobilinogen, RBC 0-5, WBC 5-10, Occasional epithelials and many bacteria, urine culture ordered, asymptomatic. ACUTE HOSPITAL COURSE: Admit with pneumonia, UTI, and CHF, received Lasix 40 mg IV bid and she had 2775 ml out of [place] since admission, weight went down to 157 from 159 then stabilized. proBNP was 2294. CXR showed pneumonia superimposed on pulmonary fibrosis, COPD. Received Rocephin & Azithromycin IV in ER and continued on the floor she has had 3 doses of both total to date. Her WBC went from 15.6 to 10.0 to 7.8 today. She has chronic pulmonary fibrosis, pulmonary hypertension and COPD, on oxygen at home at 5L, she was requiring 6 L on admission, on transfer to swing bed she was back to home 5L. Hgb 11.1 on admission and 10.1 today. Cr was 1.6 on admission, went to 1.4 and now at 1.5. Her BUN/Cr ratio was at 20.0 and now 21.1 so maintaining her hydration. Her urine culture grew Klebsiella oxytoca, sensitive to Rocephin. Sputum culture was sent to [facility] but sample was rejected due to too many epithelials cells consistent with spit not sputum. Blood cultures have had no growth to date. She was requiring 2 person assist with transfers, she is a 1 person assist at home, PT/OT assessed her felt she needed swing bed placement to get her stronger so she can go home. She did not want to do that but her did not feel he could take her home so she will be transferred to swing bed today on oral antibiotics, oral diuretics and continued PT/OT. - Related Data Allergies/Adverse Reactions: Allergies Allergy/AdvReac Type Severity Reaction Status Date / Time Sulfa (Sulfonamide Allergy Rash Verified 12/19/20 13:54 Antibiotics) tiotropium Allergy Rash Verified 12/19/20 13:54 vancomycin Allergy Rash Verified 12/19/20 13:54 erythromycin base AdvReac Nausea and Verified 12/19/20 13:54 Vomiting Iodinated Contrast Media AdvReac Nausea Verified 12/19/20 13:54 Home Medications: Home Meds Acetaminophen [Tylenol Extra Strength] 500 mg PO Q4H PRN 12/26/18 [History] Albuterol [Ventolin HFA] 2 puff INH Q4H PRN 12/26/18 [History] Cholecalciferol (Vitamin D3) [Vitamin D3] 1,000 unit PO DAILY 12/26/18 [History] Cyanocobalamin (Vitamin B-12) [Vitamin B-12] 1,000 mcg PO DAILY 12/26/18 [Histor y] Ethacrynic Acid 25 mg PO ASDIRECTED 12/26/18 [History] FLUoxetine HCl [Fluoxetine HCl] 40 mg PO DAILY 12/26/18 [History] Lutein 20 mg PO DAILY 12/26/18 [History] Macitentan [Opsumit] 10 mg PO DAILY 12/26/18 [History] Mirabegron [Myrbetriq] 50 mg PO WITHDINNER 12/26/18 [History] Omeprazole 20 mg PO DAILY@0600 12/26/18 [History] Sildenafil Citrate 20 mg PO TID 12/26/18 [History] Tacrolimus [Prograf] 0.5 mg PO BID 12/26/18 [History] mycophenolate mofetiL [Cellcept] 500 mg PO BID 12/26/18 [History] Iron,Carbonyl/Ascorbic Acid [Vitron-C Tablet] 1 tab PO BID 04/25/19 [History] Fluticasone/Vilanterol [Breo Ellipta 100-25 MCG Inhalation Kit] 1 puff INH DAILY 10/12/20 [History] Insulin Aspart [NovoLOG] 5 units SQ 10/12/20 [History] Insulin Glarg,Human.Rec.Analog [Lantus Solostar] 6 unit SQ BEDTIME 10/12/20 [History] Trimethoprim 100 mg PO DAILY 10/12/20 [History] calcitrioL [Calcitriol] 0.25 mcg PO MOWEFR 10/12/20 [History] dexAMETHasone [Dexamethasone] 1 mg PO DAILY 10/12/20 [History] Betamethasone Valerate [Valisone 0.1% Lotion] 60 ml TP ASDIRECTED 12/19/20 [History] Ketoconazole [Nizoral 2% Shampoo] 120 ml .XX ASDIRECTED 12/19/20 [History] Gabapentin [Neurontin] 200 mg PO TID cap 12/22/20 [Rx] guaiFENesin [Mucinex] 600 mg PO BID tab.er 12/22/20 [Rx] Past Medical History HEENT History: Reports: Cataract Other HEENT History: bilateral Cardiovascular History: Reports: Heart Failure, High Cholesterol, Hypertension, Pulmonary Hypertension, SOB on Exertion Respiratory History: Reports: Pulmonary Fibrosis, Other (See Below) Other Respiratory History: hx pulmonary HTN, is normally on O2 @ 5-6L/NC Gastrointestinal History: Reports: Chronic Constipation, GERD Other Gastrointestinal History: liver transplant Genitourinary History: Reports: Chronic Renal Insuffiency, Renal Disease Other Genitourinary History: rejection drugs are harming kidneys MANAGER BOOKS History: Reports: Other OB/BYN History: Musculoskeletal History: Reports: Arthritis, Fracture, Fibromyalgia Other Musculoskeletal History: hx L wrist fx Neurological History: Reports: Migraines Other Neuro History: long ago Psychiatric History: Reports: Depression Endocrine/Metabolic History: Reports: Diabetes, Type II Hematologic History: Reports: B12 Deficiency, Blood Transfusion(s) Immunologic History: Reports: Immunosuppression, Solid Organ Transplant Other Immunologic History: liver, has had hx non alcoholic liver cirrohosis Oncologic (Cancer) History: Reports: Liver, Other (See Below) Other Oncologic History: Skin CA removed from the right hand in March 2019. Dermatologic History: Reports: Other (See Below) Other Dermatologic History: hx skin cancer R middle finger and both legs, hx R lat heel ulcer - Infectious Disease History Infectious Disease History: Reports: Chicken Pox, Measles, Mumps - Past Surgical History HEENT Surgical History: Reports: Adenoidectomy, Cataract Surgery, Laser Surgery, Tonsillectomy Other HEENT Surgeries/Procedures: bilateral cataract Cardiovascular Surgical History: Reports: None Respiratory Surgical History: Reports: Lung Biopsies GI Surgical History: Reports: Cholecystectomy, Colonoscopy, Other (See Below) Other GI Surgeries/Procedures: hx liver transplant Female Surgical History: Reports: Hysterectomy, Salpingo-Oophorectomy Neurological Surgical History: Reports: None Musculoskeletal Surgical History: Reports: Other (See Below) Other Musculoskeletal Surgeries/Procedures:: L wrist surgery with plate Oncologic Surgical History: Reports: None Dermatological Surgical History: Reports: Skin Biopsy Social & Family History - Family History Family Medical History: No Pertinent Family History - Caffeine Use Caffeine Use: Reports: None Other Caffeine Use: 1 cup a day - Living Situation & Occupation Living situation: Reports: Occupation: Retired H&P Review of Systems - Review of Systems: Review Of Systems: See Below General: Reports: Weakness. Denies: Fever, Chills HEENT: Reports: No Symptoms Pulmonary: Reports: Shortness of Breath, Cough. Denies: Sputum Cardiovascular: Reports: Dyspnea on Exertion, Edema. Denies: Chest Pain Gastrointestinal: Reports: No Symptoms Genitourinary: Reports: No Symptoms Musculoskeletal: Reports: No Symptoms Skin: Reports: No Symptoms Psychiatric: Reports: No Symptoms Neurological: Reports: No Symptoms Hematologic/Lymphatic: Reports: Easy Bleeding, Easy Bruising Immunologic: Reports: Other Exam - Exam Exam: See Below - Exam Quality Assessment: Supplemental Oxygen General: Alert, Oriented, Cooperative HEENT: PERRLA, Conjunctiva Clear, EOMI, Hearing Intact, Mucosa Moist & [place] Neck: Trachea Midline Lungs: Clear to Auscultation, Normal Respiratory Effort Cardiovascular: Regular Rate, Regular Rhythm GI/Abdominal Exam: Normal Bowel Sounds, Soft, Non-Tender, No Distention (Female) Exam: Deferred Rectal (Female) Exam: Deferred Extremities: Normal Capillary Refill, Pedal Edema (2+ BLE) Peripheral Pulses: 2+: Radial (L), Radial (R) Skin: Ecchymosis (scattered throughout extremities/torso 2/2 chronic steroid use) *Q Meaningful Use (ADM) - VTE *Q VTE Mechanical Contraindications *Q: At Risk for Falls - Problem List (1) Pneumonia SNOMED Code(s): 055237336 ICD Code: J18.9 - PNEUMONIA, UNSPECIFIED ORGANISM Status: Acute Current Visit: No Problem Details: On Cefdinir & Azithromycin po will complete 7 day course, had 3 IV doses of Rocephin & Azithromycin on acute care side, unable to get sputum culture. Qualifiers: Pneumonia type: due to unspecified organism Laterality: unspecified laterality Lung location: unspecified part of lung Qualified Code(s): J18.9 - Pneumonia, unspecified organism (2) UTI (urinary tract infection) SNOMED Code(s): 60859167 ICD Code: N39.0 - URINARY TRACT INFECTION, SITE NOT SPECIFIED Status: Acute Current Visit: No Problem Details: Klebsiella oxytoca, sensitive to Rocephin received 3 doses, will change to Cefdinir 300 mg daily for 4 more doses. Qualifiers: Urinary tract infection type: acute cystitis Hematuria presence: without hematuria Qualified Code(s): N30.00 - Acute cystitis without hematuria (3) Weakness generalized SNOMED Code(s): 57798443 ICD Code: R53.1 - WEAKNESS Status: Acute Current Visit: No Problem Details: PT/OT (4) CHF (congestive heart failure) SNOMED Code(s): 94394127 ICD Code: I50.9 - HEART FAILURE, UNSPECIFIED Status: Chronic Current Visit: No Qualifiers: Heart failure chronicity: chronic (5) COPD (chronic obstructive pulmonary disease) SNOMED Code(s): 40707027 ICD Code: J44.9 - CHRONIC OBSTRUCTIVE PULMONARY DISEASE, UNSPECIFIED Status: Chronic Current Visit: No Problem Details: on 5L continuous oxygen by fl. (6) Diabetes SNOMED Code(s): 99843219 ICD Code: E11.9 - TYPE 2 DIABETES MELLITUS WITHOUT COMPLICATIONS Status: Chronic Current Visit: No (7) History of liver transplant SNOMED Code(s): 882668118 ICD Code: Z94.4 - LIVER TRANSPLANT STATUS Status: Chronic Current Visit: No Onset Date: ~2010 (8) Pulmonary fibrosis SNOMED Code(s): 92967212 ICD Code: J84.10 - PULMONARY FIBROSIS, UNSPECIFIED Status: Chronic Current Visit: No Problem Details: severe (9) Pulmonary hypertension SNOMED Code(s): 24042121 ICD Code: I27.20 - PULMONARY HYPERTENSION, UNSPECIFIED Status: Chronic Current Visit: No Problem List Initiated/Reviewed/Updated: Yes Orders Last 24hrs: Active Orders 24 hr Category Date Time Status Patient Status [ADT] Routine ADT 12/22/20 14:29 Active Blood Glucose Check, Bedside [RC] WITHMEALSANDBED Care 12/22/20 14:29 Active Dietary Supplements [RC] WITHMEALSANDBED Care 12/22/20 14:29 Active Height and Weight [RC] DAILY Care 12/23/20 06:00 Active Oxygen Therapy [RC] PRN Care 12/22/20 14:29 Active RT Aerosol Therapy [RC] ASDIRECTED Care 12/22/20 14:40 Active Up With Assistance [RC] ASDIRECTED Care 12/22/20 14:29 Active Up to Chair [RC] ASDIRECTED Care 12/22/20 14:29 Active Urinary Catheter Assessment [RC] QSHIFT Care 12/22/20 14:29 Active VTE/DVT Education [RC] Per Unit Routine Care 12/22/20 14:29 Active Vital Signs [RC] PER UNIT ROUTINE Care 12/22/20 14:29 Active OT Evaluation and Treatment [CONS] Routine Cons 12/22/20 14:29 Active PT Evaluation and Treatment [CONS] Routine Cons 12/22/20 14:29 Active Regular Diet [DIET] Diet 12/22/20 Dinner Active Acetaminophen [Tylenol Extra Strength] Med 12/22/20 14:32 Ordered 500 mg PO Q4H PRN Albuterol [Proventil Neb Soln] Med 12/22/20 14:40 Ordered 2.5 mg NEB Q4H PRN Azithromycin [Zithromax] Med 12/22/20 15:30 Ordered 500 mg PO DAILY Cefdinir [Omnicef] Med 12/22/20 15:30 Ordered 300 mg PO DAILY Cholecalciferol (Vitamin D3) [Vitamin D3] Med 12/23/20 09:00 Ordered 1,000 unit PO DAILY Cyanocobalamin (Vitamin B12) [Vitamin B12] Med 12/23/20 09:00 Ordered 1,000 mcg PO DAILY Dextrose 50% in Water Med 12/22/20 14:32 Ordered 50 ml IVPUSH ASDIRECTED PRN FLUoxetine HCl [Fluoxetine HCl] Med 12/23/20 09:00 Ordered 40 mg PO DAILY Fluticasone/Vilanterol Med 12/23/20 09:00 Ordered 1 puff INH DAILY Furosemide [Lasix] Med 12/23/20 08:00 Ordered 40 mg PO BIDDIURETIC Gabapentin [Neurontin] Med 12/22/20 21:00 Ordered 200 mg PO TID Glucagon,Human Recombinant [GlucaGen] Med 12/22/20 14:32 Ordered 1 mg IM ASDIRECTED PRN Insulin Aspart [NovoLOG] Med 12/23/20 08:00 Ordered 5 units SQ 08,12 Insulin Glarg,Human.Rec.Analog [LantUS Solostar] Med 12/22/20 21:00 Ordered 6 units SUBCUT BEDTIME Iron,Carbonyl/Ascorbic Acid [Vitron-C Tablet] Med 12/22/20 21:00 Ordered 1 tab PO BID Lutein [Lutein] Med 12/23/20 09:00 Ordered 20 mg PO DAILY Macitentan [Opsumit] Med 12/23/20 09:00 Ordered 10 mg PO DAILY Mirabegron [Myrbetriq] Med 12/22/20 18:00 Ordered 50 mg PO WITHDINNER Omeprazole [Omeprazole] Med 12/23/20 06:00 Ordered 20 mg PO DAILY@0600 Sildenafil [Revatio] Med 12/22/20 21:00 Ordered 20 mg PO TID Tacrolimus [Prograf] Med 12/22/20 21:00 Ordered 0.5 mg PO BID Trimethoprim Med 12/23/20 09:00 Ordered 100 mg PO DAILY calcitrioL [Rocaltrol] Med 12/23/20 14:32 Ordered 0.25 mcg PO MOWEFR dexAMETHasone Med 12/23/20 09:00 Ordered 1 mg PO DAILY guaiFENesin [Mucinex] Med 12/22/20 21:00 Ordered 600 mg PO BID mycophenolate mofetiL [Cellcept] Med 12/22/20 21:00 Ordered 500 mg PO BID Elastic Wrap [OM.PC] Routine Oth 12/22/20 14:29 Ordered Resuscitation Status Routine Resus Stat 12/22/20 14:29 Ordered Medication Orders Acetaminophen (Acetaminophen 500 Mg Tab) 500 mg PO Q4H PRN PRN Reason: Pain Albuterol (Albuterol 0.083% 2.5 Mg/3 Ml Neb Soln) 2.5 mg NEB Q4H PRN PRN Reason: Shortness of Breath Azithromycin (Azithromycin 250 Mg Tab) 500 mg PO DAILY [facility] Stop: 12/24/20 15:31 Calcitriol (Calcitriol 0.25 Mcg Cap) 0.25 mcg PO MOWEFR [facility] Cefdinir (Cefdinir 300 Mg Cap) 300 mg PO DAILY [facility] Stop: 12/25/20 15:31 Cyanocobalamin (Cyanocobalamin (Vitamin B12) 1,000 Mcg Tab) 1,000 mcg PO DAILY [facility] Dexamethasone (Dexamethasone 1 Mg Tab) 1 mg PO DAILY [facility] Dextrose/Water (50% Dextrose In Water 50 Ml Syringe) 50 ml IVPUSH ASDIRECTED PRN PRN Reason: Hypoglycemia Furosemide (Furosemide 40 Mg Tab) 40 mg PO BIDDIURETIC [facility] Gabapentin (Gabapentin 100 Mg Cap) 200 mg PO TID [facility] Glucagon (Glucagon,Human Recombinant 1 Mg Vial) 1 mg IM ASDIRECTED PRN PRN Reason: Hypoglycemia Guaifenesin (Guaifenesin 600 Mg Tab.Er) 600 mg PO BID [facility] Insulin Glargine (Insulin Glargine,Human Rec. Analog 100 Units/Ml 3 Ml Pen) 6 units SUBCUT BEDTIME [facility] Non-Formulary Medication (Cholecalciferol (Vitamin D3) [Vitamin D3]) 1,000 unit PO DAILY [facility] Non-Formulary Medication (Fluoxetine Hcl [Fluoxetine Hcl]) 40 mg PO DAILY [facility] Non-Formulary Medication (Fluticasone/Vilanterol) 1 puff INH DAILY [facility] Non-Formulary Medication (Insulin Aspart [Novolog]) 5 units SQ 08,12 [facility] Non-Formulary Medication (Macitentan [Opsumit]) 10 mg PO DAILY [facility] Non-Formulary Medication (Mirabegron [Myrbetriq]) 50 mg PO WITHDINNER [facility] Non-Formulary Medication (Mycophenolate Mofetil [Cellcept]) 500 mg PO BID [facility] Non-Formulary Medication (Omeprazole [Omeprazole]) 20 mg PO DAILY@0600 [facility] Non-Formulary Medication (Lutein [Lutein]) 20 mg PO DAILY [facility] Non-Formulary Medication (Iron,Carbonyl/Ascorbic Acid [Vitron-C Tablet]) 1 tab PO BID [facility] Sildenafil Citrate (Sildenafil 20 Mg Tab) 20 mg PO TID [facility] Tacrolimus (Tacrolimus 0.5 Mg Cap) 0.5 mg PO BID [facility] Trimethoprim (Trimethoprim 100 Mg Tab) 100 mg PO DAILY [facility] Assessment/Plan Comment:: 1. Swing bed admission for generalized weakness, continue PT/OT. 2. Pneumonia: unable to get sputum culture on acute care side, received 3 doses IV Rocephin & Azithromycin, switched to Cefdinir 300 mg daily x 4 more doses for her renal function and Azithromycin 500 mg po x daily x 2 more doses. 3. CHF: has tolerated Lasix IV, will switch to oral form do not have Ethacrynic acid that she takes at home. Continue daily weights and monitor output. Has urinary catheter for I&Os, can transition to external catheter once we get one in. 4. UTI: Klebsiella oxytoca, sensitive to Rocephin, Cefdinir will cover. Pull [place] once we can get external catheter for incontinence. 5. Pulmonary fibrosis/pulmonary hypertension/COPD: keep saturations between 88- 92%, 5L. Continue home medications except she has had issues with the Ventolin HFA getting full dose of medication so will switch to Albuterol nebs q4h as needed shortness of breath. 6. Diet: regular(usual diet at home). 7. DM: glucose checks qid&achs, continue home insulin dosing. 8. DVT prophylaxis: ARIC wraps BLE on during the day and off at night. 9. CODE STATUS: DNR/DNI. 10. Discharge planning: anticipate going home with her once she mets therapy goals. - Mortality Measure Prognosis:: Poor
[2020-12-22] MEDS: Cefdinir 300 MG Cap PO SCH (15:57)
[2020-12-22] MEDS: Azithromycin 500 MG Tab PO SCH (15:57)
[2020-12-22] MEDS: Mycophenolate Mofetil 250 MG Cap PO SCH (20:00)
[2020-12-22] MEDS: Mirabegron 25 MG Tab Extended Release PO SCH (20:00)
[2020-12-22] MEDS: Sildenafil 20 MG Tab PO SCH (20:01)
[2020-12-22] MEDS: Tacrolimus 0.5 MG Cap PO SCH (20:01)
[2020-12-22] MEDS: guaiFENesin 600 MG Tab.ER PO SCH (20:01)
[2020-12-22] MEDS: Insulin Glargine,Human Rec. Analog 100 Units/ML 3 ML Pen SUBCUT SCH (20:04)
[2020-12-22] MEDS: Gabapentin 100 MG Cap PO SCH (20:08)
[2020-12-23] MEDS: Pantoprazole 40 MG Tab.CR PO SCH (06:00)
[2020-12-23] MEDS: Insulin Lispro 100 Unit/ML 3 ML KwikPen SUBCUT SCH ×2 (08:03→12:25)
[2020-12-23] MEDS: Furosemide 40 MG Tab PO SCH ×2 (08:07→14:52)
[2020-12-23] MEDS: FLUoxetine 20 MG Cap PO SCH (09:45)
[2020-12-23] MEDS: Acetaminophen 500 MG Tab PO PRN (09:47)
[2020-12-23] MEDS: Mycophenolate Mofetil 250 MG Cap PO SCH ×2 (09:47→21:14)
[2020-12-23] MEDS: Sildenafil 20 MG Tab PO SCH ×3 (09:48→21:16)
[2020-12-23] MEDS: Tacrolimus 0.5 MG Cap PO SCH ×2 (09:48→21:15)
[2020-12-23] MEDS: Cholecalciferol (Vitamin D3) 25 MCG Tab PO SCH (09:49)
[2020-12-23] MEDS: Cyanocobalamin (Vitamin B12) 1,000 MCG Tab PO SCH (09:50)
[2020-12-23] MEDS: Calcitriol 0.25 MCG Cap PO SCH (09:50)
[2020-12-23] MEDS: MACITENTAN 10 MG PO SCH (09:51)
[2020-12-23] MEDS: BREO ELLIPTA INH SCH (09:52)
[2020-12-23] MEDS: guaiFENesin 600 MG Tab.ER PO SCH ×2 (09:53→21:15)
[2020-12-23] MEDS: Gabapentin 100 MG Cap PO SCH ×3 (10:00→21:31)
[2020-12-23] MEDS: Cefdinir 300 MG Cap PO SCH (15:39)
[2020-12-23] MEDS: Azithromycin 500 MG Tab PO SCH (15:39)
[2020-12-23] MEDS: Mirabegron 25 MG Tab Extended Release PO SCH (17:23)
--- NOTE | 2020-12-23 19:44 | PCM.EKG ---
#1 Interpretation EKG Date: 12/19/20 Rhythm: NSR Rate (Beats/Min): 116 [place]: Normal P-Wave: Present Comparison: NA - No Prior EKG
[2020-12-23] MEDS: Insulin Glargine,Human Rec. Analog 100 Units/ML 3 ML Pen SUBCUT SCH (21:17)
[2020-12-24] MEDS: Pantoprazole 40 MG Tab.CR PO SCH (06:17)
[2020-12-24] MEDS: Gabapentin 100 MG Cap PO SCH ×3 (08:10→20:28)
[2020-12-24] MEDS: BREO ELLIPTA INH SCH (08:11)
[2020-12-24] MEDS: Sildenafil 20 MG Tab PO SCH ×3 (08:11→20:29)
[2020-12-24] MEDS: Cholecalciferol (Vitamin D3) 25 MCG Tab PO SCH (08:11)
[2020-12-24] MEDS: Cyanocobalamin (Vitamin B12) 1,000 MCG Tab PO SCH (08:11)
[2020-12-24] MEDS: Mycophenolate Mofetil 250 MG Cap PO SCH ×2 (08:11→20:28)
[2020-12-24] MEDS: Furosemide 40 MG Tab PO SCH ×2 (08:11→14:34)
[2020-12-24] MEDS: Insulin Lispro 100 Unit/ML 3 ML KwikPen SUBCUT SCH ×2 (08:11→12:20)
[2020-12-24] MEDS: MACITENTAN 10 MG PO SCH (08:12)
[2020-12-24] MEDS: guaiFENesin 600 MG Tab.ER PO SCH ×2 (08:12→20:29)
[2020-12-24] MEDS: Tacrolimus 0.5 MG Cap PO SCH ×2 (08:12→20:28)
[2020-12-24] MEDS: FLUoxetine 20 MG Cap PO SCH (08:12)
[2020-12-24] MEDS: Cefdinir 300 MG Cap PO SCH (14:34)
--- NOTE | 2020-12-24 14:59 | PCM.SN.2 ---
- Free Text/Narrative Note: S: Notified by staff about large blood blister on her right elbow. Some pain with it noticed it when she was working with PT to sit up in bed. O: 5 cm x 3 cm blood blister on right elbow/forearm, intact, mild TTP. A: Blood blister. P: Tegaderm to secure blister. Warm compresses 20 min on and 20 min off while awake to help with absorption.
[2020-12-24] MEDS: Mirabegron 25 MG Tab Extended Release PO SCH (17:36)
[2020-12-24] MEDS: Insulin Glargine,Human Rec. Analog 100 Units/ML 3 ML Pen SUBCUT SCH (20:33)
[2020-12-25] MEDS: Pantoprazole 40 MG Tab.CR PO SCH (06:20)
[2020-12-25] MEDS: Furosemide 40 MG Tab PO SCH ×2 (08:19→14:34)
[2020-12-25] MEDS: Insulin Lispro 100 Unit/ML 3 ML KwikPen SUBCUT SCH ×2 (08:19→12:31)
[2020-12-25] MEDS: Calcitriol 0.25 MCG Cap PO SCH (08:25)
[2020-12-25] MEDS: Sildenafil 20 MG Tab PO SCH ×3 (08:26→20:55)
[2020-12-25] MEDS: Tacrolimus 0.5 MG Cap PO SCH ×2 (08:26→20:54)
[2020-12-25] MEDS: Cyanocobalamin (Vitamin B12) 1,000 MCG Tab PO SCH (08:26)
[2020-12-25] MEDS: guaiFENesin 600 MG Tab.ER PO SCH ×2 (08:27→20:54)
[2020-12-25] MEDS: Mycophenolate Mofetil 250 MG Cap PO SCH ×2 (08:29→20:53)
[2020-12-25] MEDS: FLUoxetine 20 MG Cap PO SCH (08:31)
[2020-12-25] MEDS: Cholecalciferol (Vitamin D3) 25 MCG Tab PO SCH (08:32)
[2020-12-25] MEDS: BREO ELLIPTA INH SCH (08:36)
[2020-12-25] MEDS: MACITENTAN 10 MG PO SCH (08:38)
[2020-12-25] MEDS: Gabapentin 100 MG Cap PO SCH ×3 (08:47→21:00)
--- NOTE | 2020-12-25 14:45 | PN ---
DATE SEEN: 12/25/2020 HISTORY: Karol is a 75-year-old woman with a history of idiopathic hepatic cirrhosis and liver transplant. She has been maintained on immunosuppressive agents for the past several years because of this and has been stable. Karol had her annual visit down to [facility] in [place] in October of this year. They found her to be stable from a graft standpoint. Other significant medical problems, however, have been severe pulmonary hypertension, oxygen dependent; renal insufficiency; type 2 diabetes; and hyperlipidemia. The patient reports she was getting more short of breath and weak prior to admission to [place]. She was seen in the emergency room, found to have pneumonia, and was admitted to acute care. She was treated with IV antibiotics, and Therapy has been working whether she would discharge to swing bed to continue her recuperation. She is examined in her bed today. She is a good historian and is breathing comfortably. She states she feels she has improved significantly since admission. Kaorl is standing and transferring with therapy, but has not been strong enough to walk any significant distance yet. PHYSICAL EXAMINATION: GENERAL: She is alert and comfortable. VITAL SIGNS: Blood pressure 109/51, pulse 86 and regular, respirations normal, O2 saturation 90% on 5 L nasal cannula oxygen. Weight 151 pounds 4 ounces. This is down 6 pounds from admission. SKIN: Shows scattered ecchymosis. No rash or icterus. MOUTH: Dry. LUNGS: Have equal breath sounds with rales heard bilaterally. HEART: Regular without murmur or gallop. ABDOMEN: Soft. EXTREMITIES: Show no edema at the ankles. LABORATORY DATA: Accu-Cheks have been running high with the last 2 days in the upper 200s and 300 range. ASSESSMENT: 1. Pneumonia, improving. 2. Status post liver transplant, on multiple medications. 3. Type 2 diabetes, exacerbated by steroid use. 4. Extreme weakness with ambulatory disability. 5. Chronic mixed urinary incontinence. 6. History of gastroesophageal reflux disease. 7. Severe pulmonary hypertension, oxygen dependent. PLAN: We will continue therapy with a goal of getting her strong enough to return to her home. We will increase her diabetes treatment and follow closely providing palliative care measures as well. /[id number] RO/MODL
--- NOTE | 2020-12-25 15:24 | CR ---
INDICATION: Pneumonia. CHEST TWO VIEWS: PA and lateral views of the chest were obtained 12/25/20 and compared with 12/19/20 and 10/11/20. There appears to be a decrease in infiltration in the right mid lung field and right lung base suggesting resolving pneumonia superimposed on fibrosis in those areas. No other change or new acute process was identified. IMPRESSION: There appears to be decreasing infiltration on the right compatible with resolving pneumonia which is superimposed on fibrosis. MTDD
[2020-12-25] MEDS: Cefdinir 300 MG Cap PO SCH (16:34)
[2020-12-25] MEDS: Mirabegron 25 MG Tab Extended Release PO SCH (18:16)
[2020-12-25] MEDS ORDERED: Insulin Glargine,Human Rec. Analog 100 Units/ML 3 ML Pen SUBCUT SCH (21:00)
[2020-12-26] MEDS: Pantoprazole 40 MG Tab.CR PO SCH (05:37)
[2020-12-26] MEDS: Insulin Lispro 100 Unit/ML 3 ML KwikPen SUBCUT SCH ×3 (08:56→19:48)
[2020-12-26] MEDS: Furosemide 40 MG Tab PO SCH ×2 (08:56→13:32)
[2020-12-26] MEDS: Cholecalciferol (Vitamin D3) 25 MCG Tab PO SCH (09:01)
[2020-12-26] MEDS: guaiFENesin 600 MG Tab.ER PO SCH ×2 (09:02→21:05)
[2020-12-26] MEDS: Cyanocobalamin (Vitamin B12) 1,000 MCG Tab PO SCH (09:03)
[2020-12-26] MEDS: FLUoxetine 20 MG Cap PO SCH (09:04)
[2020-12-26] MEDS: Mycophenolate Mofetil 250 MG Cap PO SCH ×2 (09:04→21:05)
[2020-12-26] MEDS: Sildenafil 20 MG Tab PO SCH ×3 (09:05→21:04)
[2020-12-26] MEDS: BREO ELLIPTA INH SCH (09:07)
[2020-12-26] MEDS: MACITENTAN 10 MG PO SCH (09:08)
[2020-12-26] MEDS: Tacrolimus 0.5 MG Cap PO SCH ×2 (09:09→21:06)
[2020-12-26] MEDS: Gabapentin 100 MG Cap PO SCH ×3 (09:17→21:05)
[2020-12-26] MEDS: Mirabegron 25 MG Tab Extended Release PO SCH (18:05)
[2020-12-26] MEDS: Acetaminophen 500 MG Tab PO PRN (18:49)
[2020-12-26] MEDS ORDERED: Glucagon,Human Recombinant 1 MG Vial IM PRN ×3 (19:14→19:37)
[2020-12-26] MEDS ORDERED: 50% Dextrose in Water 50 ML Syringe IVPUSH PRN ×3 (19:14→19:37)
[2020-12-26] MEDS ORDERED: Insulin Lispro 100 Unit/ML 3 ML KwikPen SUBCUT ONE (19:35)
[2020-12-26] MEDS: Insulin Glargine,Human Rec. Analog 100 Units/ML 3 ML Pen SUBCUT SCH (21:07)
[2020-12-27] MEDS: Pantoprazole 40 MG Tab.CR PO SCH (06:00)
[2020-12-27] MEDS: Insulin Lispro 100 Unit/ML 3 ML KwikPen SUBCUT SCH ×3 (08:36→18:01)
[2020-12-27] MEDS: MACITENTAN 10 MG PO SCH (08:37)
[2020-12-27] MEDS: BREO ELLIPTA INH SCH (08:38)
[2020-12-27] MEDS: Furosemide 40 MG Tab PO SCH ×2 (08:40→13:16)
[2020-12-27] MEDS: Cyanocobalamin (Vitamin B12) 1,000 MCG Tab PO SCH (08:40)
[2020-12-27] MEDS: Cholecalciferol (Vitamin D3) 25 MCG Tab PO SCH (08:41)
[2020-12-27] MEDS: guaiFENesin 600 MG Tab.ER PO SCH ×2 (08:42→20:12)
[2020-12-27] MEDS: FLUoxetine 20 MG Cap PO SCH (08:42)
[2020-12-27] MEDS: Mycophenolate Mofetil 250 MG Cap PO SCH ×2 (08:42→20:12)
[2020-12-27] MEDS: Tacrolimus 0.5 MG Cap PO SCH ×2 (08:43→20:12)
[2020-12-27] MEDS: Sildenafil 20 MG Tab PO SCH ×3 (08:45→20:12)
[2020-12-27] MEDS: Gabapentin 100 MG Cap PO SCH ×3 (08:53→20:12)
[2020-12-27] MEDS ORDERED: Ondansetron 4 MG Tab.DIS PO PRN (16:45)
[2020-12-27] MEDS: Acetaminophen 500 MG Tab PO PRN (17:16)
[2020-12-27] MEDS: Mirabegron 25 MG Tab Extended Release PO SCH (17:59)
[2020-12-27] MEDS: Insulin Glargine,Human Rec. Analog 100 Units/ML 3 ML Pen SUBCUT SCH (20:14)
[2020-12-28] MEDS: Pantoprazole 40 MG Tab.CR PO SCH (06:00)
[2020-12-28] MEDS: Insulin Lispro 100 Unit/ML 3 ML KwikPen SUBCUT SCH (08:27)
[2020-12-28] MEDS: Tacrolimus 0.5 MG Cap PO SCH ×2 (08:28→21:14)
[2020-12-28] MEDS: Furosemide 40 MG Tab PO SCH ×2 (08:28→13:47)
[2020-12-28] MEDS: Mycophenolate Mofetil 250 MG Cap PO SCH ×2 (08:29→21:15)
[2020-12-28] MEDS: BREO ELLIPTA INH SCH (08:31)
[2020-12-28] MEDS: MACITENTAN 10 MG PO SCH ×3 (08:32→14:28)
[2020-12-28] MEDS: guaiFENesin 600 MG Tab.ER PO SCH ×2 (08:32→21:15)
[2020-12-28] MEDS: FLUoxetine 20 MG Cap PO SCH (08:33)
[2020-12-28] MEDS: Sildenafil 20 MG Tab PO SCH ×3 (08:33→21:15)
[2020-12-28] MEDS: Cholecalciferol (Vitamin D3) 25 MCG Tab PO SCH (08:36)
[2020-12-28] MEDS: Gabapentin 100 MG Cap PO SCH ×3 (08:36→21:17)
[2020-12-28] MEDS: Calcitriol 0.25 MCG Cap PO SCH (08:37)
[2020-12-28] MEDS: Cyanocobalamin (Vitamin B12) 1,000 MCG Tab PO SCH (08:37)
[2020-12-28] MEDS ORDERED: Insulin Lispro 100 Unit/ML 3 ML KwikPen SUBCUT SCH (11:30)
[2020-12-28] MEDS ORDERED: Ondansetron 4 MG/2 ML SDV IVPUSH PRN (13:24)
--- NOTE | 2020-12-28 15:35 | PN ---
DATE SEEN: 12/28/2020 HISTORY: Karol is a 75-year-old woman who was in swing bed now in followup of pneumonia and weakness. She has a history of liver transplant on long-term immunosuppression with tacrolimus and CellCept. She is also on sildenafil and macitentan for severe pulmonary hypertension. Karol was placed on IV antibiotics on admission acutely. Once she was stronger, she was discharged to swing bed where her antibiotics were completed 2 days ago. Karol has experienced nausea and vomiting intermittently over the past couple of days. This morning, she also developed an episode of diarrhea. She is not having fever, chills, sweats, chest pain, cough, dyspnea, abdominal pain, or ankle swelling. She has been on diuretics for edema and insulin for elevated blood sugars. Of note, I stopped her daily 1 mg dexamethasone tablet 2 days ago because of her high blood sugars in the 400 plus range. PHYSICAL EXAMINATION: GENERAL: She is very weak today. Physical Therapy is in the room while I examined her. Getting her from lying to a sitting position on the edge of the bed was a strong 2-person effort. LUNGS: Her respirations were easy. Rales present in both bases. HEART: Regular without murmur or gallop. ABDOMEN: Soft. EXTREMITIES: Showed no edema at the ankles. ASSESSMENT: 1. Generalized weakness post pneumonia, now with acute renal insufficiency, BUN, and dehydration, BUN today is 76, creatinine 2.3. 2. Chronic immunosuppression post liver transplant. 3. Severe pulmonary artery hypertension. 4. Type 2 diabetes. 5. Situational depression. 6. Mixed bladder incontinence. PLAN: We will rehydrate her with IV fluid. We will continue to treat her diabetes with insulin. She will also continue to receive physical and occupational therapy for strengthening with ultimate goal to go home with her again. We will also continue palliative care measures for her underlying problems. /[id number] EUSEBIO/ADRIÁNL
[2020-12-28] MEDS: Sodium Chloride 0.9% 1,000 ML IV SCH (16:03)
[2020-12-28] MEDS: Mirabegron 25 MG Tab Extended Release PO SCH (17:23)
[2020-12-28] MEDS: Insulin Glargine,Human Rec. Analog 100 Units/ML 3 ML Pen SUBCUT SCH (21:18)
[2020-12-29] MEDS: Sodium Chloride 0.9% 1,000 ML IV SCH ×2 (05:10→18:29)
[2020-12-29] MEDS: Pantoprazole 40 MG Tab.CR PO SCH (06:41)
[2020-12-29] MEDS: Furosemide 40 MG Tab PO SCH ×2 (07:30→14:54)
[2020-12-29] MEDS: Insulin Lispro 100 Unit/ML 3 ML KwikPen SUBCUT SCH ×2 (07:30→11:35)
[2020-12-29] MEDS: MACITENTAN 10 MG PO SCH (08:45)
[2020-12-29] MEDS: FLUoxetine 20 MG Cap PO SCH (08:48)
[2020-12-29] MEDS: Sildenafil 20 MG Tab PO SCH ×3 (08:49→21:23)
[2020-12-29] MEDS: Cyanocobalamin (Vitamin B12) 1,000 MCG Tab PO SCH (08:50)
[2020-12-29] MEDS: Tacrolimus 0.5 MG Cap PO SCH ×2 (08:50→21:23)
[2020-12-29] MEDS: Mycophenolate Mofetil 250 MG Cap PO SCH ×2 (08:52→21:24)
[2020-12-29] MEDS: guaiFENesin 600 MG Tab.ER PO SCH ×2 (08:52→21:23)
[2020-12-29] MEDS: Cholecalciferol (Vitamin D3) 25 MCG Tab PO SCH (08:53)
[2020-12-29] MEDS: BREO ELLIPTA INH SCH (08:53)
[2020-12-29] MEDS: Gabapentin 100 MG Cap PO SCH ×3 (08:56→21:29)
--- NOTE | 2020-12-29 11:51 | PN ---
DATE SEEN: 12/29/2020 HISTORY: Karol is a 75-year-old woman, who was admitted with pneumonia and weakness. Her pneumonia has been treated, but her weakness has been severe. She requires 2 people to lift her from the bed to the chair for transfers. She has been on slightly increasing doses of insulin for her diabetes. She remains on her immunosuppressive drugs for her liver transplant. She is examined this morning in her chair with her present. PHYSICAL EXAMINATION: VITAL SIGNS: Blood pressure 111/58, pulse 89 and regular, respirations normal, O2 sat 91% on 5 L nasal cannula oxygen. Weight 153 pounds. This is down from 157 pounds on admission. SKIN: Shows no icterus. HEENT: Mouth is dry. LUNGS: Have rales in both lower 1/3. HEART: Regular without murmur or gallop. ABDOMEN: Normal bowel sounds. Soft, nontender. EXTREMITIES: Show trace edema at the ankles. LABORATORY: Yesterday, hemoglobin 10.4, BUN 76, creatinine 2.3. Glucose this morning 181. ASSESSMENT: 1. Severe weakness secondary to a recent pneumonia, exacerbated by acute on chronic renal failure. 2. Type 2 diabetes. 3. Liver transplant, on immunosuppressive medications. 4. Severe pulmonary fibrosis, oxygen dependent. PLAN: We will continue her therapy with a goal of getting her strong enough to return home. That is a far reach at this point, and I have discussed that with her and her . She is not considering any alternative placement at this time, but we will follow her therapy closely. We will continue to provide palliative care measures and current medications. /[id number] EUSEBIO/KASANDRA
[2020-12-29] MEDS: Mirabegron 25 MG Tab Extended Release PO SCH (17:03)
[2020-12-29] MEDS ORDERED: Glucagon,Human Recombinant 1 MG Vial IM PRN ×2 (17:37→18:17)
[2020-12-29] MEDS ORDERED: 50% Dextrose in Water 50 ML Syringe IVPUSH PRN ×2 (17:37→18:17)
[2020-12-29] MEDS ORDERED: Insulin Lispro 100 Unit/ML 3 ML KwikPen SUBCUT ONE ×2 (18:24→21:35)
[2020-12-29] MEDS ORDERED: Insulin Glargine,Human Rec. Analog 100 Units/ML 3 ML Pen SUBCUT SCH (21:00)
[2020-12-29] MEDS ORDERED: Insulin Regular, Human 100 Units/ML 3 ML Vial SUBCUT ONE (21:29)
[2020-12-30] MEDS: Pantoprazole 40 MG Tab.CR PO SCH (06:03)
[2020-12-30] MEDS: Sodium Chloride 0.9% 1,000 ML IV SCH (07:57)
[2020-12-30] MEDS: Furosemide 40 MG Tab PO SCH ×2 (09:06→13:18)
[2020-12-30] MEDS: Mycophenolate Mofetil 250 MG Cap PO SCH ×2 (09:06→20:17)
[2020-12-30] MEDS: Insulin Lispro 100 Unit/ML 3 ML KwikPen SUBCUT SCH ×3 (09:06→17:52)
[2020-12-30] MEDS: guaiFENesin 600 MG Tab.ER PO SCH ×2 (09:07→20:19)
[2020-12-30] MEDS: Cholecalciferol (Vitamin D3) 25 MCG Tab PO SCH (09:08)
[2020-12-30] MEDS: Calcitriol 0.25 MCG Cap PO SCH (09:08)
[2020-12-30] MEDS: FLUoxetine 20 MG Cap PO SCH (09:08)
[2020-12-30] MEDS: Sildenafil 20 MG Tab PO SCH ×3 (09:08→20:20)
[2020-12-30] MEDS: Cyanocobalamin (Vitamin B12) 1,000 MCG Tab PO SCH (09:08)
[2020-12-30] MEDS: Gabapentin 100 MG Cap PO SCH ×3 (09:22→20:16)
[2020-12-30] MEDS: Tacrolimus 0.5 MG Cap PO SCH ×2 (09:23→20:19)
[2020-12-30] MEDS: MACITENTAN 10 MG PO SCH (09:23)
[2020-12-30] MEDS: BREO ELLIPTA INH SCH (09:26)
--- NOTE | 2020-12-30 11:27 | PN ---
DATE SEEN: 12/30/2020 HISTORY: Karol is a 75-year-old woman, status post liver transplant, on long- term immunosuppressants, who came in with shortness of breath and pneumonia. She has had extreme weakness and is getting therapy. Karol was diuresed and became symptomatically azotemic. She has been having IV fluid replacement now and has felt much better the last day and half. Blood sugars have run quite high in the 400s and 300 range. PHYSICAL EXAMINATION: GENERAL: She is alert and comfortable. She denies any nausea, abdominal pain, diarrhea. MOUTH: Dry. LUNGS: Respirations are easy. Lungs are clear in the very upper lung pérez. She does have rales bilaterally starting at mid lung field down on both sides. HEART: Regular with an occasional extra systole. No murmurs heard. EXTREMITIES: Show no edema at the ankles. ASSESSMENT: 1. Severe pulmonary hypertension, status post recent pneumonia. 2. Chronic compensated congestive heart failure. 3. Chronic kidney disease stage 4. 4. Type 2 diabetes. 5. Generalized osteoarthritis. 6. 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 PLAN: We will discontinue her IV fluids now. Continue her other medications. Continue therapy with plans to discharge to home from swing bed when able. /[id number] EUSEBIO/KASANDRA
[2020-12-30] MEDS ORDERED: Insulin Lispro 100 Unit/ML 3 ML KwikPen SUBCUT SCH (17:00)
[2020-12-30] MEDS: Mirabegron 25 MG Tab Extended Release PO SCH (17:52)
[2020-12-30] MEDS ORDERED: Insulin Glargine,Human Rec. Analog 100 Units/ML 3 ML Pen SUBCUT SCH (21:00)
[2020-12-30] MEDS ORDERED: Insulin Lispro 100 Unit/ML 3 ML KwikPen SUBCUT ONE (22:22)
[2020-12-31] MEDS: Pantoprazole 40 MG Tab.CR PO SCH (05:22)
[2020-12-31] MEDS: Insulin Lispro 100 Unit/ML 3 ML KwikPen SUBCUT SCH ×3 (08:52→18:21)
[2020-12-31] MEDS: Furosemide 40 MG Tab PO SCH ×2 (08:53→14:08)
[2020-12-31] MEDS: Mycophenolate Mofetil 250 MG Cap PO SCH ×2 (08:53→21:11)
[2020-12-31] MEDS: BREO ELLIPTA INH SCH (08:54)
[2020-12-31] MEDS: MACITENTAN 10 MG PO SCH (08:54)
[2020-12-31] MEDS: guaiFENesin 600 MG Tab.ER PO SCH ×2 (08:55→21:12)
[2020-12-31] MEDS: Tacrolimus 0.5 MG Cap PO SCH ×2 (08:55→21:13)
[2020-12-31] MEDS: Gabapentin 100 MG Cap PO SCH ×3 (08:55→21:19)
[2020-12-31] MEDS: Sildenafil 20 MG Tab PO SCH ×3 (08:56→21:14)
[2020-12-31] MEDS: Cholecalciferol (Vitamin D3) 25 MCG Tab PO SCH (08:56)
[2020-12-31] MEDS: FLUoxetine 20 MG Cap PO SCH (08:56)
[2020-12-31] MEDS: Cyanocobalamin (Vitamin B12) 1,000 MCG Tab PO SCH (08:57)
[2020-12-31] MEDS: Mirabegron 25 MG Tab Extended Release PO SCH (18:21)
[2020-12-31] MEDS: Insulin Glargine,Human Rec. Analog 100 Units/ML 3 ML Pen SUBCUT SCH (21:07)
[2021-01-01] MEDS: Pantoprazole 40 MG Tab.CR PO SCH (05:01)
[2021-01-01] MEDS: Insulin Lispro 100 Unit/ML 3 ML KwikPen SUBCUT SCH ×3 (07:29→17:52)
[2021-01-01] MEDS: Furosemide 40 MG Tab PO SCH ×2 (07:32→13:13)
[2021-01-01] MEDS: Mycophenolate Mofetil 250 MG Cap PO SCH ×2 (09:03→20:30)
[2021-01-01] MEDS: BREO ELLIPTA INH SCH (09:04)
[2021-01-01] MEDS: guaiFENesin 600 MG Tab.ER PO SCH ×2 (09:05→20:28)
[2021-01-01] MEDS: Tacrolimus 0.5 MG Cap PO SCH ×2 (09:05→20:31)
[2021-01-01] MEDS: FLUoxetine 20 MG Cap PO SCH (09:06)
[2021-01-01] MEDS: Sildenafil 20 MG Tab PO SCH ×3 (09:06→20:29)
[2021-01-01] MEDS: Calcitriol 0.25 MCG Cap PO SCH (09:07)
[2021-01-01] MEDS: Cholecalciferol (Vitamin D3) 25 MCG Tab PO SCH (09:08)
[2021-01-01] MEDS: MACITENTAN 10 MG PO SCH (09:08)
[2021-01-01] MEDS: Cyanocobalamin (Vitamin B12) 1,000 MCG Tab PO SCH (09:08)
[2021-01-01] MEDS: Gabapentin 100 MG Cap PO SCH ×3 (09:15→20:41)
[2021-01-01] MEDS: Mirabegron 25 MG Tab Extended Release PO SCH (17:51)
[2021-01-01] MEDS: Insulin Glargine,Human Rec. Analog 100 Units/ML 3 ML Pen SUBCUT SCH (20:36)
[2021-01-02] MEDS: Pantoprazole 40 MG Tab.CR PO SCH (06:22)
[2021-01-02] MEDS: Insulin Lispro 100 Unit/ML 3 ML KwikPen SUBCUT SCH ×4 (08:10→18:01)
[2021-01-02] MEDS: Furosemide 40 MG Tab PO SCH ×2 (08:12→14:49)
[2021-01-02] MEDS: Mycophenolate Mofetil 250 MG Cap PO SCH ×2 (09:19→20:17)
[2021-01-02] MEDS: BREO ELLIPTA INH SCH (09:20)
[2021-01-02] MEDS: Gabapentin 100 MG Cap PO SCH ×3 (09:21→20:20)
[2021-01-02] MEDS: guaiFENesin 600 MG Tab.ER PO SCH ×2 (09:21→20:21)
[2021-01-02] MEDS: Sildenafil 20 MG Tab PO SCH ×3 (09:22→20:20)
[2021-01-02] MEDS: Cyanocobalamin (Vitamin B12) 1,000 MCG Tab PO SCH (09:22)
[2021-01-02] MEDS: FLUoxetine 20 MG Cap PO SCH (09:22)
[2021-01-02] MEDS: Tacrolimus 0.5 MG Cap PO SCH ×2 (09:22→20:23)
[2021-01-02] MEDS: Cholecalciferol (Vitamin D3) 25 MCG Tab PO SCH (09:23)
[2021-01-02] MEDS: MACITENTAN 10 MG PO SCH (09:35)
[2021-01-02] MEDS ORDERED: Insulin Lispro 100 Unit/ML 3 ML KwikPen SUBCUT SCH (12:02)
[2021-01-02] MEDS: Mirabegron 25 MG Tab Extended Release PO SCH (18:02)
[2021-01-02] MEDS ORDERED: Insulin Lispro 100 Unit/ML 3 ML KwikPen SUBCUT ONE (18:03)
[2021-01-02] MEDS ORDERED: Insulin Glargine,Human Rec. Analog 100 Units/ML 3 ML Pen SUBCUT SCH (21:00)
[2021-01-03] MEDS: Pantoprazole 40 MG Tab.CR PO SCH (06:32)
[2021-01-03] MEDS: Furosemide 40 MG Tab PO SCH ×2 (07:52→13:04)
[2021-01-03] MEDS: Insulin Lispro 100 Unit/ML 3 ML KwikPen SUBCUT SCH ×4 (07:53→17:40)
[2021-01-03] MEDS: BREO ELLIPTA INH SCH (09:50)
[2021-01-03] MEDS: guaiFENesin 600 MG Tab.ER PO SCH ×2 (09:50→20:58)
[2021-01-03] MEDS: Mycophenolate Mofetil 250 MG Cap PO SCH ×2 (09:50→20:54)
[2021-01-03] MEDS: Sildenafil 20 MG Tab PO SCH ×3 (09:51→20:53)
[2021-01-03] MEDS: Cyanocobalamin (Vitamin B12) 1,000 MCG Tab PO SCH (09:51)
[2021-01-03] MEDS: Gabapentin 100 MG Cap PO SCH ×3 (09:51→20:59)
[2021-01-03] MEDS: Cholecalciferol (Vitamin D3) 25 MCG Tab PO SCH (09:51)
[2021-01-03] MEDS: FLUoxetine 20 MG Cap PO SCH (09:51)
[2021-01-03] MEDS: Tacrolimus 0.5 MG Cap PO SCH ×2 (09:51→20:55)
[2021-01-03] MEDS: MACITENTAN 10 MG PO SCH (09:55)
[2021-01-03] MEDS: Potassium Chloride 20 MEQ Tab.ER PO SCH ×2 (10:35→21:03)
[2021-01-03] MEDS: Mirabegron 25 MG Tab Extended Release PO SCH (17:40)
[2021-01-03] MEDS: Insulin Glargine,Human Rec. Analog 100 Units/ML 3 ML Pen SUBCUT SCH (21:04)
[2021-01-04] MEDS: Pantoprazole 40 MG Tab.CR PO SCH (05:06)
[2021-01-04] MEDS: Insulin Lispro 100 Unit/ML 3 ML KwikPen SUBCUT SCH ×3 (08:04→18:03)
[2021-01-04] MEDS: BREO ELLIPTA INH SCH (08:09)
[2021-01-04] MEDS: Furosemide 40 MG Tab PO SCH ×2 (08:10→14:16)
[2021-01-04] MEDS: Cyanocobalamin (Vitamin B12) 1,000 MCG Tab PO SCH (08:10)
[2021-01-04] MEDS: Calcitriol 0.25 MCG Cap PO SCH (08:10)
[2021-01-04] MEDS: FLUoxetine 20 MG Cap PO SCH (08:11)
[2021-01-04] MEDS: Tacrolimus 0.5 MG Cap PO SCH ×2 (08:11→21:08)
[2021-01-04] MEDS: Cholecalciferol (Vitamin D3) 25 MCG Tab PO SCH (08:11)
[2021-01-04] MEDS: guaiFENesin 600 MG Tab.ER PO SCH ×2 (08:12→21:07)
[2021-01-04] MEDS: Sildenafil 20 MG Tab PO SCH ×3 (08:13→21:08)
[2021-01-04] MEDS: Mycophenolate Mofetil 250 MG Cap PO SCH ×2 (08:14→21:06)
[2021-01-04] MEDS: MACITENTAN 10 MG PO SCH (08:17)
[2021-01-04] MEDS: Potassium Chloride 20 MEQ Tab.ER PO SCH ×2 (08:27→21:13)
[2021-01-04] MEDS: Gabapentin 100 MG Cap PO SCH ×3 (08:28→21:07)
[2021-01-04] MEDS: Mirabegron 25 MG Tab Extended Release PO SCH (18:02)
[2021-01-04] MEDS: Insulin Glargine,Human Rec. Analog 100 Units/ML 3 ML Pen SUBCUT SCH (21:12)
[2021-01-05] MEDS: Pantoprazole 40 MG Tab.CR PO SCH (06:12)
[2021-01-05] MEDS: Furosemide 40 MG Tab PO SCH ×2 (08:10→13:10)
[2021-01-05] MEDS: Insulin Lispro 100 Unit/ML 3 ML KwikPen SUBCUT SCH ×3 (08:11→18:02)
[2021-01-05] MEDS: Cyanocobalamin (Vitamin B12) 1,000 MCG Tab PO SCH (08:16)
[2021-01-05] MEDS: Cholecalciferol (Vitamin D3) 25 MCG Tab PO SCH (08:16)
[2021-01-05] MEDS: Tacrolimus 0.5 MG Cap PO SCH ×2 (08:17→20:27)
[2021-01-05] MEDS: BREO ELLIPTA INH SCH (08:18)
[2021-01-05] MEDS: FLUoxetine 20 MG Cap PO SCH (08:18)
[2021-01-05] MEDS: guaiFENesin 600 MG Tab.ER PO SCH ×2 (08:19→20:28)
[2021-01-05] MEDS: Mycophenolate Mofetil 250 MG Cap PO SCH ×2 (08:19→20:29)
[2021-01-05] MEDS: Sildenafil 20 MG Tab PO SCH ×3 (08:20→20:28)
[2021-01-05] MEDS: MACITENTAN 10 MG PO SCH (08:21)
[2021-01-05] MEDS: Gabapentin 100 MG Cap PO SCH ×4 (08:29→20:33)
[2021-01-05] MEDS: Potassium Chloride 20 MEQ Tab.ER PO SCH ×2 (08:29→20:27)
--- NOTE | 2021-01-05 10:52 | PN ---
DATE SEEN: 01/04/2021 SUBJECTIVE: Karol Valdes is a 75-year-old female presently in swing bed. Restorative therapy. O2 dependent activity. Has severe pulmonary hypertension; history of liver transplant, on long-term immunosuppressants. Antibiotics have been discontinued. Intermittent nausea, otherwise comfortable. OBJECTIVE: VITAL SIGNS: Stable. 36.6, 68, 103/53, 16, 94% on room air. GENERAL: Cooperative, conversant. Speech was fluent. Oriented. NECK: No JVD. CHEST: Decreased breath sounds. HEART: Distant heart sounds. ABDOMEN: Benign. ASSESSMENT: Pulmonary hypertension, with required O2. PLAN: Medications, care, treatment. Therapy in place. Proceed accordingly. /[id number] OLEGARIO/KASANDRA
--- NOTE | 2021-01-05 10:52 | PN ---
DATE SEEN: 01/03/2021 SUBJECTIVE: Karol Valdes is a 75-year-old female in swing bed. Restorative therapy, care of her heart, intervention as appropriate. Had a recent pneumonia. On long-term immunosuppressants for liver transplant. Her history of azotemia of concern. OBJECTIVE: VITAL SIGNS: Stable. NECK: Benign. Thyroid small. CHEST: Clear in all lung pérez, coarse rhonchi at both bases. HEART: Regular with occasional ectopy. No obvious murmur. ABDOMEN: Benign. No edema. ASSESSMENT: 1. Severe pulmonary hypertension. 2. Recent pneumonia. 3. Congestive heart failure, compensated. 4. Stage 4 kidney disease. PLAN: Medications, care, and treatment appropriate. Sugars have been very high, adjustment of insulin upward. /[id number] OLEGARIO/KASANDRA
--- NOTE | 2021-01-05 10:52 | PN ---
DATE SEEN: 01/01/2021 SUBJECTIVE: Karol Valdes is a delightful 75-year-old female in swing bed, in for restorative therapy and intervention. Please see PT notes, care, and treatment. Appears to be doing well. Ambulatory skills and self-help skills are a bit problematic. Has history of severe pulmonary hypertension, compensated congestive heart failure, type 2 diabetes mellitus, and stage 4 kidney disease. MEDICATIONS: Reviewed and appropriate. OBJECTIVE: VITAL SIGNS: 36.3, 84, 123/52 with 93% on 5 L. GENERAL: Appears comfortable. Speech was fluent. Conduct appropriate. NECK: No JVD. CHEST: Decreased breath sounds, but clear. HEART: Sounds distant. Soft murmur. ABDOMEN: Benign. ASSESSMENT: Restorative therapy, underlying chronic critical illnesses. PLAN: Medications, care, and treatment appropriate. PT and intervention care, long-term plan. /[id number] OLEGARIO/KASANDRA
--- NOTE | 2021-01-05 10:52 | PN ---
DATE SEEN: 01/01/2021 SUBJECTIVE: Karol Valdes is a 75-year-old female in swing bed. She is under restorative care and therapy. Shortness of breath, pneumonia, weakness. Diuresis has been successful, and she remains clinically stable. IV fluids have been complementary. Blood sugars of great concern. They are running 422, 418, 181, 92, and 375. Presently on 2 units of Lantus, 8 units of Humalog before each meal. OBJECTIVE: VITAL SIGNS: 36.3, 123/52, 16, 5 L. GENERAL: Appears comfortable. Mouth and oropharynx clear. NECK: Benign. CHEST: Decreased breath sounds, clear though. HEART: Distant heart sounds, ectopy and murmur. ABDOMEN: Benign. ASSESSMENT: Complicated health issues. PLAN: Continue with therapy and rehab, adjustments of dose for insulin therapy. /[id number] OLEGARIO/KASANDRA
--- NOTE | 2021-01-05 10:54 | PN ---
DATE SEEN: 01/05/2021 SUBJECTIVE: Karol Valdes is a 75-year-old female, complicated health issues, in restorative therapy. History of severe pulmonary hypertension, O2 dependent status, liver transplant, and decreased cardiovascular function. Slowly getting better. PT is actively involved. She voices no particular complaints or concerns. Vital signs have been stable. PLAN: Continue present therapy. /[id number] OLEGARIO/KASANDRA
[2021-01-05] MEDS: Mirabegron 25 MG Tab Extended Release PO SCH (18:02)
[2021-01-05] MEDS: Insulin Glargine,Human Rec. Analog 100 Units/ML 3 ML Pen SUBCUT SCH (20:35)
[2021-01-06] MEDS: Pantoprazole 40 MG Tab.CR PO SCH (06:22)
[2021-01-06] MEDS: Insulin Lispro 100 Unit/ML 3 ML KwikPen SUBCUT SCH ×3 (08:00→17:43)
[2021-01-06] MEDS: Furosemide 40 MG Tab PO SCH ×2 (08:00→13:00)
[2021-01-06] MEDS: Mycophenolate Mofetil 250 MG Cap PO SCH ×2 (08:53→21:19)
[2021-01-06] MEDS: Potassium Chloride 20 MEQ Tab.ER PO SCH ×2 (08:54→21:19)
[2021-01-06] MEDS: FLUoxetine 20 MG Cap PO SCH (08:55)
[2021-01-06] MEDS: guaiFENesin 600 MG Tab.ER PO SCH ×2 (08:55→21:19)
[2021-01-06] MEDS: Tacrolimus 0.5 MG Cap PO SCH ×2 (08:55→21:19)
[2021-01-06] MEDS: Sildenafil 20 MG Tab PO SCH ×3 (08:56→21:19)
[2021-01-06] MEDS: Calcitriol 0.25 MCG Cap PO SCH (08:56)
[2021-01-06] MEDS: Cholecalciferol (Vitamin D3) 25 MCG Tab PO SCH (08:56)
[2021-01-06] MEDS: BREO ELLIPTA INH SCH (08:57)
[2021-01-06] MEDS: Cyanocobalamin (Vitamin B12) 1,000 MCG Tab PO SCH (08:57)
[2021-01-06] MEDS: MACITENTAN 10 MG PO SCH (08:59)
[2021-01-06] MEDS: Gabapentin 100 MG Cap PO SCH ×3 (09:04→21:20)
[2021-01-06] MEDS: Mirabegron 25 MG Tab Extended Release PO SCH (17:43)
[2021-01-06] MEDS: Insulin Glargine,Human Rec. Analog 100 Units/ML 3 ML Pen SUBCUT SCH (21:20)
[2021-01-07] MEDS: Pantoprazole 40 MG Tab.CR PO SCH (06:06)
[2021-01-07] MEDS: Furosemide 40 MG Tab PO SCH ×2 (07:56→12:59)
[2021-01-07] MEDS: Insulin Lispro 100 Unit/ML 3 ML KwikPen SUBCUT SCH ×3 (07:56→17:55)
[2021-01-07] MEDS: Potassium Chloride 20 MEQ Tab.ER PO SCH ×2 (09:59→20:01)
[2021-01-07] MEDS: Mycophenolate Mofetil 250 MG Cap PO SCH ×2 (09:59→20:02)
[2021-01-07] MEDS: Cholecalciferol (Vitamin D3) 25 MCG Tab PO SCH (10:00)
[2021-01-07] MEDS: Tacrolimus 0.5 MG Cap PO SCH ×2 (10:00→20:01)
[2021-01-07] MEDS: Sildenafil 20 MG Tab PO SCH ×3 (10:00→20:01)
[2021-01-07] MEDS: FLUoxetine 20 MG Cap PO SCH (10:00)
[2021-01-07] MEDS: guaiFENesin 600 MG Tab.ER PO SCH ×2 (10:00→20:01)
[2021-01-07] MEDS: Cyanocobalamin (Vitamin B12) 1,000 MCG Tab PO SCH (10:00)
[2021-01-07] MEDS: MACITENTAN 10 MG PO SCH (10:03)
[2021-01-07] MEDS: BREO ELLIPTA INH SCH (10:04)
[2021-01-07] MEDS: Gabapentin 100 MG Cap PO SCH ×3 (10:08→20:01)
--- NOTE | 2021-01-07 14:30 | PN ---
DATE SEEN: 01/06/2021 SUBJECTIVE: Karol Valdes is a -[id number] female in swing bed and rehab therapy. Making good progress. Complicating health issue of course are underlying lung disease, severe pulmonary hypertension, recent pneumonia, supplemental O2 at 5 L, compensated congestive heart failure and kidney disease. Diabetes continues to be the major problem. Blood sugars continue to run 200 to 300. We will make adjustments accordingly. MEDICATIONS: Reviewed and appropriate. OBJECTIVE: VITAL SIGNS: 36.6, 113/65, 18, 92% on 5 L. GENERAL: Appears comfortable. Speech was fluent. Moves slowly. NECK: No JVD. CHEST: Decreased breath sounds, but clear in all lung pérez. HEART: Distant heart sounds. Soft murmur. ASSESSMENT: Rehab in progress. PLAN: Medications, care, and treatment appropriate. We will increase her long- acting from 44 to 50 units, her short-acting from 18 t.i.d. before meals to 22 before meals t.i.d. Complementary care and well being. /[id number] OLEGARIO/KASANDRA
--- NOTE | 2021-01-07 14:30 | PN ---
DATE SEEN: 01/07/2021 SUBJECTIVE: Karol Valdes is a 75-year-old female in for rehab purposes. Underlying chronic lung disease, pulmonary hypertension, and poorly controlled diabetes mellitus. Recent laboratory studies, none. Glucoses noted over the last several days duration markedly elevated. Increasing doses of insulin had been required. We will obtain CBC and electrolytes today. OBJECTIVE: VITAL SIGNS: 37.1, 117/60, . GENERAL: Appears comfortable. HEENT: Mouth and oropharynx clear. NECK: Benign. Thyroid small. CHEST: Decreased breath sounds. Clear throughout in all lung pérez. HEART: Distant heart sounds. Ectopy present. ABDOMEN: Benign. ASSESSMENT: Chronic lung disease, pulmonary hypertension. PLAN: Rehab, intervention, and care in place. Going home plan. /[id number] OLEGARIO/KASANDRA
[2021-01-07] MEDS: Mirabegron 25 MG Tab Extended Release PO SCH (17:30)
[2021-01-07] MEDS: Insulin Glargine,Human Rec. Analog 100 Units/ML 3 ML Pen SUBCUT SCH (20:02)
[2021-01-08] MEDS: Pantoprazole 40 MG Tab.CR PO SCH (06:13)
[2021-01-08] MEDS: Insulin Lispro 100 Unit/ML 3 ML KwikPen SUBCUT SCH ×2 (07:59→11:25)
[2021-01-08] MEDS: Furosemide 40 MG Tab PO SCH (08:00)
[2021-01-08] MEDS ORDERED: Insulin Lispro 100 Unit/ML 3 ML KwikPen SUBCUT ONE (08:03)
[2021-01-08] MEDS: Cholecalciferol (Vitamin D3) 25 MCG Tab PO SCH (09:13)
[2021-01-08] MEDS: Mycophenolate Mofetil 250 MG Cap PO SCH (09:13)
[2021-01-08] MEDS: FLUoxetine 20 MG Cap PO SCH (09:13)
[2021-01-08] MEDS: guaiFENesin 600 MG Tab.ER PO SCH (09:13)
[2021-01-08] MEDS: Cyanocobalamin (Vitamin B12) 1,000 MCG Tab PO SCH (09:13)
[2021-01-08] MEDS: Sildenafil 20 MG Tab PO SCH (09:13)
[2021-01-08] MEDS: Gabapentin 100 MG Cap PO SCH (09:13)
[2021-01-08] MEDS: Potassium Chloride 20 MEQ Tab.ER PO SCH (09:13)
[2021-01-08] MEDS: Calcitriol 0.25 MCG Cap PO SCH (09:13)
[2021-01-08] MEDS: Tacrolimus 0.5 MG Cap PO SCH (09:13)
[2021-01-08] MEDS: BREO ELLIPTA INH SCH (09:14)
[2021-01-08] MEDS: MACITENTAN 10 MG PO SCH (09:14)
--- NOTE | 2021-01-08 14:33 | PCM.DCSUM1 ---
Discharge Summary - Hospital Course HPI Initial Comments: ACUTE HPI: Karol started having more shortness of breath this morning, has been more fatigued since Monday. Has been having loose stools 1 per day for the past 3 weeks, no change in diet or medications. She has history of CHF, DM, pulmonary fibrosis, pulmonary hypertension, COPD on 5L continuous, liver transplant on immunosuppressants, also chronic steroid use with Dexamethasone 1 mg daily. Denies fever, cough but was cold this morning. Her who is her primary caregiver stated when she gets cold he usually turns up her oxygen and that resolves it. She had an emesis this morning. According to her pt has not been taking her diuretics as the have been making her void frequently. She denies sore throat, swollen glands, dysuria, frequency(except with diuretic) or blood. Her stated it is more concentrated in the morning which is not unusual. She went off her gluten free diet a few years ago and didn't notice increased diarrhea. With Dr Cox retiring, they are switching care to Dr Dyson but have not met with him yet. In ER, received Lasix 40 mg IV x 1, DuoNebs x 1, oxygen came up to 88-90% on 6L. Her WBC was 15.6, 74% neutrophils; CXR showed pulmonary edema, chronic pulmonary fibrosis but pneumonia could not be excluded. Cr 1.6. BNP 2294. Troponin 79.5. Covid/influenza negative. UA showed small bilirubin, 1 urobilinogen, RBC 0-5, WBC 5-10, Occasional epithelials and many bacteria, urine culture ordered, asymptomatic. ACUTE HOSPITAL COURSE: Admit with pneumonia, UTI, and CHF, received Lasix 40 mg IV bid and she had 2775 ml out of [place] since admission, weight went down to 157 from 159 then stabilized. proBNP was 2294. CXR showed pneumonia superimposed on pulmonary fibrosis, COPD. Received Rocephin & Azithromycin IV in ER and continued on the floor she has had 3 doses of both total to date. Her WBC went from 15.6 to 10.0 to 7.8 today. She has chronic pulmonary fibrosis, pulmonary hypertension and COPD, on oxygen at home at 5L, she was requiring 6 L on admission, on transfer to swing bed she was back to home 5L. Hgb 11.1 on admission and 10.1 today. Cr was 1.6 on admission, went to 1.4 and now at 1.5. Her BUN/Cr ratio was at 20.0 and now 21.1 so maintaining her hydration. Her urine culture grew Klebsiella oxytoca, sensitive to Rocephin. Sputum culture was sent to [facility] but sample was rejected due to too many epithelials cells consistent with spit not sputum. Blood cultures have had no growth to date. She was requiring 2 person assist with transfers, she is a 1 person assist at home, PT/OT assessed her felt she needed swing bed placement to get her stronger so she can go home. She did not want to do that but her did not feel he could take her home so she will be transferred to swing bed today on oral antibiotics, oral diuretics and continued PT/OT. Diagnosis: Stroke: No - Discharge Data Discharge Date: 01/08/21 ([facility]) Discharge Disposition: Home, Home Health Agency 06 Condition: Good - Referral to Home Health Date of Face to Face Encounter: 01/08/21 Reason for Homebound Status: limited mobility, severe pulmonary hypertension Primary Care Physician: Shubham Cox MD Skilled Need: PT/OT - Discharge Diagnosis/Problem(s) (1) Weakness generalized SNOMED Code(s): 80383017 ICD Code: R53.1 - WEAKNESS Status: Resolved Problem Details: PT/OT (2) CHF (congestive heart failure) SNOMED Code(s): 78800345 ICD Code: I50.9 - HEART FAILURE, UNSPECIFIED Status: Chronic Qualifiers: Heart failure chronicity: chronic (3) COPD (chronic obstructive pulmonary disease) SNOMED Code(s): 25491179 ICD Code: J44.9 - CHRONIC OBSTRUCTIVE PULMONARY DISEASE, UNSPECIFIED Status: Chronic Problem Details: on 5L continuous oxygen by hi. (4) Diabetes SNOMED Code(s): 82906141 ICD Code: E11.9 - TYPE 2 DIABETES MELLITUS WITHOUT COMPLICATIONS Status: Chronic Qualifiers: Diabetes mellitus half-way insulin use: with manager terminal use (5) History of liver transplant SNOMED Code(s): 669062644 ICD Code: Z94.4 - LIVER TRANSPLANT STATUS Status: Chronic Onset Date: ~2010 (6) Pulmonary fibrosis SNOMED Code(s): 33078275 ICD Code: J84.10 - PULMONARY FIBROSIS, UNSPECIFIED Status: Chronic Problem Details: severe (7) Pulmonary hypertension SNOMED Code(s): 60335410 ICD Code: I27.20 - PULMONARY HYPERTENSION, UNSPECIFIED Status: Chronic (8) Pneumonia SNOMED Code(s): 942134677 ICD Code: J18.9 - PNEUMONIA, UNSPECIFIED ORGANISM Status: Resolved Qualifiers: Pneumonia type: due to unspecified organism Laterality: unspecified laterality Lung location: unspecified part of lung Qualified Code(s): J18.9 - Pneumonia, unspecified organism (9) UTI (urinary tract infection) SNOMED Code(s): 37987510 ICD Code: N39.0 - URINARY TRACT INFECTION, SITE NOT SPECIFIED Status: Resolved Qualifiers: Urinary tract infection type: acute cystitis Hematuria presence: without hematuria Qualified Code(s): N30.00 - Acute cystitis without hematuria - Patient Summary/Data Consults: Consultations 12/22/20 14:29 OT Evaluation and Treatment [CONS] Routine Please Evaluate and Treat. OT Reason for Consult: ADL's Special Instructions: weakness This query below is only for informational purposes and is not editable. PT Evaluation and Treatment [CONS] Routine Please Evaluate and Treat. PT Reason for Consult: Strengthening Special Instructions: weakness This query below is only for informational purposes and is not editable. Hospital Course: She progressed well with PT/OT, her has been coming in for her therapy sessions and assisting in anticipation of discharge back home. She did have overdiuresis end of Nov/beginning of Dec, had some IV fluids, then continued on Lasix. Her weight on admission to swing bed was 157 and on discharge 148 lbs. Her dexamethasone was held due to elevated blood sugars then resumed. Her Lantus dose was increased to 50 units daily and Humalog was increased to 18 units tid meals, last 24 hours blood sugars: 292, 215, 150, discussed continuing checking her sugars at home 4 times a day and adjusting her meal time insulin first and then Lantus, follow up with Dr Dyson next week for recheck of COPD/CHF/pu lmonary hypertension, kidney function and blood sugars. She completed her course of antibiotics for her pneumonia and UTI due to Klebsiella oxytoca, repeat CXR showed resolving pneumonia with underlying pulmonary fibrosis. - Patient Instructions Diet: Diabetic Diet Activity: As Tolerated Driving: Do Not Drive Showering/Bathing: May Shower Notify Provider of: Fever, Increased Pain, Nausea and/or Vomiting Other/Special Instructions: Follow up with Dr Dyson on Monday or Monday next week for recheck of blood sugars/CHF, chronic lung disease. - Discharge Plan *PRESCRIPTION DRUG MONITORING PROGRAM REVIEWED*: Not Applicable *COPY OF PRESCRIPTION DRUG MONITORING REPORT IN PATIENT [place]: Not Applicable Prescriptions/Med Rec: Insulin Lispro [Humalog] 18 unit SUBCUT TIDMEALS #1 box Potassium Chloride [Klor-Con M20] 20 meq PO BID #60 tab.er Insulin Glarg,Human.Rec.Analog [Lantus Solostar] 50 units SUBCUT BEDTIME #1 box Furosemide [Lasix] 40 mg PO BIDDIURETIC #60 tablet Home Medications: Home Meds Acetaminophen [Tylenol Extra Strength] 500 mg PO Q4H PRN 12/26/18 [History] Albuterol [Ventolin HFA] 2 puff INH Q4H PRN 12/26/18 [History] Cholecalciferol (Vitamin D3) [Vitamin D3] 1,000 unit PO DAILY 12/26/18 [History] Cyanocobalamin (Vitamin B-12) [Vitamin B-12] 1,000 mcg PO DAILY 12/26/18 [History] FLUoxetine HCl [Fluoxetine HCl] 40 mg PO DAILY 12/26/18 [History] Lutein 20 mg PO DAILY 12/26/18 [History] Macitentan [Opsumit] 10 mg PO DAILY 12/26/18 [History] Mirabegron [Myrbetriq] 50 mg PO WITHDINNER 12/26/18 [History] Omeprazole 20 mg PO DAILY@0600 12/26/18 [History] Sildenafil Citrate 20 mg PO TID 12/26/18 [History] Tacrolimus [Prograf] 0.5 mg PO BID 12/26/18 [History] mycophenolate mofetiL [Cellcept] 500 mg PO BID 12/26/18 [History] Iron,Carbonyl/Ascorbic Acid [Vitron-C Tablet] 1 tab PO BID 04/25/19 [History] Fluticasone/Vilanterol [Breo Ellipta 100-25 MCG Inhalation Kit] 1 puff INH DAILY 10/12/20 [History] Trimethoprim 100 mg PO DAILY 10/12/20 [History] calcitrioL [Calcitriol] 0.25 mcg PO MOWEFR 10/12/20 [History] dexAMETHasone [Dexamethasone] 1 mg PO DAILY 10/12/20 [History] Betamethasone Valerate [Valisone 0.1% Lotion] 60 ml TP ASDIRECTED 12/19/20 [History] Ketoconazole [Nizoral 2% Shampoo] 120 ml .XX ASDIRECTED 12/19/20 [History] Gabapentin [Neurontin] 200 mg PO TID cap 12/22/20 [Rx] guaiFENesin [Mucinex] 600 mg PO BID tab.er 12/22/20 [Rx] Furosemide [Lasix] 40 mg PO BIDDIURETIC #60 tablet 01/08/21 [Rx] Insulin Glarg,Human.Rec.Analog [Lantus Solostar] 50 units SUBCUT BEDTIME #1 box 01/08/21 [Rx] Insulin Lispro [Humalog] 18 unit SUBCUT TIDMEALS #1 box 01/08/21 [Rx] Potassium Chloride [Klor-Con M20] 20 meq PO BID #60 tab.er 01/08/21 [Rx] Oxygen Therapy Mode: Nasal Cannula Oxygen Flow Rate (L/min): 5 Maintain SPO2% less than: 92 Maintain SpO2% greater than: 88 - Discharge Summary/Plan Comment DC Time >30 min.: No Total # of Minutes for Discharge Time: 20 min - General Info Date of Service: 01/08/21 Subjective Update: She is feeling much better, her has been coming in for therapy sessions and assisting. Her breathing is at her baseline. Discussed that she has been on Lasix since she was admitted on acute care side and has not had any reactions to it(as it had been avoided as outpatient due to her sulfa allergy) if they wanted to go back on her home Ethacrynic acid, both Karol & her felt the Lasix was doing better keeping fluid down than Ethacrynic acid so would like to go home on Lasix. They do have plenty of Lantus and NovoLog at home and state that she was on higher doses at home but was having extreme lows and highs, she uses [employer] [place] so can check qid and recheck with Dr Dyson next week. Weight is down to 148 lbs. She was 157 on admission. Functional Status: Reports: Pain Controlled, Tolerating Diet, Ambulating, Urinating. Denies: New Symptoms - Patient Data Vitals - Most Recent: Last Vital Signs Temp 97.7 F 01/08/21 08:00 Pulse 83 01/08/21 08:00 Resp 16 01/08/21 08:00 BP 113/46 L 01/08/21 08:00 Pulse Ox 94 L 01/08/21 08:00 Weight - Most Recent: 148 lb 9.6 oz Med Orders - Current: Current Medications Discontinued Medications Acetaminophen (Acetaminophen 500 Mg Tab) 500 mg PO Q4H PRN PRN Reason: Pain Last Admin: 12/27/20 17:16 Dose: 500 mg Documented by: Albuterol (Albuterol 0.083% 2.5 Mg/3 Ml Neb Soln) 2.5 mg NEB Q4H PRN PRN Reason: Shortness of Breath Azithromycin (Azithromycin 500 Mg Tab) 500 mg PO DAILY@1530 [facility] Stop: 12/23/20 15:31 Last Admin: 12/23/20 15:39 Dose: 500 mg Documented by: Calcitriol (Calcitriol 0.25 Mcg Cap) 0.25 mcg PO MOWEFR [facility] Last Admin: 01/08/21 09:13 Dose: 0.25 mcg Documented by: Cefdinir (Cefdinir 300 Mg Cap) 300 mg PO DAILY@1530 [facility] Stop: 12/25/20 15:31 Last Admin: 12/25/20 16:34 Dose: 300 mg Documented by: Cholecalciferol (Cholecalciferol (Vitamin D3) 25 Mcg Tab) 25 mcg PO DAILY [facility] Last Admin: 01/08/21 09:13 Dose: 25 mcg Documented by: Cyanocobalamin (Cyanocobalamin (Vitamin B12) 1,000 Mcg Tab) 1,000 mcg PO DAILY [facility] Last Admin: 01/08/21 09:13 Dose: 1,000 mcg Documented by: Dexamethasone (Dexamethasone 1 Mg Tab) 1 mg PO DAILY [facility] Last Admin: 12/25/20 08:27 Dose: 1 mg Documented by: Dexamethasone (Dexamethasone 1 Mg Tab) 1 mg PO DAILY [facility] Last Admin: 01/08/21 09:13 Dose: 1 mg Documented by: Dextrose/Water (50% Dextrose In Water 50 Ml Syringe) 50 ml IVPUSH ASDIRECTED PRN PRN Reason: Hypoglycemia Dextrose/Water (50% Dextrose In Water 50 Ml Syringe) 50 ml IVPUSH ASDIRECTED PRN PRN Reason: Hypoglycemia Dextrose/Water (50% Dextrose In Water 50 Ml Syringe) 50 ml IVPUSH ASDIRECTED PRN PRN Reason: Hypoglycemia Dextrose/Water (50% Dextrose In Water 50 Ml Syringe) 50 ml IVPUSH ASDIRECTED PRN PRN Reason: Hypoglycemia Dextrose/Water (50% Dextrose In Water 50 Ml Syringe) 50 ml IVPUSH ASDIRECTED PRN PRN Reason: Hypoglycemia Dextrose/Water (50% Dextrose In Water 50 Ml Syringe) 50 ml IVPUSH ASDIRECTED PRN PRN Reason: Hypoglycemia Fluoxetine HCl (Fluoxetine 20 Mg Cap) 40 mg PO DAILY [facility] Last Admin: 01/08/21 09:13 Dose: 40 mg Documented by: Furosemide (Furosemide 40 Mg Tab) 40 mg PO BIDDIURETIC [facility] Last Admin: 01/08/21 08:00 Dose: 40 mg Documented by: Gabapentin (Gabapentin 100 Mg Cap) 200 mg PO TID [facility] Last Admin: 01/08/21 09:13 Dose: 200 mg Documented by: Glucagon (Glucagon,Human Recombinant 1 Mg Vial) 1 mg IM ASDIRECTED PRN PRN Reason: Hypoglycemia Glucagon (Glucagon,Human Recombinant 1 Mg Vial) 1 mg IM ASDIRECTED PRN PRN Reason: Hypoglycemia Glucagon (Glucagon,Human Recombinant 1 Mg Vial) 1 mg IM ASDIRECTED PRN PRN Reason: Hypoglycemia Glucagon (Glucagon,Human Recombinant 1 Mg Vial) 1 mg IM ASDIRECTED PRN PRN Reason: Hypoglycemia Glucagon (Glucagon,Human Recombinant 1 Mg Vial) 1 mg IM ASDIRECTED PRN PRN Reason: Hypoglycemia Glucagon (Glucagon,Human Recombinant 1 Mg Vial) 1 mg IM ASDIRECTED PRN PRN Reason: Hypoglycemia Guaifenesin (Guaifenesin 600 Mg Tab.Er) 600 mg PO BID [facility] Last Admin: 01/08/21 09:13 Dose: 600 mg Documented by: Sodium Chloride (Normal Saline) 1,000 mls @ 75 mls/hr IV ASDIRECTED [facility] Last Admin: 12/30/20 07:57 Dose: 75 mls/hr Documented by: Insulin Glargine (Insulin Glargine,Human Rec. Analog 100 Units/Ml 3 Ml Pen) 6 units SUBCUT BEDTIME [facility] Last Admin: 12/24/20 20:33 Dose: 6 units Documented by: Insulin Glargine (Insulin Glargine,Human Rec. Analog 100 Units/Ml 3 Ml Pen) 10 units SUBCUT BEDTIME [facility] Last Admin: 12/25/20 20:56 Dose: 10 unit Documented by: Insulin Glargine (Insulin Glargine,Human Rec. Analog 100 Units/Ml 3 Ml Pen) 14 units SUBCUT BEDTIME [facility] Last Admin: 12/28/20 21:18 Dose: 14 unit Documented by: Insulin Glargine (Insulin Glargine,Human Rec. Analog 100 Units/Ml 3 Ml Pen) 18 units SUBCUT BEDTIME [facility] Last Admin: 12/29/20 21:29 Dose: 18 units Documented by: Insulin Glargine (Insulin Glargine,Human Rec. Analog 100 Units/Ml 3 Ml Pen) 25 units SUBCUT BEDTIME [facility] Last Admin: 12/30/20 20:00 Dose: 25 units Documented by: Insulin Glargine (Insulin Glargine,Human Rec. Analog 100 Units/Ml 3 Ml Pen) 32 units SUBCUT BEDTIME [facility] Last Admin: 01/01/21 20:36 Dose: 32 units Documented by: Insulin Glargine (Insulin Glargine,Human Rec. Analog 100 Units/Ml 3 Ml Pen) 40 units SUBCUT BEDTIME [facility] Last Admin: 01/02/21 20:40 Dose: 40 units Documented by: Insulin Glargine (Insulin Glargine,Human Rec. Analog 100 Units/Ml 3 Ml Pen) 44 units SUBCUT BEDTIME [facility] Last Admin: 01/05/21 20:35 Dose: 44 units Documented by: Insulin Glargine (Insulin Glargine,Human Rec. Analog 100 Units/Ml 3 Ml Pen) 50 units SUBCUT BEDTIME [facility] Last Admin: 01/07/21 20:02 Dose: 50 units Documented by: Insulin Human Lispro (Insulin Lispro 100 Unit/Ml 3 Ml Kwikpen) 5 unit SUBCUT 08,12 [facility] Last Admin: 12/26/20 11:39 Dose: 5 unit Documented by: Insulin Human Lispro (Insulin Lispro 100 Unit/Ml 3 Ml Kwikpen) 0 unit SUBCUT TIDMEALS [facility]; Protocol Last Admin: 12/28/20 08:27 Dose: 3 units Documented by: Insulin Human Lispro (Insulin Lispro 100 Unit/Ml 3 Ml Kwikpen) 15 unit SUBCUT ONETIME ONE Stop: 12/26/20 19:36 Last Admin: 12/26/20 19:45 Dose: 15 units Documented by: Insulin Human Lispro (Insulin Lispro 100 Unit/Ml 3 Ml Kwikpen) 5 unit SUBCUT BID [facility] Last Admin: 12/28/20 11:36 Dose: 5 unit Documented by: Insulin Human Lispro (Insulin Lispro 100 Unit/Ml 3 Ml Kwikpen) 5 unit SUBCUT BID@0800,1200 [facility] Last Admin: 12/30/20 09:06 Dose: 5 units Documented by: Insulin Human Lispro (Insulin Lispro 100 Unit/Ml 3 Ml Kwikpen) 8 unit SUBCUT ONETIME ONE Stop: 12/29/20 18:25 Last Admin: 12/29/20 18:26 Dose: 8 units Documented by: Insulin Human Lispro (Insulin Lispro 100 Unit/Ml 3 Ml Kwikpen) 5 unit SUBCUT ONETIME ONE Stop: 12/29/20 21:36 Last Admin: 12/29/20 21:37 Dose: 5 units Documented by: Insulin Human Lispro (Insulin Lispro 100 Unit/Ml 3 Ml Kwikpen) 8 unit SUBCUT TIDMEALS [facility] Last Admin: 01/02/21 13:49 Dose: Not Given Documented by: Insulin Human Lispro (Insulin Lispro 100 Unit/Ml 3 Ml Kwikpen) 5 unit SUBCUT ONETIME ONE Stop: 12/30/20 22:23 Last Admin: 12/30/20 22:15 Dose: 5 units Documented by: Insulin Human Lispro (Insulin Lispro 100 Unit/Ml 3 Ml Kwikpen) 14 unit SUBCUT TIDMEALS [facility] Insulin Human Lispro (Insulin Lispro 100 Unit/Ml 3 Ml Kwikpen) 14 unit SUBCUT TIDMEALS [facility] Last Admin: 01/03/21 07:53 Dose: 14 unit Documented by: Insulin Human Lispro (Insulin Lispro 100 Unit/Ml 3 Ml Kwikpen) 18 unit SUBCUT TIDMEALS [facility] Last Admin: 01/06/21 08:00 Dose: 18 units Documented by: Insulin Human Lispro (Insulin Lispro 100 Unit/Ml 3 Ml Kwikpen) 22 unit SUBCUT TIDMEALS [facility] Last Admin: 01/07/21 17:55 Dose: Not Given Documented by: Insulin Human Lispro (Insulin Lispro 100 Unit/Ml 3 Ml Kwikpen) 18 unit SUBCUT TIDMEALS [facility] Last Admin: 01/08/21 11:25 Dose: 18 units Documented by: Insulin Human Lispro (Insulin Lispro 100 Unit/Ml 3 Ml Kwikpen) 300 unit SUBCUT .[facility] ONE Stop: 01/02/21 18:04 Lutein (Lutein 10 Mg Tab) 20 mg PO DAILY [facility] Last Admin: 01/08/21 09:13 Dose: 20 mg Documented by: Mirabegron (Mirabegron 25 Mg Tab Extended Release) 50 mg PO WITHDINNER [facility] Last Admin: 01/07/21 17:30 Dose: 50 mg Documented by: Mycophenolate Mofetil (Mycophenolate Mofetil 250 Mg Cap) 500 mg PO BID [facility] Last Admin: 01/08/21 09:13 Dose: 500 mg Documented by: Brevivi Ellipta 100mcg/25mcg (Fluticasone/Vilanterol 1 Each Each) *Ptom 1 puff INH DAILY [facility] Last Admin: 01/08/21 09:14 Dose: 1 puff Documented by: (Macitentan [Opsumit ] 10 Mg Tablet) * Ptom 10 mg PO DAILY [facility] Last Admin: 01/08/21 09:14 Dose: 10 mg Documented by: (Iron,Carbonyl/Ascorbic Acid [ Vitron-C Tablet] * Ptom 1 tab PO BID [facility] Last Admin: 01/08/21 09:12 Dose: 1 tab Documented by: Ondansetron HCl (Ondansetron 4 Mg Tab.Dis) 4 mg PO Q6H PRN PRN Reason: Nausea/Vomiting Last Admin: 12/28/20 11:01 Dose: 4 mg Documented by: Ondansetron HCl (Ondansetron 4 Mg/2 Ml Sdv) 4 mg IVPUSH Q6H PRN PRN Reason: Nausea/Vomiting Pantoprazole Sodium (Pantoprazole 40 Mg Tab.Cr) 40 mg PO DAILY@0600 [facility] Last Admin: 01/08/21 06:13 Dose: 40 mg Documented by: Potassium Chloride (Potassium Chloride 20 Meq Tab.Er) 20 meq PO BID [facility] Last Admin: 01/08/21 09:13 Dose: 20 meq Documented by: Sildenafil Citrate (Sildenafil 20 Mg Tab) 20 mg PO TID [facility] Last Admin: 01/08/21 09:13 Dose: 20 mg Documented by: Tacrolimus (Tacrolimus 0.5 Mg Cap) 0.5 mg PO BID [facility] Last Admin: 01/08/21 09:13 Dose: 0.5 mg Documented by: Trimethoprim (Trimethoprim 100 Mg Tab) 100 mg PO DAILY [facility] Last Admin: 01/08/21 09:13 Dose: 100 mg Documented by: - Exam Quality Assessment: Reports: Supplemental Oxygen General: Reports: Alert, Oriented, Cooperative Neck: Reports: Supple, Trachea Midline Lungs: Reports: Normal Respiratory Effort, Decreased Breath Sounds. Denies: Wheezing Cardiovascular: Reports: Regular Rate, Regular Rhythm GI/Abdominal Exam: Normal Bowel Sounds, Soft, Non-Tender, No Distention Extremities: Normal Capillary Refill, Pedal Edema (1+ BLE) Skin: Reports: Warm, Dry, Intact *Q Meaningful Use (DIS) - VTE *Q VTE Mechanical Contraindications *Q: At Risk for Falls
== END 2021-01-08 12:30 | disposition home health service (06) | DRG 947 ==
LOC: FB.MS 14:28
PROVIDERS: ADMIT Family Medicine; ATTEND Family Medicine
DX: R53.1 Weakness (principal); J18.9 Pneumonia, unspecified organism; D84.9 Immunodeficiency, unspecified; Z94.4 Liver transplant status; N30.00 Acute cystitis without hematuria; I13.0 Hypertensive heart and chronic kidney disease with heart failure and stage 1 through stage 4 chronic kidney disease, or unspecified chronic kidney disease; N18.4 Chronic kidney disease, stage 4 (severe); I50.9 Heart failure, unspecified; J84.10 Pulmonary fibrosis, unspecified; I27.20 Pulmonary hypertension, unspecified; J44.9 Chronic obstructive pulmonary disease, unspecified; B96.1 Klebsiella pneumoniae [K. pneumoniae] as the cause of diseases classified elsewhere; Z79.899 Other long term (current) drug therapy; Z79.52 Long term (current) use of systemic steroids; Z79.4 Long term (current) use of insulin; Z88.2 Allergy status to sulfonamides; Z88.1 Allergy status to other antibiotic agents; Z91.041 Radiographic dye allergy status; Z88.8 Allergy status to other drugs, medicaments and biological substances; E78.00 Pure hypercholesterolemia, unspecified; K59.09 Other constipation; E11.22 Type 2 diabetes mellitus with diabetic chronic kidney disease; M19.90 Unspecified osteoarthritis, unspecified site; M79.7 Fibromyalgia; E53.8 Deficiency of other specified B group vitamins; Z85.05 Personal history of malignant neoplasm of liver; Z90.89 Acquired absence of other organs; Z98.41 Cataract extraction status, right eye; Z98.42 Cataract extraction status, left eye; Z90.49 Acquired absence of other specified parts of digestive tract; Z90.710 Acquired absence of both cervix and uterus; Z66 Do not resuscitate; F43.21 Adjustment disorder with depressed mood; R32 Unspecified urinary incontinence; K21.9 Gastro-esophageal reflux disease without esophagitis; E78.5 Hyperlipidemia, unspecified
CPT/HCPCS: 36415; 71046; 80048; 80053; 80069; 82947; 84132; 85025; 85027; 97116-GP; 97530-GO; 97530-GP; 97535-GO; A9270-GY; J1815; J1815-GY; J7030; J7507; J8540

== ENCOUNTER 2021-09-03 15:40 | Inpatient (IN) | payer MEDICARE, BC ==
[2021-09-03] MEDS ORDERED: Metolazone 2.5 MG Tab PO STA (16:32)
[2021-09-03] MEDS ORDERED: Furosemide 40 MG/4 ML VIAL IVPUSH ONE (16:32)
[2021-09-03] MEDS: Sodium Chloride 0.9% 10 ML Syringe FLUSH PRN ×2 (16:47→20:00)
[2021-09-03 16:59] LABS: BASE EXCESS VENOUS,POC -3 mmol/L (-2 - 3+); PCO2 VENOUS,POC 32 mmHg (41-51); PH VENOUS,POC 7.43 pH Units (7.32-7.43)
[2021-09-03] MEDS: Sodium Chloride 0.9% 1,000 ML IV SCH (20:00)
[2021-09-03] MEDS ORDERED: 50% Dextrose in Water 50 ML Syringe IVPUSH PRN (21:39)
[2021-09-03] MEDS ORDERED: Glucagon,Human Recombinant 1 MG Vial IM PRN (21:39)
[2021-09-03] MEDS: Enoxaparin 30 MG/0.3 ML Syringe SUBCUT SCH (21:47)
[2021-09-03] MEDS: Albuterol/Ipratropium 3.0-0.5 MG/3 ML Neb Soln NEB PRN (21:47)
[2021-09-03] MEDS ORDERED: Insulin Glargine,Human Rec. Analog 100 Units/ML 3 ML Pen SUBCUT ONE ×2 (22:34→22:45)
[2021-09-03] MEDS ORDERED: Insulin Glargine,Human Rec. Analog 100 Units/ML 3 ML Pen ONE (22:34)
[2021-09-04] MEDS: Insulin Lispro 100 Unit/ML 3 ML KwikPen SUBCUT SCH ×3 (08:45→18:14)
[2021-09-04] MEDS ORDERED: Albuterol 8 GM Inhaler INH PRN (09:14)
[2021-09-04] MEDS: Sodium Chloride 0.9% 1,000 ML IV SCH ×2 (09:23→17:48)
[2021-09-04] MEDS ORDERED: Insulin Lispro 100 Unit/ML 3 ML KwikPen SUBCUT ONE (12:10)
[2021-09-04] MEDS: Sildenafil 20 MG Tab PO SCH ×2 (14:43→22:08)
[2021-09-04] MEDS: Acetaminophen 500 MG Tab PO SCH (17:38)
[2021-09-04] MEDS: Mirabegron 25 MG Tab Extended Release PO SCH (19:21)
[2021-09-04] MEDS ORDERED: Non-Formulary Medication 1 Each (Iron,Carbonyl/Ascorbic Acid [Vitron-C Tablet] 1 EACH Tabl PO SCH (21:00)
[2021-09-04] MEDS ORDERED: Gabapentin 600 MG Tab PO SCH (21:00)
[2021-09-04] MEDS: Potassium Chloride 20 MEQ Tab.ER PO SCH (22:07)
[2021-09-04] MEDS: Enoxaparin 30 MG/0.3 ML Syringe SUBCUT SCH (22:08)
[2021-09-04] MEDS: Insulin Glargine,Human Rec. Analog 100 Units/ML 3 ML Pen SUBCUT SCH (22:11)
[2021-09-04] MEDS: Tacrolimus 0.5 MG Cap PO SCH ×2 (22:29→22:35)
[2021-09-04] MEDS: Mycophenolate Mofetil 250 MG Cap PO SCH ×2 (22:30→22:36)
[2021-09-05] MEDS: Albuterol/Ipratropium 3.0-0.5 MG/3 ML Neb Soln NEB PRN (00:45)
[2021-09-05] MEDS: Sodium Chloride 0.9% 10 ML Syringe FLUSH PRN ×3 (01:15→12:33)
[2021-09-05] MEDS: Acetaminophen 500 MG Tab PO SCH ×3 (02:00→16:38)
[2021-09-05] MEDS ORDERED: LORazepam 0.5 MG Tab PO ONE (02:34)
[2021-09-05] MEDS: Pantoprazole 40 MG Tab.CR PO SCH (05:00)
[2021-09-05] MEDS ORDERED: TRIMETHOPRIM 100 MG PO SCH (09:00)
[2021-09-05] MEDS ORDERED: LORazepam Conc Solution 2 MG/ML 30 ML Bottle PO PRN (10:22)
[2021-09-05] MEDS: Furosemide 20 MG Tab PO SCH (10:58)
[2021-09-05] MEDS: Cholecalciferol (Vitamin D3) 25 MCG Tab PO SCH (10:59)
[2021-09-05] MEDS ORDERED: cefTRIAXone 1 GM in Sodium Chloride 0.9% 50 ML IV SCH (11:00)
[2021-09-05] MEDS: FLUoxetine 20 MG Cap PO SCH (11:01)
[2021-09-05] MEDS: Potassium Chloride 20 MEQ Tab.ER PO SCH ×2 (11:01→21:20)
[2021-09-05] MEDS: Sildenafil 20 MG Tab PO SCH ×3 (11:02→21:21)
[2021-09-05] MEDS: Formoterol/Mometasone 100-5 MCG 8.8 GM Inhaler IH SCH ×2 (11:02→21:18)
[2021-09-05] MEDS: Insulin Lispro 100 Unit/ML 3 ML KwikPen SUBCUT SCH ×3 (11:07→18:36)
[2021-09-05] MEDS: MACITENTAN 10 MG PO SCH (11:11)
[2021-09-05] MEDS: cefTRIAXone 1 GM Vial IVPUSH SCH (12:33)
[2021-09-05] MEDS: Cyanocobalamin (Vitamin B12) 1,000 MCG Tab PO SCH (13:32)
[2021-09-05] MEDS: Tacrolimus 0.5 MG Cap PO SCH ×2 (13:33→22:38)
[2021-09-05] MEDS: Mycophenolate Mofetil 250 MG Cap PO SCH ×2 (13:33→21:19)
[2021-09-05] MEDS ORDERED: traMADol 50 MG Tab PO SCH (14:00)
[2021-09-05] MEDS: Insulin Glargine,Human Rec. Analog 100 Units/ML 3 ML Pen SUBCUT SCH (21:21)
[2021-09-05] MEDS: Enoxaparin 30 MG/0.3 ML Syringe SUBCUT SCH (22:37)
[2021-09-05] MEDS ORDERED: LORazepam 0.5 MG Tab PO PRN (22:40)
[2021-09-06] MEDS: Acetaminophen 500 MG Tab PO SCH ×2 (06:31→18:30)
[2021-09-06] MEDS: Pantoprazole 40 MG Tab.CR PO SCH (06:31)
[2021-09-06] MEDS: Insulin Lispro 100 Unit/ML 3 ML KwikPen SUBCUT SCH ×3 (08:15→18:53)
[2021-09-06] MEDS ORDERED: Calcitriol 0.25 MCG Cap PO SCH (09:00)
[2021-09-06] MEDS: FLUoxetine 20 MG Cap PO SCH (09:27)
[2021-09-06] MEDS: Cholecalciferol (Vitamin D3) 25 MCG Tab PO SCH (09:28)
[2021-09-06] MEDS: Furosemide 20 MG Tab PO SCH (09:28)
[2021-09-06] MEDS: Potassium Chloride 20 MEQ Tab.ER PO SCH ×2 (09:28→21:48)
[2021-09-06] MEDS: Formoterol/Mometasone 100-5 MCG 8.8 GM Inhaler IH SCH ×2 (09:37→21:47)
[2021-09-06] MEDS: MACITENTAN 10 MG PO SCH (09:41)
[2021-09-06] MEDS: Sildenafil 20 MG Tab PO SCH ×3 (09:43→21:51)
[2021-09-06] MEDS: Mycophenolate Mofetil 250 MG Cap PO SCH ×2 (09:51→21:47)
[2021-09-06] MEDS: Cyanocobalamin (Vitamin B12) 1,000 MCG Tab PO SCH (09:51)
[2021-09-06] MEDS: Tacrolimus 0.5 MG Cap PO SCH ×2 (09:52→21:51)
[2021-09-06] MEDS: cefTRIAXone 1 GM Vial IVPUSH SCH ×2 (12:21→20:02)
[2021-09-06] MEDS: Mirabegron 25 MG Tab Extended Release PO SCH ×2 (14:24→18:53)
[2021-09-06] MEDS ORDERED: Ciprofloxacin 500 MG Tab PO SCH (16:00)
[2021-09-06] MEDS: hydrOXYzine HCl 25 MG Tab PO PRN (19:41)
[2021-09-06] MEDS: Enoxaparin 30 MG/0.3 ML Syringe SUBCUT SCH (21:49)
[2021-09-06] MEDS: Insulin Glargine,Human Rec. Analog 100 Units/ML 3 ML Pen SUBCUT SCH (21:49)
[2021-09-07] MEDS: Acetaminophen 500 MG Tab PO SCH ×2 (02:05→04:38)
[2021-09-07] MEDS: hydrOXYzine HCl 25 MG Tab PO PRN (04:21)
[2021-09-07] MEDS: Pantoprazole 40 MG Tab.CR PO SCH (05:01)
[2021-09-07] MEDS: Albuterol/Ipratropium 3.0-0.5 MG/3 ML Neb Soln NEB PRN (05:30)
[2021-09-07] MEDS: Insulin Lispro 100 Unit/ML 3 ML KwikPen SUBCUT SCH (08:31)
[2021-09-07] MEDS: Mycophenolate Mofetil 250 MG Cap PO SCH (08:39)
[2021-09-07] MEDS: Formoterol/Mometasone 100-5 MCG 8.8 GM Inhaler IH SCH (08:41)
[2021-09-07] MEDS: Potassium Chloride 20 MEQ Tab.ER PO SCH (08:42)
[2021-09-07] MEDS: Furosemide 20 MG Tab PO SCH (08:43)
[2021-09-07] MEDS: FLUoxetine 20 MG Cap PO SCH (08:43)
[2021-09-07] MEDS: Tacrolimus 0.5 MG Cap PO SCH (08:43)
[2021-09-07] MEDS: MACITENTAN 10 MG PO SCH (08:44)
[2021-09-07] MEDS: Cholecalciferol (Vitamin D3) 25 MCG Tab PO SCH (08:45)
[2021-09-07] MEDS: Cyanocobalamin (Vitamin B12) 1,000 MCG Tab PO SCH (08:45)
[2021-09-07] MEDS: Sildenafil 20 MG Tab PO SCH (08:45)
== END 2021-09-07 09:49 | disposition swing bed (61) | DRG 683 ==
LOC: FB.ED 15:40 → FB.MS 18:41 → UNDOADMIN 18:41
PROVIDERS: ADMIT Emergency Medicine; ATTEND Family Medicine
DX: R53.1 Weakness (principal); N17.9 Acute kidney failure, unspecified; N39.0 Urinary tract infection, site not specified; Z94.4 Liver transplant status; D84.9 Immunodeficiency, unspecified; D64.9 Anemia, unspecified; R09.02 Hypoxemia; I13.0 Hypertensive heart and chronic kidney disease with heart failure and stage 1 through stage 4 chronic kidney disease, or unspecified chronic kidney disease; L97.329 Non-pressure chronic ulcer of left ankle with unspecified severity; N18.4 Chronic kidney disease, stage 4 (severe); N18.32 Chronic kidney disease, stage 3b; I25.10 Atherosclerotic heart disease of native coronary artery without angina pectoris; Z20.822 Contact with and (suspected) exposure to COVID-19; E78.00 Pure hypercholesterolemia, unspecified; Z51.5 Encounter for palliative care; J84.10 Pulmonary fibrosis, unspecified; I27.20 Pulmonary hypertension, unspecified; J44.9 Chronic obstructive pulmonary disease, unspecified; R19.7 Diarrhea, unspecified; E86.0 Dehydration; E11.22 Type 2 diabetes mellitus with diabetic chronic kidney disease; Z85.828 Personal history of other malignant neoplasm of skin; Z79.4 Long term (current) use of insulin; Z88.1 Allergy status to other antibiotic agents; Z88.2 Allergy status to sulfonamides; Z91.041 Radiographic dye allergy status; G89.29 Other chronic pain; Z99.81 Dependence on supplemental oxygen; Z79.899 Other long term (current) drug therapy; I50.9 Heart failure, unspecified; M79.7 Fibromyalgia; K59.09 Other constipation; K21.9 Gastro-esophageal reflux disease without esophagitis; M19.90 Unspecified osteoarthritis, unspecified site; G43.909 Migraine, unspecified, not intractable, without status migrainosus; F32.A Depression, unspecified; E53.8 Deficiency of other specified B group vitamins; Z85.05 Personal history of malignant neoplasm of liver; Z86.19 Personal history of other infectious and parasitic diseases; Z98.49 Cataract extraction status, unspecified eye; Z90.89 Acquired absence of other organs; Z98.41 Cataract extraction status, right eye; Z98.42 Cataract extraction status, left eye; Z90.49 Acquired absence of other specified parts of digestive tract; Z90.710 Acquired absence of both cervix and uterus; Z66 Do not resuscitate; F41.9 Anxiety disorder, unspecified
CPT/HCPCS: 36415; 51703; 71045; 80053; 81001; 82140; 83880; 84484; 85025; 85610; 85730; 87040; 87086; 87088; 87186; 93005; 93010; 94640; 96374; 97166-GO; 99284; 99285-25; A9270-GY; J0696; J1650; J1815; J1815-GY; J1940; J3490; J7030; J7507; J7620; J8540; U0002

== ENCOUNTER 2021-09-07 09:53 | Inpatient (IN) | payer MEDICARE, BC ==
[2021-09-07] MEDS ORDERED: Glucagon,Human Recombinant 1 MG Vial IM PRN (11:31)
[2021-09-07] MEDS ORDERED: Albuterol 8 GM Inhaler INH PRN (11:31)
[2021-09-07] MEDS ORDERED: 50% Dextrose in Water 50 ML Syringe IVPUSH PRN (11:31)
[2021-09-07] MEDS ORDERED: Albuterol/Ipratropium 3.0-0.5 MG/3 ML Neb Soln NEB PRN (11:31)
[2021-09-07] MEDS ORDERED: LORazepam 0.5 MG Tab PO PRN (11:36)
[2021-09-07] MEDS ORDERED: Insulin Lispro 100 Unit/ML 3 ML KwikPen SUBCUT SCH (12:00)
[2021-09-07] MEDS: Insulin Lispro 100 Unit/ML 3 ML KwikPen SUBCUT SCH ×2 (12:34→18:04)
[2021-09-07] MEDS: Sildenafil 20 MG Tab PO SCH ×2 (13:52→20:41)
[2021-09-07] MEDS: Acetaminophen 500 MG Tab PO PRN (16:34)
[2021-09-07] MEDS: Ciprofloxacin 500 MG Tab PO SCH (16:35)
[2021-09-07] MEDS: SANTYL TOP SCH (16:36)
[2021-09-07] MEDS: LORazepam 0.5 MG Tab PO PRN (18:01)
[2021-09-07] MEDS: Mirabegron 25 MG Tab Extended Release PO SCH (18:03)
[2021-09-07] MEDS ORDERED: QUEtiapine 25 MG Tab PO ONE (19:38)
[2021-09-07] MEDS: traMADol 50 MG Tab PO PRN (19:50)
[2021-09-07 19:52] LABS: PO2 ARTERIAL,POC 45 mmHg (83-108)
[2021-09-07] MEDS ORDERED: Albuterol/Ipratropium 3.0-0.5 MG/3 ML Neb Soln NEB ONE (19:53)
[2021-09-07] MEDS: Formoterol/Mometasone 100-5 MCG 8.8 GM Inhaler IH SCH (20:34)
[2021-09-07] MEDS: Potassium Chloride 20 MEQ Tab.ER PO SCH (20:37)
[2021-09-07] MEDS: Ferrous Sulfate 325 MG Tab PO SCH (20:37)
[2021-09-07] MEDS: Mycophenolate Mofetil 250 MG Cap PO SCH (20:37)
[2021-09-07] MEDS: Gabapentin 600 MG Tab PO SCH (20:40)
[2021-09-07] MEDS: Tacrolimus 0.5 MG Cap PO SCH (20:41)
[2021-09-07] MEDS: Insulin Glargine,Human Rec. Analog 100 Units/ML 3 ML Pen SUBCUT SCH (20:44)
[2021-09-07] MEDS: Ascorbic Acid 500 MG Tab PO SCH (20:52)
[2021-09-07] MEDS ORDERED: Non-Formulary Medication 1 Each (Iron,Carbonyl/Ascorbic Acid [Vitron-C Tablet] 1 EACH Tabl PO SCH (21:00)
[2021-09-07] MEDS ORDERED: OLANZapine 10 MG Vial IM ONE (22:11)
[2021-09-07] MEDS ORDERED: LORazepam 2 MG/ML SDV IM ONE (22:13)
[2021-09-08] MEDS: Pantoprazole 40 MG Tab.CR PO SCH (05:11)
[2021-09-08] MEDS: Insulin Lispro 100 Unit/ML 3 ML KwikPen SUBCUT SCH ×3 (09:43→18:04)
[2021-09-08] MEDS: Sildenafil 20 MG Tab PO SCH ×3 (09:50→21:07)
[2021-09-08] MEDS: Mycophenolate Mofetil 250 MG Cap PO SCH ×2 (12:41→21:05)
[2021-09-08] MEDS: Potassium Chloride 20 MEQ Tab.ER PO SCH ×2 (12:42→21:06)
[2021-09-08] MEDS: Ascorbic Acid 500 MG Tab PO SCH ×2 (12:43→21:08)
[2021-09-08] MEDS: Furosemide 20 MG Tab PO SCH (12:43)
[2021-09-08] MEDS: Cyanocobalamin (Vitamin B12) 1,000 MCG Tab PO SCH (12:44)
[2021-09-08] MEDS: SANTYL TOP SCH (12:45)
[2021-09-08] MEDS: Ferrous Sulfate 325 MG Tab PO SCH ×2 (12:46→21:06)
[2021-09-08] MEDS: Cholecalciferol (Vitamin D3) 25 MCG Tab PO SCH (12:46)
[2021-09-08] MEDS: Tacrolimus 0.5 MG Cap PO SCH ×2 (12:46→21:07)
[2021-09-08] MEDS: Formoterol/Mometasone 100-5 MCG 8.8 GM Inhaler IH SCH ×2 (12:49→21:05)
[2021-09-08] MEDS: Calcitriol 0.25 MCG Cap PO SCH (12:50)
[2021-09-08] MEDS: MACITENTAN 10 MG PO SCH (12:55)
[2021-09-08] MEDS: FLUoxetine 20 MG Cap PO SCH (13:00)
[2021-09-08] MEDS: Ciprofloxacin 500 MG Tab PO SCH (18:04)
[2021-09-08] MEDS: Mirabegron 25 MG Tab Extended Release PO SCH (18:07)
[2021-09-08] MEDS: Insulin Glargine,Human Rec. Analog 100 Units/ML 3 ML Pen SUBCUT SCH (21:00)
[2021-09-08] MEDS: Gabapentin 600 MG Tab PO SCH (21:10)
[2021-09-08] MEDS: traMADol 50 MG Tab PO PRN (21:13)
[2021-09-08] MEDS: LORazepam 0.5 MG Tab PO PRN (21:14)
[2021-09-09] MEDS: Acetaminophen 500 MG Tab PO PRN ×2 (01:55→23:55)
[2021-09-09] MEDS: QUEtiapine 25 MG Tab PO PRN ×2 (01:55→23:57)
[2021-09-09] MEDS: Pantoprazole 40 MG Tab.CR PO SCH (05:18)
[2021-09-09] MEDS ORDERED: Insulin Lispro 100 Unit/ML 3 ML KwikPen SUBCUT STA (05:50)
[2021-09-09] MEDS ORDERED: 50% Dextrose in Water 50 ML Syringe IVPUSH PRN (07:17)
[2021-09-09] MEDS ORDERED: Glucagon,Human Recombinant 1 MG Vial IM PRN (07:17)
[2021-09-09] MEDS: Insulin Lispro 100 Unit/ML 3 ML KwikPen SUBCUT SCH ×3 (08:25→17:57)
[2021-09-09] MEDS: Tacrolimus 0.5 MG Cap PO SCH ×2 (09:39→21:04)
[2021-09-09] MEDS: Sildenafil 20 MG Tab PO SCH ×3 (09:39→21:05)
[2021-09-09] MEDS: Mycophenolate Mofetil 250 MG Cap PO SCH ×2 (09:39→20:59)
[2021-09-09] MEDS: FLUoxetine 20 MG Cap PO SCH (09:40)
[2021-09-09] MEDS: Cyanocobalamin (Vitamin B12) 1,000 MCG Tab PO SCH (09:41)
[2021-09-09] MEDS: Cholecalciferol (Vitamin D3) 25 MCG Tab PO SCH (09:41)
[2021-09-09] MEDS: Ferrous Sulfate 325 MG Tab PO SCH ×2 (09:41→21:00)
[2021-09-09] MEDS: Furosemide 20 MG Tab PO SCH (09:42)
[2021-09-09] MEDS: Potassium Chloride 20 MEQ Tab.ER PO SCH ×2 (09:42→21:00)
[2021-09-09] MEDS: MACITENTAN 10 MG PO SCH (09:42)
[2021-09-09] MEDS: Ascorbic Acid 500 MG Tab PO SCH ×2 (09:42→21:05)
[2021-09-09] MEDS: Formoterol/Mometasone 100-5 MCG 8.8 GM Inhaler IH SCH ×2 (09:44→20:59)
[2021-09-09] MEDS: SANTYL TOP SCH (09:47)
[2021-09-09] MEDS: Ciprofloxacin 500 MG Tab PO SCH (16:23)
[2021-09-09] MEDS: Mirabegron 25 MG Tab Extended Release PO SCH (17:59)
[2021-09-09] MEDS: Insulin Glargine,Human Rec. Analog 100 Units/ML 3 ML Pen SUBCUT SCH (21:00)
[2021-09-09] MEDS: Gabapentin 600 MG Tab PO SCH (21:04)
[2021-09-10] MEDS: Pantoprazole 40 MG Tab.CR PO SCH (05:03)
[2021-09-10] MEDS: Insulin Lispro 100 Unit/ML 3 ML KwikPen SUBCUT SCH ×3 (08:46→18:02)
[2021-09-10] MEDS: MACITENTAN 10 MG PO SCH (08:52)
[2021-09-10] MEDS: Ascorbic Acid 500 MG Tab PO SCH ×2 (08:56→21:07)
[2021-09-10] MEDS: Ferrous Sulfate 325 MG Tab PO SCH ×2 (08:57→21:04)
[2021-09-10] MEDS: Cholecalciferol (Vitamin D3) 25 MCG Tab PO SCH (08:57)
[2021-09-10] MEDS: Formoterol/Mometasone 100-5 MCG 8.8 GM Inhaler IH SCH ×2 (08:57→21:04)
[2021-09-10] MEDS: Potassium Chloride 20 MEQ Tab.ER PO SCH ×2 (08:57→21:04)
[2021-09-10] MEDS: Furosemide 20 MG Tab PO SCH (08:57)
[2021-09-10] MEDS: Tacrolimus 0.5 MG Cap PO SCH ×2 (09:02→21:05)
[2021-09-10] MEDS: FLUoxetine 20 MG Cap PO SCH (09:03)
[2021-09-10] MEDS: Sildenafil 20 MG Tab PO SCH ×3 (09:03→21:07)
[2021-09-10] MEDS: SANTYL TOP SCH (09:03)
[2021-09-10] MEDS: Cyanocobalamin (Vitamin B12) 1,000 MCG Tab PO SCH (09:03)
[2021-09-10] MEDS: Calcitriol 0.25 MCG Cap PO SCH (09:04)
[2021-09-10] MEDS: Mycophenolate Mofetil 250 MG Cap PO SCH ×2 (09:04→21:13)
[2021-09-10] MEDS: Ciprofloxacin 500 MG Tab PO SCH (16:06)
[2021-09-10] MEDS: Mirabegron 25 MG Tab Extended Release PO SCH (18:03)
[2021-09-10] MEDS: Insulin Glargine,Human Rec. Analog 100 Units/ML 3 ML Pen SUBCUT SCH (21:06)
[2021-09-10] MEDS: Gabapentin 600 MG Tab PO SCH (21:15)
[2021-09-10] MEDS: Acetaminophen 500 MG Tab PO PRN (22:54)
[2021-09-10] MEDS: QUEtiapine 25 MG Tab PO PRN (22:54)
[2021-09-11] MEDS ORDERED: Insulin Lispro 100 Unit/ML 3 ML KwikPen SUBCUT ONE (01:09)
[2021-09-11] MEDS: Pantoprazole 40 MG Tab.CR PO SCH (06:06)
[2021-09-11] MEDS: Sildenafil 20 MG Tab PO SCH ×3 (08:50→21:13)
[2021-09-11] MEDS: MACITENTAN 10 MG PO SCH (08:50)
[2021-09-11] MEDS: Furosemide 20 MG Tab PO SCH (08:51)
[2021-09-11] MEDS: SANTYL TOP SCH (08:52)
[2021-09-11] MEDS: Potassium Chloride 20 MEQ Tab.ER PO SCH ×2 (08:52→21:13)
[2021-09-11] MEDS: Tacrolimus 0.5 MG Cap PO SCH ×2 (08:52→21:13)
[2021-09-11] MEDS: Cholecalciferol (Vitamin D3) 25 MCG Tab PO SCH (08:53)
[2021-09-11] MEDS: Formoterol/Mometasone 100-5 MCG 8.8 GM Inhaler IH SCH ×2 (08:53→21:12)
[2021-09-11] MEDS: Mycophenolate Mofetil 250 MG Cap PO SCH ×2 (08:53→21:12)
[2021-09-11] MEDS: Ascorbic Acid 500 MG Tab PO SCH ×2 (08:54→21:13)
[2021-09-11] MEDS: FLUoxetine 20 MG Cap PO SCH (08:54)
[2021-09-11] MEDS: Cyanocobalamin (Vitamin B12) 1,000 MCG Tab PO SCH (08:56)
[2021-09-11] MEDS: Ferrous Sulfate 325 MG Tab PO SCH ×2 (08:56→21:13)
[2021-09-11] MEDS: Insulin Lispro 100 Unit/ML 3 ML KwikPen SUBCUT SCH ×3 (09:00→17:14)
[2021-09-11] MEDS: Ciprofloxacin 500 MG Tab PO SCH (15:15)
[2021-09-11] MEDS: Mirabegron 25 MG Tab Extended Release PO SCH (17:18)
[2021-09-11] MEDS: Insulin Glargine,Human Rec. Analog 100 Units/ML 3 ML Pen SUBCUT SCH (21:21)
[2021-09-11] MEDS: Gabapentin 600 MG Tab PO SCH (22:01)
[2021-09-11] MEDS: Acetaminophen 500 MG Tab PO PRN (22:01)
[2021-09-11] MEDS: QUEtiapine 25 MG Tab PO PRN (22:01)
[2021-09-12] MEDS: Pantoprazole 40 MG Tab.CR PO SCH (05:52)
[2021-09-12] MEDS: Insulin Lispro 100 Unit/ML 3 ML KwikPen SUBCUT SCH ×3 (07:49→19:00)
[2021-09-12] MEDS: Ferrous Sulfate 325 MG Tab PO SCH ×2 (08:04→20:46)
[2021-09-12] MEDS: Potassium Chloride 20 MEQ Tab.ER PO SCH ×2 (08:04→20:46)
[2021-09-12] MEDS: Mycophenolate Mofetil 250 MG Cap PO SCH ×2 (08:04→20:46)
[2021-09-12] MEDS: Formoterol/Mometasone 100-5 MCG 8.8 GM Inhaler IH SCH ×2 (08:05→20:46)
[2021-09-12] MEDS: Furosemide 20 MG Tab PO SCH (08:05)
[2021-09-12] MEDS: MACITENTAN 10 MG PO SCH (08:05)
[2021-09-12] MEDS: FLUoxetine 20 MG Cap PO SCH (08:06)
[2021-09-12] MEDS: Tacrolimus 0.5 MG Cap PO SCH ×2 (08:06→20:47)
[2021-09-12] MEDS: Cyanocobalamin (Vitamin B12) 1,000 MCG Tab PO SCH (08:07)
[2021-09-12] MEDS: Sildenafil 20 MG Tab PO SCH ×3 (08:07→20:47)
[2021-09-12] MEDS: SANTYL TOP SCH (08:07)
[2021-09-12] MEDS: Ascorbic Acid 500 MG Tab PO SCH ×2 (08:07→20:47)
[2021-09-12] MEDS: Cholecalciferol (Vitamin D3) 25 MCG Tab PO SCH (08:08)
[2021-09-12] MEDS: Acetaminophen 500 MG Tab PO PRN ×2 (13:02→23:57)
[2021-09-12] MEDS ORDERED: Polyethylene Glycol 3350 Powder 17 GM Packet PO PRN (13:23)
[2021-09-12] MEDS: Ciprofloxacin 500 MG Tab PO SCH (17:20)
[2021-09-12] MEDS: Mirabegron 25 MG Tab Extended Release PO SCH (19:00)
[2021-09-12] MEDS: Gabapentin 600 MG Tab PO SCH (20:49)
[2021-09-12] MEDS: Insulin Glargine,Human Rec. Analog 100 Units/ML 3 ML Pen SUBCUT SCH (22:18)
[2021-09-12] MEDS: QUEtiapine 25 MG Tab PO PRN (23:58)
[2021-09-13] MEDS: Pantoprazole 40 MG Tab.CR PO SCH (06:40)
[2021-09-13] MEDS: Insulin Lispro 100 Unit/ML 3 ML KwikPen SUBCUT SCH ×3 (09:27→18:08)
[2021-09-13] MEDS: Formoterol/Mometasone 100-5 MCG 8.8 GM Inhaler IH SCH ×2 (09:29→21:05)
[2021-09-13] MEDS: Mycophenolate Mofetil 250 MG Cap PO SCH ×2 (09:29→21:05)
[2021-09-13] MEDS: Ferrous Sulfate 325 MG Tab PO SCH ×2 (09:30→21:06)
[2021-09-13] MEDS: MACITENTAN 10 MG PO SCH (09:30)
[2021-09-13] MEDS: Potassium Chloride 20 MEQ Tab.ER PO SCH ×2 (09:30→21:06)
[2021-09-13] MEDS: Furosemide 20 MG Tab PO SCH (09:30)
[2021-09-13] MEDS: Tacrolimus 0.5 MG Cap PO SCH ×2 (09:31→21:08)
[2021-09-13] MEDS: SANTYL TOP SCH (09:32)
[2021-09-13] MEDS: Calcitriol 0.25 MCG Cap PO SCH (09:32)
[2021-09-13] MEDS: FLUoxetine 20 MG Cap PO SCH (09:32)
[2021-09-13] MEDS: Sildenafil 20 MG Tab PO SCH ×3 (09:32→21:08)
[2021-09-13] MEDS: Cyanocobalamin (Vitamin B12) 1,000 MCG Tab PO SCH (09:33)
[2021-09-13] MEDS: Ascorbic Acid 500 MG Tab PO SCH ×2 (09:33→21:07)
[2021-09-13] MEDS: Cholecalciferol (Vitamin D3) 25 MCG Tab PO SCH (09:33)
[2021-09-13] MEDS: Ciprofloxacin 500 MG Tab PO SCH (15:26)
[2021-09-13] MEDS: Mirabegron 25 MG Tab Extended Release PO SCH (18:08)
[2021-09-13] MEDS: Gabapentin 600 MG Tab PO SCH (21:08)
[2021-09-13] MEDS: Acetaminophen 500 MG Tab PO PRN (21:08)
[2021-09-13] MEDS: Insulin Glargine,Human Rec. Analog 100 Units/ML 3 ML Pen SUBCUT SCH (21:16)
[2021-09-13] MEDS ORDERED: Insulin Glargine,Human Rec. Analog 100 Units/ML 3 ML Pen SUBCUT ONE (21:18)
[2021-09-14] MEDS: Pantoprazole 40 MG Tab.CR PO SCH (05:00)
[2021-09-14] MEDS: SANTYL TOP SCH (07:45)
[2021-09-14] MEDS: Insulin Lispro 100 Unit/ML 3 ML KwikPen SUBCUT SCH ×3 (08:44→17:27)
[2021-09-14] MEDS: Formoterol/Mometasone 100-5 MCG 8.8 GM Inhaler IH SCH ×2 (08:49→21:34)
[2021-09-14] MEDS: MACITENTAN 10 MG PO SCH (08:50)
[2021-09-14] MEDS: Ascorbic Acid 500 MG Tab PO SCH ×2 (08:52→21:35)
[2021-09-14] MEDS: Cyanocobalamin (Vitamin B12) 1,000 MCG Tab PO SCH (08:52)
[2021-09-14] MEDS: Mycophenolate Mofetil 250 MG Cap PO SCH ×2 (08:53→21:34)
[2021-09-14] MEDS: Ferrous Sulfate 325 MG Tab PO SCH ×2 (08:53→21:35)
[2021-09-14] MEDS: Cholecalciferol (Vitamin D3) 25 MCG Tab PO SCH (08:53)
[2021-09-14] MEDS: FLUoxetine 20 MG Cap PO SCH (08:54)
[2021-09-14] MEDS: Furosemide 20 MG Tab PO SCH (08:54)
[2021-09-14] MEDS: Potassium Chloride 20 MEQ Tab.ER PO SCH ×2 (08:54→21:34)
[2021-09-14] MEDS: Tacrolimus 0.5 MG Cap PO SCH ×2 (08:55→21:34)
[2021-09-14] MEDS: Sildenafil 20 MG Tab PO SCH ×3 (08:55→21:34)
[2021-09-14] MEDS ORDERED: Insulin Lispro 100 Unit/ML 3 ML KwikPen SUBCUT ONE (12:28)
[2021-09-14] MEDS: Ciprofloxacin 500 MG Tab PO SCH (16:37)
[2021-09-14] MEDS: Mirabegron 25 MG Tab Extended Release PO SCH (17:32)
[2021-09-14] MEDS: Gabapentin 600 MG Tab PO SCH (21:34)
[2021-09-14] MEDS: Insulin Glargine,Human Rec. Analog 100 Units/ML 3 ML Pen SUBCUT SCH (21:39)
[2021-09-15] MEDS: Pantoprazole 40 MG Tab.CR PO SCH (05:28)
[2021-09-15] MEDS: Insulin Lispro 100 Unit/ML 3 ML KwikPen SUBCUT SCH ×3 (07:56→18:07)
[2021-09-15] MEDS: Tacrolimus 0.5 MG Cap PO SCH ×2 (08:00→20:40)
[2021-09-15] MEDS: Ascorbic Acid 500 MG Tab PO SCH ×2 (08:00→20:41)
[2021-09-15] MEDS: Potassium Chloride 20 MEQ Tab.ER PO SCH ×2 (08:00→20:40)
[2021-09-15] MEDS: Calcitriol 0.25 MCG Cap PO SCH (08:00)
[2021-09-15] MEDS: Sildenafil 20 MG Tab PO SCH ×3 (08:01→20:41)
[2021-09-15] MEDS: Cyanocobalamin (Vitamin B12) 1,000 MCG Tab PO SCH (08:02)
[2021-09-15] MEDS: Cholecalciferol (Vitamin D3) 25 MCG Tab PO SCH (08:02)
[2021-09-15] MEDS: Furosemide 20 MG Tab PO SCH (08:02)
[2021-09-15] MEDS: Mycophenolate Mofetil 250 MG Cap PO SCH ×2 (08:03→20:38)
[2021-09-15] MEDS: Formoterol/Mometasone 100-5 MCG 8.8 GM Inhaler IH SCH ×2 (08:03→20:38)
[2021-09-15] MEDS: Ferrous Sulfate 325 MG Tab PO SCH ×2 (08:04→20:40)
[2021-09-15] MEDS: SANTYL TOP SCH (08:07)
[2021-09-15] MEDS: FLUoxetine 20 MG Cap PO SCH (08:07)
[2021-09-15] MEDS: MACITENTAN 10 MG PO SCH (08:08)
[2021-09-15] MEDS ORDERED: TRIMETHOPRIM 100 MG PO SCH (09:00)
[2021-09-15] MEDS: Mirabegron 25 MG Tab Extended Release PO SCH (18:11)
[2021-09-15] MEDS: Gabapentin 600 MG Tab PO SCH (20:42)
[2021-09-15] MEDS: Acetaminophen 500 MG Tab PO PRN (20:46)
[2021-09-15] MEDS: Insulin Glargine,Human Rec. Analog 100 Units/ML 3 ML Pen SUBCUT SCH (20:53)
[2021-09-15] MEDS ORDERED: Insulin Lispro 100 Unit/ML 3 ML KwikPen SUBCUT ONE (22:05)
[2021-09-16] MEDS: Pantoprazole 40 MG Tab.CR PO SCH (06:06)
[2021-09-16] MEDS: Cholecalciferol (Vitamin D3) 25 MCG Tab PO SCH (08:20)
[2021-09-16] MEDS: Ferrous Sulfate 325 MG Tab PO SCH ×2 (08:20→21:15)
[2021-09-16] MEDS: Ascorbic Acid 500 MG Tab PO SCH ×2 (08:20→22:30)
[2021-09-16] MEDS: Cyanocobalamin (Vitamin B12) 1,000 MCG Tab PO SCH (08:20)
[2021-09-16] MEDS: Mycophenolate Mofetil 250 MG Cap PO SCH ×2 (08:23→21:14)
[2021-09-16] MEDS: Potassium Chloride 20 MEQ Tab.ER PO SCH ×2 (08:23→21:15)
[2021-09-16] MEDS: Formoterol/Mometasone 100-5 MCG 8.8 GM Inhaler IH SCH ×2 (08:24→21:14)
[2021-09-16] MEDS: Sildenafil 20 MG Tab PO SCH ×3 (08:25→21:15)
[2021-09-16] MEDS: FLUoxetine 20 MG Cap PO SCH (08:25)
[2021-09-16] MEDS: Furosemide 20 MG Tab PO SCH (08:25)
[2021-09-16] MEDS: Tacrolimus 0.5 MG Cap PO SCH ×2 (08:27→21:15)
[2021-09-16] MEDS: SANTYL TOP SCH (08:27)
[2021-09-16] MEDS: MACITENTAN 10 MG PO SCH (08:28)
[2021-09-16] MEDS: Insulin Lispro 100 Unit/ML 3 ML KwikPen SUBCUT SCH ×3 (08:32→18:19)
[2021-09-16] MEDS: Mirabegron 25 MG Tab Extended Release PO SCH (18:24)
[2021-09-16] MEDS ORDERED: Insulin Glargine,Human Rec. Analog 100 Units/ML 3 ML Pen SUBCUT SCH (21:00)
[2021-09-16] MEDS: Gabapentin 600 MG Tab PO SCH (21:17)
[2021-09-16] MEDS ORDERED: Insulin Lispro 100 Unit/ML 3 ML KwikPen SUBCUT ONE (21:32)
[2021-09-17] MEDS: Pantoprazole 40 MG Tab.CR PO SCH (07:00)
[2021-09-17] MEDS: SANTYL TOP SCH (07:45)
[2021-09-17] MEDS: MACITENTAN 10 MG PO SCH (09:56)
[2021-09-17] MEDS: Calcitriol 0.25 MCG Cap PO SCH (09:57)
[2021-09-17] MEDS: Tacrolimus 0.5 MG Cap PO SCH (09:57)
[2021-09-17] MEDS: Formoterol/Mometasone 100-5 MCG 8.8 GM Inhaler IH SCH (09:58)
[2021-09-17] MEDS: Furosemide 20 MG Tab PO SCH (09:58)
[2021-09-17] MEDS: Ferrous Sulfate 325 MG Tab PO SCH (09:58)
[2021-09-17] MEDS: Potassium Chloride 20 MEQ Tab.ER PO SCH (09:58)
[2021-09-17] MEDS: Mycophenolate Mofetil 250 MG Cap PO SCH (09:59)
[2021-09-17] MEDS: FLUoxetine 20 MG Cap PO SCH (09:59)
[2021-09-17] MEDS: Cholecalciferol (Vitamin D3) 25 MCG Tab PO SCH (10:00)
[2021-09-17] MEDS: Sildenafil 20 MG Tab PO SCH ×2 (10:00→14:42)
[2021-09-17] MEDS: Ascorbic Acid 500 MG Tab PO SCH (10:00)
[2021-09-17] MEDS: Cyanocobalamin (Vitamin B12) 1,000 MCG Tab PO SCH (10:00)
[2021-09-17] MEDS: Insulin Lispro 100 Unit/ML 3 ML KwikPen SUBCUT SCH ×2 (10:01→11:38)
== END 2021-09-17 13:15 | disposition home health service (06) | DRG 948 ==
LOC: FB.MS 09:53
PROVIDERS: ADMIT Family Medicine; ATTEND Family Medicine
DX: R53.1 Weakness (principal); N39.0 Urinary tract infection, site not specified; Z94.4 Liver transplant status; I13.0 Hypertensive heart and chronic kidney disease with heart failure and stage 1 through stage 4 chronic kidney disease, or unspecified chronic kidney disease; D84.9 Immunodeficiency, unspecified; N17.9 Acute kidney failure, unspecified; I25.10 Atherosclerotic heart disease of native coronary artery without angina pectoris; J44.9 Chronic obstructive pulmonary disease, unspecified; Z66 Do not resuscitate; Z51.5 Encounter for palliative care; I27.20 Pulmonary hypertension, unspecified; E78.00 Pure hypercholesterolemia, unspecified; I50.9 Heart failure, unspecified; K21.9 Gastro-esophageal reflux disease without esophagitis; K59.09 Other constipation; M19.90 Unspecified osteoarthritis, unspecified site; G43.909 Migraine, unspecified, not intractable, without status migrainosus; G89.29 Other chronic pain; L98.491 Non-pressure chronic ulcer of skin of other sites limited to breakdown of skin; F32.A Depression, unspecified; E11.22 Type 2 diabetes mellitus with diabetic chronic kidney disease; N18.30 Chronic kidney disease, stage 3 unspecified; E86.0 Dehydration; Z88.2 Allergy status to sulfonamides; Z98.42 Cataract extraction status, left eye; Z98.41 Cataract extraction status, right eye; Z90.49 Acquired absence of other specified parts of digestive tract; Z90.710 Acquired absence of both cervix and uterus; Z88.1 Allergy status to other antibiotic agents; Z88.8 Allergy status to other drugs, medicaments and biological substances; Z79.4 Long term (current) use of insulin; Z79.899 Other long term (current) drug therapy
CPT/HCPCS: 36415; 71045; 80053; 81001; 82140; 82803; 82947; 83880; 84484; 85025; 85379; 93005; 94150; 94640; 97161-GP; 97530-GO; 97530-GP; 97535-GO; 97542-GO; A9270-GY; J1815; J1815-GY; J2060; J3490; J7507; J7620; J8540

== ENCOUNTER 2021-10-19 17:51 | Observation (INO) | payer MEDICARE, BC ==
[2021-10-19] MEDS ORDERED: Sodium Chloride 0.9% 10 ML Syringe FLUSH PRN (17:57)
[2021-10-19 18:12] LABS: ESTIMATED GFR 29 mL/min (>60)
[2021-10-19] MEDS ORDERED: Sodium Chloride 0.9% 1,000 ML IV SCH (18:45)
[2021-10-19] MEDS ORDERED: Non-Formulary Medication 1 Each (Polyethylene Glycol 3350 [Miralax] 17 GM Packet) PO PRN (19:02)
[2021-10-19] MEDS ORDERED: ALBUTEROL 90 MCG INH PRN (19:02)
[2021-10-19] MEDS ORDERED: Non-Formulary Medication 1 Each (Acetaminophen [Tylenol Extra Strength] 500 MG Tablet) PO PRN (19:02)
[2021-10-19] MEDS ORDERED: Non-Formulary Medication 1 Each (Iron,Carbonyl/Ascorbic Acid [Vitron-C Tablet] 1 EACH Tabl PO SCH (21:00)
[2021-10-19] MEDS ORDERED: Non-Formulary Medication 1 Each (Gabapentin [Neurontin] 600 MG Tablet) PO SCH (21:00)
[2021-10-19] MEDS ORDERED: Non-Formulary Medication 1 Each (Insulin Glarg,Human.Rec.Analog [Lantus Solostar] 100 UNIT SUBCUT SCH (21:00)
[2021-10-19] MEDS ORDERED: Non-Formulary Medication 1 Each (Mycophenolate Mofetil [Cellcept] 500 MG Tablet) PO SCH (21:00)
[2021-10-19] MEDS ORDERED: Non-Formulary Medication 1 Each (Potassium Chloride [Klor-Con M20] 20 MEQ Tab.Er) PO SCH (21:00)
[2021-10-19] MEDS ORDERED: Non-Formulary Medication 1 Each (Tacrolimus [Prograf] 0.5 MG Cap) PO SCH (21:00)
[2021-10-19] MEDS: POTASSIUM CHLORIDE 20 MEQ PO SCH (22:33)
[2021-10-19] MEDS: VITRON C PO SCH (22:34)
[2021-10-19] MEDS: CELLCEPT 500 MG PO SCH (22:36)
[2021-10-19] MEDS: SILDENAFIL 20 MG PO SCH (22:37)
[2021-10-19] MEDS: TACROLIMUS 0.5 MG PO SCH (22:42)
[2021-10-19] MEDS: GABAPENTIN 600 MG PO SCH (22:45)
[2021-10-19] MEDS: INSULIN GLARGINE HUMAN REC ANALOG 100 UNIT/ML SUBCUT SCH (22:48)
[2021-10-20] MEDS ORDERED: Sodium Chloride 0.9% 1,000 ML IV SCH (02:16)
[2021-10-20] MEDS ORDERED: Non-Formulary Medication 1 Each (Omeprazole [Omeprazole] 20 MG Cap.Cr) PO SCH (06:00)
[2021-10-20] MEDS: OMEPRAZOLE 20 MG PO SCH (06:57)
[2021-10-20 07:07] LABS: ESTIMATED GFR 36 mL/min (>60)
[2021-10-20] MEDS ORDERED: Acetaminophen 500 MG Tab PO PRN (08:00)
[2021-10-20] MEDS ORDERED: Albuterol 8 GM Inhaler INH PRN (08:00)
[2021-10-20] MEDS ORDERED: cefTRIAXone 1 GM in Sodium Chloride 0.9% 50 ML IV SCH (08:45)
[2021-10-20] MEDS ORDERED: TRIMETHOPRIM 100 MG PO SCH (09:00)
[2021-10-20] MEDS ORDERED: Calcitriol 0.25 MCG Cap *PTOM PO SCH (09:00)
[2021-10-20] MEDS ORDERED: Polyethylene Glycol 3350 Powder 17 GM Packet PO PRN (09:00)
[2021-10-20] MEDS: DEXAMETHASONE 1 MG PO SCH (09:53)
[2021-10-20] MEDS: FLUTICASONE INH SCH (09:54)
[2021-10-20] MEDS: FLUOXETINE HCL 40 MG PO SCH (09:54)
[2021-10-20] MEDS: VILANTEROL INH SCH (09:54)
[2021-10-20] MEDS: POTASSIUM CHLORIDE 20 MEQ PO SCH ×2 (09:54→20:22)
[2021-10-20] MEDS: Cyanocobalamin (Vitamin B12) 1,000 MCG Tab *PTOM PO SCH (09:55)
[2021-10-20] MEDS: FUROSEMIDE 40 MG PO SCH (09:55)
[2021-10-20] MEDS: TACROLIMUS 0.5 MG PO SCH ×2 (09:56→20:24)
[2021-10-20] MEDS: Cholecalciferol (Vitamin D3) 25 MCG Tab *PTOM PO SCH (09:56)
[2021-10-20] MEDS: CELLCEPT 500 MG PO SCH ×2 (09:57→20:24)
[2021-10-20] MEDS: SANTYL TOP SCH (09:58)
[2021-10-20] MEDS: SILDENAFIL 20 MG PO SCH ×3 (09:58→20:26)
[2021-10-20] MEDS: VITRON C PO SCH ×2 (10:00→20:26)
[2021-10-20] MEDS: cefTRIAXone 1 GM Vial IVPUSH SCH (10:10)
[2021-10-20] MEDS: Enoxaparin 30 MG/0.3 ML Syringe SUBCUT SCH (14:35)
[2021-10-20] MEDS ORDERED: MIRABEGRON 50 MG PO SCH (18:00)
[2021-10-20] MEDS ORDERED: Glucagon,Human Recombinant 1 MG Vial IM PRN (18:24)
[2021-10-20] MEDS ORDERED: 50% Dextrose in Water 50 ML Syringe IVPUSH PRN (18:24)
[2021-10-20] MEDS: GABAPENTIN 600 MG PO SCH (20:23)
[2021-10-20] MEDS: INSULIN GLARGINE HUMAN REC ANALOG 100 UNIT/ML SUBCUT SCH (20:30)
[2021-10-20] MEDS ORDERED: NOVOLOG SQ SCH (21:00)
[2021-10-21] MEDS: FLUTICASONE INH SCH ×2 (03:17→09:05)
[2021-10-21] MEDS: VILANTEROL INH SCH ×2 (03:17→09:05)
[2021-10-21] MEDS: OMEPRAZOLE 20 MG PO SCH (05:09)
[2021-10-21 06:32] LABS: ESTIMATED GFR 39 mL/min (>60)
[2021-10-21] MEDS ORDERED: Insulin Lispro 100 Unit/ML 3 ML KwikPen SUBCUT SCH (08:00)
[2021-10-21] MEDS: POTASSIUM CHLORIDE 20 MEQ PO SCH (08:54)
[2021-10-21] MEDS: CELLCEPT 500 MG PO SCH (08:54)
[2021-10-21] MEDS: TACROLIMUS 0.5 MG PO SCH (08:55)
[2021-10-21] MEDS: Cholecalciferol (Vitamin D3) 25 MCG Tab *PTOM PO SCH (08:55)
[2021-10-21] MEDS: VITRON C PO SCH (08:56)
[2021-10-21] MEDS: SILDENAFIL 20 MG PO SCH (08:56)
[2021-10-21] MEDS: SANTYL TOP SCH (08:57)
[2021-10-21] MEDS: DEXAMETHASONE 1 MG PO SCH (08:57)
[2021-10-21] MEDS: Cyanocobalamin (Vitamin B12) 1,000 MCG Tab *PTOM PO SCH (08:57)
[2021-10-21] MEDS: FUROSEMIDE 40 MG PO SCH (08:57)
[2021-10-21] MEDS: FLUOXETINE HCL 40 MG PO SCH (08:57)
[2021-10-21] MEDS: cefTRIAXone 1 GM Vial IVPUSH SCH (09:04)
[2021-10-21] MEDS: Enoxaparin 30 MG/0.3 ML Syringe SUBCUT SCH (09:05)
== END 2021-10-21 11:20 | disposition home or self-care (01) ==
LOC: FB.ED 17:51 → UNDOADMOB 18:52 → FB.MS 18:52
PROVIDERS: ADMIT Family Medicine; ATTEND Family Medicine
DX: N30.01 Acute cystitis with hematuria (principal); E78.00 Pure hypercholesterolemia, unspecified; G43.909 Migraine, unspecified, not intractable, without status migrainosus; E11.40 Type 2 diabetes mellitus with diabetic neuropathy, unspecified; E11.22 Type 2 diabetes mellitus with diabetic chronic kidney disease; I27.20 Pulmonary hypertension, unspecified; I13.0 Hypertensive heart and chronic kidney disease with heart failure and stage 1 through stage 4 chronic kidney disease, or unspecified chronic kidney disease; I50.9 Heart failure, unspecified; J44.9 Chronic obstructive pulmonary disease, unspecified; Z94.4 Liver transplant status; Z88.2 Allergy status to sulfonamides; Z88.8 Allergy status to other drugs, medicaments and biological substances; Z88.1 Allergy status to other antibiotic agents; Z91.041 Radiographic dye allergy status; Z79.899 Other long term (current) drug therapy; Z79.4 Long term (current) use of insulin; Z98.890 Other specified postprocedural states; Z90.49 Acquired absence of other specified parts of digestive tract; Z87.891 Personal history of nicotine dependence
CPT/HCPCS: 36415; 71045; 80048; 81001; 83735; 83880; 84484; 85025; 85027; 85379; 87086; 87088; 87186; 96360; 96361; 96372; 96374; 96376; 99217; 99219; 99283; 99285-25; A9270-GY; G0378; J0696; J1650; J1815; J1815-GY; J3490; J7030; J7507; J8540

== ENCOUNTER 2021-10-22 11:41 | Emergency (ER) | payer MEDICARE, BC ==
[2021-10-22] MEDS ORDERED: Albuterol/Ipratropium 3.0-0.5 MG/3 ML Neb Soln NEB ONE ×2 (11:58→13:20)
[2021-10-22 12:45] LABS: ESTIMATED GFR 29 mL/min (>60)
[2021-10-22 12:50] LABS: BASE EXCESS VENOUS,POC -7 mmol/L (-2 - 3+); PCO2 VENOUS,POC 32 mmHg (41-51); PH VENOUS,POC 7.35 pH Units (7.32-7.43)
[2021-10-22] MEDS ORDERED: Dexamethasone 4 MG Tab PO ONE (13:23)
[2021-10-22] MEDS ORDERED: Furosemide 20 MG/2 ML VIAL IVPUSH ONE (13:28)
[2021-10-22] MEDS ORDERED: Meropenem 1 GM SDV IVPUSH ONE (14:12)
[2021-10-22] MEDS ORDERED: DAPTOmycin 500 MG Vial IVPUSH ONE (14:12)
[2021-10-22 14:31] LABS: CORONAVIRUS COVID-19 NAA NEGATIVE (NEGATIVE)
== END 2021-10-22 17:10 ==
LOC: FB.ED 11:41
DX: J44.1 Chronic obstructive pulmonary disease with (acute) exacerbation (principal); J18.9 Pneumonia, unspecified organism; R09.02 Hypoxemia; I13.0 Hypertensive heart and chronic kidney disease with heart failure and stage 1 through stage 4 chronic kidney disease, or unspecified chronic kidney disease; E11.22 Type 2 diabetes mellitus with diabetic chronic kidney disease; I50.9 Heart failure, unspecified; N18.9 Chronic kidney disease, unspecified; N39.0 Urinary tract infection, site not specified; B96.1 Klebsiella pneumoniae [K. pneumoniae] as the cause of diseases classified elsewhere; D84.9 Immunodeficiency, unspecified; R79.82 Elevated C-reactive protein (CRP); Z66 Do not resuscitate; F43.9 Reaction to severe stress, unspecified; E78.00 Pure hypercholesterolemia, unspecified; K21.9 Gastro-esophageal reflux disease without esophagitis; Z20.822 Contact with and (suspected) exposure to COVID-19; Z88.2 Allergy status to sulfonamides; Z88.1 Allergy status to other antibiotic agents; Z91.041 Radiographic dye allergy status; Z79.899 Other long term (current) drug therapy
CPT/HCPCS: 0241U; 36415; 71045; 80053; 81001; 83605; 83880; 84484; 85025; 85379; 86140; 87040; 92950; 93010; 94640; 96374; 96375; 99285; 99285-25; J0878; J1940; J2185; J7620; J8540